=== PATIENT | female | born 1965 | race Caucasian/White ===

== ENCOUNTER 2021-06-06 11:46 | Inpatient (IN) ==
[2021-06-06] MEDS ORDERED: dexAMETHasone**PF** 10 MG/ML VIAL IV ONE (12:32)
[2021-06-06] MEDS ORDERED: SODIUM CHLORIDE 0.9% 1000ML 1,000 ML IV ONE (12:32)
[2021-06-06] MEDS ORDERED: MoRPHine SULFATE 4 MG/ML 1 ML CARP\\VIAL IV STA (12:32)
[2021-06-06] MEDS ORDERED: ACETAMINOPHEN 1,000 MG/100 ML VIAL IV STA (12:32)
[2021-06-06 13:04] LABS: Hematocrit (blood only) 35.8 % (37-47); Hemoglobin 12.7 g/dL (12.0-16.0); Mean Corpuscular Hemoglobin 31.9 pg (25-34); Mean Corpuscular Hgb Conc 35.5 g/dL (32-36); Mean Corpuscular Volume 89.9 fL (80-100); Mean Platelet Volume 10.1 fL (7.4-10.4); Platelet Count 145 K/uL (130-400); RDW Coefficient of Variation 14.2 % (11.5-14.5); Red Blood Count 3.98 M/uL (4.2-5.4); White Blood Count 0.43 K/uL (4.8-10.8)
--- NOTE | 2021-06-06 13:08 | Emergency Department Note ---
Impression & Plan Multifocal pneumonia, Leukopenia, Hypokalemia, Hypomagnesemia, Follicular lymphoma, Elevated troponin ED Provider Note NAME: MUSTAPHA BRUNSON AGE: 56 SEX: F ARRIVES VIA: Walk-In INFORMANT: Patient ED PROVIDER(S): Gildardo Carter MD CHIEF COMPLAINT: Left neck pain/shoulder pain, back pain, follicular lymphoma. PLAN: Disposition: Admit MEDICAL DECISION MAKING: The patient is a pleasant 56-year-old woman with a past medical history of follicular lymphoma who follows with [facility] oncology currently on rituximab, COPD with history of daily smoking, history of achalasia, status post laparoscopic Heller myotomy and/or fundoplication on 03/08 2021 which was performed for her dysphagia and regurgitation who presents to the emergency department accompanied by her daughter for worsening left neck, chest and shoulder pain that has been present for the past 2 months or more and is been worsening over the past week with development of mid back and lower back pain as well. She reports she has had ongoing chronic cough and congestion that is no worse or better. She denies any fevers. She has any vomiting or diarrhea. She denies any known COVID-19 exposures. On arrival the patient is uncomfortable but no acute distress, tachycardic in the 130s in the setting of her pain and use of her inhaler, but signs otherwise stable. O2 saturation is 95% on room air and greater. EKG demonstrates sinus tachycardia in the 130s with ST and T wave abnormalities without overt ST elevation. Chest x-ray with bibasilar opacities left greater than right suspicious for aspiration pneumonia. WBC 0.43K and so neutropenia is presumed. Hemoglobin and platelets within normal limits. Chemistry without metabolic acidosis. Potassium 3.2 and magnesium 1.4 with repletion provided. Total bilirubin 1.1 with direct bilirubin 0.4, nonspecific. LFTs are otherwise unremarkable. Initial troponin 0.05 and BNP 129, nonspecific. Lipase is not elevated. Procalcitonin was elevated at 12.2. COVID-19 RNA, ETHEL test was negative. CT of the head was negative for acute process. Sinus disease is appreciated. CT soft tissue neck negative for acute process. No enlarged lymph nodes seen. CTA of the chest negative for PE however multi focal airspace consolidation is suspicious for pneumonia. Mildly enlarged mediastinal lymph nodes are seen and may be reactive. CT of the abdomen pelvis demonstrates no additional acute findings otherwise. Patient was treated empirically with Zosyn and vancomycin. Patient and daughter agree with plan for admission for further management. Case was discussed with Rod Weiss, with Dr. Venegas Hayward Hospitalist who will evaluate the patient for admission. Triage Nursing notes reviewed and agree them. Prior medical records reviewed Vital Signs: reviewed and remarkable for tachycardia. Differential diagnosis: Cardiac ischemia, aortic dissection, pulmonary embolism, pneumothorax, pneumonia, pericarditis, myocarditis, esophageal rupture, GERD, cholecystitis, pancreatitis, musculoskeletal, as well as other pathologies. ER treatment provided: See below. Diagnostics interpreted by me: ECG: Sinus tachycardia, 133 bpm, no ectopy, ST and T wave abnormality, no overt ST elevation, QTC 580, QRS 84 Cardiac Monitoring: An order for continuous cardiac monitoring was placed and demonstrated sinus tachycardia, 133 bpm, no ectopy. Laboratory studies: See below Imaging studies: See below Consultation(s): Case was discussed with Rex Weiss ED[facility] who will evaluate the patient for admission. HPI: The patient is a pleasant 56-year-old woman with a past medical history of follicular lymphoma who follows with [facility] oncology currently on rituximab, COPD with history of daily smoking, history of achalasia, status post laparoscopic Heller myotomy and/or fundoplication on 03/08 2021 which was performed for her dysphagia and regurgitation who presents to the emergency department accompanied by her daughter for worsening left neck, chest and shoulder pain that has been present for the past 2 months or more and is been worsening over the past week with development of mid back and lower back pain as well. She reports she has had ongoing chronic cough and congestion that is no worse or better. She denies any fevers. She has any vomiting or diarrhea. She denies any known COVID-19 exposures. ROS: See above HPI for pertinent positives & negatives. A total of 10 systems reviewed and were otherwise negative. PAST MEDICAL HISTORY:See Below PAST SURGICAL HISTORY:See Below FAMILY HISTORY:See Below SOCIAL HISTORY:See Below HOME MEDICATIONS:See Below ALLERGIES:See Below VITALS:See Below PHYSICAL EXAMINATION: GENERAL: Awake, alert, uncomfortable-appearing, cachectic, in no distress HENT: Normocephalic, atraumatic. Oropharynx mucous membranes. EYES: Normal conjunctiva. Sclera non-icteric. NECK: Supple. No nuchal rigidity. FROM. No JVD. No bruits. RESPIRATORY: Scant intermittent wheeze otherwise clear to auscultation. CARDIAC: Tachycardic rate, normal rhythm. Extremities warm and well perfused. Pulses equal. ABDOMEN: Soft, non-distended. No tenderness to palpation. No rebound or guarding . No masses. RECTAL: Deferred. MUSCULOSKELETAL: Chest examination reveals no tenderness. The back is symmetrical on inspection without obvious abnormality. There is no CVA tenderness to palpation. No joint edema. LOWER EXTREMITIES: Calves are equal size bilaterally and non-tender. No edema. No discoloration. NEURO: Normal sensorium. No sensory or motor deficits noted. SKIN: No rash or jaundice noted. ED COURSE: Critical Care: I have personally spent greater than 35 minutes of critical care time in the direct management of this patient. This includes bedside care, interpretation of diagnostic studies, and testing, discussion with consultants, patient, and family members, and other required patient management activities. This 35 minutes is in excess of all separately billable procedures. 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 Beliefs That Will Affect Care: None Current Living Situation: Significant Other Feels Safe at Home: Yes Assistive Devices: Denture - Upper, Denture - Lower and Glasses Allergies Allergies Allergy/AdvReac Type Severity Reaction Status Date / Time No Known Allergies Allergy Verified 06/06/21 14:47 Home Meds Home Medications Medication Instructions Recorded Confirmed albuterol sulfate 90 mcg/actuation 2 puff INHALATION QID PRN 06/06/21 06/06/21 aerosol inhaler fluticasone propionate 50 2 spray INTRANASAL DAILY 06/06/21 06/06/21 mcg/actuation nasal spray,suspension gabapentin 100 mg capsule 100 mg PO DAILY 06/06/21 06/06/21 ibuprofen 800 mg tablet 800 mg PO TID PRN 06/06/21 06/06/21 mometasone-formoterol HFA 100 2 puff INHALATION BID 06/06/21 06/06/21 mcg-5 mcg/actuation aerosol inhaler (Dulera) pantoprazole 40 mg tablet,delayed 40 mg PO QDB 06/06/21 06/06/21 release Results & Data (ED) Vital Signs Vital Signs - 24 hr 06/06/21 11:56 06/06/21 12:10 06/06/21 12:30 Temperature 36.8 C Temperature Source Temporal Artery Scan Pulse Rate 95 H 128 H 128 H Pulse Rate [Apical] Pulse Rate from SpO2 Sensor 129 H 128 H Pulse Rhythm [Apical] Pulse Strength [Apical] Respiratory Rate 20 33 H 45 H Respiratory Effort / Characteristics Respiratory Depth Blood Pressure 112/65 Blood Pressure [Left Arm] Blood Pressure Mean 80 Blood Pressure Mean [Left Arm] Pulse Oximetry 100 99 97 Oxygen Delivery Method Room Air Sepsis Recent Fever Within 48 Hours No Sepsis New/Unexplained Change in Mental Status No Sepsis Action Taken by Nursing No Action Required 06/06/21 12:49 06/06/21 13:00 06/06/21 14:00 Temperature 36.4 C L Temperature Source Oral Pulse Rate 123 H 122 H Pulse Rate [Apical] 114 H Pulse Rate from SpO2 Sensor 122 H 121 H Pulse Rhythm [Apical] Regular Pulse Strength [Apical] Normal Respiratory Rate 40 H 30 H 18 Respiratory Effort / Characteristics Non-Labored Respiratory Depth Normal Blood Pressure 101/60 104/68 Blood Pressure [Left Arm] 105/55 L Blood Pressure Mean 73 80 Blood Pressure Mean [Left Arm] 71 Pulse Oximetry 91 98 90 Oxygen Delivery Method Room Air Sepsis Recent Fever Within 48 Hours Sepsis New/Unexplained Change in Mental Status Sepsis Action Taken by Nursing 06/06/21 15:00 06/06/21 15:30 Temperature Temperature Source Pulse Rate 107 H 113 H Pulse Rate [Apical] Pulse Rate from SpO2 Sensor 107 H 112 H Pulse Rhythm [Apical] Pulse Strength [Apical] Respiratory Rate 28 H 24 Respiratory Effort / Characteristics Respiratory Depth Blood Pressure 107/61 130/86 Blood Pressure [Left Arm] Blood Pressure Mean 76 100 Blood Pressure Mean [Left Arm] Pulse Oximetry 93 93 Oxygen Delivery Method Room Air Room Air Sepsis Recent Fever Within 48 Hours Sepsis New/Unexplained Change in Mental Status Sepsis Action Taken by Nursing Laboratory Data Attestation: I reviewed the patient's lab results. Result diagrams: 06/06/21 12:54 06/06/21 12:54 Lab Results 06/06/21 06/06/21 06/06/21 Range/Units 12:54 12:54 12:54 WBC 0.43 L* (4.8-10.8) K/uL RBC 3.98 L (4.2-5.4) M/uL Hgb 12.7 (12.0-16.0) g/dL Hct 35.8 L (37-47) % MCV 89.9 (80-100) fL MCH 31.9 (25-34) pg MCHC 35.5 (32-36) g/dL RDW Std Deviation 47.0 H (36.4-46.3) fL RDW Coeff of Dylan 14.2 (11.5-14.5) % Plt Count 145 (130-400) K/uL MPV 10.1 (7.4-10.4) fL Immature Gran % (Auto) Cancelled Neut % (Auto) Cancelled Lymph % (Auto) Cancelled Terrell % (Auto) Cancelled Eos % (Auto) Cancelled Baso % (Auto) Cancelled Neut # (Auto) Cancelled Lymph # (Auto) Cancelled Terrell # (Auto) Cancelled Eos # (Auto) Cancelled Baso # (Auto) Cancelled Immature Gran # (Auto) Cancelled Neutrophils % (Manual) Cancelled Band Neutrophils % Cancelled Lymphocytes % (Manual) Cancelled Prolymphocyte % Cancelled Reactive Lymphs % (Man) Cancelled Monocytes % (Manual) Cancelled Eosinophils % (Manual) Cancelled Basophils % (Manual) Cancelled Metamyelocytes % (Man) Cancelled Myelocytes % (Man) Cancelled Promyelocytes % (Man) Cancelled Blast Cells % (Manual) Cancelled Plasma Cell % (Manual) Cancelled Other Cells % Cancelled Nucleated RBC % Cancelled Neutrophils # (Manual) Cancelled Band Neutrophils # Cancelled Total Absolute Neuts Cancelled Lymphocytes # (Manual) Cancelled Prolymphocyte # Cancelled Reactive Lymphs # Cancelled Total Abs Lymphocytes Cancelled Monocytes # (Manual) Cancelled Eosinophils # (Manual) Cancelled Basophils # (Manual) Cancelled Metamyelocytes # (Man) Cancelled Myelocytes # (Manual) Cancelled Promyelocytes # (Man) Cancelled Blast Cells # (Man) Cancelled Plasma Cell # (Manual) Cancelled Other Cells # Cancelled Nucleated RBCs # (Man) Cancelled Hypersegmented Neuts Cancelled Hyposegmented Neuts Cancelled Hypogranular Neuts Cancelled Large Granular Lymphs Cancelled # Lrg Granular Lymphs Cancelled Hairy Cells Cancelled Smudge Cells Cancelled Toxic Granulation Cancelled Toxic Vacuolation Cancelled Dohle Bodies Cancelled Julio Rods Cancelled Hypogranular Platelets Cancelled Clumped Platelets Cancelled Giant Platelets Cancelled Platelet Satelliting Cancelled RBC Morphology Cancelled Polychromasia Cancelled Hypochromasia Cancelled Poikilocytosis Cancelled Basophilic Stippling Cancelled Anisocytosis Cancelled Microcytosis Cancelled Macrocytosis Cancelled Spherocytes Cancelled Pappenheimer Bodies Cancelled Sickle Cells Cancelled Target Cells Cancelled Tear Drop Cells Cancelled Ovalocytes Cancelled Stomatocytes Cancelled Lockett-[place] Bodies Cancelled Echinocytes Cancelled Acanthocytes (Spur) Cancelled Rouleaux Cancelled RBC Agglutinates Cancelled Schistocytes Cancelled RBC Morph Comment Cancelled Sezary Cell Cancelled Sodium 133 L (136-145) mmol/L Potassium 3.2 L (3.5-5.1) mmol/L Chloride 98 (98-107) mmol/L Carbon Dioxide 22 (21-32) mmol/L Anion Gap 13 H (3-11) BUN 19 (6-23) mg/dl Creatinine 1.04 (0.6-1.2) mg/dl Est Cr Clr Drug Dosing 49.1 ml/min Est GFR ( Amer) 70.5 ml/min Est GFR (Non-Af Amer) 60.9 ml/min BUN/Creatinine Ratio 18.3 (10-20) Glucose 105 H (70-99(Fasting)) mg/dl Lactate (0.4-2.0) mmol/L Calcium 8.8 (8.5-10.1) mg/dl Phosphorus 2.2 L (2.5-4.9) mg/dl Magnesium 1.4 L (1.7-2.4) mg/dl Total Bilirubin 1.1 H (0.2-1.0) mg/dl Direct Bilirubin 0.4 H (0-0.2) mg/dl AST 13 (13-39) U/L ALT 20 (7-52) U/L Alkaline Phosphatase 122 H (34-104) U/L Troponin I 0.05 H* (0-0.04) ng/ml B-Natriuretic Peptide (0-100) pg/ml Total Protein 6.6 (6.0-8.3) gm/dl Albumin 3.9 (3.4-5.0) gm/dl Globulin 2.7 (2.5-4.0) gm/dl Albumin/Globulin Ratio 1.4 (0.9-2) Lipase 5 L (11-82) U/L Procalcitonin 12.29 H (0-0.5) ng/ml SARS-CoV-2, RNA, NAAT (NEGATIVE) 06/06/21 06/06/21 06/06/21 Range/Units 13:08 13:10 17:14 WBC (4.8-10.8) K/uL RBC (4.2-5.4) M/uL Hgb (12.0-16.0) g/dL Hct (37-47) % MCV (80-100) fL MCH (25-34) pg MCHC (32-36) g/dL RDW Std Deviation (36.4-46.3) fL RDW Coeff of Dylan (11.5-14.5) % Plt Count (130-400) K/uL MPV (7.4-10.4) fL Immature Gran % (Auto) Neut % (Auto) Lymph % (Auto) Terrell % (Auto) Eos % (Auto) Baso % (Auto) Neut # (Auto) Lymph # (Auto) Terrell # (Auto) Eos # (Auto) Baso # (Auto) Immature Gran # (Auto) Neutrophils % (Manual) Band Neutrophils % Lymphocytes % (Manual) Prolymphocyte % Reactive Lymphs % (Man) Monocytes % (Manual) Eosinophils % (Manual) Basophils % (Manual) Metamyelocytes % (Man) Myelocytes % (Man) Promyelocytes % (Man) Blast Cells % (Manual) Plasma Cell % (Manual) Other Cells % Nucleated RBC % Neutrophils # (Manual) Band Neutrophils # Total Absolute Neuts Lymphocytes # (Manual) Prolymphocyte # Reactive Lymphs # Total Abs Lymphocytes Monocytes # (Manual) Eosinophils # (Manual) Basophils # (Manual) Metamyelocytes # (Man) Myelocytes # (Manual) Promyelocytes # (Man) Blast Cells # (Man) Plasma Cell # (Manual) Other Cells # Nucleated RBCs # (Man) Hypersegmented Neuts Hyposegmented Neuts Hypogranular Neuts Large Granular Lymphs # Lrg Granular Lymphs Hairy Cells Smudge Cells Toxic Granulation Toxic Vacuolation Dohle Bodies Julio Rods Hypogranular Platelets Clumped Platelets Giant Platelets Platelet Satelliting RBC Morphology Polychromasia Hypochromasia Poikilocytosis Basophilic Stippling Anisocytosis Microcytosis Macrocytosis Spherocytes Pappenheimer Bodies Sickle Cells Target Cells Tear Drop Cells Ovalocytes Stomatocytes Lockett-[place] Bodies Echinocytes Acanthocytes (Spur) Rouleaux RBC Agglutinates Schistocytes RBC Morph Comment Sezary Cell Sodium (136-145) mmol/L Potassium (3.5-5.1) mmol/L Chloride (98-107) mmol/L Carbon Dioxide (21-32) mmol/L Anion Gap (3-11) BUN (6-23) mg/dl Creatinine (0.6-1.2) mg/dl Est Cr Clr Drug Dosing ml/min Est GFR ( Amer) ml/min Est GFR (Non-Af Amer) ml/min BUN/Creatinine Ratio (10-20) Glucose (70-99(Fasting)) mg/dl Lactate 0.8 (0.4-2.0) mmol/L Calcium (8.5-10.1) mg/dl Phosphorus (2.5-4.9) mg/dl Magnesium (1.7-2.4) mg/dl Total Bilirubin (0.2-1.0) mg/dl Direct Bilirubin (0-0.2) mg/dl AST (13-39) U/L ALT (7-52) U/L Alkaline Phosphatase (34-104) U/L Troponin I (0-0.04) ng/ml B-Natriuretic Peptide 129 H (0-100) pg/ml Total Protein (6.0-8.3) gm/dl Albumin (3.4-5.0) gm/dl Globulin (2.5-4.0) gm/dl Albumin/Globulin Ratio (0.9-2) Lipase (11-82) U/L Procalcitonin (0-0.5) ng/ml SARS-CoV-2, RNA, NAAT NEGATIVE (NEGATIVE) Administered Medications Discontinued Medications Cefepime HCl (Cefepime 2,000 Mg/20 Ml Vial) Confirm Administered Dose 2,000 mg .ROUTE .STK-MED ONE Stop: 06/06/21 18:24 Last Admin: 06/06/21 18:26 Dose: Not Given Documented by: [id number] Dexamethasone Sodium Phosphate (DexamethasonePf 10 Mg/Ml Vial) 10 mg IV NOW ONE Stop: 06/06/21 12:33 Last Admin: 06/06/21 13:05 Dose: 10 mg Documented by: [id number] Sodium Chloride (Nss 1000ml) 1,000 mls @ 999 mls/hr IV .Q1H1M ONE Stop: 06/06/21 13:32 Last Infusion: 06/06/21 14:43 Dose: 0 mls/hr Documented by: [id number] Admin: 06/06/21 13:19 Dose: 999 mls/hr Documented by: [id number] Acetaminophen (Ofirmev) 1,000 mg in 100 mls @ 400 mls/hr IV NOW STA Stop: 06/06/21 12:46 Last Infusion: 06/06/21 13:41 Dose: 0 mls/hr Documented by: [id number] Admin: 06/06/21 13:08 Dose: 400 mls/hr Documented by: [id number] Piperacillin Sod/Tazobactam Sod (Zosyn) 4.5 gm in 120 mls @ 240 mls/hr IV NOW ONE Stop: 06/06/21 16:50 Last Infusion: 06/06/21 19:21 Dose: 0 mls/hr Documented by: [id number] Admin: 06/06/21 17:20 Dose: 240 mls/hr Documented by: [id number] Potassium Chloride (K Julio / Wtr) 10 meq in 100 mls @ 100 mls/hr IV Q1H LUDY; Protocol Stop: 06/06/21 18:29 Last Infusion: 06/06/21 19:25 Dose: 0 mls/hr Documented by: [id number] Admin: 06/06/21 18:24 Dose: 100 mls/hr Documented by: [id number] Infusion: 06/06/21 18:20 Dose: 100 mls/hr Documented by: [id number] Admin: 06/06/21 17:20 Dose: 100 mls/hr Documented by: [id number] Magnesium Sulfate/Dextrose (Magnesium Sulfate / D5w) 1 gm in 100 mls @ 100 mls/hr IV Q1H LUDY Stop: 06/06/21 18:24 Last Infusion: 06/06/21 19:26 Dose: 0 mls/hr Documented by: [id number] Admin: 06/06/21 18:26 Dose: 100 mls/hr Documented by: [id number] Infusion: 06/06/21 18:20 Dose: 100 mls/hr Documented by: [id number] Admin: 06/06/21 17:20 Dose: 100 mls/hr Documented by: [id number] Vancomycin HCl 1,250 mg/ (Sodium Chloride) 525 mls @ 200 mls/hr IV NOW ONE Stop: 06/06/21 19:21 Last Admin: 06/06/21 18:26 Dose: 200 mls/hr Documented by: [id number] Cefepime HCl 2,000 mg/ Syringe 20 mls @ 5 mls/min IV NOW STA; Protocol Stop: 06/06/21 17:54 Last Admin: 06/06/21 19:17 Dose: 5 mls/min Documented by: [id number] Ioversol (Optiray 320 125ml) 120 ml IV ONCE ONE Stop: 06/06/21 14:26 Last Admin: 06/06/21 14:25 Dose: 120 ml Documented by: [id number] Morphine Sulfate (Morphine Sulfate 4 Mg/Ml 1 Ml Carp\Vial) 4 mg IV NOW STA Stop: 06/06/21 12:33 Last Admin: 06/06/21 13:01 Dose: 4 mg Documented by: [id number] Potassium Phosphate (Potassium Phos 3 Mmol/1 Ml Infusion) 15 mmol IV NOW STA Stop: 06/06/21 18:35 Last Admin: 06/06/21 19:21 Dose: Not Given Documented by: [id number] Imaging Data Radiologist's Impression: Abdomen/Pelvis CT 06/06/21 12:30 CT ANGIOGRAM OF THE CHEST; CT SCAN OF THE ABDOMEN AND PELVIS WITH IV CONTRAST CLINICAL HISTORY: Lymphoma. Atypical chest pain. Back pain. Generalized abdominal pain. COMPARISON STUDY: Chest x-ray dated 06/06/2021. PET/CT dated 01/03/2021. TECHNIQUE: Following the IV administration of 120 of Optiray 320, CT angiogram of the chest is performed from the upper abdomen to the thoracic inlet utilizing the pulmonary embolus protocol. Images are reviewed in the axial, sagittal, coronal planes. 3-D MIPS images are created and assessed. Subsequently, CT scan of the abdomen and pelvis was performed from the lung bases to the proximal femora. Images are reviewed in the axial, sagittal, and coronal planes. IV contrast was administered without complication. A dose lowering technique was utilized adhering to the principles of ALARA. The examinations are degraded by streak artifact from the arms which could not be elevated above the chest or abdomen. CT DOSE: 1349.77 mGy.cm FINDINGS: CHEST: Thyroid: Imaged portions of the thyroid gland are normal in size and attenuation. Thoracic aorta: The thoracic aorta is normal in caliber and demonstrates standard 3-vessel arch anatomy. No dissection is seen. Pulmonary vasculature: The pulmonary trunk is normal in caliber. There are no filling defects identified in the main, lobar, or segmental pulmonary arteries to indicate pulmonary embolus. Heart: A right internal jugular central venous infusion port is in place. The heart is normal in size and without pericardial effusion. Lungs and pleural spaces: There is multifocal airspace consolidation seen throughout both lungs, most confluent at the left lung base and in the right middle lobe. No pleural effusion is identified. The trachea and central airways are clear. Mediastinum: There are numerous mildly enlarged mediastinal lymph nodes. A precarinal node on image #173 measures 10 mm short axis. A subcarinal node measures 1.2 cm in short axis. A prevascular node measures 1.0 cm in short axis. Kacie: Clear. Axillae: There is no axillary lymphadenopathy. Bony thorax: No lytic or blastic lesions are identified. ABDOMEN AND PELVIS: Liver: The contrast-enhanced liver is normal in size, contour, and attenuation. There is no intrahepatic or ductal dilatation. The hepatic veins and portal veins are patent. Gallbladder: Unremarkable. Spleen: Normal in size and attenuation, measuring 10.7 cm in length. Pancreas: Unremarkable. Adrenal glands: Unremarkable. Kidneys: The contrast enhanced kidneys are normal in size and without hydronephrosis. The kidneys enhance symmetrically. Abdominal vasculature: The abdominal aorta is normal in course and caliber noting mild atherosclerotic calcification. Bowel: Postoperative change is seen around the stomach. There is moderate colonic fecal retention. No bowel obstruction is seen. The appendix is not visualized. Peritoneum: There is no intraperitoneal free air or abdominal ascites. There is a fat-containing umbilical hernia. Lymphadenopathy: None. Pelvic viscera: The bladder is normal as visualized. The uterus is surgically ab sent. No adnexal lesion is seen. Skeletal structures: No lytic or blastic lesions are seen. IMPRESSION: 1. There is no evidence of pulmonary embolus in the main, lobar, or segmental pulmonary arteries. 2. Multifocal airspace consolidation is typical for pneumonia. Clinical correlat ion will be required and radiographic follow-up to resolution is recommended. 3. Mildly enlarged mediastinal lymph nodes are nonspecific and may be reactive. Attention at follow-up is recommended. 4. No acute infectious or inflammatory findings are identified in the abdomen or pelvis. 5. There is no lymphadenopathy seen in the abdomen or pelvis. 6. Additional findings as above. ACT 112: Negative or not required by law. Electronically signed by: Bin Alaniz M.D. 06/06/2021 2:38 PM Chest CTA 06/06/21 12:30 CT ANGIOGRAM OF THE CHEST; CT SCAN OF THE ABDOMEN AND PELVIS WITH IV CONTRAST CLINICAL HISTORY: Lymphoma. Atypical chest pain. Back pain. Generalized abdominal pain. COMPARISON STUDY: Chest x-ray dated 06/06/2021. PET/CT dated 01/03/2021. TECHNIQUE: Following the IV administration of 120 of Optiray 320, CT angiogram of the chest is performed from the upper abdomen to the thoracic inlet utilizing the pulmonary embolus protocol. Images are reviewed in the axial, sagittal, coronal planes. 3-D MIPS images are created and assessed. Subsequently, CT scan of the abdomen and pelvis was performed from the lung bases to the proximal fem ora. Images are reviewed in the axial, sagittal, and coronal planes. IV contrast was administered without complication. A dose lowering technique was utilized adhering to the principles of ALARA. The examinations are degraded by streak artifact from the arms which could not be elevated above the chest or abdomen. CT DOSE: 1349.77 mGy.cm FINDINGS: CHEST: Thyroid: Imaged portions of the thyroid gland are normal in size and attenuation. Thoracic aorta: The thoracic aorta is normal in caliber and demonstrates standard 3-vessel arch anatomy. No dissection is seen. Pulmonary vasculature: The pulmonary trunk is normal in caliber. There are no filling defects identified in the main, lobar, or segmental pulmonary arteries to indicate pulmonary embolus. Heart: A right internal jugular central venous infusion port is in place. The heart is normal in size and without pericardial effusion. Lungs and pleural spaces: There is multifocal airspace consolidation seen throughout both lungs, most confluent at the left lung base and in the right middle lobe. No pleural effusion is identified. The trachea and central airways are clear. Mediastinum: There are numerous mildly enlarged mediastinal lymph nodes. A precarinal node on image #173 measures 10 mm short axis. A subcarinal node measures 1.2 cm in short axis. A prevascular node measures 1.0 cm in short axis. Kacie: Clear. Axillae: There is no axillary lymphadenopathy. Bony thorax: No lytic or blastic lesions are identified. ABDOMEN AND PELVIS: Liver: The contrast-enhanced liver is normal in size, contour, and attenuation. There is no intrahepatic or ductal dilatation. The hepatic veins and portal veins are patent. Gallbladder: Unremarkable. Spleen: Normal in size and attenuation, measuring 10.7 cm in length. Pancreas: Unremarkable. Adrenal glands: Unremarkable. Kidneys: The contrast enhanced kidneys are normal in size and without hydronephrosis. The kidneys enhance symmetrically. Abdominal vasculature: The abdominal aorta is normal in course and caliber noting mild atherosclerotic calcification. Bowel: Postoperative change is seen around the stomach. There is moderate col onic fecal retention. No bowel obstruction is seen. The appendix is not visualized. Peritoneum: There is no intraperitoneal free air or abdominal ascites. There is a fat-containing umbilical hernia. Lymphadenopathy: None. Pelvic viscera: The bladder is normal as visualized. The uterus is surgically absent. No adnexal lesion is seen. Skeletal structures: No lytic or blastic lesions are seen. IMPRESSION: 1. There is no evidence of pulmonary embolus in the main, lobar, or segmental pulmonary arteries. 2. Multifocal airspace consolidation is typical for pneumonia. Clinical correlation will be required and radiographic follow-up to resolution is recommended. 3. Mildly enlarged mediastinal lymph nodes are nonspecific and may be reactive. Attention at follow-up is recommended. 4. No acute infectious or inflammatory findings are identified in the abdomen or pelvis. 5. There is no lymphadenopathy seen in the abdomen or pelvis. 6. Additional findings as above. ACT 112: Negative or not required by law. Electronically signed by: Bin Alaniz M.D. 06/06/2021 2:38 PM Chest X-Ray 06/06/21 12:30 XR chest 1V portable CLINICAL HISTORY: Atypical chest pain. COMPARISON STUDY: PET/CT January 03, 2021. FINDINGS: Right internal jugular [id number] is in place. No pneumothorax or pleural effusion is noted. Bibasilar opacities are noted, greater within the left lung. There is no evidence for pulmonary edema. Cardiac size is normal. Left upper quadrant surgical clips are incidentally noted. IMPRESSION: Bibasilar consolidation, greater within the left lung. The findings favor pneumonia or aspiration pneumonitis. Radiographic follow-up to ensure resolution is recommended. ACT 112: Negative or not required by law. Electronically signed by: Cl Espinal M.D. 06/06/2021 1:09 PM [address] Tissue Neck [address] 06/06/21 12:30 CT soft tissue neck w con CLINICAL HISTORY: L neck/shoulder/chest, back pain, h/o lymphoma Technique: Axial CT images of the soft tissues of the neck were obtained following intravenous administration of 100 cc of Omnipaque 300. Automated dose lowering techniques and/or adjustment according to patient size were utilized for this exam. Comparison: None available at the time of this dictation. Findings: There are no masses or inflammatory changes seen within the soft tissues of the neck. No enlarged lymph nodes are seen. The parotid glands, submandibular glands, and thyroid gland are unremarkable. The oropharynx, hypopharynx, larynx, and trachea are patent. Imaged portions of the brain parenchyma are unremarkable. Sinus disease is again seen in the maxillary and ethmoid air cells. Impression: No acute abnormalities and in particular no evidence of lymphadenopathy. ACT 112: Negative or not required by law. Electronically signed by: Yonis Newton M.D. 06/06/2021 2:[address] 06/06/21 13:15 CT head/brain wo con CLINICAL HISTORY: left neck pain, lymphoma Technique: Contiguous axial CT images of the head were acquired from the base of the skull to the vertex without intravenous contrast administration. Images were viewed in brain, subdural and bone windows. Automated dose lowering techniques and/or adjustment according to patient size were utilized for this exam. Comparison: None available at the time of this dictation. Findings: The ventricles, basal cisterns, and cerebral sulci are normal. There is no acute intracranial hemorrhage or evidence of acute territorial infarction. Neither mass effect, shift of the midline structures, nor abnormal extra-axial fluid collections are shown. Soft tissue thickening is seen in the ethmoid and right greater than left maxillary sinuses. The orbits appear normal. There are no acute fractures of the calvaria or scalp swelling. Impression: No acute intracranial hemorrhage, no evidence of acute territorial infarction or other acute intracranial disease process. Sinus disease is seen. ACT 112: Negative or not required by law. Electronically signed by: Yonis Newton M.D. 06/06/2021 2:26 PM Discharge Plan Visit Data Chief Complaint: Neck Injury/Pain Stated Complaint: NECK AND BACK PAIN, HEADACHE ED Provider: Gildardo Carter Discharge Problem: Multifocal pneumonia, Leukopenia, Hypokalemia, Hypomagnesemia, Follicular lymphoma, Elevated troponin Forms [facility] Prescriptions Prescriptions: No Action ibuprofen 800 mg tablet 800 mg PO TID PRN (Reason: Pain) RF: 0 pantoprazole 40 mg tablet,delayed release (DR/EC) 40 mg PO QDB RF: 0 gabapentin 100 mg capsule 100 mg PO DAILY RF: 0 albuterol sulfate 90 mcg/actuation HFA aerosol inhaler 2 puff INHALATION QID PRN (Reason: Shortness Of Breath) RF: 0 Dulera 100-5 mcg/actuation HFA aerosol inhaler 2 puff INHALATION BID RF: 0 fluticasone propionate 50 mcg/actuation spray,suspension 2 spray INTRANASAL DAILY RF: 0 Referrals Referrals: PCP,NO [Physician] - Discharge Problem: Leukopenia Qualifiers: Leukopenia type: unspecified Qualified Code(s): D72.819 - Decreased white blood cell count, unspecified Follicular lymphoma Qualifiers: Follicular lymphoma type: unspecified follicular type Lymphoma site: unspecified region Qualified Code(s): C82.90 - Follicular lymphoma, unspecified, unspecified site
--- NOTE | 2021-06-06 13:10 | XRay Report ---
XR chest 1V portable CLINICAL HISTORY: Atypical chest pain. COMPARISON STUDY: PET/CT January 03, 2021. FINDINGS: Right internal jugular [id number]-[id number] is in place. No pneumothorax or pleural effusion is no mark. Bibasilar opacities are noted, greater within the left lung. There is no evidence for pulmonary edema. Cardiac size is normal. Left upper quadrant surgical clips are incidentally noted. IMPRESSION: Bibasilar consolidation, greater within the left lung. The findings favor pneumonia or a spiration pneumonitis. Radiographic follow-up to ensure resolution is recommended. ACT 112: Negative or not required by law. Electronically signed by: Cl Espinal M.D. 06/06/2021 1:09 PM
[2021-06-06 13:40] LABS: Troponin I 0.05 ng/ml (0-0.04)
[2021-06-06 13:50] LABS: Albumin Globulin Ratio 1.4 (0.9-2); Albumin Level 3.9 gm/dl (3.4-5.0); BUN Creatinine Ratio 18.3 (10-20); Bilirubin Direct 0.4 mg/dl (0-0.2); Bilirubin,Total 1.1 mg/dl (0.2-1.0); Calcium 8.8 mg/dl (8.5-10.1); Creatinine Clr Calc Pharmacy 49.1 ml/min; Est GFR (African American) 70.5 ml/min; Est GFR (Non-African American) 60.9 ml/min; Globulin 2.7 gm/dl (2.5-4.0); Magnesium 1.4 mg/dl (1.7-2.4); Phosphorus 2.2 mg/dl (2.5-4.9); Potassium 3.2 mmol/L (3.5-5.1); Total Protein 6.6 gm/dl (6.0-8.3)
[2021-06-06] MEDS ORDERED: OPTIRAY 320 125ml IV ONE (14:25)
--- NOTE | 2021-06-06 14:27 | CT Scan Report ---
CT head/brain wo con CLINICAL HISTORY: left neck pain, lymphoma Technique: Contiguous axial CT images of the head were acquired from the base of the skull to the ariel julia without intravenous contrast administration. Images were viewed in brain, subdural and bone [facility] ws. Automated dose lowering techniques and/or adjustment according to patient size were utilized for this exam. Comparison: None available at the time of this dictation. Findings: The ventricles, basal cisterns, and cerebral sulci are normal. There is no acute intracranial hemorrh age or evidence of acute territorial infarction. Neither mass effect, shift of the midline structures , nor abnormal extra-axial fluid collections are shown. Soft tissue thickening is seen in the ethmoid and right greater than left maxillary sinuses. The orbi ts appear normal. There are no acute fractures of the calvaria or scalp swelling. Impression: No acute intracranial hemorrhage, no evidence of acute territorial infarction or other acute intracra nial disease process. Sinus disease is seen. ACT 112: Negative or not required by law. Electronically signed by: Yonis Newton M.D. 06/06/2021 2:26 PM
--- NOTE | 2021-06-06 14:35 | CT Scan Report ---
CT soft tissue neck w con CLINICAL HISTORY: L neck/shoulder/chest, back pain, h/o lymphoma Technique: Axial CT images of the soft tissues of the neck were obtained following intravenous admini stration of 100 cc of Omnipaque 300. Automated dose lowering techniques and/or adjustment according t o patient size were utilized for this exam. Comparison: None available at the time of this dictation. Findings: There are no masses or inflammatory changes seen within the soft tissues of the neck. No enlarged ly mph nodes are seen. The parotid glands, submandibular glands, and thyroid gland are unremarkable. T he oropharynx, hypopharynx, larynx, and trachea are patent. Imaged portions of the brain parenchyma are unremarkable. Sinus disease is again seen in the maxilla ry and ethmoid air cells. Impression: No acute abnormalities and in particular no evidence of lymphadenopathy. ACT 112: Negative or not required by law. Electronically signed by: Yonis Newton M.D. 06/06/2021 2:33 PM
--- NOTE | 2021-06-06 14:39 | CT Scan Report ---
CT ANGIOGRAM OF THE CHEST; CT SCAN OF THE ABDOMEN AND PELVIS WITH IV CONTRAST CLINICAL HISTORY: Lymphoma. Atypical chest pain. Back pain. Generalized abdominal pain. COMPARISON STUDY: Chest x-ray dated 06/06/2021. PET/CT dated 01/03/2021. TECHNIQUE: Following the IV administration of 120 of Optiray 320, CT angiogram of the chest is perfor med from the upper abdomen to the thoracic inlet utilizing the pulmonary embolus protocol. Images are reviewed in the axial, sagittal, coronal planes. 3-D MIPS images are created and assessed. Subsequen tly, CT scan of the abdomen and pelvis was performed from the lung bases to the proximal femora. Imag es are reviewed in the axial, sagittal, and coronal planes. IV contrast was administered without comp lication. A dose lowering technique was utilized adhering to the principles of ALARA. The examination s are degraded by streak artifact from the arms which could not be elevated above the chest or abdome n. CT DOSE: 1349.77 mGy.cm FINDINGS: CHEST: Thyroid: Imaged portions of the thyroid gland are normal in size and attenuation. Thoracic aorta: The thoracic aorta is normal in caliber and demonstrates standard 3-vessel arch anato my. No dissection is seen. Pulmonary vasculature: The pulmonary trunk is normal in caliber. There are no filling defects identif ied in the main, lobar, or segmental pulmonary arteries to indicate pulmonary embolus. Heart: A right internal jugular central venous infusion port is in place. The heart is normal in size and without pericardial effusion. Lungs and pleural spaces: There is multifocal airspace consolidation seen throughout both lungs, most confluent at the left lung base and in the right middle lobe. No pleural effusion is identified. The trachea and central airways are clear. Mediastinum: There are numerous mildly enlarged mediastinal lymph nodes. A precarinal node on image # 173 measures 10 mm short axis. A subcarinal node measures 1.2 cm in short axis. A prevascular node me asures 1.0 cm in short axis. Kacie: Clear. Axillae: There is no axillary lymphadenopathy. Bony thorax: No lytic or blastic lesions are identified. ABDOMEN AND PELVIS: Liver: The contrast-enhanced liver is normal in size, contour, and attenuation. There is no intrahepa tic or ductal dilatation. The hepatic veins and portal veins are patent. Gallbladder: Unremarkable. Spleen: Normal in size and attenuation, measuring 10.7 cm in length. Pancreas: Unremarkable. Adrenal glands: Unremarkable. Kidneys: The contrast enhanced kidneys are normal in size and without hydronephrosis. The kidneys enh ance symmetrically. Abdominal vasculature: The abdominal aorta is normal in course and caliber noting mild atheroscleroti c calcification. Bowel: Postoperative change is seen around the stomach. There is moderate colonic fecal retention. No bowel obstruction is seen. The appendix is not visualized. Peritoneum: There is no intraperitoneal free air or abdominal ascites. There is a fat-containing umbi lical hernia. Lymphadenopathy: None. Pelvic viscera: The bladder is normal as visualized. The uterus is surgically absent. No adnexal lesi on is seen. Skeletal structures: No lytic or blastic lesions are seen. IMPRESSION: 1. There is no evidence of pulmonary embolus in the main, lobar, or segmental pulmonary arteries. 2. Multifocal airspace consolidation is typical for pneumonia. Clinical correlation will be required and radiographic follow-up to resolution is recommended. 3. Mildly enlarged mediastinal lymph nodes are nonspecific and may be reactive. Attention at follow-u p is recommended. 4. No acute infectious or inflammatory findings are identified in the abdomen or pelvis. 5. There is no lymphadenopathy seen in the abdomen or pelvis. 6. Additional findings as above. ACT 112: Negative or not required by law. Electronically signed by: Bin Alaniz M.D. 06/06/2021 2:38 PM
--- NOTE | 2021-06-06 16:04 | Electrocardiogram Report ---
Test Reason : Blood Pressure : / mmHG Vent. Rate : 133 BPM Atrial Rate : 133 BPM P-R Int : 112 ms QRS Dur : 084 ms QT Int : 390 ms P-R-T Axes : 000 086 086 degrees QTc Int : 580 ms Sinus tachycardia Abnormal ECG When compared with ECG of 24-DEC-2019 12:50, Vent. rate has increased BY [address] now depressed in Lateral leads Nonspecific T wave abnormality now evident in Anterolateral leads Confirmed by Angel Arevalo ([id number]) on 06/06/2021 4:04:03 PM Referred By: REFERRED SELF Confirmed By:Supa Arevalo
[2021-06-06] MEDS ORDERED: PIPERACILLIN/TAZOBACTAM 4.5 GM/120 ML BAG IV ONE (16:21)
[2021-06-06] MEDS ORDERED: PIPERACILL/TAZOBAC CONSULT ACTIVE PRN (16:21)
[2021-06-06] MEDS ORDERED: VANCOMYCIN CONSULT ACTIVE PRN (16:44)
[2021-06-06] MEDS ORDERED: VANCOMYCIN HCL 1,250 MG in SODIUM CHLORIDE 0.9% 500 ML IV ONE (16:44)
[2021-06-06] MEDS: POTASSIUM CHLORIDE / WTR 10 MEQ/100 ML PLCT IV SCH ×2 (17:20→18:24)
[2021-06-06] MEDS: MAGNESIUM SULFATE / D5W 1 GM/100 ML BAG IV SCH ×2 (17:20→18:26)
[2021-06-06] MEDS ORDERED: CEFEPIME 2,000 MG in SYRINGE 0 ML IV STA (17:51)
[2021-06-06] MEDS ORDERED: CONSULT PHARMACY STA (17:51)
--- NOTE | 2021-06-06 18:12 | History & Physical Report ---
Date of Service June 06, 2021 Assessment & Plan (1) Multifocal pneumonia: Plan: COVID negative in ED, procalcitonin 12.29, leukopenic/neutropenic - Admit to PCU - Broad-spectrum antibiotic coverage with Cefepime/Vanco for now - cultures pending, consult ID - Continue nebs, maintenance inhaler - Incentive spirometry (2) Leukopenia: Plan: Spoke with pt's oncologist - unlikely related to rituximab, more likely related to infection - Daily labs - If not improving with appropriate antibiotic therapy, consider Neupogen per oncology - Neutropenic precautions (3) Left shoulder pain: Plan: Ongoing issue x 2 months - Check x-rays (4) Hypokalemia: (5) Hypomagnesemia: (6) Hypophosphatemia: (7) Chronic obstructive pulmonary disease: (8) Follicular lymphoma: Plan: In remission per last oncology note - on maintenance rituximab - Pt was scheduled for an outpatient PET scan on Sunday - may need to reschedule if still admitted Plan: Replete multiple electrolyte abnormalities and recheck in AM Pt seen and reviewed with collaborating physician, Dr. Venegas. Plan of care discussed and as outlined above. Code Status: Full code DVT Prophylaxis: Juan Jorgensen PA-C History of Present Illness Chief Complaint: weakness, generalized pain Primary Care Provider: Steve Quiñones PA-C This is a 56 y/o female with a PMH of stage IV low-grade follicular lymphoma (on maintenance rituximab), achalasia s/p Heller myotomy w/ Jaison fundoplication, and COPD who presented to the ED today with worsening shoulder pain that is now present diffusely as well as 3 days of chills, sweats, worsening productive cough and SOB. Pt completed 6 cycles of bendamustine and rituximab for the lymphoma on 07/08/20 and is now on maintenance rituximab with her last treatment on 05/19/21. She does still have a port in place. She reports left shoulder pain for at least the past two months that is aching and burning in character. The pain may radiate down her left side and to her back. She has been using ibuprofen 800 mg for this with minimal relief. She also notes ongoing sinus issues for which she has been on multiple courses of antibiotics over the past year. Over the past 2-3 days, she has developed shaking chills and soaking sweats. Unsure if she had a fever. She does have a chronic cough related to underlying COPD but this has been worsening and is productive of yellow sputum, no hemoptysis. She also notes increasing shortness of breath over the past two days. Typically, she uses her rescue albuterol inhaler once a day but used it at least four times yesterday with partial relief. Today she notes a DAMON. She is gagging but denies nausea or vomiting, rather relating this to ongoing PND. She has noted a "pinching" pain in her bilateral chest over the past few days, but only when she rolls on her side. It is relieved by lying flat. Allergies Allergy/AdvReac Type Severity Reaction Status Date / Time No Known Allergies Allergy Verified 06/06/21 14:47 Home Medications Medication Instructions Recorded Confirmed Type albuterol sulfate 90 mcg/actuation 2 puff INHALATION QID PRN 06/06/21 06/06/21 History aerosol inhaler fluticasone propionate 50 2 spray INTRANASAL DAILY 06/06/21 06/06/21 History mcg/actuation nasal spray,suspension gabapentin 100 mg capsule 100 mg PO DAILY 06/06/21 06/06/21 History ibuprofen 800 mg tablet 800 mg PO TID PRN 06/06/21 06/06/21 History mometasone-formoterol HFA 100 2 puff INHALATION BID 06/06/21 06/06/21 History mcg-5 mcg/actuation aerosol inhaler (Dulera) pantoprazole 40 mg tablet,delayed 40 mg PO QDB 06/06/21 06/06/21 History release Past Med/Surg History Medical History Achalasia Chronic obstructive pulmonary disease Follicular lymphoma Restless leg syndrome Surgical History H/O unilateral oophorectomy History of fundoplication Heller myotomy with Jaison fundoplication in 03/08/21 History of tonsillectomy History of tooth extraction Family History Other No significant family history Social History Smoking Status: Current every day smoker Tobacco Type: Cigarettes Cigarettes Per Day: 10; Second Hand Exposure: Yes; Hx Alcohol Use: No Hx Substance Use: No Preferred Language: Uzbek Communication Ability: Effective Workers' Compensation Magistrate Required: No Beliefs That Will Affect Care: None Current Living Situation: Significant Other How many Children do You have: 3 Other Information That Helps Us Care for You: No Feels Safe at Home: Yes Safety Concerns: Feels Safe At This Time Assistive Devices: None Review of Systems Review of Systems: All systems reviewed & are unremarkable except as noted in HPI & below Constitutional: + chills, + sweats, + body aches, + fatigue, + weakness and + anorexia Eyes: no diplopia Ear, Nose, Mouth, Throat: + post nasal drip and + sinus pain/pressure; no sore throat Respiratory: + cough and + dyspnea; no hemoptysis Cardiovascular: + chest pain; no palpitations, no lightheadedness, no syncope and no edema Gastrointestinal: no abdominal pain, no nausea, no vomiting, no diarrhea/loose stools and no blood in stools Genitourinary: no dysuria, no urinary frequency and no hematuria Musculoskeletal: + back pain, + joint pain, + muscle weakness and + body aches Integumentary: no rash and no yellowing of the skin Neurologic: + headache(s); no seizure-like activity and no syncope Physical Exam Constitutional: + thin and + frail appearing; no acute distress Eyes: + anicteric sclerae Neck: trachea midline Respiratory: no respiratory distress and no labored breathing Auscultation: + diminished lung sounds and + wheezes (occasional faint); no rales and no rhonchi Cardiovascular: Rate/Rhythm: regular rhythm and + tachycardic Heart Sounds: + gallop; no murmur and no cardiac rub Vessels: dorsalis pedis pulses present and radial pulses present Extremities: no calf tenderness and no pedal edema Gastrointestinal (Abdomen): Inspection/Auscultation: normal bowel sounds; abdomen not distended Percussion/Palpation: abdomen soft; abdomen nontender Musculoskeletal: Head/Neck/Chest: normocephalic, head atraumatic and neck supple Skin: no jaundice Neurologic: moves all extremities; no focal motor deficits Psychiatric: Orientation: oriented x 3 Affect: + anxious affect Results & Data Results & Data ([facility]) Vital Signs (Past 12 Hours) Vital Signs Temp Pulse Pulse Resp BP BP Pulse Ox 06/06/21 15:30 113 H 24 130/86 93 06/06/21 15:00 107 H 28 H 107/61 93 06/06/21 14:00 36.4 C L 114 H 18 105/55 L 90 06/06/21 13:00 122 H 30 H 104/68 98 06/06/21 12:49 123 H 40 H 101/60 91 06/06/21 12:30 128 H 45 H 97 06/06/21 12:10 128 H 33 H 99 06/06/21 11:56 36.8 C 95 H 20 112/65 100 Laboratory Results Laboratory Results - last 24 hr 06/06/21 06/06/21 06/06/21 12:54 12:54 12:54 WBC 0.43 L* RBC 3.98 L Hgb 12.7 Hct 35.8 L MCV 89.9 MCH 31.9 MCHC 35.5 RDW Std Deviation 47.0 H RDW Coeff of Dylan 14.2 Plt Count 145 MPV 10.1 Immature Gran % (Auto) Cancelled Neut % (Auto) Cancelled Lymph % (Auto) Cancelled [place] % (Auto) Cancelled Eos % (Auto) Cancelled Baso % (Auto) Cancelled Neut # (Auto) Cancelled Lymph # (Auto) Cancelled [place] # (Auto) Cancelled Eos # (Auto) Cancelled Baso # (Auto) Cancelled Immature Gran # (Auto) Cancelled Neutrophils % (Manual) Cancelled Band Neutrophils % Cancelled Lymphocytes % (Manual) Cancelled Prolymphocyte % Cancelled Reactive Lymphs % (Man) Cancelled Monocytes % (Manual) Cancelled Eosinophils % (Manual) Cancelled Basophils % (Manual) Cancelled Metamyelocytes % (Man) Cancelled Myelocytes % (Man) Cancelled Promyelocytes % (Man) Cancelled Blast Cells % (Manual) Cancelled Plasma Cell % (Manual) Cancelled Other Cells % Cancelled Nucleated RBC % Cancelled Neutrophils # (Manual) Cancelled Band Neutrophils # Cancelled Total Absolute Neuts Cancelled Lymphocytes # (Manual) Cancelled Prolymphocyte # Cancelled Reactive Lymphs # Cancelled Total Abs Lymphocytes Cancelled Monocytes # (Manual) Cancelled Eosinophils # (Manual) Cancelled Basophils # (Manual) Cancelled Metamyelocytes # (Man) Cancelled Myelocytes # (Manual) Cancelled Promyelocytes # (Man) Cancelled Blast Cells # (Man) Cancelled Plasma Cell # (Manual) Cancelled Other Cells # Cancelled Nucleated RBCs # (Man) Cancelled Hypersegmented Neuts Cancelled Hyposegmented Neuts Cancelled Hypogranular Neuts Cancelled Large Granular Lymphs Cancelled # Lrg Granular Lymphs Cancelled Hairy Cells Cancelled Smudge Cells Cancelled Toxic Granulation Cancelled Toxic Vacuolation Cancelled Dohle Bodies Cancelled Julio Rods Cancelled Hypogranular Platelets Cancelled Clumped Platelets Cancelled Giant Platelets Cancelled Platelet Satelliting Cancelled RBC Morphology Cancelled Polychromasia Cancelled Hypochromasia Cancelled Poikilocytosis Cancelled Basophilic Stippling Cancelled Anisocytosis Cancelled Microcytosis Cancelled Macrocytosis Cancelled Spherocytes Cancelled Pappenheimer Bodies Cancelled Sickle Cells Cancelled Target Cells Cancelled Tear Drop Cells Cancelled Ovalocytes Cancelled Stomatocytes Cancelled [place] Bodies Cancelled Echinocytes Cancelled Acanthocytes (Spur) Cancelled Rouleaux Cancelled RBC Agglutinates Cancelled Schistocytes Cancelled RBC Morph Comment Cancelled Sezary Cell Cancelled Sodium 133 L Potassium 3.2 L Chloride 98 Carbon Dioxide 22 Anion Gap 13 H BUN 19 Creatinine 1.04 Est Cr Clr Drug Dosing 49.1 Est GFR ( Amer) 70.5 Est GFR (Non-Af Amer) 60.9 BUN/Creatinine Ratio 18.3 Glucose 105 H Lactate Calcium 8.8 Phosphorus 2.2 L Magnesium 1.4 L Total Bilirubin 1.1 H Direct Bilirubin 0.4 H AST 13 ALT 20 Alkaline Phosphatase 122 H Troponin I 0.05 H* B-Natriuretic Peptide Total Protein 6.6 Albumin 3.9 Globulin 2.7 Albumin/Globulin Ratio 1.4 Lipase 5 L Procalcitonin 12.29 H SARS-CoV-2, RNA, NAAT 06/06/21 06/06/21 06/06/21 13:08 13:10 17:14 WBC RBC Hgb Hct MCV MCH MCHC RDW Std Deviation RDW Coeff of Dylan Plt Count MPV Immature Gran % (Auto) Neut % (Auto) Lymph % (Auto) [place] % (Auto) Eos % (Auto) Baso % (Auto) Neut # (Auto) Lymph # (Auto) [place] # (Auto) Eos # (Auto) Baso # (Auto) Immature Gran # (Auto) Neutrophils % (Manual) Band Neutrophils % Lymphocytes % (Manual) Prolymphocyte % Reactive Lymphs % (Man) Monocytes % (Manual) Eosinophils % (Manual) Basophils % (Manual) Metamyelocytes % (Man) Myelocytes % (Man) Promyelocytes % (Man) Blast Cells % (Manual) Plasma Cell % (Manual) Other Cells % Nucleated RBC % Neutrophils # (Manual) Band Neutrophils # Total Absolute Neuts Lymphocytes # (Manual) Prolymphocyte # Reactive Lymphs # Total Abs Lymphocytes Monocytes # (Manual) Eosinophils # (Manual) Basophils # (Manual) Metamyelocytes # (Man) Myelocytes # (Manual) Promyelocytes # (Man) Blast Cells # (Man) Plasma Cell # (Manual) Other Cells # Nucleated RBCs # (Man) Hypersegmented Neuts Hyposegmented Neuts Hypogranular Neuts Large Granular Lymphs # Lrg Granular Lymphs Hairy Cells Smudge Cells Toxic Granulation Toxic Vacuolation Dohle Bodies Julio Rods Hypogranular Platelets Clumped Platelets Giant Platelets Platelet Satelliting RBC Morphology Polychromasia Hypochromasia Poikilocytosis Basophilic Stippling Anisocytosis Microcytosis Macrocytosis Spherocytes Pappenheimer Bodies Sickle Cells Target Cells Tear Drop Cells Ovalocytes Stomatocytes [place] Bodies Echinocytes Acanthocytes (Spur) Rouleaux RBC Agglutinates Schistocytes RBC Morph Comment Sezary Cell Sodium Potassium Chloride Carbon Dioxide Anion Gap BUN Creatinine Est Cr Clr Drug Dosing Est GFR ( Amer) Est GFR (Non-Af Amer) BUN/Creatinine Ratio Glucose Lactate 0.8 Calcium Phosphorus Magnesium Total Bilirubin Direct Bilirubin AST ALT Alkaline Phosphatase Troponin I B-Natriuretic Peptide 129 H Total Protein Albumin Globulin Albumin/Globulin Ratio Lipase Procalcitonin SARS-CoV-2, RNA, NAAT NEGATIVE Diagnostic Findings CT Head 06/06/21 - Impression: No acute intracranial hemorrhage, no evidence of acute territorial infarction or other acute intracranial disease process. Sinus disease is seen. CT Soft Tissue Neck 06/06/21 - Impression: No acute abnormalities and in particular no evidence of lymphadenopathy. Chest X-ray 06/06/21 - IMPRESSION: Bibasilar consolidation, greater within the left lung. The findings favor pneumonia or aspiration pneumonitis. Radiographic follow-up to ensure resolution is recommended. CTA Chest/CT Abd/Pel 06/06/21 - IMPRESSION: 1. There is no evidence of pulmonary embolus in the main, lobar, or segmental pulmonary arteries. 2. Multifocal airspace consolidation is typical for pneumonia. Clinical correlation will be required and radiographic follow-up to resolution is recommended. 3. Mildly enlarged mediastinal lymph nodes are nonspecific and may be reactive. Attention at follow-up is recommended. 4. No acute infectious or inflammatory findings are identified in the abdomen or pelvis. 5. There is no lymphadenopathy seen in the abdomen or pelvis. 6. Additional findings as above. Medications Administered Potassium Chloride (K Julio / Wtr) 10 meq in 100 mls @ 100 mls/hr IV Q1H LUDY; Protocol Stop: 06/06/21 18:29 Last Admin: 06/06/21 17:20 Dose: 100 mls/hr Documented by: [id number] Magnesium Sulfate/Dextrose (Magnesium Sulfate / D5w) 1 gm in 100 mls @ 100 mls/hr IV Q1H LUDY Stop: 06/06/21 18:24 Last Admin: 06/06/21 17:20 Dose: 100 mls/hr Documented by: [id number] Discontinued Medications Dexamethasone Sodium Phosphate (DexamethasonePf 10 Mg/Ml Vial) 10 mg IV NOW ONE Stop: 06/06/21 12:33 Last Admin: 06/06/21 13:05 Dose: 10 mg Documented by: [id number] Sodium Chloride (Nss 1000ml) 1,000 mls @ 999 mls/hr IV .Q1H1M ONE Stop: 06/06/21 13:32 Last Infusion: 06/06/21 14:43 Dose: 0 mls/hr Documented by: [id number] Admin: 06/06/21 13:19 Dose: 999 mls/hr Documented by: [id number] Acetaminophen (Ofirmev) 1,000 mg in 100 mls @ 400 mls/hr IV NOW STA Stop: 06/06/21 12:46 Last Infusion: 06/06/21 13:41 Dose: 0 mls/hr Documented by: [id number] Admin: 06/06/21 13:08 Dose: 400 mls/hr Documented by: [id number] Piperacillin Sod/Tazobactam Sod (Zosyn) 4.5 gm in 120 mls @ 240 mls/hr IV NOW ONE Stop: 06/06/21 16:50 Last Admin: 06/06/21 17:20 Dose: 240 mls/hr Documented by: [id number] Ioversol (Optiray 320 125ml) 120 ml IV ONCE ONE Stop: 06/06/21 14:26 Last Admin: 06/06/21 14:25 Dose: 120 ml Documented by: [id number] Morphine Sulfate (Morphine Sulfate 4 Mg/Ml 1 Ml Carp\\Vial) 4 mg IV NOW STA Stop: 06/06/21 12:33 Last Admin: 06/06/21 13:01 Dose: 4 mg Documented by: [id number] Code Status & VTE Plan VTE Prophylaxis Plan VTE Prophylaxis will be ordered: Yes Supervising Physician Co-Signing Physician Notes 56 y/o female with a PMH of stage IV low-grade follicular lymphoma (on maintenance rituximab), achalasia s/p Heller myotomy w/ Jaison fundoplication, and COPD who presented to the ED 06/06 with worsening L shoulder pain [aching and burning character] and left hip pain since 3 days [employer]ARD WORK[employer]. She uses heat and ibuprofen with minimal relief. She also reports chills and sweats, trouble swallowing, worsening productive cough (yellow) and shortness of breath. Upon lab review see his WBC of 0.43K, elevated procalcitonin, absolute neutropenia, mild hyponatremia, low potassium and magnesium, mildly elevated troponin at 0.05. Imagings reviewed. CTAP/CTA chest positive for pneumonia associated with mildly enlarged mediastinal lymph nodes likely reactive. No other acute findings appreciated. Soft tissue neck and head CT with no acute findings. For neutropenia and pneumonia, continue with vancomycin and Zosyn. ID consult. Follow cultures. Monitor and replete electrolytes. X-ray left shoulder. Trend troponins. Speech consult for swallowing difficulty. Upon examination GENERAL: Alert and oriented x3. NAD, on RA. HEENT: No pallor, no icterus. Pupils equal, round and reactive to light. Oral mucosa moist. NECK: No JVD, no neck masses. Right chest port noted without signs and symptoms of infection. HEART: S1 and S2 heard. Regular rate and rhythm. No murmur, no gallop. RESPIRATORY SYSTEM: Normal AP diameter. No accessory muscle use. No wheezing, b/l bb crackles. ABDOMEN: Soft, bowel sounds present, nontender, no distention. CENTRAL NERVOUS SYSTEM: No facial droop. Speech is clear. Obeys simple commands. Moves extremities. EXTREMITIES: No edema, no erythema seen. Left shoulder and left hip not tender on examination. I have seen and examined the patient and have discussed the case with the provider above. I agree with the assessment and plan as stated.
[2021-06-06] MEDS ORDERED: CEFEPIME 2,000 MG/20 ML VIAL ONE (18:23)
[2021-06-06] MEDS ORDERED: MAGNESIUM SULFATE / D5W 1 GM/100 ML BAG IV ONE (18:34)
[2021-06-06] MEDS ORDERED: POTASSIUM PHOS 3 MMOL/1 ML INFUSION IV STA (18:34)
[2021-06-06] MEDS ORDERED: POTASSIUM PHOSPHATE 15 MMOL in SODIUM CHLORIDE 0.9% 250 ML IV ONE (18:45)
[2021-06-06] MEDS: ALBUT/IPRATROP 3MG/0.5MG NEB 3 ML VIAL NEB SCH (20:44)
--- NOTE | 2021-06-06 20:56 | Pharmacy Report ---
Pharmacy Abx Dose Short Note - Date of Service June 06, 2021 - Assessment & Plan Assessment 56 year old F receiving IV Vancomycin and Cefepime for treatment of multi-focal pneumonia Day # 1 of antimicrobial therapy. * Patient received Vancomycin 1250mg (~25mg/kg) IV x 1 as a loading dose in the ED * sCr = 1.04 mg/dL with estimated CrCl ~49 mL/min. Estimated pharmacokinetic parameters: * Ke ~0.045/hr, T1/2 ~15.4 hrs Plan Vancomycin * Vancomycin AUC is preferred method for dosing Vancomycin * According to [facility], Vancomycin regimen of 750mg IV q18 is predicted to achieve therapeutic AUC 400-600 with 9% risk for nephrotoxicity * Goal trough level for pneumonia : 15 to 20 mcg/mL * Trough level ordered for: 06/08/21 @ 0530 (early level not reflective of steady state) * MRSA nasal swab ordered to assist with potential de-escalation Pharmacy will continue to follow and will adjust dose/frequency as necessary. Thank you.
[2021-06-07] MEDS ORDERED: HEPARIN 100 UNIT/ML 5ML FLUSH FLUSH PRN (01:18)
[2021-06-07 03:29] LABS: Hemoglobin 10.6 g/dL (12.0-16.0); Mean Corpuscular Hemoglobin 31.9 pg (25-34); Mean Corpuscular Hgb Conc 35.3 g/dL (32-36); Mean Corpuscular Volume 90.4 fL (80-100); Mean Platelet Volume 10.3 fL (7.4-10.4); Platelet Count 111 K/uL (130-400); RDW Coefficient of Variation 14.3 % (11.5-14.5); RDW Standard Deviation 47.3 fL (36.4-46.3); Red Blood Count 3.32 M/uL (4.2-5.4); White Blood Count 0.76 K/uL (4.8-10.8)
[2021-06-07 03:51] LABS: Anion Gap 9 (3-11); BUN Creatinine Ratio 26.7 (10-20); Blood Urea Nitrogen 20 mg/dl (6-23); Calcium 8.2 mg/dl (8.5-10.1); Carbon Dioxide 20 mmol/L (21-32); Chloride 104 mmol/L (98-107); Creatinine Clr Calc Pharmacy 68.4 ml/min; Echinocytes 1+; Est GFR (African American) 104.7 ml/min; Est GFR (Non-African American) 90.4 ml/min; Giant Platelets 1+; Glucose 303 mg/dl (70-99(Fasting)); Magnesium 2.5 mg/dl (1.7-2.4); Phosphorus 3.5 mg/dl (2.5-4.9); Potassium 3.6 mmol/L (3.5-5.1); Sodium 133 mmol/L (136-145)
[2021-06-07 03:53] LABS: ALC (manual) 0.29 K/uL (1.2-3.4); ANC (manual) 0.14 K/uL (1.4-6.5); Basophils % (manual) 0.6 %; Lymphocytes # (manual) 0.29 K/uL (1.2-3.4); Lymphocytes % (manual) 37.7 %; Metamyelocytes # (manual) 0.03 K/uL (0-0); Metamyelocytes % (manual) 3.7 %; Monocytes % (manual) 39.5 %; Neutrophils # (manual) 0.14 K/uL (1.4-6.5); Neutrophils % (manual) 18.5 %
[2021-06-07 05:19] LABS: Troponin I < 0.03 ng/ml (0-0.04)
[2021-06-07] MEDS: ALBUT/IPRATROP 3MG/0.5MG NEB 3 ML VIAL NEB SCH ×3 (07:10→14:44)
--- NOTE | 2021-06-07 07:30 | XRay Report ---
XR shoulder LT min 2V routine CLINICAL HISTORY: left shoulder pain x 2 months, hx lymphoma COMPARISON: PET/CT January 03, 2021. FINDINGS: Left lower lung airspace opacities are better depicted on recent chest CT. A right interna l jugular [id number] is in place. Alignment of the left shoulder is anatomic. There is no acute fr acture. There are no suspicious osseous lesions. Mild osteoarthritis of the left acromioclavicular an d glenohumeral joints is noted. There may be slight elevation of the left humeral head. IMPRESSION: 1. No acute fracture or dislocation within the left shoulder. 2. Mild osteoarthritis of the left acromioclavicular and glenohumeral joints. ACT 112: Negative or not required by law. Electronically signed by: Cl Espinal M.D. 06/07/2021 7:29 AM
[2021-06-07] MEDS: FLUTICASONE/VILANTEROL 100/25MCG 14 PUFFS/INHALER INH SCH (07:57)
[2021-06-07] MEDS: PANTOprazole 40 MG TAB PO SCH (07:57)
[2021-06-07] MEDS: GABAPENTIN 100 MG CAP PO SCH (07:57)
[2021-06-07] MEDS ORDERED: CEFEPIME 2,000 MG in SYRINGE 0 ML IV SCH (08:00)
--- NOTE | 2021-06-07 11:13 | Hospitalist Progress Note ---
Date of Service June 07, 2021 Assessment & Plan (1) Sepsis: (2) Leukopenia: (3) Multifocal pneumonia: Plan: Patient meets criteria for sepsis on admission based on SIRS criteria [leukopenia, tachycardia, tachypnea] and multifocal pneumonia on x-ray COVID negative in ED, procalcitonin 12.29, leukopenic/neutropenic Appears patient has chronic sinusitis and has been having left ear problem for the past month with outpatient follow-up with ENT and all the doctors which reported perforated tympanic membrane per records. Sepsis due to multifocal pneumonia in an immunocompromised patient. Gram-negative pneumonia as possible. Continue broad-spectrum antibiotics Get sputum culture. Follow-up blood cultures Currently on room air. Continue supportive care with nebs and incentive spirometry Monitor blood counts Neutropenic precautions Patient's lab work from 05/19/2021 as well labs over the past year on [facility] had normal white count and patient has been on maintenance rituximab Leukopenia likely due to sepsis. Less likely due to rituximab We will monitor for now Admitting provider spoke with oncologist who recommend monitoring for now and other treatment as above. But may consider Neupogen if not improving with appropriate antibiotics (4) Left shoulder pain: Plan: Ongoing issue x 2 months X-ray did not show any acute fracture dislocation but showed mild osteoarthritis of left acromioclavicular and glenohumeral joints. Tylenol as needed. (5) Hypokalemia: (6) Hypomagnesemia: (7) Hypophosphatemia: Plan: Electrolytes repleted. Monitor (8) Chronic obstructive pulmonary disease: (9) Follicular lymphoma: Plan: In remission per last oncology note - on maintenance rituximab Pt was scheduled for an outpatient PET scan on Sunday - Will need to rescheduled Hb dropped from 12.7 to 10.6 today. Likely dilutional Will monitor SCD for DVT ppx today. If Hb is stable, start pharmacological agent Admission and Anticipated Discharge Date Admission Date: June 06, 2021 Subjective Patient seen and examined. Continues to report a productive cough associated with chest discomfort. Patient also reports chronic left ear discomfort, no pain or ear discharge. Denies nausea, vomiting, diarrhea, abdominal pain. Denies fevers, chills, Denies dysuria, frequency, urgency Physical Exam Constitutional: + ill appearing, + well hydrated and + thin; no acute distress Eyes: PERRL, conjunctivae normal, anicteric sclerae ENMT: external ear and nose normal, oropharynx normal Respiratory: normal respiratory effort; no respiratory distress Diminished breath sounds No crackles Cardiovascular: Rate/Rhythm: regular rate and regular rhythm S1 S2 Gastrointestinal (Abdomen): normal bowel sounds, soft, nontender, no hepatosplenomegaly Musculoskeletal: no cyanosis or clubbing, extremities motor strength 5/5 Neurologic: PERRL, EOMI, accommodation nl, no face palsy, no dysarthria Psychiatric: A+Ox3, euthymic affect Results & Data Results & Data ([facility]) Vital Signs (Past 12 Hours) Vital Signs Temp Pulse Pulse Resp BP Pulse Ox 06/07/21 10:20 77 16 97 06/07/21 08:12 36.4 C L 96 H 18 95/66 L 98 06/07/21 08:00 64 06/07/21 07:11 67 16 97 06/07/21 03:54 36.5 C 79 18 105/70 96 06/07/21 00:10 80 Laboratory Results Abnormal lab results 06/06/21 06/07/21 06/07/21 Range/Units 12:54 02:47 02:47 WBC 0.76 L* (4.8-10.8) K/uL RBC 3.32 L (4.2-5.4) M/uL Hgb 10.6 L (12.0-16.0) g/dL Hct 30.0 L (37-47) % RDW Std Deviation 47.3 H (36.4-46.3) fL Plt Count 111 L (130-400) K/uL Neutrophils # (Manual) 0.14 L (1.4-6.5) K/uL Total Absolute Neuts 0.14 L* (1.4-6.5) K/uL Lymphocytes # (Manual) 0.29 L (1.2-3.4) K/uL Total Abs Lymphocytes 0.29 L (1.2-3.4) K/uL Metamyelocytes # (Man) 0.03 H (0-0) K/uL Sodium 133 L (136-145) mmol/L Carbon Dioxide 20 L (21-32) mmol/L BUN/Creatinine Ratio 26.7 H (10-20) Glucose 303 H* (70-99(Fasting)) mg/dl POC Glucose (70-99) mg/dl Calcium 8.2 L (8.5-10.1) mg/dl Magnesium 2.5 H (1.7-2.4) mg/dl Procalcitonin 12.29 H (0-0.5) ng/ml 06/07/21 06/07/21 06/07/21 Range/Units 03:49 06:18 07:29 WBC (4.8-10.8) K/uL RBC (4.2-5.4) M/uL Hgb (12.0-16.0) g/dL Hct (37-47) % RDW Std Deviation (36.4-46.3) fL Plt Count (130-400) K/uL Neutrophils # (Manual) (1.4-6.5) K/uL Total Absolute Neuts (1.4-6.5) K/uL Lymphocytes # (Manual) (1.2-3.4) K/uL Total Abs Lymphocytes (1.2-3.4) K/uL Metamyelocytes # (Man) (0-0) K/uL Sodium (136-145) mmol/L Carbon Dioxide (21-32) mmol/L BUN/Creatinine Ratio (10-20) Glucose (70-99(Fasting)) mg/dl POC Glucose 290 H 209 H 159 H (70-99) mg/dl Calcium (8.5-10.1) mg/dl Magnesium (1.7-2.4) mg/dl Procalcitonin (0-0.5) ng/ml 06/07/21 Range/Units 11:29 WBC (4.8-10.8) K/uL RBC (4.2-5.4) M/uL Hgb (12.0-16.0) g/dL Hct (37-47) % RDW Std Deviation (36.4-46.3) fL Plt Count (130-400) K/uL Neutrophils # (Manual) (1.4-6.5) K/uL Total Absolute Neuts (1.4-6.5) K/uL Lymphocytes # (Manual) (1.2-3.4) K/uL Total Abs Lymphocytes (1.2-3.4) K/uL Metamyelocytes # (Man) (0-0) K/uL Sodium (136-145) mmol/L Carbon Dioxide (21-32) mmol/L BUN/Creatinine Ratio (10-20) Glucose (70-99(Fasting)) mg/dl POC Glucose 161 H (70-99) mg/dl Calcium (8.5-10.1) mg/dl Magnesium (1.7-2.4) mg/dl Procalcitonin (0-0.5) ng/ml (1) Leukopenia Leukopenia type: unspecified Qualified Code(s): D72.819 - Decreased white blood cell count, unspecified (2) Follicular lymphoma Follicular lymphoma type: unspecified follicular type Lymphoma site: unspecified region Qualified Code(s): C82.90 - Follicular lymphoma, unspecified, unspecified site
[2021-06-07] MEDS: VANCOMYCIN HCL 750 MG in SODIUM CHLORIDE 0.9% 250 ML IV SCH ×2 (11:14→21:06)
[2021-06-07] MEDS ORDERED: VANCOMYCIN HCL 750 MG in SODIUM CHLORIDE 0.9% 250 ML IV SCH (12:00)
[2021-06-07] MEDS ORDERED: VANCOMYCIN HCL 1,000 MG in SODIUM CHLORIDE 0.9% 250 ML IV SCH (12:00)
--- NOTE | 2021-06-07 12:17 | Electrocardiogram Report ---
Test Reason : Blood Pressure : / mmHG Vent. Rate : 065 BPM Atrial Rate : 065 BPM P-R Int : 142 ms QRS Dur : 094 ms QT Int : 388 ms P-R-T Axes : 078 084 073 degrees QTc Int : 403 ms Normal sinus rhythm Normal ECG When compared with ECG of 06-JUN-2021 12:06, Vent. rate has decreased BY [address] no longer depressed in Anterolateral leads T wave inversion no longer evident in Inferior leads Nonspecific T wave abnormality no longer evident in Lateral leads Confirmed by Angel Arevalo ([id number]) on 06/07/2021 12:16:54 PM Referred By: REFERRED SELF Confirmed By:Supa Arevalo
[2021-06-07] MEDS: CEFEPIME 2,000 MG in SYRINGE 0 ML IV SCH (15:46)
[2021-06-07] MEDS ORDERED: ALBUT/IPRATROP 3MG/0.5MG NEB 3 ML VIAL NEB PRN (17:50)
[2021-06-07] MEDS: ACETAMINOPHEN 325 MG TAB PO PRN (21:06)
[2021-06-08] MEDS: CEFEPIME 2,000 MG in SYRINGE 0 ML IV SCH ×3 (00:09→15:55)
[2021-06-08] MEDS ORDERED: VANCOMYCIN TROUGH ONE (05:30)
[2021-06-08 07:16] LABS: Hematocrit (blood only) 32.4 % (37-47); Hemoglobin 11.3 g/dL (12.0-16.0); Mean Corpuscular Hemoglobin 31.7 pg (25-34); Mean Corpuscular Hgb Conc 34.9 g/dL (32-36); Mean Platelet Volume 10.7 fL (7.4-10.4); Platelet Count 162 K/uL (130-400); RDW Coefficient of Variation 14.7 % (11.5-14.5); RDW Standard Deviation 49.6 fL (36.4-46.3); Red Blood Count 3.56 M/uL (4.2-5.4); White Blood Count 1.76 K/uL (4.8-10.8)
[2021-06-08 07:42] LABS: BUN Creatinine Ratio 32.9 (10-20); Calcium 8.7 mg/dl (8.5-10.1); Creatinine Clr Calc Pharmacy 70.2 ml/min; Est GFR (African American) 108.2 ml/min; Est GFR (Non-African American) 93.4 ml/min; Potassium 3.3 mmol/L (3.5-5.1)
[2021-06-08 07:52] LABS: Echinocytes 1+; Hypogranular Neutrophils 1+
[2021-06-08] MEDS: PANTOprazole 40 MG TAB PO SCH (07:54)
[2021-06-08] MEDS: GABAPENTIN 100 MG CAP PO SCH (07:54)
[2021-06-08] MEDS: FLUTICASONE/VILANTEROL 100/25MCG 14 PUFFS/INHALER INH SCH (07:55)
[2021-06-08 08:06] LABS: ALC (manual) 0.42 K/uL (1.2-3.4); ANC (manual) 0.52 K/uL (1.4-6.5); Eosinophils # (manual) 0.02 K/uL (0-0.5); Eosinophils % (manual) 0.9 %; Lymphocytes # (manual) 0.42 K/uL (1.2-3.4); Lymphocytes % (manual) 23.7 %; Monocytes % (manual) 45.6 %; Neutrophils # (manual) 0.52 K/uL (1.4-6.5); Neutrophils % (manual) 29.8 %
--- NOTE | 2021-06-08 09:05 | Pharmacy Report ---
Pharmacy Abx Dose Short Note - Date of Service June 08, 2021 - Assessment & Plan Assessment 56 year old F receiving empiric vancomycin + cefepime for treatment of multi- focal pneumonia * PMH significant for COPD and stage IV low-grade follicular lymphoma - patient has port in place, s/p treatment with bendamustine and rituximab now on rituximab maintenance therapy * negative MRSA swab, preliminary BC negative, sputum culture ordered but not yet obtained * Day # 3 of antimicrobial therapy Plan Vancomycin * Current regimen: 750 mg IV q12h * Random level drawn this am resulted at 10.5 mcg/mL * Increase dose to 1000 mg (19.8 mg/kg) IV q12h * New regimen predicted to achieve AUC24 within goal of 400-600 mg/L.hr * predicted AUC at steady state: 567 mg/L.hr * probability of AUC24 > 400: 96 % * predicted trough at steady state: 16.6 mg/L * Will repeat level in ~48 hours if patient remains on vancomycin Continues on cefepime 2000 mg IV q8h Pharmacy will continue to follow and will adjust dose/frequency as necessary. Thank you.
[2021-06-08 09:16] LABS: Estimated Average Glucose 120 mg/dl; Hemoglobin A1C 5.8 % (4.5-5.6)
[2021-06-08] MEDS ORDERED: POTASSIUM CHLORIDE CRTAB 20 MEQ TABCR PO ONE (09:43)
[2021-06-08] MEDS: VANCOMYCIN HCL 1,000 MG in SODIUM CHLORIDE 0.9% 250 ML IV SCH ×2 (10:38→22:19)
[2021-06-08] MEDS: ACETAMINOPHEN 325 MG TAB PO PRN ×2 (15:54→22:20)
--- NOTE | 2021-06-08 17:31 | Hospitalist Progress Note ---
Date of Service June 08, 2021 Assessment & Plan (1) Multifocal pneumonia: Plan: Multifocal pneumonia Neutropenia --CT Chest:There is no evidence of pulmonary embolus in the main, lobar, or segmental pulmonary arteries. Multifocal airspace consolidation is typical for pneumonia. Clinical correlation will be required and radiographic follow-up to resolution is recommended. Mildly enlarged mediastinal lymph nodes are nonspecific and may be reactive. Attention at follow-up is recommended. - COVID antigen screen negative Procalcitonin 12.29>>4.0 -MRSA screen: Negative -Blood, sputum cultures pending Continue vancomycin, cefepime none Appreciate ID input We will retest Covid PCR, RSV, influenza, urine Legionella antigen Plan to discontinue vancomycin tomorrow if cultures remain negative Continue nebs, maintenance inhaler Incentive spirometry (2) Leukopenia: Plan: Prior Hospitalist discussed with oncologist Dr. Madsen Unlikely related to rituximab Likely secondary to Infection Consider Neupogen per oncology if necessary Neutropenic precautions Monitor CBC (3) Left shoulder pain: Plan: Ongoing issue x 2 months - X ray:No acute fracture or dislocation within the left shoulder. Mild osteoarthritis of the left acromioclavicular and glenohumeral joints. (4) Hypokalemia: (5) Hypomagnesemia: (6) Hypophosphatemia: Plan: Replace electrolytes as needed (7) Chronic obstructive pulmonary disease: (8) Follicular lymphoma: Plan: In remission per last oncology note - on maintenance rituximab Needs follow-up with oncology upon discharge Plan: Code Status: Full code DVT Px: SCDs, Lovenox SQ Admission and Anticipated Discharge Date Admission Date: June 06, 2021 Subjective Patient is seen and examined at bedside States less cough today Also states having dyspnea on exertion Offers no other complaints Review of Systems Review of Systems: All systems reviewed & are unremarkable except as noted in Subjective Physical Exam Physical Exam: Physical Exam: Vitals signs as noted above General Appearance: Thin, frail, ill-appearing, no apparent distress Head: normocephalic, Atraumatic Eyes: normal inspection, EOMI Neck: supple, Trachea midline Respiratory/Chest: Decreased breath sounds, CTA, No accessory muscle use Cardiovascular: S1, S2, No murmur Abdomen/GI:Soft, Non tender, Bowel sounds present Extremities/Musculoskeletal:normal inspection, no edema Neurologic/Psych:AAOX3, grossly no focal neurological deficits Skin: normal color, warm Results & Data Results & Data ([facility]) Vital Signs (Past 12 Hours) Vital Signs Temp Pulse Resp BP Pulse Ox 06/08/21 16:45 36.7 C 75 16 116/76 95 06/08/21 11:23 36.4 C L 65 17 115/70 97 06/08/21 07:50 36.8 C 76 17 107/71 98 Laboratory Results Short CBC 06/08/21 Range/Units 06:44 WBC 1.76 L (4.8-10.8) K/uL Hgb 11.3 L (12.0-16.0) g/dL Hct 32.4 L (37-47) % Plt Count 162 (130-400) K/uL BMP 06/08/21 06:44 Sodium 140 Potassium 3.3 L Chloride 108 H Carbon Dioxide 24 BUN 24 H Creatinine 0.73 Glucose 116 H Calcium 8.7 (1) Leukopenia Leukopenia type: unspecified Qualified Code(s): D72.819 - Decreased white blood cell count, unspecified (2) Follicular lymphoma Follicular lymphoma type: unspecified follicular type Lymphoma site: unspecified region Qualified Code(s): C82.90 - Follicular lymphoma, unspecified, unspecified site
[2021-06-08 19:28] LABS: Influenza A virus by PCR Negative (Neg); Influenza B virus by PCR Negative (Neg); RSV by PCR Negative (Neg); SARS CoV2 RNA(COVID-19) InHosp NEGATIVE (Negative)
[2021-06-09] MEDS ORDERED: KETOROLAC TROMETHAMINE 15 MG/ML VIAL IV ONE (00:05)
[2021-06-09] MEDS ORDERED: KETOROLAC TROMETHAMINE 15 MG/ML VIAL ONE (02:46)
[2021-06-09] MEDS: CEFEPIME 2,000 MG in SYRINGE 0 ML IV SCH ×3 (04:06→16:10)
[2021-06-09 06:18] LABS: Hematocrit (blood only) 35.1 % (37-47); Mean Corpuscular Hgb Conc 34.2 g/dL (32-36); Mean Corpuscular Volume 90.7 fL (80-100); Platelet Count 149 K/uL (130-400); RDW Coefficient of Variation 14.8 % (11.5-14.5); RDW Standard Deviation 49.4 fL (36.4-46.3); Red Blood Count 3.87 M/uL (4.2-5.4); White Blood Count 2.54 K/uL (4.8-10.8)
[2021-06-09 06:44] LABS: Basophils # (auto) 0.01 K/uL (0-0.2); Basophils % (auto) 0.4 %; Eosinophils # (auto) 0.14 K/uL (0-0.5); Eosinophils % (auto) 5.5 %; Immature Granulocytes % (auto) 7.9 %; Lymphocytes # (auto) 0.73 K/uL (1.2-3.4); Lymphocytes % (auto) 28.7 %; Monocytes # (auto) 0.62 K/uL (0.11-0.59); Monocytes % (auto) 24.4 %; Neutrophils % (auto) 33.1 %; RBC Morphology Unremarkable
[2021-06-09 06:47] LABS: BUN Creatinine Ratio 30.5 (10-20); Calcium 8.3 mg/dl (8.5-10.1); Creatinine Clr Calc Pharmacy 85.7 ml/min; Est GFR (African American) 120.4 ml/min; Est GFR (Non-African American) 103.9 ml/min; Potassium 3.2 mmol/L (3.5-5.1)
[2021-06-09] MEDS: FLUTICASONE/VILANTEROL 100/25MCG 14 PUFFS/INHALER INH SCH (08:43)
[2021-06-09] MEDS: ENOXAPARIN INJ 40 MG/0.4 ML SYR SQ SCH (08:44)
[2021-06-09] MEDS: GABAPENTIN 100 MG CAP PO SCH (09:17)
[2021-06-09] MEDS: PANTOprazole 40 MG TAB PO SCH (09:17)
[2021-06-09 09:23] LABS: Neutrophils # (auto) 0.84 K/uL (1.4-6.5)
[2021-06-09] MEDS ORDERED: POTASSIUM CHLORIDE CRTAB 20 MEQ TABCR PO ONE (09:24)
[2021-06-09] MEDS ORDERED: BENZONATATE 100 MG CAPSULE PO PRN (11:41)
[2021-06-09] MEDS: ACETAMINOPHEN 325 MG TAB PO PRN ×2 (14:51→20:14)
--- NOTE | 2021-06-09 17:22 | Hospitalist Progress Note ---
Date of Service June 09, 2021 Assessment & Plan (1) Multifocal pneumonia: Plan: Multifocal pneumonia Neutropenia Possible Sepsis-POA Possible gram-negative pneumonia Immunocompromise state --CT Chest:There is no evidence of pulmonary embolus in the main, lobar, or segmental pulmonary arteries. Multifocal airspace consolidation is typical for pneumonia. Clinical correlation will be required and radiographic follow-up to resolution is recommended. Mildly enlarged mediastinal lymph nodes are nonspecific and may be reactive. Attention at follow-up is recommended. - COVID, RSV, Influenza screen negative Procalcitonin 12.29>>4.0 -MRSA screen: Negative Sputum culture moderate normal trent Blood cultures negative to date Continue vancomycin, cefepime >> Transition to cefepime Appreciate ID input urine Legionella antigen pending Continue nebs, maintenance inhaler Incentive spirometry Plan to continue IV cefepime for 7-day duration. (2) Leukopenia: Plan: Prior Hospitalist discussed with oncologist Dr. Madsen Unlikely related to rituximab Likely secondary to Infection Consider Neupogen per oncology if necessary Neutropenic precautions Monitor CBC (3) Left shoulder pain: Plan: Ongoing issue x 2 months - X ray:No acute fracture or dislocation within the left shoulder. Mild osteoa rthritis of the left acromioclavicular and glenohumeral joints. (4) Hypokalemia: (5) Hypomagnesemia: (6) Hypophosphatemia: Plan: Replace electrolytes as needed (7) Chronic obstructive pulmonary disease: (8) Follicular lymphoma: Plan: In remission per last oncology note - on maintenance rituximab Needs follow-up with oncology upon discharge Plan: Code Status: Full code DVT Px: SCDs, Lovenox SQ Admission and Anticipated Discharge Date Admission Date: June 06, 2021 Subjective Patient is seen and examined at bedside States feeling very tired and reports generalized weakness Also reports cough with intermittent expectoration Offers no other complaints Saturating well on room air Review of Systems Review of Systems: All systems reviewed & are unremarkable except as noted in Subjective Physical Exam Physical Exam: Physical Exam: Vitals signs as noted above General Appearance: Thin, frail, ill-appearing, no apparent distress Head: normocephalic, Atraumatic Eyes: normal inspection, EOMI Neck: supple, Trachea midline Respiratory/Chest: Decreased breath sounds, CTA, No accessory muscle use Cardiovascular: S1, S2, No murmur Abdomen/GI:Soft, Non tender, Bowel sounds present Extremities/Musculoskeletal:normal inspection, no edema Neurologic/Psych:AAOX3, grossly no focal neurological deficits Skin: normal color, warm Results & Data Results & Data ([facility]) Vital Signs (Past 12 Hours) Vital Signs Temp Pulse Resp BP Pulse Ox 06/09/21 15:41 36.7 C 98 H 20 124/78 96 06/09/21 11:45 37.2 C 89 18 100/66 95 06/09/21 08:21 37.1 C 87 18 114/77 96 Laboratory Results Short CBC 06/09/21 Range/Units 06:02 WBC 2.54 L (4.8-10.8) K/uL Hgb 12.0 (12.0-16.0) g/dL Hct 35.1 L (37-47) % Plt Count 149 (130-400) K/uL BMP 06/09/21 06:02 Sodium 141 Potassium 3.2 L Chloride 108 H Carbon Dioxide 25 BUN 18 Creatinine 0.59 L Glucose 94 Calcium 8.3 L (1) Leukopenia Leukopenia type: unspecified Qualified Code(s): D72.819 - Decreased white blood cell count, unspecified (2) Follicular lymphoma Follicular lymphoma type: unspecified follicular type Lymphoma site: unspecified region Qualified Code(s): C82.90 - Follicular lymphoma, unspecified, unspecified site
[2021-06-10] MEDS: CEFEPIME 2,000 MG in SYRINGE 0 ML IV SCH ×3 (00:18→16:34)
[2021-06-10] MEDS: ACETAMINOPHEN 325 MG TAB PO PRN ×4 (00:18→16:33)
[2021-06-10 06:26] LABS: Hematocrit (blood only) 34.2 % (37-47); Hemoglobin 11.9 g/dL (12.0-16.0); Mean Corpuscular Hemoglobin 31.7 pg (25-34); Mean Corpuscular Hgb Conc 34.8 g/dL (32-36); Mean Corpuscular Volume 91.2 fL (80-100); Mean Platelet Volume 10.1 fL (7.4-10.4); Platelet Count 168 K/uL (130-400); RDW Coefficient of Variation 14.8 % (11.5-14.5); RDW Standard Deviation 49.5 fL (36.4-46.3); Red Blood Count 3.75 M/uL (4.2-5.4); White Blood Count 3.49 K/uL (4.8-10.8)
[2021-06-10 06:45] LABS: Calcium 8.4 mg/dl (8.5-10.1); Creatinine Clr Calc Pharmacy 92.3 ml/min; Est GFR (African American) 122.5 ml/min; Est GFR (Non-African American) 105.7 ml/min; Magnesium 1.5 mg/dl (1.7-2.4); Potassium 3.4 mmol/L (3.5-5.1)
[2021-06-10 07:09] LABS: ALC (manual) 0.45 K/uL (1.2-3.4); Eosinophils # (manual) 0.31 K/uL (0-0.5); Hypogranular Neutrophils 2+; Lymphocytes # (manual) 0.45 K/uL (1.2-3.4); Metamyelocytes # (manual) 0.17 K/uL (0-0); Monocytes # (manual) 0.98 K/uL (0.11-0.59); Myelocytes # (manual) 0.17 K/uL (0-0)
[2021-06-10] MEDS: FLUTICASONE/VILANTEROL 100/25MCG 14 PUFFS/INHALER INH SCH (08:43)
[2021-06-10] MEDS: GABAPENTIN 100 MG CAP PO SCH (08:45)
[2021-06-10] MEDS: PANTOprazole 40 MG TAB PO SCH (08:46)
[2021-06-10] MEDS: ENOXAPARIN INJ 40 MG/0.4 ML SYR SQ SCH (08:46)
--- NOTE | 2021-06-10 16:48 | Hospitalist Progress Note ---
Date of Service June 10, 2021 Assessment & Plan (1) Multifocal pneumonia: Plan: Multifocal pneumonia Neutropenia Possible Sepsis-POA Possible gram-negative pneumonia Immunocompromise state --CT Chest:There is no evidence of pulmonary embolus in the main, lobar, or segmental pulmonary arteries. Multifocal airspace consolidation is typical for pneumonia. Clinical correlation will be required and radiographic follow-up to resolution is recommended. Mildly enlarged mediastinal lymph nodes are nonspecific and may be reactive. Attention at follow-up is recommended. - COVID, RSV, Influenza screen negative Procalcitonin 12.29>>4.0>0.78 -MRSA screen: Negative Sputum culture moderate normal trent Blood cultures negative to date Continue vancomycin, cefepime >> Transition to cefepime Appreciate ID input urine Legionella antigen negative Continue nebs, maintenance inhaler Incentive spirometry Plan to continue IV cefepime for 7-day duration as per ID Needs Rehab Placement (2) Leukopenia: Plan: Prior Hospitalist discussed with oncologist Dr. Madsen Unlikely related to rituximab Likely secondary to Infection Consider Neupogen per oncology if necessary Neutropenic precautions Monitor CBC Neutropenia improving (3) Left shoulder pain: Plan: Ongoing issue x 2 months - X ray:No acute fracture or dislocation within the left shoulder. Mild osteoarthritis of the left acromioclavicular and glenohumeral joints. (4) Hypokalemia: (5) Hypomagnesemia: (6) Hypophosphatemia: Plan: Replace electrolytes as needed (7) Chronic obstructive pulmonary disease: (8) Follicular lymphoma: Plan: In remission per last oncology note - on maintenance rituximab Needs follow-up with oncology upon discharge Plan: Code Status: Full code DVT Px: SCDs, Lovenox SQ Admission and Anticipated Discharge Date Admission Date: June 06, 2021 Subjective Patient is seen and examined at bedside States feeling better today Less cough, leg pain today No new complaints Updated patient's daughter over the phone Denies any chest pain, dyspnea, dizziness, nausea, abdominal pain Review of Systems Review of Systems: All systems reviewed & are unremarkable except as noted in Subjective Physical Exam Physical Exam: Physical Exam: Vitals signs as noted above General Appearance: Thin, frail, ill-appearing, no apparent distress Head: normocephalic, Atraumatic Eyes: normal inspection, EOMI Neck: supple, Trachea midline Respiratory/Chest: Decreased breath sounds, CTA, No accessory muscle use Cardiovascular: S1, S2, No murmur Abdomen/GI:Soft, Non tender, Bowel sounds present Extremities/Musculoskeletal:normal inspection, no edema Neurologic/Psych:AAOX3, grossly no focal neurological deficits Skin: normal color, warm Results & Data Results & Data ([facility]) Vital Signs (Past 12 Hours) Vital Signs Temp Pulse Pulse Resp BP Pulse Ox 06/10/21 12:14 36.9 C 88 16 133/85 95 06/10/21 08:11 36.9 C 69 16 124/61 95 06/10/21 08:09 75 Laboratory Results Short CBC 06/10/21 Range/Units 05:59 WBC 3.49 L (4.8-10.8) K/uL Hgb 11.9 L (12.0-16.0) g/dL Hct 34.2 L (37-47) % Plt Count 168 (130-400) K/uL BMP 06/10/21 05:59 Sodium 137 Potassium 3.4 L Chloride 103 Carbon Dioxide 26 BUN 14 Creatinine 0.56 L Glucose 99 Calcium 8.4 L (1) Leukopenia Leukopenia type: unspecified Qualified Code(s): D72.819 - Decreased white blood cell count, unspecified (2) Follicular lymphoma Follicular lymphoma type: unspecified follicular type Lymphoma site: unspecified region Qualified Code(s): C82.90 - Follicular lymphoma, unspecified, unspecified site
[2021-06-11] MEDS: ACETAMINOPHEN 325 MG TAB PO PRN ×2 (00:10→20:07)
[2021-06-11] MEDS: CEFEPIME 2,000 MG in SYRINGE 0 ML IV SCH ×3 (00:10→17:27)
[2021-06-11] MEDS ORDERED: PROMETHAZINE HCL 6.25 MG in SODIUM CHLORIDE 0.9% 50 ML IV PRN (02:56)
[2021-06-11] MEDS: traMADol HCL 50 MG TABLET PO PRN ×2 (03:55→11:03)
[2021-06-11 06:27] LABS: Hematocrit (blood only) 35.5 % (37-47); Hemoglobin 12.2 g/dL (12.0-16.0); Mean Corpuscular Hemoglobin 31.4 pg (25-34); Mean Corpuscular Hgb Conc 34.4 g/dL (32-36); Mean Corpuscular Volume 91.5 fL (80-100); Mean Platelet Volume 10.2 fL (7.4-10.4); Platelet Count 184 K/uL (130-400); RDW Coefficient of Variation 14.6 % (11.5-14.5); RDW Standard Deviation 49.2 fL (36.4-46.3); Red Blood Count 3.88 M/uL (4.2-5.4); White Blood Count 4.83 K/uL (4.8-10.8)
[2021-06-11 07:00] LABS: BUN Creatinine Ratio 25.5 (10-20); Calcium 8.4 mg/dl (8.5-10.1); Creatinine Clr Calc Pharmacy 100.7 ml/min; Est GFR (African American) 126.3 ml/min; Potassium 3.4 mmol/L (3.5-5.1)
[2021-06-11 07:12] LABS: ALC (manual) 0.42 K/uL (1.2-3.4); Basophils # (manual) 0.04 K/uL (0-0.2); Basophils % (manual) 0.9 %; Eosinophils # (manual) 0.42 K/uL (0-0.5); Eosinophils % (manual) 8.6 %; Lymphocytes # (manual) 0.42 K/uL (1.2-3.4); Lymphocytes % (manual) 8.6 %; Metamyelocytes # (manual) 0.21 K/uL (0-0); Metamyelocytes % (manual) 4.3 %; Monocytes # (manual) 0.79 K/uL (0.11-0.59); Monocytes % (manual) 16.4 %; Myelocytes # (manual) 0.25 K/uL (0-0); Myelocytes % (manual) 5.2 %
[2021-06-11] MEDS: PANTOprazole 40 MG TAB PO SCH (08:43)
[2021-06-11] MEDS: ENOXAPARIN INJ 40 MG/0.4 ML SYR SQ SCH (08:44)
[2021-06-11] MEDS: FLUTICASONE/VILANTEROL 100/25MCG 14 PUFFS/INHALER INH SCH (08:46)
[2021-06-11] MEDS: GABAPENTIN 100 MG CAP PO SCH (08:46)
[2021-06-11] MEDS: MAGNESIUM CHLORIDE 64MG DELAYED REL TAB PO SCH ×2 (11:01→20:09)
[2021-06-11] MEDS: POTASSIUM CHLORIDE CRTAB 20 MEQ TABCR PO SCH (11:01)
--- NOTE | 2021-06-11 16:20 | Hospitalist Progress Note ---
Date of Service June 11, 2021 Assessment & Plan (1) Multifocal pneumonia: Plan: Multifocal pneumonia Neutropenia Possible Sepsis-POA Possible gram-negative pneumonia Immunocompromise state --CT Chest:There is no evidence of pulmonary embolus in the main, lobar, or segmental pulmonary arteries. Multifocal airspace consolidation is typical for pneumonia. Clinical correlation will be required and radiographic follow-up to resolution is recommended. Mildly enlarged mediastinal lymph nodes are nonspecific and may be reactive. Attention at follow-up is recommended. - COVID, RSV, Influenza screen negative Procalcitonin 12.29>>4.0>0.78 -MRSA screen: Negative Sputum culture moderate normal trent Blood cultures negative to date Continue vancomycin, cefepime >> Transition to cefepime Appreciate ID input urine Legionella antigen negative Continue nebs, maintenance inhaler Incentive spirometry Plan to continue IV cefepime for 7-day duration as per ID PT/OT: refuses inpatient Rehab--Prefers outpatient PT Continue current management (2) Leukopenia: Plan: Prior Hospitalist discussed with oncologist Dr. Madsen Unlikely related to rituximab Likely secondary to Infection Consider Neupogen per oncology if necessary Neutropenic precautions Monitor CBC Neutropenia resolved (3) Left shoulder pain: Plan: Ongoing issue x 2 months - X ray:No acute fracture or dislocation within the left shoulder. Mild osteoarthritis of the left acromioclavicular and glenohumeral joints. (4) Hypokalemia: (5) Hypomagnesemia: (6) Hypophosphatemia: Plan: Replace electrolytes as needed (7) Chronic obstructive pulmonary disease: (8) Follicular lymphoma: Plan: In remission per last oncology note - on maintenance rituximab Needs follow-up with oncology upon discharge Plan: Code Status: Full code DVT Px: SCDs, Lovenox SQ Admission and Anticipated Discharge Date Admission Date: June 06, 2021 Subjective Patient is seen and examined at bedside Less cough, feels tired Denies any chest pain, dyspnea, dizziness, nausea, abdominal pain Refuses inpatient rehab Review of Systems Review of Systems: All systems reviewed & are unremarkable except as noted in Subjective Physical Exam Physical Exam: Physical Exam: Vitals signs as noted above General Appearance: Thin, frail, ill-appearing, no apparent distress Head: normocephalic, Atraumatic Eyes: normal inspection, EOMI Neck: supple, Trachea midline Respiratory/Chest: Decreased breath sounds, CTA, No accessory muscle use Cardiovascular: S1, S2, No murmur Abdomen/GI:Soft, Non tender, Bowel sounds present Extremities/Musculoskeletal:normal inspection, no edema Neurologic/Psych:AAOX3, grossly no focal neurological deficits Skin: normal color, warm Results & Data Results & Data ([facility]) Vital Signs (Past 12 Hours) Vital Signs Temp Pulse Pulse Resp BP Pulse Ox 06/11/21 15:01 82 06/11/21 11:48 36.5 C 75 18 114/82 97 06/11/21 11:29 68 06/11/21 07:54 36.8 C 83 18 100/68 94 Laboratory Results Short CBC 06/11/21 Range/Units 06:08 WBC 4.83 (4.8-10.8) K/uL Hgb 12.2 (12.0-16.0) g/dL Hct 35.5 L (37-47) % Plt Count 184 (130-400) K/uL BMP 06/11/21 06:08 Sodium 138 Potassium 3.4 L Chloride 103 Carbon Dioxide 28 BUN 13 Creatinine 0.51 L Glucose 94 Calcium 8.4 L (1) Leukopenia Leukopenia type: unspecified Qualified Code(s): D72.819 - Decreased white blood cell count, unspecified (2) Follicular lymphoma Follicular lymphoma type: unspecified follicular type Lymphoma site: unspecified region Qualified Code(s): C82.90 - Follicular lymphoma, unspecified, unspecified site
[2021-06-12] MEDS: CEFEPIME 2,000 MG in SYRINGE 0 ML IV SCH ×3 (00:57→16:28)
[2021-06-12] MEDS: ACETAMINOPHEN 325 MG TAB PO PRN ×2 (01:56→21:12)
[2021-06-12 06:11] LABS: BUN Creatinine Ratio 24.1 (10-20); Calcium 8.5 mg/dl (8.5-10.1); Creatinine Clr Calc Pharmacy 94.8 ml/min; Magnesium 1.8 mg/dl (1.7-2.4); Potassium 3.8 mmol/L (3.5-5.1)
[2021-06-12] MEDS: traMADol HCL 50 MG TABLET PO PRN ×2 (08:45→19:57)
[2021-06-12] MEDS: GABAPENTIN 100 MG CAP PO SCH (08:46)
[2021-06-12] MEDS: POTASSIUM CHLORIDE CRTAB 20 MEQ TABCR PO SCH (08:46)
[2021-06-12] MEDS: ENOXAPARIN INJ 40 MG/0.4 ML SYR SQ SCH (08:46)
[2021-06-12] MEDS: PANTOprazole 40 MG TAB PO SCH (08:46)
[2021-06-12] MEDS: MAGNESIUM CHLORIDE 64MG DELAYED REL TAB PO SCH ×2 (08:46→21:12)
[2021-06-12] MEDS: FLUTICASONE/VILANTEROL 100/25MCG 14 PUFFS/INHALER INH SCH (08:46)
--- NOTE | 2021-06-12 16:54 | Hospitalist Progress Note ---
Date of Service June 12, 2021 Assessment & Plan (1) Multifocal pneumonia: Plan: Multifocal pneumonia Neutropenia Possible Sepsis-POA Possible gram-negative pneumonia Immunocompromise state --CT Chest:There is no evidence of pulmonary embolus in the main, lobar, or segmental pulmonary arteries. Multifocal airspace consolidation is typical for pneumonia. Clinical correlation will be required and radiographic follow-up to resolution is recommended. Mildly enlarged mediastinal lymph nodes are nonspecific and may be reactive. Attention at follow-up is recommended. - COVID, RSV, Influenza screen negative Procalcitonin 12.29>>4.0>0.78 -MRSA screen: Negative Sputum culture moderate normal trent Blood cultures negative Continue vancomycin, cefepime >> Transition to cefepime Appreciate ID input urine Legionella antigen negative Continue nebs, maintenance inhaler Incentive spirometry Plan to continue IV cefepime for 7-day duration as per ID PT/OT: refuses inpatient Rehab--Prefers outpatient PT Likely plan to discharge in the next 24 to 48 hours if remains stable (2) Leukopenia: Plan: Prior Hospitalist discussed with oncologist Dr. Madsen Unlikely related to rituximab Likely secondary to Infection Consider Neupogen per oncology if necessary Neutropenic precautions Monitor CBC Neutropenia resolved (3) Left shoulder pain: Plan: Ongoing issue x 2 months - X ray:No acute fracture or dislocation within the left shoulder. Mild osteoarthritis of the left acromioclavicular and glenohumeral joints. (4) Hypokalemia: (5) Hypomagnesemia: (6) Hypophosphatemia: Plan: Replace electrolytes as needed (7) Chronic obstructive pulmonary disease: (8) Follicular lymphoma: Plan: In remission per last oncology note - on maintenance rituximab Needs follow-up with oncology upon discharge Plan: Code Status: Full code DVT Px: SCDs, Lovenox SQ Admission and Anticipated Discharge Date Admission Date: June 06, 2021 Subjective Patient is seen and examined at bedside States feeling better today States having minimal left shoulder pain Cough continues to improve No other complaints Denies any chest pain, dyspnea, dizziness, nausea, abdominal pain Review of Systems Review of Systems: All systems reviewed & are unremarkable except as noted in Subjective Physical Exam Physical Exam: Physical Exam: Vitals signs as noted above General Appearance: Thin, frail, ill-appearing, no apparent distress Head: normocephalic, Atraumatic Eyes: normal inspection, EOMI Neck: supple, Trachea midline Respiratory/Chest: Decreased breath sounds, CTA, No accessory muscle use Cardiovascular: S1, S2, No murmur Abdomen/GI:Soft, Non tender, Bowel sounds present Extremities/Musculoskeletal:normal inspection, no edema Neurologic/Psych:AAOX3, grossly no focal neurological deficits Skin: normal color, warm Results & Data Results & Data ([facility]) Vital Signs (Past 12 Hours) Vital Signs Temp Pulse Pulse Resp BP Pulse Ox 06/12/21 12:00 36.9 C 102 H 18 115/80 99 06/12/21 08:00 36.8 C 86 18 109/59 L 96 06/12/21 07:44 75 Laboratory Results BMP 06/12/21 05:29 Sodium 137 Potassium 3.8 Chloride 103 Carbon Dioxide 28 BUN 13 Creatinine 0.54 L Glucose 98 Calcium 8.5 (1) Leukopenia Leukopenia type: unspecified Qualified Code(s): D72.819 - Decreased white blood cell count, unspecified (2) Follicular lymphoma Follicular lymphoma type: unspecified follicular type Lymphoma site: unspecified region Qualified Code(s): C82.90 - Follicular lymphoma, unspecified, unspecified site
[2021-06-13] MEDS: CEFEPIME 2,000 MG in SYRINGE 0 ML IV SCH (00:25)
[2021-06-13] MEDS ORDERED: POLYETHYLENE (MIRALAX) 17 GM PACK PO PRN (07:15)
[2021-06-13 07:31] LABS: Hematocrit (blood only) 38.6 % (37-47); Mean Corpuscular Hgb Conc 33.7 g/dL (32-36); Mean Corpuscular Volume 91.9 fL (80-100); Mean Platelet Volume 10.4 fL (7.4-10.4); Platelet Count 236 K/uL (130-400); RDW Coefficient of Variation 14.5 % (11.5-14.5); RDW Standard Deviation 48.6 fL (36.4-46.3); White Blood Count 7.69 K/uL (4.8-10.8)
[2021-06-13 07:58] LABS: BUN Creatinine Ratio 23.1 (10-20); Calcium 8.6 mg/dl (8.5-10.1); Creatinine Clr Calc Pharmacy 96.5 ml/min; Est GFR (African American) 125.5 ml/min; Est GFR (Non-African American) 108.3 ml/min; Potassium 3.9 mmol/L (3.5-5.1)
[2021-06-13] MEDS: MAGNESIUM CHLORIDE 64MG DELAYED REL TAB PO SCH (08:35)
[2021-06-13] MEDS: FLUTICASONE/VILANTEROL 100/25MCG 14 PUFFS/INHALER INH SCH (08:36)
[2021-06-13] MEDS: PANTOprazole 40 MG TAB PO SCH (08:37)
[2021-06-13] MEDS: POTASSIUM CHLORIDE CRTAB 20 MEQ TABCR PO SCH (08:37)
[2021-06-13] MEDS: GABAPENTIN 100 MG CAP PO SCH (08:37)
[2021-06-13] MEDS: ENOXAPARIN INJ 40 MG/0.4 ML SYR SQ SCH (08:37)
--- NOTE | 2021-06-13 12:13 | Hospitalist Progress Note ---
Date of Service June 13, 2021 Assessment & Plan (1) Multifocal pneumonia: Plan: Multifocal pneumonia Neutropenia Possible Sepsis-POA Possible gram-negative pneumonia Immunocompromise state --CT Chest:There is no evidence of pulmonary embolus in the main, lobar, or segmental pulmonary arteries. Multifocal airspace consolidation is typical for pneumonia. Clinical correlation will be required and radiographic follow-up to resolution is recommended. Mildly enlarged mediastinal lymph nodes are nonspecific and may be reactive. Attention at follow-up is recommended. - COVID, RSV, Influenza screen negative Procalcitonin 12.29>>4.0>0.78 -MRSA screen: Negative Sputum culture moderate normal trent Blood cultures negative Continue vancomycin, cefepime >> Completed 7 day course of cefepime as per ID Appreciate ID input urine Legionella antigen negative Continue nebs, maintenance inhaler Incentive spirometry PT/OT: refuses inpatient Rehab--Prefers outpatient PT Plan to discharge home today (2) Leukopenia: Plan: Prior Hospitalist discussed with oncologist Dr. Madsen Unlikely related to rituximab Likely secondary to Infection Consider Neupogen per oncology if necessary Neutropenic precautions Monitor CBC Neutropenia resolved (3) Left shoulder pain: Plan: Ongoing issue x 2 months - X ray:No acute fracture or dislocation within the left shoulder. Mild osteoarthritis of the left acromioclavicular and glenohumeral joints. (4) Hypokalemia: (5) Hypomagnesemia: (6) Hypophosphatemia: Plan: Replace electrolytes as needed (7) Chronic obstructive pulmonary disease: (8) Follicular lymphoma: Plan: In remission per last oncology note - on maintenance rituximab Needs follow-up with oncology upon discharge Plan: Code Status: Full code DVT Px: SCDs, Lovenox SQ Admission and Anticipated Discharge Date Admission Date: June 06, 2021 Subjective Patient is seen and examined at bedside No new complaints Eager to get discharged Continues to refuse Rehab placement Denies any chest pain, dyspnea, dizziness, nausea, abdominal pain Review of Systems Review of Systems: All systems reviewed & are unremarkable except as noted in Subjective Physical Exam Physical Exam: Physical Exam: Vitals signs as noted above General Appearance: Thin, frail, ill-appearing, no apparent distress Head: normocephalic, Atraumatic Eyes: normal inspection, EOMI Neck: supple, Trachea midline Respiratory/Chest: Decreased breath sounds, CTA, No accessory muscle use Cardiovascular: S1, S2, No murmur Abdomen/GI:Soft, Non tender, Bowel sounds present Extremities/Musculoskeletal:normal inspection, no edema Neurologic/Psych:AAOX3, grossly no focal neurological deficits Skin: normal color, warm Results & Data Results & Data ([facility]) Vital Signs (Past 12 Hours) Vital Signs Temp Pulse Pulse Resp BP BP Pulse Ox 06/13/21 10:48 36.7 C 85 19 98/65 L 97 06/13/21 10:01 71 06/13/21 07:04 36.9 C 85 19 109/74 93 06/13/21 03:02 36.6 C 77 18 102/67 94 06/13/21 00:26 68 Laboratory Results Short CBC 06/13/21 Range/Units 07:11 WBC 7.69 (4.8-10.8) K/uL Hgb 13.0 (12.0-16.0) g/dL Hct 38.6 (37-47) % Plt Count 236 (130-400) K/uL BMP 06/13/21 07:11 Sodium 135 L Potassium 3.9 Chloride 102 Carbon Dioxide 27 BUN 12 Creatinine 0.52 L Glucose 95 Calcium 8.6 (1) Leukopenia Leukopenia type: unspecified Qualified Code(s): D72.819 - Decreased white blood cell count, unspecified (2) Follicular lymphoma Follicular lymphoma type: unspecified follicular type Lymphoma site: unspecified region Qualified Code(s): C82.90 - Follicular lymphoma, unspecified, unspecified site
--- NOTE | 2021-06-13 12:19 | Discharge Summary ---
Date of Service June 13, 2021 Admission HPI Per Admitting Provider This is a 56 y/o female with a PMH of stage IV low-grade follicular lymphoma (on maintenance rituximab), achalasia s/p Heller myotomy w/ Jaison fundoplication, and COPD who presented to the ED today with worsening shoulder pain that is now present diffusely as well as 3 days of chills, sweats, worsening productive cough and SOB. Pt completed 6 cycles of bendamustine and rituximab for the lymphoma on 07/08/20 and is now on maintenance rituximab with her last treatment on 05/19/21. She does still have a port in place. She reports left shoulder pain for at least the past two months that is aching and burning in character. The pain may radiate down her left side and to her back. She has been using ibuprofen 800 mg for this with minimal relief. She also notes ongoing sinus issues for which she has been on multiple courses of antibiotics over the past year. Over the past 2-3 days, she has developed shaking chills and soaking sweats. Unsure if she had a fever. She does have a chronic cough related to underlying COPD but this has been worsening and is productive of yellow sputum, no hemoptysis. She also notes increasing shortness of breath over the past two days. Typically, she uses her rescue albuterol inhaler once a day but used it at least four times yesterday with partial relief. Today she notes a DAMON. She is gagging but denies nausea or vomiting, rather relating this to ongoing PND. She has noted a "pinching" pain in her bilateral chest over the past few days, but only when she rolls on her side. It is relieved by lying flat. Admission Exam Per Admitting Provider Physical Exam Constitutional: + thin and + frail appearing; no acute d istress Eyes: + anicteric sclerae Neck: trachea midline Respiratory: no respiratory distress and no labored breathing Auscultation: + diminished lung sounds and + wheezes (occasional faint); no rales and no rhonchi Cardiovascular: Rate/Rhythm: regular rhythm and + tachycardic Heart Sounds: + gallop; no murmur and no cardiac rub Vessels: dorsalis pedis pulses present and radial pulses present Extremities: no calf tenderness and no pedal edema Gastrointestinal (Abdomen): Inspection/Auscultation: normal bowel sounds; abdomen not distended Percussion/Palpation: abdomen soft; abdomen nontender Musculoskeletal: Head/Neck/Chest: normocephalic, head atraumatic and neck supple Skin: no jaundice Neurologic: moves all extremities; no focal motor deficits Psychiatric: Orientation: oriented x 3 Affect: + anxious affect Principal Diagnosis Multifocal pneumonia Neutropenia Electrolyte imbalance Discharge Data Allergies Allergy/AdvReac Type Severity Reaction Status Date / Time No Known Allergies Allergy Verified 06/06/21 14:47 Consultations 06/06/21 16:25 ED Decision to Admit Stat 06/06/21 20:24 Consult Infectious Diseases Routine Ordered Studies 06/06/21 12:30 CT abd pelvis IV con only Stat CT angio chest PE protocol Stat CT soft tissue neck w con Stat 06/06/21 13:15 CT head/brain wo con Stat Hospital Course (1) Multifocal pneumonia: Multifocal pneumonia Neutropenia Possible Sepsis-POA Possible gram-negative pneumonia Immunocompromise state --CT Chest:There is no evidence of pulmonary embolus in the main, lobar, or segmental pulmonary arteries. Multifocal airspace consolidation is typical for pneumonia. Clinical correlation will be required and radiographic follow-up to resolution is recommended. Mildly enlarged mediastinal lymph nodes are nonspecific and may be reactive. Attention at follow-up is recommended. - COVID, RSV, Influenza screen negative Procalcitonin 12.29>>4.0>0.78 -MRSA screen: Negative Sputum culture moderate normal trent Blood cultures negative Continue vancomycin, cefepime >> Completed 7 day course of cefepime as per ID Appreciate ID input urine Legionella antigen negative Continue nebs, maintenance inhaler Incentive spirometry PT/OT: refuses inpatient Rehab--Prefers outpatient PT Plan to discharge home today (2) Leukopenia: Prior Hospitalist discussed with oncologist Dr. Madsen Unlikely related to rituximab Likely secondary to Infection Consider Neupogen per oncology if necessary Neutropenic precautions Monitor CBC Neutropenia resolved (3) Left shoulder pain: Ongoing issue x 2 months - X ray:No acute fracture or dislocation within the left shoulder. Mild osteoarthritis of the left acromioclavicular and glenohumeral joints. (4) Hypokalemia: (5) Hypomagnesemia: (6) Hypophosphatemia: Replace electrolytes as needed (7) Chronic obstructive pulmonary disease: (8) Follicular lymphoma: In remission per last oncology note - on maintenance rituximab Needs follow-up with oncology upon discharge Code Status: Full code DVT Px: SCDs, Lovenox SQ Total Time Total Time Spent Total Time Spent (In Minutes): 45 minutes Discharge Plan Discharge Items Patient Disposition: Home - Home Health Services Reason For Visit: MULTI-FOCAL PNEUMONIA, LEUKOPENIA Discharge Diagnosis: Multifocal pneumonia Neutropenia Electrolyte imbalance Activity: Per Instructions section Exercise/Sports: Gradually increase as tolerated Non-emergency contact: Primary Care Provider and Oncologist Call non-emergency contact if: you have any medication questions, your symptoms worsen, your pain is concerning for you and you have a fever Follow-up/Referrals: Steve Quiñones PA-C [Primary Care Provider] - Diet: Regular Diet Texture: Easy to Chew Addtl Attending Provider Instructions: Follow-up with your primary care physician Steve Quiñones PA-C in 1 week as advised Follow-up with your oncologist in 2-4 weeks as advised Seek immediate medical attention if your symptoms reoccur or worsen Please take all medications as instructed on discharge list below. Please call if you have any questions or problems. You can reach a [facility] hospitalist on duty at [facility] 24 hours a day by calling [phone] Pending Studies at Discharge: No Stand-Alone Forms: My [facility] [employer] [place] [employer] [place], Smoking Cessation Medications and DC Order Prescriptions: New Mag 64 64 mg Tablet,Delayed Release (Dr/Ec) 64 mg PO BID Qty: 14 RF: 0 Continued ibuprofen 800 mg tablet 800 mg PO TID PRN (Reason: Pain) RF: 0 pantoprazole 40 mg tablet,delayed release (DR/EC) 40 mg PO QDB RF: 0 gabapentin 100 mg capsule 100 mg PO DAILY RF: 0 albuterol sulfate 90 mcg/actuation HFA aerosol inhaler 2 puff INHALATION QID PRN (Reason: Shortness Of Breath) RF: 0 Dulera 100-5 mcg/actuation HFA aerosol inhaler 2 puff INHALATION BID RF: 0 fluticasone propionate 50 mcg/actuation spray,suspension 2 spray INTRANASAL DAILY RF: 0 Discharge Orders: Discharge Order (Routine); Ordered 06/13/21 Ordered By: Kirby Case Admission Data Admit Date/Time: 06/06/21 17:42 Attending Provider: Vangala,Kirby K. Admit Provider: Levon Venegas Primary Care Provider: Steve Quiñones Other Providers: Levon Venegas ; True James ; Rosina Diamond ; Saran Rosa I. ; Ross Taylor II ; Shaunna Weir ; Lenny Aguilar ; Braden Mcgee
== END 2021-06-13 13:40 | disposition home health service (06) | DRG 871 ==
LOC: ED 11:46 → SUATTDRO 17:42 → EDINP 17:42 → 2S 20:25

== ENCOUNTER 2021-07-29 11:41 | Inpatient (IN) ==
[2021-07-29] MEDS ORDERED: SODIUM CHLORIDE 0.9% 1000ML 1,000 ML IV SCH (13:15)
--- NOTE | 2021-07-29 13:16 | Emergency Department Note ---
History of Present Illness General Chief complaint: Shortness of Breath/Dyspnea Stated complaint: SOB, NO APPETITE, ALL OVER PAIN Time Seen by Provider: 07/29/21 12:38 History of Present Illness Maximum Pain Intensity: 7 This is a 56-year-old female with a history of COPD currently still smoking, follicular lymphoma receives chemotherapy monthly, recently admitted 2 months ago for pneumonia who presents to the emergency department for multiple symptoms including sore throat, diarrhea, increasing cough and sputum production, shortness of breath at rest and with exertion, and right-sided chest pain, especially with deep inspiration and with coughing. She has a hard time laying flat because she feels too short of breath. She endorses chills and sweats, but no fever. She has been eating and drinking "a little bit" over the past few days. Also endorses bilateral ear pain and feels like her sinuses are "messed up". She is unvaccinated against COVID-19. Has not had COVID-19. She has never had a DVT or PE. Home Medications Medication Instructions Recorded Confirmed Type albuterol sulfate 90 mcg/actuation 2 puff INHALATION QID PRN 06/06/21 07/29/21 History aerosol inhaler pantoprazole 40 mg tablet,delayed 40 mg PO HS 06/06/21 07/29/21 History release Allergies Allergy/AdvReac Type Severity Reaction Status Date / Time No Known Allergies Allergy Verified 07/29/21 14:11 Past Med/Surg History Medical History Achalasia Chronic obstructive pulmonary disease Follicular lymphoma Restless leg syndrome Surgical History H/O unilateral oophorectomy History of fundoplication Heller myotomy with Jaison fundoplication in 03/08/21 History of tonsillectomy History of tooth extraction Family History (Updated 07/29/21 @ 20:05 by Nicolasa Green PA-C) Mother Hypertension Father Cancer Other Coronary heart disease Social History Smoking Status: Current some day smoker Tobacco Type: Cigarettes Cigarettes Per Day: 10; Second Hand Exposure: Yes; Do You Dip or Chew Tobacco: No; Tobacco Cessation Education Requested by Patient: No Hx Alcohol Use: No Hx Substance Use: No Preferred Language: Polish Communication Ability: Effective Hotel Or Motel Manager Required: No Beliefs That Will Affect Care: None Current Living Situation: Family and Significant Other How many Children do You have: 3 Other Information That Helps Us Care for You: No Feels Safe at Home: Yes Safety Concerns: Feels Safe At This Time Assistive Devices: None Review of Systems A total of 10 systems reviewed and were otherwise negative Physical Exam Vital Signs Vital Signs - 24 hr 07/29/21 11:44 07/29/21 12:05 07/29/21 13:32 Temperature 98.1 F Temperature Source Temporal Artery Scan Pulse Rate 117 H Pulse Rate [Apical] 107 H 118 H Pulse Rhythm Respiratory Rate 18 20 20 Respiratory Effort / Characteristics Labored Blood Pressure 101/69 Blood Pressure [Right Arm] 88/54 L 111/72 Blood Pressure Mean 79 Blood Pressure Mean [Right Arm] 65 85 Blood Pressure Position [Right Arm] Pulse Oximetry 92 94 93 Oxygen Delivery Method Room Air Room Air Room Air Sepsis Recent Fever Within 48 Hours No Sepsis New/Unexplained Change in Mental Status No Sepsis Action Taken by Nursing No Action Required 07/29/21 13:33 07/29/21 14:07 07/29/21 14:14 Temperature Temperature Source Pulse Rate 117 H Pulse Rate [Apical] 104 H 120 H Pulse Rhythm Regular Respiratory Rate 20 22 20 Respiratory Effort / Characteristics Labored Blood Pressure Blood Pressure [Right Arm] 117/72 Blood Pressure Mean Blood Pressure Mean [Right Arm] 87 Blood Pressure Position [Right Arm] Lying Pulse Oximetry 95 93 93 Oxygen Delivery Method Room Air Room Air Room Air Sepsis Recent Fever Within 48 Hours Sepsis New/Unexplained Change in Mental Status Sepsis Action Taken by Nursing CONSTITUTIONAL: Frail-appearing, in mild distress secondary to right-sided chest pain HEAD: Normocephalic, atraumatic. EYES: conjunctivae normal, extraocular muscles intact. ENMT: External ears normal. TMs normal bilaterally. Nose with normal external appearance, no sinus tenderness in the frontal or maxillary regions. Oral mucous membranes are dry. Oropharyngeal erythema noted. Uvula is midline. No peritonsillar abscess. NECK: Full active range of motion. NECK: Full range of motion. Trachea midline. RESPIRATORY: Tachypnea with short inspiration secondary to right-sided chest pain. Oxygen saturation 94% on room air. Lungs largely clear although decreased air movement is noted. CARDIOVASCULAR: Tachycardic rate and regular rhythm. No murmurs, rubs, or ga llops. CHEST: Nontender, no crepitus. No rashes. Port in the right upper portion of chest with no surrounding erythema, nontender. ABDOMEN: Normal bowel sounds. Generalized abdominal tenderness is noted with no focal tenderness. No CVA tenderness bilaterally. MUSCULOSKELETAL: Moves all extremities at all joints without pain or difficulty. No cyanosis or edema. SKIN: [place], warm, dry. No diaphoresis or rashes. NEUROLOGIC: Alert and oriented x 3. No acute motor or sensory deficits. Cranial nerves grossly intact. PSYCHIATRIC: Appropriate. Normal affect. Course Administered Medications Acetaminophen (Acetaminophen 325 Mg Tab) 650 mg PO Q4H PRN PRN Reason: Pain or Fever Stop: 08/28/21 18:05 Last Admin: 07/29/21 18:46 Dose: 650 mg Documented by: [id number] Albuterol (Albut/Ipratrop 3mg/0.5mg Neb 3 Ml Vial) 3 ml NEB QIDR LUDY; Protocol Stop: 08/28/21 18:59 Last Admin: 07/29/21 20:12 Dose: 3 ml Documented by: [id number] Enoxaparin Sodium (Enoxaparin Inj 30 Mg/0.3 Ml Syr) 30 mg SQ [facility] Stop: 08/28/21 18:59 Last Admin: 07/29/21 19:43 Dose: 30 mg Documented by: [id number] Potassium Chloride/Sodium Chloride (Normal Saline W/20 Meq Kcl) 20 meq in 1,000 mls @ 100 mls/hr IV .Q10H [facility]; Protocol Stop: 07/30/21 14:29 Last Admin: 07/29/21 19:44 Dose: 100 mls/hr Documented by: [id number] Pantoprazole Sodium (Pantoprazole 40 Mg Tab) 40 mg PO HS LUDY Stop: 08/28/21 20:59 Last Admin: 07/29/21 19:45 Dose: 40 mg Documented by: [id number] Discontinued Medications Fentanyl Citrate (Fentanyl Citrate 100 Mcg/2 Ml Vial) 50 mcg IV NOW STA Stop: 07/29/21 14:40 Last Admin: 07/29/21 15:17 Dose: 50 mcg Documented by: [id number] Sodium Chloride (Nss 1000ml) 1,000 mls @ 500 mls/hr IV .Q2H [facility] Stop: 07/29/21 15:14 Last Infusion: 07/29/21 15:19 Dose: 0 mls/hr Documented by: [id number] Admin: 07/29/21 13:31 Dose: 500 mls/hr Documented by: [id number] Potassium Chloride (K Julio / Wtr) 10 meq in 100 mls @ 100 mls/hr IV Q1H [facility]UD[facility] Stop: 07/29/21 16:44 Last Infusion: 07/29/21 17:58 Dose: 0 mls/hr Documented by: [id number] Admin: 07/29/21 16:47 Dose: 100 mls/hr Documented by: [id number] Infusion: 07/29/21 16:47 Dose: 0 mls/hr Documented by: [id number] Admin: 07/29/21 15:18 Dose: 100 mls/hr Documented by: [id number] Magnesium Sulfate/Dextrose (Magnesium Sulfate / D5w) 1 gm in 100 mls @ 50 mls/hr IV Q2H [facility]UD[facility] Stop: 07/29/21 18:44 Last Infusion: 07/29/21 17:57 Dose: 0 mls/hr Documented by: [id number] Admin: 07/29/21 16:47 Dose: 100 mls/hr Documented by: [id number] Infusion: 07/29/21 16:47 Dose: 0 mls/hr Documented by: [id number] Admin: 07/29/21 15:18 Dose: 50 mls/hr Documented by: [id number] Cefepime HCl (Maxipime) 20 mls @ 5 mls/min IV ONE ONE Stop: 07/29/21 15:03 Last Admin: 07/29/21 15:18 Dose: 5 mls/min Documented by: [id number] Vancomycin HCl 1,000 mg/ (Sodium Chloride) 270 mls @ 200 mls/hr IV NOW STA Stop: 07/29/21 20:27 Last Infusion: 07/29/21 21:27 Dose: 0 mls/hr Documented by: [id number] Admin: 07/29/21 19:38 Dose: 200 mls/hr Documented by: [id number] Ioversol (Optiray 320 125ml) 120 ml IV ONCE ONE Stop: 07/29/21 19:33 Last Admin: 07/29/21 19:33 Dose: 120 ml Documented by: [id number] Potassium Chloride (Potassium Chloride 20 Meq/15 Ml Udc) 20 meq PO NOW STA Stop: 07/29/21 16:17 Last Admin: 07/29/21 16:47 Dose: 20 meq Documented by: [id number] Medical Decision Making Differential Diagnosis Reactive airway disease, pneumonia, pneumothorax, COPD, CHF, infections, cardiac ischemia, pulmonary embolism, musculoskeletal, gastrointestinal, as well as other pathologies. Laboratory Data Result diagrams: 07/29/21 13:12 07/29/21 13:12 Lab Results 07/29/21 07/29/21 07/29/21 Range/Units 13:00 13:00 13:12 WBC (4.8-10.8) K/uL RBC (4.2-5.4) M/uL Hgb (12.0-16.0) g/dL Hct (37-47) % MCV (80-100) fL MCH (25-34) pg MCHC (32-36) g/dL RDW Std Deviation (36.4-46.3) fL RDW Coeff of Dylan (11.5-14.5) % Plt Count (130-400) K/uL MPV (7.4-10.4) fL Neutrophils % (Manual) % Lymphocytes % (Manual) % Monocytes % (Manual) % Eosinophils % (Manual) % Myelocytes % (Man) % Neutrophils # (Manual) (1.4-6.5) K/uL Total Absolute Neuts (1.4-6.5) K/uL Lymphocytes # (Manual) (1.2-3.4) K/uL Total Abs Lymphocytes (1.2-3.4) K/uL Monocytes # (Manual) (0.11-0.59) K/uL Eosinophils # (Manual) (0-0.5) K/uL Myelocytes # (Manual) (0-0) K/uL Echinocytes D-Dimer 1320 H* (0-500) ug/L FEU Sodium 135 L (136-145) mmol/L Potassium 2.8 L (3.5-5.1) mmol/L Chloride 97 L (98-107) mmol/L Carbon Dioxide 23 (21-32) mmol/L Anion Gap 15 H (3-11) BUN 21 (6-23) mg/dl Creatinine 1.01 (0.6-1.2) mg/dl Est Cr Clr Drug Dosing 50.8 ml/min Est GFR ( Amer) 73.1 ml/min Est GFR (Non-Af Amer) 63.1 ml/min BUN/Creatinine Ratio 20.8 H (10-20) Glucose 97 (70-99(Fasting)) mg/dl Lactate (0.4-2.0) mmol/L Calcium 9.1 (8.5-10.1) mg/dl Magnesium 1.5 L (1.7-2.4) mg/dl Total Bilirubin 1.1 H (0.2-1.0) mg/dl AST 12 L (13-39) U/L ALT 13 (7-52) U/L Alkaline Phosphatase 165 H (34-104) U/L Troponin I < 0.03 (0-0.04) ng/ml Total Protein 6.8 (6.0-8.3) gm/dl Albumin 3.9 (3.4-5.0) gm/dl Globulin 2.9 (2.5-4.0) gm/dl Albumin/Globulin Ratio 1.3 (0.9-2) Procalcitonin 4.67 H (0-0.5) ng/ml Urine Color Urine Appearance (Clear) Urine pH (4.5-7.5) Ur Specific [place] (1.000-1.030) Urine Protein (Negative) Urine Glucose (UA) (Negative) Urine Ketones (Negative) Urine Blood (Negative) Urine Nitrite (Negative) Urine Bilirubin (Negative) Urine Urobilinogen (Negative) Ur Leukocyte Esterase (Negative) Urine WBC (Auto) (0-5) /hpf Urine RBC (Auto) (0-4) /hpf U Hyaline Cast (Auto) (0-5) /lpf U Epithel Cells (Auto) (0-5) /lpf Urine Bacteria (Auto) (Negative) Ur Renal Epithelial Cell Granular Casts (0) /lpf Urine Yeast Influ A Molecular Assay (Negative) Influ B Molecular Assay (Negative) SARS-CoV-2, RNA, NAAT (NEGATIVE) 07/29/21 07/29/21 07/29/21 Range/Units 13:12 13:12 13:32 WBC 0.88 L* (4.8-10.8) K/uL RBC 3.96 L (4.2-5.4) M/uL Hgb 12.4 (12.0-16.0) g/dL Hct 34.8 L (37-47) % MCV 87.9 (80-100) fL MCH 31.3 (25-34) pg MCHC 35.6 (32-36) g/dL RDW Std Deviation 43.5 (36.4-46.3) fL RDW Coeff of Dylan 13.5 (11.5-14.5) % Plt Count 211 (130-400) K/uL MPV 10.5 H (7.4-10.4) fL Neutrophils % (Manual) 10.5 % Lymphocytes % (Manual) 45.0 % Monocytes % (Manual) 27.5 % Eosinophils % (Manual) 11.8 % Myelocytes % (Man) 5.2 % Neutrophils # (Manual) 0.09 L (1.4-6.5) K/uL Total Absolute Neuts 0.09 L* (1.4-6.5) K/uL Lymphocytes # (Manual) 0.40 L (1.2-3.4) K/uL Total Abs Lymphocytes 0.40 L (1.2-3.4) K/uL Monocytes # (Manual) 0.24 (0.11-0.59) K/uL Eosinophils # (Manual) 0.10 (0-0.5) K/uL Myelocytes # (Manual) 0.05 H (0-0) K/uL Echinocytes 2+ D-Dimer (0-500) ug/L FEU Sodium (136-145) mmol/L Potassium (3.5-5.1) mmol/L Chloride (98-107) mmol/L Carbon Dioxide (21-32) mmol/L Anion Gap (3-11) BUN (6-23) mg/dl Creatinine (0.6-1.2) mg/dl Est Cr Clr Drug Dosing ml/min Est GFR ( Amer) ml/min Est GFR (Non-Af Amer) ml/min BUN/Creatinine Ratio (10-20) Glucose (70-99(Fasting)) mg/dl Lactate 1.9 (0.4-2.0) mmol/L Calcium (8.5-10.1) mg/dl Magnesium (1.7-2.4) mg/dl Total Bilirubin (0.2-1.0) mg/dl AST (13-39) U/L ALT (7-52) U/L Alkaline Phosphatase (34-104) U/L Troponin I (0-0.04) ng/ml Total Protein (6.0-8.3) gm/dl Albumin (3.4-5.0) gm/dl Globulin (2.5-4.0) gm/dl Albumin/Globulin Ratio (0.9-2) Procalcitonin (0-0.5) ng/ml Urine Color Urine Appearance (Clear) Urine pH (4.5-7.5) Ur Specific [place] (1.000-1.030) Urine Protein (Negative) Urine Glucose (UA) (Negative) Urine Ketones (Negative) Urine Blood (Negative) Urine Nitrite (Negative) Urine Bilirubin (Negative) Urine Urobilinogen (Negative) Ur Leukocyte Esterase (Negative) Urine WBC (Auto) (0-5) /hpf Urine RBC (Auto) (0-4) /hpf U Hyaline Cast (Auto) (0-5) /lpf U Epithel Cells (Auto) (0-5) /lpf Urine Bacteria (Auto) (Negative) Ur Renal Epithelial Cell Granular Casts (0) /lpf Urine Yeast Influ A Molecular Assay (Negative) Influ B Molecular Assay (Negative) SARS-CoV-2, RNA, NAAT NEGATIVE (NEGATIVE) 07/29/21 07/29/21 Range/Units 13:32 13:57 WBC (4.8-10.8) K/uL RBC (4.2-5.4) M/uL Hgb (12.0-16.0) g/dL Hct (37-47) % MCV (80-100) fL MCH (25-34) pg MCHC (32-36) g/dL RDW Std Deviation (36.4-46.3) fL RDW Coeff of Dylan (11.5-14.5) % Plt Count (130-400) K/uL MPV (7.4-10.4) fL Neutrophils % (Manual) % Lymphocytes % (Manual) % Monocytes % (Manual) % Eosinophils % (Manual) % Myelocytes % (Man) % Neutrophils # (Manual) (1.4-6.5) K/uL Total Absolute Neuts (1.4-6.5) K/uL Lymphocytes # (Manual) (1.2-3.4) K/uL Total Abs Lymphocytes (1.2-3.4) K/uL Monocytes # (Manual) (0.11-0.59) K/uL Eosinophils # (Manual) (0-0.5) K/uL Myelocytes # (Manual) (0-0) K/uL Echinocytes D-Dimer (0-500) ug/L FEU Sodium (136-145) mmol/L Potassium (3.5-5.1) mmol/L Chloride (98-107) mmol/L Carbon Dioxide (21-32) mmol/L Anion Gap (3-11) BUN (6-23) mg/dl Creatinine (0.6-1.2) mg/dl Est Cr Clr Drug Dosing ml/min Est GFR ( Amer) ml/min Est GFR (Non-Af Amer) ml/min BUN/Creatinine Ratio (10-20) Glucose (70-99(Fasting)) mg/dl Lactate (0.4-2.0) mmol/L Calcium (8.5-10.1) mg/dl Magnesium (1.7-2.4) mg/dl Total Bilirubin (0.2-1.0) mg/dl AST (13-39) U/L ALT (7-52) U/L Alkaline Phosphatase (34-104) U/L Troponin I (0-0.04) ng/ml Total Protein (6.0-8.3) gm/dl Albumin (3.4-5.0) gm/dl Globulin (2.5-4.0) gm/dl Albumin/Globulin Ratio (0.9-2) Procalcitonin (0-0.5) ng/ml Urine Color Dark Yellow Urine Appearance Cloudy A (Clear) Urine pH 5.5 (4.5-7.5) Ur Specific [place] 1.017 (1.000-1.030) Urine Protein 2+ H (Negative) Urine Glucose (UA) Negative (Negative) Urine Ketones Negative (Negative) Urine Blood Trace H (Negative) Urine Nitrite Negative (Negative) Urine Bilirubin Negative (Negative) Urine Urobilinogen Negative (Negative) Ur Leukocyte Esterase Negative (Negative) Urine WBC (Auto) 10-30 H (0-5) /hpf Urine RBC (Auto) 0-4 (0-4) /hpf U Hyaline Cast (Auto) 1-5 (0-5) /lpf U Epithel Cells (Auto) >30 H (0-5) /lpf Urine Bacteria (Auto) Negative (Negative) Ur Renal Epithelial Cell Not Reportable Granular Casts 1-5 H (0) /lpf Urine Yeast Not Reportable Influ A Molecular Assay Negative (Negative) Influ B Molecular Assay Negative (Negative) SARS-CoV-2, RNA, NAAT (NEGATIVE) Imaging Data Radiologist's Impression: Chest X-Ray 07/29/21 13:02 XR chest 1V portable HISTORY: 56 years-old Female Right sided chest pain, cough, productive acute right-sided chest pain with cough COMPARISON: PET CT 07/25/2021, chest radiograph 06/06/2021 TECHNIQUE: Portable AP view of the chest FINDINGS: The cardiac silhouette is normal in size. Right IJ port catheter appears stable. Progressively worsened bilateral mixed interstitial and alveolar opacities with a right perihilar and bibasilar predominant distribution. No pneumothorax or overt pulmonary edema. No large pleural effusion. Surgical clips project over the abdominal left upper quadrant. The bones appear grossly intact. IMPRESSION: Progressively worsened right perihilar and bibasilar predominant patchy airspace opacities are suggestive of multifocal pneumonia. Follow-up imaging to document resolution recommended. ACT 112: Negative or not required by law. The above report was generated using voice recognition software. It may contain grammatical, syntax or spelling errors. Electronically signed by: Dhiraj Lou M.D. 07/29/2021 2:03 PM ECG Data Attestation: I personally reviewed and interpreted this ECG as follows: (Sinus tachycardia with a rate of 109. AK interval short at 88. QTc prolonged at 659. No acute ST elevations. Compared to prior ECG from 06/07/2021, rate is increased, AK interval is shorter, and QTc is prolonged.) MDM Narrative This is a 56-year-old female with a complex medical history who presents to the emergency department with multiple complaints, especially shortness of breath at rest and with exertion, increase in cough, and right-sided chest pain. On initial exam she is tachycardic, oxygen saturation 94% on room air, mildly hypotensive, in mild distress secondary to right-sided chest pain. Given her history, sepsis work-up was initiated. IV fluids were initiated. Chest x-ray is positive for multifocal pneumonia which appears to have progressed from prior admission from 2 months ago. She is found to be neutropenic with a absolute neutrophil count of 0.09. White blood cell count 0.88. Her EKG demonstrates interval abnormalities as described above likely secondary to hypokalemia at 2.8. Magnesium also low at 1.5. Magnesium and potassium repleted. She did not require oxygen therapy, remained at 93 to 94% on room air. Case was discussed with ED clinical pharmacist and ED attending Dr. Tilley, cefepime was administered. Patient required fentanyl for chest wall discomfort. Certainly considered PE given her history and presentation however this is less likely in context of initial evaluation and findings which is likely the source of her symptoms and vitals. I discussed this with admitting hospitalist JOSE. This can be closely monitored as patient will be admitted and if she is not improving should be considered as an additional etiology. Patient will be admitted for ongoing management. Impression & Plan Multifocal pneumonia, Hypokalemia, Hypomagnesemia, Neutropenia, Tachycardia Admit for IV antibiotics, electrolyte stabilization, and close monitoring Discharge Plan Visit Data Chief Complaint: Shortness of Breath/Dyspnea Stated Complaint: SOB, NO APPETITE, ALL OVER PAIN ED Midlevel Provider: Hany Garay Discharge Problem: Multifocal pneumonia, Hypokalemia, Hypomagnesemia, Neutropenia, Tachycardia Patient Disposition: Admitted As Inpatient Condition: Fair Discharge Instructions Interventions: ED Discharge Assessment Last Done: 07/29/21 16:59
[2021-07-29 13:47] LABS: Hematocrit (blood only) 34.8 % (37-47); Hemoglobin 12.4 g/dL (12.0-16.0); Mean Corpuscular Hemoglobin 31.3 pg (25-34); Mean Corpuscular Hgb Conc 35.6 g/dL (32-36); Mean Corpuscular Volume 87.9 fL (80-100); Mean Platelet Volume 10.5 fL (7.4-10.4); Platelet Count 211 K/uL (130-400); RDW Coefficient of Variation 13.5 % (11.5-14.5); RDW Standard Deviation 43.5 fL (36.4-46.3); Red Blood Count 3.96 M/uL (4.2-5.4); White Blood Count 0.88 K/uL (4.8-10.8)
[2021-07-29 13:56] LABS: Troponin I < 0.03 ng/ml (0-0.04)
[2021-07-29 13:58] LABS: Echinocytes 2+
--- NOTE | 2021-07-29 14:04 | XRay Report ---
XR chest 1V portable HISTORY: 56 years-old Female Right sided chest pain, cough, productive acute right-sided chest pain with cough COMPARISON: PET CT 07/25/2021, chest radiograph 06/06/2021 TECHNIQUE: Portable AP view of the chest FINDINGS: The cardiac silhouette is normal in size. Right IJ port catheter appears stable. Progressively worsen ed bilateral mixed interstitial and alveolar opacities with a right perihilar and bibasilar predomina nt distribution. No pneumothorax or overt pulmonary edema. No large pleural effusion. Surgical clips project over the abdominal left upper quadrant. The bones appear grossly intact. IMPRESSION: Progressively worsened right perihilar and bibasilar predominant patchy airspace opacitie s are suggestive of multifocal pneumonia. Follow-up imaging to document resolution recommended. ACT 112: Negative or not required by law. The above report was generated using voice recognition software. It may contain grammatical, syntax o r spelling errors. Electronically signed by: Dhiraj Lou M.D. 07/29/2021 2:03 PM
[2021-07-29 14:05] LABS: Influenza A virus by PCR Negative (Negative); Influenza B virus by PCR Negative (Negative)
[2021-07-29 14:08] LABS: ANC (manual) 0.09 K/uL (1.4-6.5); Eosinophils % (manual) 11.8 %; Monocytes # (manual) 0.24 K/uL (0.11-0.59); Monocytes % (manual) 27.5 %; Myelocytes # (manual) 0.05 K/uL (0-0); Myelocytes % (manual) 5.2 %; Neutrophils # (manual) 0.09 K/uL (1.4-6.5); Neutrophils % (manual) 10.5 %
[2021-07-29 14:22] LABS: Alanine Aminotransferase 13 U/L (7-52); Albumin Globulin Ratio 1.3 (0.9-2); Albumin Level 3.9 gm/dl (3.4-5.0); Alkaline Phosphatase 165 U/L (34-104); Anion Gap 15 (3-11); Aspartate Aminotransferase 12 U/L (13-39); BUN Creatinine Ratio 20.8 (10-20); Bilirubin,Total 1.1 mg/dl (0.2-1.0); Blood Urea Nitrogen 21 mg/dl (6-23); Calcium 9.1 mg/dl (8.5-10.1); Carbon Dioxide 23 mmol/L (21-32); Chloride 97 mmol/L (98-107); Creatinine Clr Calc Pharmacy 50.8 ml/min; Est GFR (African American) 73.1 ml/min; Est GFR (Non-African American) 63.1 ml/min; Globulin 2.9 gm/dl (2.5-4.0); Glucose 97 mg/dl (70-99(Fasting)); Magnesium 1.5 mg/dl (1.7-2.4); Potassium 2.8 mmol/L (3.5-5.1); Sodium 135 mmol/L (136-145); Total Protein 6.8 gm/dl (6.0-8.3)
[2021-07-29] MEDS ORDERED: fentaNYL citrate 100 MCG/2 ML VIAL IV STA (14:39)
[2021-07-29 14:50] LABS: Appearance Urine Cloudy (Clear); Bacteria Urine Automated Negative (Negative); Bilirubin Urine Negative (Negative); Blood Urine Trace (Negative); Color Urine Dark Yellow; Epithelial Cell Urine Auto >30 /lpf (0-5); Glucose Urine UA Negative (Negative); Ketones Urine Negative (Negative); Leukocyte Esterase Urine Negative (Negative); Nitrite Urine Negative (Negative); Protein Urine 2+ (Negative); Specific Gravity Urine 1.017 (1.000-1.030); Urobilinogen Urine Negative (Negative); pH Urine 5.5 (4.5-7.5)
[2021-07-29] MEDS ORDERED: CEFEPIME 20 ML IV ONE (15:00)
[2021-07-29] MEDS: POTASSIUM CHLORIDE / WTR 10 MEQ/100 ML PLCT IV SCH ×2 (15:18→16:47)
[2021-07-29] MEDS: MAGNESIUM SULFATE / D5W 1 GM/100 ML BAG IV SCH ×2 (15:18→16:47)
[2021-07-29 15:40] LABS: RBC Urine Automated 0-4 /hpf (0-4)
--- NOTE | 2021-07-29 16:11 | History & Physical Report ---
Date of Service July 29, 2021 Assessment & Plan (1) Multifocal pneumonia: Plan: Patient is 56-year-old female with PMH follicular lymphoma (on maintenance rituximab), achalasia s/p Heller myotomy w/ Jaison fundoplication, and COPD presented to ER with complaint of increased cough. History of hospitalization 06/06/2021-06/13/2021 for multifocal pneumonia treated with cefepime. Yesterday onset increased cough and sputum production. In ER patient afebrile, P: 117, R: 18, BP 101/69, 92% on room air. WBC: 0.8 (was 5.4 on 07/14/2021), ANC: 84, lactate: 1.9, procalcitonin: 4.6. Negative COVID-19 PCR, negative influenza PCR, negative RSV PCR. CXR: Progressively worsened right perihilar and bibasilar patchy airspace opacities suggestive of multifocal pneumonia In ER given cefepime, 2 g magnesium sulfate, 2K riders, 1 L NSS Blood cultures pending Obtain sputum culture Elevated D-Dimer, Obtain CTA chest to rule out PE Cefepime, vancomycin Supplemental oxygen as needed Incentive spirometry CBC, BMP in a.m. If no improvement may need to consider ID consult, pulmonology consult Sinus Tachycardia Likely secondary to underlying infection, dehydration IVF D-dimer elevated, CTA chest pending to rule out PE (2) Hypomagnesemia: Plan: Magnesium: 1.5 In ER was given magnesium sulfate total 2 g BMP and mag labs in a.m. (3) Hypokalemia: Plan: K: 2.8 In ER given 2K riders Replace potassium and monitor BMP (4) Leukopenia: (5) Follicular lymphoma: Plan: Neutropenia Follows with Dr. Madsen. On maintenance rituximab. Last received 07/14/2021 WBC: 0.8 (was 5.4 on 07/14/2021). May be secondary to underlying infection versus recent chemo Neutropenic precautions On cefepime as above If no improvement consider oncology consult (6) QT prolongation: Plan: Prolonged QTc EKG in a.m. DVT Prophylaxis Lovenox SQ Full Code as per discussion with pt, however reports would not want prolonged intubation if poor prognosis Follows with Steve Quiñones PA-C at [place] for routine care Pt was seen and care coordinated with Dr Padron. See addendum History of Present Illness Chief Complaint: Cough, SOB Primary Care Provider: Steve Quiñones PA-C Patient is 56-year-old female with PMH follicular lymphoma (on maintenance rituximab), achalasia s/p Heller myotomy w/ Jaison fundoplication, and COPD presented to ER with complaint of increased cough. History of hospitalization 06/06/2021-06/13/2021 for multifocal pneumonia. During that admission she was initially treated with cefepime and vancomycin. Had negative MRSA swab, negative influenza, negative COVID-19 NAAT test, and Negative Legionella. ID was consulted and recommended cefepime x7 days which she completed. Patient states was discharged home and overall feeling better. She reports that she has had continued cough that is productive. Outpatient records reviewed, outpatient chest x-ray on 07/14/2021 with no acute pulmonary abnormality or consolidations. Reports yesterday started with increased cough and increased sputum production. She reports coughing so much that her right ribs are hurting. Denies chest pain without cough. She also reports she has been feeling more short of breath. Reports has been having sweats, denies known fever. Denies N/V/D/C, DAMON, dizziness, syncope, vision changes, neck pain, CP, orthopnea, palpitations, hematemesis, sore throat, choking, otalgia, rhinorrhea, abdominal pain, paresthesias, extremity weakness, extremity edema, rashes, urinary symptoms. In ER patient afebrile, P: 117, R: 18, BP 101/69, 92% on room air. WBC: 0.8 (was 5.4 on 07/14/2021), ANC: 84, lactate: 1.9, procalcitonin: 4.6. Negative COVID-19 PCR, negative influenza PCR, negative RSV PCR. CXR: Progressively worsened right perihilar and bibasilar patchy airspace opacities suggestive of multifocal pneumonia In ER given cefepime, 2 g magnesium sulfate, 2K riders, 1 L NSS Allergies Allergy/AdvReac Type Severity Reaction Status Date / Time No Known Allergies Allergy Verified 07/29/21 14:11 Home Medications Medication Instructions Recorded Confirmed Type albuterol sulfate 90 mcg/actuation 2 puff INHALATION QID PRN 06/06/21 07/29/21 History aerosol inhaler pantoprazole 40 mg tablet,delayed 40 mg PO HS 06/06/21 07/29/21 History release Past Med/Surg History Medical History Achalasia Chronic obstructive pulmonary disease Follicular lymphoma Restless leg syndrome Surgical History H/O unilateral oophorectomy History of fundoplication Heller myotomy with Jaison fundoplication in 03/08/21 History of tonsillectomy History of tooth extraction Family History (Updated 07/29/21 @ 20:05 by Nicolasa Green PA-C) Mother Hypertension Father Cancer Other Coronary heart disease Social History Smoking Status: Current some day smoker Tobacco Type: Cigarettes Cigarettes Per Day: 10; Second Hand Exposure: Yes; Do You Dip or Chew Tobacco: No; Tobacco Cessation Education Requested by Patient: No Hx Alcohol Use: No Hx Substance Use: No Preferred Language: Irish Communication Ability: Effective Real Estate Manager Required: No Beliefs That Will Affect Care: None Current Living Situation: Family and Significant Other How many Children do You have: 3 Other Information That Helps Us Care for You: No Feels Safe at Home: Yes Safety Concerns: Feels Safe At This Time Assistive Devices: None Review of Systems Review of Systems: All systems reviewed & are unremarkable except as noted in HPI & below Physical Exam Physical Exam: General: no acute distress, however tearful, thin, frail, chronic ill appearing Head: normocephalic, atraumatic Eyes: PERRL, EOM's intact, conjunctiva non-injected, anicteric ENT: normal inspection external ears, nose, mucous membranes dry Neck: supple, trachea midline Lungs: no respiratory distress, sat 94% on RA, +diminished breath sounds throughout CV: tachycardia, rate 120, no murmur, no pretibial edema Abd: normal BS, soft, non-tender Ext: no cyanosis, no erythema, no calf tenderness Neuro: A&O x 3, no focal deficits noted, anxious affect Skin: warm, dry Results & Data Results & Data ([place]) Vital Signs (Past 12 Hours) Vital Signs Temp Pulse Pulse Resp BP BP Pulse Ox 07/29/21 14:14 120 H 20 117/72 93 07/29/21 14:07 104 H 22 93 07/29/21 13:33 117 H 20 95 07/29/21 13:32 118 H 20 111/72 93 07/29/21 12:05 107 H 20 88/54 L 94 07/29/21 11:44 36.7 C 117 H 18 101/69 92 Laboratory Results Short CBC 07/29/21 Range/Units 13:12 WBC 0.88 L* (4.8-10.8) K/uL Hgb 12.4 (12.0-16.0) g/dL Hct 34.8 L (37-47) % Plt Count 211 (130-400) K/uL BMP 07/29/21 13:12 Sodium 135 L Potassium 2.8 L Chloride 97 L Carbon Dioxide 23 BUN 21 Creatinine 1.01 Glucose 97 Calcium 9.1 Cardiac Enzymes 07/29/21 Range/Units 13:12 Troponin I < 0.03 (0-0.04) ng/ml Liver Function 07/29/21 Range/Units 13:12 Total Bilirubin 1.1 H (0.2-1.0) mg/dl AST 12 L (13-39) U/L ALT 13 (7-52) U/L Alkaline Phosphatase 165 H (34-104) U/L Albumin 3.9 (3.4-5.0) gm/dl Urine 07/29/21 Range/Units 13:57 Urine Color Dark Yellow Urine Appearance Cloudy A (Clear) Urine pH 5.5 (4.5-7.5) Ur Specific [place] 1.017 (1.000-1.030) Urine Protein 2+ H (Negative) Urine Glucose (UA) Negative (Negative) Diagnostic Findings Chest X-Ray 07/29/21 13:02 XR chest 1V portable HISTORY: 56 years-old Female Right sided chest pain, cough, productive acute right-sided chest pain with cough COMPARISON: PET CT 07/25/2021, chest radiograph 06/06/2021 TECHNIQUE: Portable AP view of the chest FINDINGS: The cardiac silhouette is normal in size. Right IJ port catheter appears stable. Progressively worsened bilateral mixed interstitial and alveolar opacities with a right perihilar and bibasilar predominant distribution. No pneumothorax or overt pulmonary edema. No large pleural effusion. Surgical clips project over the abdominal left upper quadrant. The bones appear grossly intact. IMPRESSION: Progressively worsened right perihilar and bibasilar predominant patchy airspace opacities are suggestive of multifocal pneumonia. Follow-up imaging to document resolution recommended. ACT 112: Negative or not required by law. The above report was generated using voice recognition software. It may contain grammatical, syntax or spelling errors. Electronically signed by: Dhiraj Lou M.D. 07/29/2021 2:03 PM Code Status & VTE Plan VTE Prophylaxis Plan VTE Prophylaxis will be ordered: Yes Supervising Physician Co-Signing Physician Notes This is an attending cosign note for full report and documentation please see the above dictation by the PEDRO. Agree with assessment and plan. The following is a synopsis. Patient with a history of follicular lymphoma presenting with shortness of breath and worsening weakness associate with cough as well. Patient receiving chemotherapy this past month in June. Patient noted to have neutropenia as well as bilateral multifocal pneumonia. Patient initiated on cefepime. To note patient was recently admitted for pneumonia as well. Patient upset that she has pneumonia again. Otherwise noted to be borderline hypoxic as well. Head atraumatic chest diminished bilateral scattered rhonchi noted. Symmetrical. Abdomen soft nontender. We will add vancomycin. Follow- up cultures. Obtain urine streptococcal antigen recent urine Legionella negative. D-dimer elevated will need to perform CT pulmonary embolism as well. Hydration. (1) Leukopenia Leukopenia type: unspecified Qualified Code(s): D72.819 - Decreased white blood cell count, unspecified (2) Follicular lymphoma Follicular lymphoma type: unspecified follicular type Lymphoma site: unspecified region Qualified Code(s): C82.90 - Follicular lymphoma, unspecified, unspecified site
[2021-07-29] MEDS ORDERED: POTASSIUM CHLORIDE 20 MEQ/15 ML UDC PO STA (16:16)
[2021-07-29 16:48] LABS: D Dimer 1320 ug/L FEU (0-500)
--- NOTE | 2021-07-29 17:07 | Emergency Department Note ---
ED Visit Note I have personally evaluated this patient examined her and reviewed the pertinent labs and data. I have discussed the case with Hany, the physician child nutrition assistant and agree with the plan. Please refer to the PA note This patient comes in after having a cough and shortness of breath and weakness. She was admitted for pneumonia recently she is being treated for lymphoma she tells me last time she had chemo was in June. She is complaining of hip pain on my exam although says that is more chronic. She does have a port that is been accessed in the right chest. Her lungs have some crackles in the bases. We did give her IV cefepime broad-spectrum antibiotic coverage it does look like she has a worsening of pneumonia and she is also neutropenic. She was also found to have a low potassium and magnesium which were repleted IV as well. She has been cultured she will need to be admitted for further treatment and evaluation and we have consulted the admitting team to do so. .
[2021-07-29 17:41] LABS: Influenza A virus by PCR Negative (Neg); Influenza B virus by PCR Negative (Neg); RSV by PCR Negative (Neg); SARS CoV2 RNA(COVID-19) InHosp NEGATIVE (Negative)
[2021-07-29] MEDS ORDERED: POLYETHYLENE (MIRALAX) 17 GM PACK PO PRN (18:06)
[2021-07-29] MEDS ORDERED: VANCOMYCIN CONSULT ACTIVE PRN (18:39)
[2021-07-29] MEDS: ACETAMINOPHEN 325 MG TAB PO PRN (18:46)
[2021-07-29] MEDS ORDERED: VANCOMYCIN HCL 1,000 MG in SODIUM CHLORIDE 0.9% 250 ML IV STA (19:07)
--- NOTE | 2021-07-29 19:17 | Pharmacy Report ---
Pharmacy Vanc AUC Short Note - Date of Service July 29, 2021 - Assessment & Plan Assessment * 56 year old F receiving cefepime and vancomycin for treatment of HAP. Severe immunocompromize / neutropenia noted * Pertinent microbiologic data includes: negative MRSA Nasal Swab * Per Nicolasa - continue both cefepime and vancomycin for now Vancomycin * AUC/TONY is the preferred PK/PD target for vancomycin * AUC guided dosing is effective and associated with decreased risk of nephrotoxicity compared to traditional trough targets Plan * Vancomycin 1000 mg IV x1 * Follow-up tomorrow Pharmacy will continue to follow and will adjust dose/frequency as necessary. Thank you.
[2021-07-29] MEDS ORDERED: OPTIRAY 320 125ml IV ONE (19:32)
[2021-07-29] MEDS: ENOXAPARIN INJ 30 MG/0.3 ML SYR SQ SCH (19:43)
[2021-07-29] MEDS: NSS + 20MEQ KCL 20 MEQ/1,000 ML BAG IV SCH (19:44)
[2021-07-29] MEDS: PANTOprazole 40 MG TAB PO SCH (19:45)
[2021-07-29] MEDS: ALBUT/IPRATROP 3MG/0.5MG NEB 3 ML VIAL NEB SCH (20:12)
--- NOTE | 2021-07-29 21:02 | CT Scan Report ---
CT ANGIOGRAM OF THE CHEST CLINICAL HISTORY: Atypical chest pain. Dyspnea. COMPARISON STUDY: Chest CT dated 06/06/2021. Chest x-ray dated 07/29/2021. TECHNIQUE: Following the IV administration of 120 cc of Optiray 320, CT angiogram of the chest was pe rformed from the upper abdomen to the thoracic inlet utilizing the pulmonary embolus protocol. Images are reviewed in the axial, sagittal, and coronal planes. 3-D MIPS images are created and assessed. I V contrast was administered without complication. A dose lowering technique was utilized adhering to the principles of ALARA. The examination is significantly degraded by motion artifact, as well as by streak artifact from the arms which could not be elevated above the chest. CT DOSE: 416.27 mGycm FINDINGS: Thyroid: Imaged portions of the thyroid gland are normal in size and attenuation. Thoracic aorta: The thoracic aorta is normal in caliber and demonstrates standard 3-vessel arch anato my. No dissection is seen. Pulmonary vasculature: The pulmonary trunk is normal in caliber. There are no filling defects identif ied in main, lobar, or proximal segmental pulmonary branches to suggest pulmonary embolus. Evaluation of the distal segmental and subsegmental branches is significantly degraded by motion artifact. Heart: A right internal jugular central venous infusion port is in place. The heart is normal in size and without pericardial effusion. Lungs and pleural spaces: Evaluation of the lung parenchyma is degraded by motion artifact. The trach ea and central airways are clear. There is multifocal airspace consolidation seen throughout both steve gs, most confluent at the lung bases. No pleural effusion is identified. Mediastinum: Numerous mildly enlarged mediastinal lymph nodes measure up to 12 mm in short axis. Kacie: Clear. Axillae: There is no axillary lymphadenopathy. Upper abdomen: Postoperative change is seen in the left upper quadrant. Partially visualized upper ab dominal viscera is otherwise grossly unremarkable. Skeletal structures: No lytic or blastic bony lesions are seen. IMPRESSION: 1. Streak and motion compromised examination. 2. There is no evidence of central pulmonary embolus in the main, lobar, or proximal segmental pulmon regina arteries. Evaluation of the segmental and subsegmental branches is compromised by motion artifact . 3. Multifocal airspace consolidation is typical for pneumonia. Clinical correlation will be required and radiographic follow-up to resolution is recommended. 4. Mildly enlarged mediastinal lymph nodes are nonspecific and likely reactive. 5. Additional findings as above. ACT 112: Negative or not required by law. Electronically signed by: Bin Alaniz M.D. 07/29/2021 9:00 PM
--- NOTE | 2021-07-29 22:39 | Electrocardiogram Report ---
Test Reason : Blood Pressure : / mmHG Vent. Rate : 109 BPM Atrial Rate : 109 BPM P-R Int : 136 ms QRS Dur : 084 ms QT Int : 368 ms P-R-T Axes : 000 095 093 degrees QTc Int : 496 ms Sinus tachycardia Rightward axis Prolonged QT Nonspecific T wave abnormality Abnormal ECG When compared with ECG of 07-JUN-2021 04:34, Vent. rate has increased BY 44 BPM Non-specific change in ST segment in Lateral leads QT has lengthened Confirmed by Teddy Llamas ([id number]) on 07/29/2021 10:38:56 PM Referred By: REFERRED SELF Confirmed By:Teddy Llamas
[2021-07-30] MEDS ORDERED: CEFEPIME 2,000 MG in SYRINGE 0 ML IV SCH (04:00)
[2021-07-30] MEDS: NSS + 20MEQ KCL 20 MEQ/1,000 ML BAG IV SCH (04:28)
[2021-07-30] MEDS: ACETAMINOPHEN 325 MG TAB PO PRN ×3 (06:50→18:45)
[2021-07-30] MEDS: ALBUT/IPRATROP 3MG/0.5MG NEB 3 ML VIAL NEB SCH ×4 (07:22→19:04)
[2021-07-30 07:52] LABS: Hematocrit (blood only) 28.8 % (37-47); Hemoglobin 10.3 g/dL (12.0-16.0); Mean Corpuscular Hemoglobin 30.7 pg (25-34); Mean Corpuscular Hgb Conc 35.8 g/dL (32-36); Mean Platelet Volume 10.2 fL (7.4-10.4); Platelet Count 148 K/uL (130-400); RDW Coefficient of Variation 13.6 % (11.5-14.5); RDW Standard Deviation 43.4 fL (36.4-46.3); Red Blood Count 3.35 M/uL (4.2-5.4)
[2021-07-30 08:28] LABS: Calcium 8.1 mg/dl (8.5-10.1); Creatinine Clr Calc Pharmacy 73.7 ml/min; Est GFR (African American) 113.8 ml/min; Est GFR (Non-African American) 98.2 ml/min; Magnesium 1.8 mg/dl (1.7-2.4); Potassium 3.2 mmol/L (3.5-5.1)
[2021-07-30 09:07] LABS: Echinocytes 1+
[2021-07-30 09:09] LABS: ALC (manual) 0.61 K/uL (1.2-3.4); ANC (manual) 0.24 K/uL (1.4-6.5); Basophils # (manual) 0.02 K/uL (0-0.2); Basophils % (manual) 0.9 %; Eosinophils # (manual) 0.07 K/uL (0-0.5); Eosinophils % (manual) 4.3 %; Lymphocytes # (manual) 0.61 K/uL (1.2-3.4); Lymphocytes % (manual) 35.7 %; Monocytes # (manual) 0.77 K/uL (0.11-0.59); Monocytes % (manual) 45.2 %; Neutrophils # (manual) 0.24 K/uL (1.4-6.5); Neutrophils % (manual) 13.9 %
[2021-07-30] MEDS ORDERED: POTASSIUM CHLORIDE CRTAB 20 MEQ TABCR PO ONE (10:54)
[2021-07-30] MEDS: CEFEPIME 2,000 MG in SYRINGE 0 ML IV SCH ×2 (11:18→18:05)
[2021-07-30] MEDS ORDERED: VANCOMYCIN HCL 750 MG in SODIUM CHLORIDE 0.9% 250 ML IV SCH (12:00)
--- NOTE | 2021-07-30 12:33 | Electrocardiogram Report ---
Test Reason : Blood Pressure : / mmHG Vent. Rate : 104 BPM Atrial Rate : 104 BPM P-R Int : 130 ms QRS Dur : 090 ms QT Int : 334 ms P-R-T Axes : 079 089 048 degrees QTc Int : 439 ms Sinus tachycardia Nonspecific T wave abnormality Abnormal ECG When compared with ECG of 29-JUL-2021 12:03, Nonspecific T wave abnormality now evident in Inferior leads Nonspecific T wave abnormality no longer evident in Lateral leads QT has shortened Confirmed by Angel Arevalo ([id number]) on 07/30/2021 12:33:29 PM Referred By: REFERRED SELF Confirmed By:Supa Arevalo
--- NOTE | 2021-07-30 18:06 | Hospitalist Progress Note ---
Date of Service July 30, 2021 Assessment & Plan (1) Multifocal pneumonia: (2) Hypomagnesemia: (3) Hypokalemia: (4) Leukopenia: (5) Follicular lymphoma: (6) QT prolongation: Plan: 56 year old female with follicular lymphoma on maintenance rituxan q2 months, achalasia s/p Heller myotomy with Jaison fundoplication, recent pneumonia with neutropenia presented to the ED with increased cough. She was recently hospitalized 06/06-06/13 for multifocal pneumonia with neutropenia and treated with 7 days of iv cefepime per ID recommendation Multifocal pneumonia with neutropenia- Neutropenia likely from infection, unlikely from rituxan- neutropenia already improving. CT chest with multifocal PNA, no PE. Procalcitonin 4.67. flu and covid negative. legionella urinary antigen negative. Follow up on sputum clx, Blood clx NTD. Continue Cefepime D1/7. Vanc discontinued as negative MRSA nare and negative blood clx. continue nebs and expectorant Hypomagnesemia- resolved with repletion Hypokalemia- repleted, recheck in am follicular lymphoma- on rituxan [id number]. Due in August QT prolongation- resolved in EKG this morning Sinus tachycardia- from above. monitor. No PE in CTA chest Dispo- Not medically stable, pending improvement. On iv antibiotics DVT ppx- sc lovenox Admission and Anticipated Discharge Date Admission Date: July 29, 2021 Subjective She feels slightly better. States she is coughing and it hurts her chest. She wants to know why her white count keeps falling low and why she gets pneumonia again and again. She wants to know if anything can be done to keep her white count up so she can avoid getting infections. States her last dose of rituxan was last month and is due next month only. Physical Exam Physical Exam: General: Sitting comfortably in bed, not in distress, on room air HEENT: EOMI, JOSE G, MMM Chest: Port +, Fair breath sounds bilaterally; coughing with productive sputum CVS: Regular rate and rhythm, normal heart sounds, no murmur Abdomen: Soft, non tender, not distended, normal bowel sounds Neuro: Awake, alert, oriented, conversing well, non focal Extremities: No cyanosis, clubbing or edema Results & Data Results & Data ([facility]) Vital Signs (Past 12 Hours) Vital Signs Temp Pulse Pulse Resp BP Pulse Ox 07/30/21 15:43 36.7 C 116 H 18 127/78 92 07/30/21 14:54 121 H 07/30/21 11:44 36.8 C 92 H 20 104/71 92 07/30/21 10:56 104 H 16 93 07/30/21 08:00 107 H 07/30/21 07:47 36.6 C 99 H 18 106/71 95 07/30/21 07:23 110 H 18 94 Laboratory Results Short CBC 07/30/21 Range/Units 07:36 WBC 1.70 L (4.8-10.8) K/uL Hgb 10.3 L (12.0-16.0) g/dL Hct 28.8 L (37-47) % Plt Count 148 (130-400) K/uL BMP 07/30/21 07:36 Sodium 135 L Potassium 3.2 L Chloride 106 Carbon Dioxide 20 L BUN 14 Creatinine 0.70 D Glucose 116 H Calcium 8.1 L Medications Administered Current Inpatient Medications Acetaminophen (Acetaminophen 325 Mg Tab) 650 mg PO Q4H PRN PRN Reason: Pain or Fever Stop: 08/28/21 18:05 Last Admin: 07/30/21 14:32 Dose: 650 mg Documented by: Albuterol (Albut/Ipratrop 3mg/0.5mg Neb 3 Ml Vial) 3 ml NEB QIDR LUDY; Protocol Stop: 08/28/21 18:59 Last Admin: 07/30/21 15:41 Dose: 3 ml Documented by: Enoxaparin Sodium (Enoxaparin Inj 30 Mg/0.3 Ml Syr) 30 mg SQ HS LUDY Stop: 08/28/21 18:59 Last Admin: 07/29/21 19:43 Dose: 30 mg Documented by: Heparin Sodium (Porcine) (Heparin 100 Unit/Ml 5ml Flush) 5 ml FLUSH PRN PRN PRN Reason: Flush Stop: 08/29/21 01:15 Cefepime HCl 2,000 mg/ Syringe 20 mls @ 5 mls/min IV Q8H LUDY; Protocol Stop: 08/05/21 09:59 Last Admin: 07/30/21 11:18 Dose: 5 mls/min Documented by: Pantoprazole Sodium (Pantoprazole 40 Mg Tab) 40 mg PO HS LUDY Stop: 08/28/21 20:59 Last Admin: 07/29/21 19:45 Dose: 40 mg Documented by: Polyethylene Glycol (Polyethylene (Miralax) 17 Gm Pack) 17 gm PO DAILY PRN PRN Reason: Constipation Stop: 08/28/21 18:05 (1) Leukopenia Leukopenia type: unspecified Qualified Code(s): D72.819 - Decreased white blood cell count, unspecified (2) Follicular lymphoma Follicular lymphoma type: unspecified follicular type Lymphoma site: unspecified region Qualified Code(s): C82.90 - Follicular lymphoma, u nspecified, unspecified site
[2021-07-30] MEDS: ENOXAPARIN INJ 30 MG/0.3 ML SYR SQ SCH (20:07)
[2021-07-30] MEDS: PANTOprazole 40 MG TAB PO SCH (20:08)
[2021-07-30] MEDS: guaiFENesin/DEXTROM SYRUP 200MG/20MG 10ML UDC PO SCH (20:08)
[2021-07-31] MEDS: CEFEPIME 2,000 MG in SYRINGE 0 ML IV SCH ×3 (00:58→17:08)
[2021-07-31] MEDS: ACETAMINOPHEN 325 MG TAB PO PRN ×3 (01:00→14:49)
[2021-07-31] MEDS: ALBUT/IPRATROP 3MG/0.5MG NEB 3 ML VIAL NEB SCH ×4 (07:25→19:00)
[2021-07-31 07:30] LABS: Hematocrit (blood only) 29.4 % (37-47); Hemoglobin 10.3 g/dL (12.0-16.0); Mean Corpuscular Volume 88.6 fL (80-100); Mean Platelet Volume 10.5 fL (7.4-10.4); Platelet Count 166 K/uL (130-400); RDW Coefficient of Variation 14.2 % (11.5-14.5); RDW Standard Deviation 46.2 fL (36.4-46.3); Red Blood Count 3.32 M/uL (4.2-5.4); White Blood Count 3.91 K/uL (4.8-10.8)
[2021-07-31 08:03] LABS: BUN Creatinine Ratio 17.1 (10-20); Calcium 8.3 mg/dl (8.5-10.1); Creatinine Clr Calc Pharmacy 73.2 ml/min; Est GFR (African American) 113.8 ml/min; Est GFR (Non-African American) 98.2 ml/min; Magnesium 1.5 mg/dl (1.7-2.4); Phosphorus 2.9 mg/dl (2.5-4.9); Potassium 3.2 mmol/L (3.5-5.1)
[2021-07-31] MEDS ORDERED: POTASSIUM CHLORIDE CRTAB 20 MEQ TABCR PO ONE (08:10)
[2021-07-31 08:13] LABS: ALC (manual) 0.41 K/uL (1.2-3.4); ANC (manual) 1.58 K/uL (1.4-6.5); Basophils # (manual) 0.04 K/uL (0-0.2); Basophils % (manual) 0.9 %; Dohle Bodies 2+; Echinocytes 1+; Eosinophils # (manual) 0.45 K/uL (0-0.5); Eosinophils % (manual) 11.4 %; Giant Platelets 1+; Lymphocytes # (manual) 0.41 K/uL (1.2-3.4); Lymphocytes % (manual) 10.5 %; Metamyelocytes # (manual) 0.04 K/uL (0-0); Metamyelocytes % (manual) 0.9 %; Monocytes # (manual) 1.34 K/uL (0.11-0.59); Monocytes % (manual) 34.2 %; Myelocytes # (manual) 0.07 K/uL (0-0); Myelocytes % (manual) 1.8 %; Neutrophils # (manual) 1.58 K/uL (1.4-6.5); Neutrophils % (manual) 40.3 %; Toxic Granulation 1+
[2021-07-31 08:16] LABS: Dohle Bodies 2+; Toxic Vacuolation 1+
[2021-07-31] MEDS: DICLOFENAC SOD 1% GEL 100 GM TUBE EXT SCH ×4 (08:45→20:30)
[2021-07-31] MEDS: MAGNESIUM OXIDE 400 MG TAB PO SCH (08:46)
[2021-07-31] MEDS: guaiFENesin/DEXTROM SYRUP 200MG/20MG 10ML UDC PO SCH ×4 (08:46→20:31)
[2021-07-31] MEDS: HEPARIN 100 UNIT/ML 5ML FLUSH FLUSH PRN (15:35)
--- NOTE | 2021-07-31 16:20 | Hospitalist Progress Note ---
Date of Service July 31, 2021 Assessment & Plan (1) Multifocal pneumonia: (2) Hypomagnesemia: (3) Hypokalemia: (4) Leukopenia: (5) Follicular lymphoma: Plan: 56 year old female with follicular lymphoma on maintenance rituxan q2 months, achalasia s/p Heller myotomy with Jaison fundoplication, recent pneumonia with neutropenia presented to the ED with increased cough. She was recently hospitalized 06/06-06/13 for multifocal pneumonia with neutropenia and treated wi th 7 days of iv cefepime per ID recommendation Multifocal pneumonia with neutropenia- Neutropenia likely from infection, unlikely from rituxan- neutropenia already improving. CT chest with multifocal PNA, no PE. Procalcitonin 4.67. flu and covid negative. legionella urinary antigen negative. Follow up on sputum clx, Blood clx NTD. Continue Cefepime D2/7. continue nebs and expectorant Hypomagnesemia- repleted, recheck in am Hypokalemia- repleted, recheck in am follicular lymphoma- on rituxan [id number]. Due in August Sinus tachycardia- from above. monitor. No PE in CTA chest Dispo- Not medically stable, pending improvement. On iv antibiotics DVT ppx- sc lovenox Admission and Anticipated Discharge Date Admission Date: July 29, 2021 Subjective Feels about the same as yesterday. pain due to coughing. no fever. no respiratory distress. Physical Exam Physical Exam: General: Sitting comfortably in bed, not in distress, on room air HEENT: EOMI, JOSE G, MMM Chest: Port +, Fair breath sounds bilaterally; coughing with productive sputum CVS: Regular rate and rhythm, normal heart sounds, no murmur Abdomen: Soft, non tender, not distended, normal bowel sounds Neuro: Awake, alert, oriented, conversing well, non focal Extremities: No cyanosis, clubbing or edema Results & Data Results & Data ([facility]) Vital Signs (Past 12 Hours) Vital Signs Temp Pulse Pulse Resp BP Pulse Ox 07/31/21 15:57 115 H 07/31/21 15:46 36.9 C 112 H 20 122/79 95 07/31/21 15:41 114 H 20 96 07/31/21 11:40 108 H 18 95 07/31/21 11:31 36.4 C L 104 H 20 125/84 95 07/31/21 07:56 36.5 C 111 H 20 124/80 95 07/31/21 07:50 96 H 07/31/21 07:25 109 H 18 94 (1) Leukopenia Leukopenia type: unspecified Qualified Code(s): D72.819 - Decreased white blood cell count, unspecified (2) Follicular lymphoma Follicular lymphoma type: unspecified follicular type Lymphoma site: unspecified region Qualified Code(s): C82.90 - Follicular lymphoma, unspecified, unspecified site
[2021-07-31] MEDS: MoRPHine SULFATE 2 MG/ML CARP IV PRN (17:08)
[2021-07-31] MEDS: ENOXAPARIN INJ 30 MG/0.3 ML SYR SQ SCH (20:31)
[2021-07-31] MEDS: PANTOprazole 40 MG TAB PO SCH (20:32)
[2021-08-01] MEDS: CEFEPIME 2,000 MG in SYRINGE 0 ML IV SCH ×3 (01:01→17:46)
[2021-08-01 06:21] LABS: Hematocrit (blood only) 28.5 % (37-47); Hemoglobin 9.9 g/dL (12.0-16.0); Mean Corpuscular Hemoglobin 30.7 pg (25-34); Mean Corpuscular Hgb Conc 34.7 g/dL (32-36); Mean Corpuscular Volume 88.5 fL (80-100); Mean Platelet Volume 10.4 fL (7.4-10.4); Platelet Count 160 K/uL (130-400); RDW Coefficient of Variation 14.4 % (11.5-14.5); RDW Standard Deviation 47.2 fL (36.4-46.3); Red Blood Count 3.22 M/uL (4.2-5.4); White Blood Count 6.09 K/uL (4.8-10.8)
[2021-08-01 06:38] LABS: BUN Creatinine Ratio 17.9 (10-20); Creatinine Clr Calc Pharmacy 92.6 ml/min; Est GFR (African American) 122.5 ml/min; Est GFR (Non-African American) 105.7 ml/min; Potassium 3.1 mmol/L (3.5-5.1)
[2021-08-01] MEDS: ALBUT/IPRATROP 3MG/0.5MG NEB 3 ML VIAL NEB SCH ×4 (07:04→19:04)
[2021-08-01 07:19] LABS: ALC (manual) 0.43 K/uL (1.2-3.4); ANC (manual) 3.69 K/uL (1.4-6.5); Eosinophils # (manual) 0.16 K/uL (0-0.5); Eosinophils % (manual) 2.6 %; Lymphocytes # (manual) 0.43 K/uL (1.2-3.4); Metamyelocytes # (manual) 0.37 K/uL (0-0); Metamyelocytes % (manual) 6.1 %; Monocytes # (manual) 1.12 K/uL (0.11-0.59); Monocytes % (manual) 18.4 %; Myelocytes # (manual) 0.32 K/uL (0-0); Myelocytes % (manual) 5.3 %; Neutrophils # (manual) 3.69 K/uL (1.4-6.5); Neutrophils % (manual) 60.6 %
[2021-08-01] MEDS: DICLOFENAC SOD 1% GEL 100 GM TUBE EXT SCH ×5 (08:20→20:33)
[2021-08-01] MEDS: guaiFENesin/DEXTROM SYRUP 200MG/20MG 10ML UDC PO SCH ×4 (08:20→20:32)
[2021-08-01] MEDS: POTASSIUM CHLORIDE CRTAB 20 MEQ TABCR PO SCH ×2 (08:21→20:32)
[2021-08-01] MEDS: MAGNESIUM OXIDE 400 MG TAB PO SCH (08:21)
[2021-08-01] MEDS: ACETAMINOPHEN 325 MG TAB PO PRN ×2 (08:27→15:59)
--- NOTE | 2021-08-01 08:51 | Electrocardiogram Report ---
Test Reason : Blood Pressure : / mmHG Vent. Rate : 106 BPM Atrial Rate : 106 BPM P-R Int : 132 ms QRS Dur : 088 ms QT Int : 334 ms P-R-T Axes : 079 088 045 degrees QTc Int : 443 ms Sinus tachycardia with Premature atrial complexes Nonspecific T wave abnormality Abnormal ECG When compared with ECG of 30-JUL-2021 05:23, (unconfirmed) Premature atrial complexes are now Present Confirmed by Angel Arevalo ([id number]) on 08/01/2021 8:50:55 AM Referred By: REFERRED SELF Confirmed By:Supa Arevalo
--- NOTE | 2021-08-01 08:52 | Electrocardiogram Report ---
Test Reason : Blood Pressure : / mmHG Vent. Rate : 107 BPM Atrial Rate : 107 BPM P-R Int : 130 ms QRS Dur : 088 ms QT Int : 324 ms P-R-T Axes : 078 086 044 degrees QTc Int : 432 ms Sinus tachycardia Nonspecific T wave abnormality Abnormal ECG When compared with ECG of 29-JUL-2021 12:03, Nonspecific T wave abnormality, worse in Anterior leads Nonspecific T wave abnormality no longer evident in Lateral leads QT has shortened Confirmed by Angel Arevalo ([id number]) on 08/01/2021 8:51:37 AM Referred By: REFERRED SELF Confirmed By:Supa Arevalo
--- NOTE | 2021-08-01 08:52 | Electrocardiogram Report ---
Test Reason : Blood Pressure : / mmHG Vent. Rate : 105 BPM Atrial Rate : 105 BPM P-R Int : 128 ms QRS Dur : 092 ms QT Int : 336 ms P-R-T Axes : 081 089 060 degrees QTc Int : 444 ms Sinus tachycardia Nonspecific T wave abnormality Abnormal ECG When compared with ECG of 30-JUL-2021 05:08, (unconfirmed) No significant change was found Confirmed by Angel Arevalo ([id number]) on 08/01/2021 8:51:43 AM Referred By: REFERRED SELF Confirmed By:Supa Arevalo
--- NOTE | 2021-08-01 15:26 | Hospitalist Progress Note ---
Date of Service August 01, 2021 Assessment & Plan (1) Multifocal pneumonia: (2) Hypomagnesemia: (3) Hypokalemia: (4) Leukopenia: (5) Follicular lymphoma: Plan: 56 year old female with follicular lymphoma on maintenance rituxan q2 months, achalasia s/p Heller myotomy with Jaison fundoplication, recent pneumonia with neutropenia presented to the ED with increased cough. She was recently hospitalized 06/06-06/13 for multifocal pneumonia with neutropenia and treated wi th 7 days of iv cefepime per ID recommendation Multifocal pneumonia with neutropenia- Neutropenia likely from infection, unlikely from rituxan- neutropenia and leukopenia resolved. CT chest with mult ifocal PNA, no PE. Procalcitonin 4.67. flu and covid negative. legionella urinary antigen negative. Sputum clx showing strep pneumoniae, pending sensitivity, Blood clx NTD, urine clx negative. Continue Cefepime D3/7. continue nebs and expectorant Hypokalemia- repleted, recheck in am follicular lymphoma- on rituxan [id number]. Due in August Sinus tachycardia- from above. monitor. No PE in CTA chest Dispo- Not medically stable, pending improvement. On iv antibiotics pending final sputum clx results DVT ppx- sc lovenox Admission and Anticipated Discharge Date Admission Date: July 29, 2021 Subjective No new issues. Still has cough, pain and shortness of breath but better. No fever. Physical Exam Physical Exam: General: Sitting comfortably in bed, not in distress, on room air HEENT: EOMI, JOSE G, MMM Chest: Port +, Fair breath sounds bilaterally; coughing with productive sputum CVS: Regular rate and rhythm, normal heart sounds, no murmur Abdomen: Soft, non tender, not distended, normal bowel sounds Neuro: Awake, alert, oriented, conversing well, non focal Extremities: No cyanosis, clubbing or edema Results & Data Results & Data ([facility]) Vital Signs (Past 12 Hours) Vital Signs Temp Pulse Pulse Resp BP Pulse Ox 08/01/21 15:02 91 H 16 93 08/01/21 11:04 103 H 16 94 08/01/21 10:58 36.7 C 101 H 19 117/76 92 08/01/21 07:22 36.7 C 108 H 17 121/78 95 08/01/21 07:20 102 H 08/01/21 07:04 104 H 16 95 08/01/21 04:02 37.1 C 125 H 20 155/91 H 91 (1) Leukopenia Leukopenia type: unspecified Qualified Code(s): D72.819 - Decreased white blood cell count, unspecified (2) Follicular lymphoma Follicular lymphoma type: unspecified follicular type Lymphoma site: unspecified region Qualified Code(s): C82.90 - Follicular lymphoma, unspecified, unspecified site
[2021-08-01] MEDS: PANTOprazole 40 MG TAB PO SCH (20:31)
[2021-08-01] MEDS: ENOXAPARIN INJ 30 MG/0.3 ML SYR SQ SCH (20:33)
[2021-08-01] MEDS: MoRPHine SULFATE 2 MG/ML CARP IV PRN (23:04)
[2021-08-02] MEDS: CEFEPIME 2,000 MG in SYRINGE 0 ML IV SCH ×3 (00:59→18:40)
[2021-08-02 06:13] LABS: Hemoglobin 10.5 g/dL (12.0-16.0); Mean Corpuscular Hemoglobin 30.1 pg (25-34); Mean Corpuscular Hgb Conc 33.9 g/dL (32-36); Mean Corpuscular Volume 88.8 fL (80-100); Mean Platelet Volume 10.7 fL (7.4-10.4); Platelet Count 184 K/uL (130-400); RDW Coefficient of Variation 14.5 % (11.5-14.5); RDW Standard Deviation 47.2 fL (36.4-46.3); Red Blood Count 3.49 M/uL (4.2-5.4); White Blood Count 9.95 K/uL (4.8-10.8)
[2021-08-02 06:35] LABS: BUN Creatinine Ratio 15.8 (10-20); Calcium 8.4 mg/dl (8.5-10.1); Est GFR (African American) 121.8 ml/min; Est GFR (Non-African American) 105.1 ml/min; Potassium 3.6 mmol/L (3.5-5.1)
[2021-08-02 07:03] LABS: ALC (manual) 0.52 K/uL (1.2-3.4); ANC (manual) 7.26 K/uL (1.4-6.5); Basophils # (manual) 0.09 K/uL (0-0.2); Basophils % (manual) 0.9 %; Dohle Bodies 2+; Eosinophils # (manual) 0.35 K/uL (0-0.5); Eosinophils % (manual) 3.5 %; Lymphocytes # (manual) 0.52 K/uL (1.2-3.4); Lymphocytes % (manual) 5.2 %; Metamyelocytes # (manual) 0.61 K/uL (0-0); Metamyelocytes % (manual) 6.1 %; Monocytes # (manual) 1.03 K/uL (0.11-0.59); Monocytes % (manual) 10.4 %; Myelocytes # (manual) 0.09 K/uL (0-0); Myelocytes % (manual) 0.9 %; Neutrophils # (manual) 7.26 K/uL (1.4-6.5)
[2021-08-02] MEDS: ALBUT/IPRATROP 3MG/0.5MG NEB 3 ML VIAL NEB SCH ×4 (07:04→19:08)
[2021-08-02] MEDS: MoRPHine SULFATE 2 MG/ML CARP IV PRN ×2 (08:10→16:32)
[2021-08-02] MEDS ORDERED: CHLORASEPTIC 1.4% SOLN 180 ML BTL MT PRN (08:11)
[2021-08-02] MEDS: guaiFENesin/DEXTROM SYRUP 200MG/20MG 10ML UDC PO SCH ×4 (10:04→21:38)
[2021-08-02] MEDS: MAGNESIUM OXIDE 400 MG TAB PO SCH (10:04)
[2021-08-02] MEDS: DICLOFENAC SOD 1% GEL 100 GM TUBE EXT SCH ×4 (10:04→21:37)
--- NOTE | 2021-08-02 12:14 | Hospitalist Progress Note ---
Date of Service August 02, 2021 Assessment & Plan (1) Multifocal pneumonia: (2) Hypomagnesemia: (3) Hypokalemia: (4) Leukopenia: (5) Follicular lymphoma: Plan: 56 year old female with follicular lymphoma on maintenance rituxan q2 months, achalasia s/p Heller myotomy with Jaison fundoplication, recent pneumonia with neutropenia presented to the ED with increased cough. She was recently hospitalized 06/06-06/13 for multifocal pneumonia with neutropenia and treated wi th 7 days of iv cefepime per ID recommendation Multifocal pneumonia with neutropenia- Neutropenia likely from infection, unlikely from rituxan- neutropenia and leukopenia resolved. CT chest with mult ifocal PNA, no PE. Procalcitonin 4.67. flu and covid negative. legionella urinary antigen negative. Sputum clx showing strep pneumoniae pansensitive, Blood clx NTD, urine clx negative. Continue Cefepime D4/7. continue nebs and expectorant. analgesics, heat pad prn. Hypokalemia- resolved with repletion follicular lymphoma- on rituxan [id number]. Due in August Sinus tachycardia- from above. monitor. No PE in CTA chest Dispo- Pending symptomatic improvement, on iv antibiotics for pneumonia DVT ppx- sc lovenox Admission and Anticipated Discharge Date Admission Date: July 29, 2021 Subjective No new issues. Continues with cough and pain, feels somewhat better. Appetite okay. Has sore throat from constant coughing and spitting. Physical Exam Physical Exam: General: Sitting comfortably in bed, not in acute distress, on room air HEENT: EOMI, JOSE G, MMM Chest: Port +, Fair breath sounds bilaterally with some basilar rales; coughing with productive sputum CVS: Regular rate and rhythm, normal heart sounds, no murmur Abdomen: Soft, non tender, not distended, normal bowel sounds Neuro: Awake, alert, oriented, conversing well, non focal Extremities: No cyanosis, clubbing or edema Results & Data Results & Data ([facility]) Vital Signs (Past 12 Hours) Vital Signs Temp Pulse Pulse Pulse Resp BP Pulse Ox 08/02/21 12:07 36.8 C 117 H 18 125/76 96 08/02/21 11:02 122 H 24 93 08/02/21 08:00 36.8 C 108 H 18 129/64 95 08/02/21 07:32 110 H 08/02/21 07:05 117 H 20 93 08/02/21 03:50 37.3 C 119 H 17 120/77 93 Laboratory Results Short CBC 08/02/21 Range/Units 05:31 WBC 9.95 (4.8-10.8) K/uL Hgb 10.5 L (12.0-16.0) g/dL Hct 31.0 L (37-47) % Plt Count 184 (130-400) K/uL BMP 08/02/21 05:31 Sodium 137 Potassium 3.6 Chloride 104 Carbon Dioxide 22 BUN 9 Creatinine 0.57 L Glucose 103 H Calcium 8.4 L Medications Administered Current Inpatient Medications Acetaminophen (Acetaminophen 325 Mg Tab) 650 mg PO Q4H PRN PRN Reason: Pain or Fever Stop: 08/28/21 18:05 Last Admin: 08/01/21 15:59 Dose: 650 mg Documented by: Albuterol (Albut/Ipratrop 3mg/0.5mg Neb 3 Ml Vial) 3 ml NEB QIDR [facility]; Protocol Stop: 08/28/21 18:59 Last Admin: 08/02/21 11:02 Dose: 3 ml Documented by: Diclofenac Sodium (Diclofenac Sod 1% Gel 100 Gm Tube) 4 gm EXT QID [facility] Stop: 08/30/21 08:59 Last Admin: 08/02/21 10:04 Dose: 4 gm Documented by: Enoxaparin Sodium (Enoxaparin Inj 30 Mg/0.3 Ml Syr) 30 mg SQ HS LUDY Stop: 08/28/21 18:59 Last Admin: 08/01/21 20:33 Dose: 30 mg Documented by: Guaifenesin/Dextromethorphan (Guaifenesin/Dextrom Syrup 200mg/20mg 10ml Udc) 10 ml PO QID LUDY Stop: 08/29/21 20:59 Last Admin: 08/02/21 10:04 Dose: 10 ml Documented by: Heparin Sodium (Porcine) (Heparin 100 Unit/Ml 5ml Flush) 5 ml FLUSH PRN PRN PRN Reason: Flush Stop: 08/29/21 01:15 Last Admin: 07/31/21 15:35 Dose: 5 ml Documented by: Cefepime HCl 2,000 mg/ Syringe 20 mls @ 5 mls/min IV Q8H LUDY; Protocol Stop: 08/05/21 09:59 Last Admin: 08/02/21 11:16 Dose: 5 mls/min Documented by: Magnesium Oxide (Magnesium Oxide 400 Mg Tab) 400 mg PO DAILY LUDY Stop: 08/30/21 08:59 Last Admin: 08/02/21 10:04 Dose: 400 mg Documented by: Morphine Sulfate (Morphine Sulfate 2 Mg/Ml Carp) 2 mg IV Q4 PRN PRN Reason: Pain Stop: 08/14/21 16:50 Last Admin: 08/02/21 08:10 Dose: 2 mg Documented by: Pantoprazole Sodium (Pantoprazole 40 Mg Tab) 40 mg PO HS LUDY Stop: 08/28/21 20:59 Last Admin: 08/01/21 20:31 Dose: 40 mg Documented by: Phenol (Chloraseptic 1.4% Soln 180 Ml Btl) 1 sprays MT Q2H PRN PRN Reason: sore throat Stop: 09/01/21 08:10 Last Admin: 08/02/21 09:27 Dose: 1 sprays Documented by: Polyethylene Glycol (Polyethylene (Miralax) 17 Gm Pack) 17 gm PO DAILY PRN PRN Reason: Constipation Stop: 08/28/21 18:05 (1) Leukopenia Leukopenia type: unspecified Qualified Code(s): D72.819 - Decreased white blood cell count, unspecified (2) Follicular lymphoma Follicular lymphoma type: unspecified follicular type Lymphoma site: unspecified region Qualified Code(s): C82.90 - Follicular lymphoma, unspecified, unspecified site
[2021-08-02] MEDS: ENOXAPARIN INJ 30 MG/0.3 ML SYR SQ SCH (21:37)
[2021-08-02] MEDS: PANTOprazole 40 MG TAB PO SCH (21:37)
[2021-08-03] MEDS: CEFEPIME 2,000 MG in SYRINGE 0 ML IV SCH ×2 (01:31→10:01)
[2021-08-03] MEDS: HEPARIN 100 UNIT/ML 5ML FLUSH FLUSH PRN (01:32)
[2021-08-03] MEDS: MoRPHine SULFATE 2 MG/ML CARP IV PRN (01:47)
[2021-08-03 06:02] LABS: Hematocrit (blood only) 28.4 % (37-47); Hemoglobin 9.8 g/dL (12.0-16.0); Mean Corpuscular Hemoglobin 30.9 pg (25-34); Mean Corpuscular Hgb Conc 34.5 g/dL (32-36); Mean Corpuscular Volume 89.6 fL (80-100); Mean Platelet Volume 10.4 fL (7.4-10.4); Platelet Count 158 K/uL (130-400); RDW Coefficient of Variation 14.3 % (11.5-14.5); RDW Standard Deviation 47.6 fL (36.4-46.3); Red Blood Count 3.17 M/uL (4.2-5.4); White Blood Count 9.15 K/uL (4.8-10.8)
[2021-08-03 06:25] LABS: BUN Creatinine Ratio 16.4 (10-20); Calcium 8.2 mg/dl (8.5-10.1); Creatinine Clr Calc Pharmacy 92.3 ml/min; Est GFR (African American) 123.2 ml/min; Est GFR (Non-African American) 106.3 ml/min; Potassium 3.3 mmol/L (3.5-5.1)
[2021-08-03 06:46] LABS: ALC (manual) 0.82 K/uL (1.2-3.4); ANC (manual) 6.93 K/uL (1.4-6.5); Eosinophils # (manual) 0.25 K/uL (0-0.5); Eosinophils % (manual) 2.7 %; Lymphocytes # (manual) 0.82 K/uL (1.2-3.4); Metamyelocytes # (manual) 0.33 K/uL (0-0); Metamyelocytes % (manual) 3.6 %; Monocytes # (manual) 0.74 K/uL (0.11-0.59); Monocytes % (manual) 8.1 %; Myelocytes # (manual) 0.08 K/uL (0-0); Myelocytes % (manual) 0.9 %; Neutrophils # (manual) 6.93 K/uL (1.4-6.5); Neutrophils % (manual) 75.7 %
[2021-08-03] MEDS: ALBUT/IPRATROP 3MG/0.5MG NEB 3 ML VIAL NEB SCH ×3 (07:02→15:01)
[2021-08-03 07:54] LABS: Dohle Bodies 1+; Toxic Granulation 1+; Toxic Vacuolation Occasional
[2021-08-03] MEDS ORDERED: POTASSIUM CHLORIDE CRTAB 20 MEQ TABCR PO STA (08:30)
[2021-08-03] MEDS: guaiFENesin/DEXTROM SYRUP 200MG/20MG 10ML UDC PO SCH ×2 (10:00→12:43)
[2021-08-03] MEDS: DICLOFENAC SOD 1% GEL 100 GM TUBE EXT SCH ×2 (10:02→12:43)
[2021-08-03] MEDS: ACETAMINOPHEN 325 MG TAB PO PRN (12:42)
--- NOTE | 2021-08-03 14:25 | Hospitalist Progress Note ---
Date of Service August 03, 2021 Assessment & Plan (1) Multifocal pneumonia: (2) Hypomagnesemia: (3) Hypokalemia: (4) Leukopenia: (5) Follicular lymphoma: Plan: 56 year old female with follicular lymphoma on maintenance rituxan q2 months, achalasia s/p Heller myotomy with Jaison fundoplication, recent pneumonia with neutropenia presented to the ED with increased cough. She was recently hospitalized 06/06-06/13 for multifocal pneumonia with neutropenia and treated wi th 7 days of iv cefepime per ID recommendation Multifocal pneumonia with neutropenia- Neutropenia likely from infection, unlikely from rituxan- neutropenia and leukopenia resolved. CT chest with mult ifocal PNA, no PE. Procalcitonin 4.67. flu and covid negative. legionella urinary antigen negative. Sputum clx showing strep pneumoniae pansensitive, Blood clx NTD, urine clx negative. Currently on Cefepime D4/7, will transition to PO abx. continue nebs and expectorant. analgesics, heat pad prn. Hypokalemia- resolved with repletion follicular lymphoma- on rituxan [id number]. Due in August Sinus tachycardia- from above. monitor. No PE in CTA chest Dispo- Pending symptomatic improvement, on iv antibiotics for pneumonia DVT ppx- sc lovenox Admission and Anticipated Discharge Date Admission Date: July 29, 2021 Subjective Pt was seen and examined for follow up Lying in bed with no acute distress She said that she is feeling better Denies any chest pain, palpitation, dizziness and SOB Review of Systems Review of Systems: All systems reviewed & are unremarkable except as noted in Subjective Physical Exam Physical Exam: General: Sitting comfortably in bed, not in acute distress, on room air HEENT: EOMI, JOSE G, MMM Chest: Port +, Fair breath sounds bilaterally with some basilar rales; coughing with productive sputum CVS: Regular rate and rhythm, normal heart sounds, no murmur Abdomen: Soft, non tender, not distended, normal bowel sounds Neuro: Awake, alert, oriented, conversing well, non focal Extremities: No cyanosis, clubbing or edema Results & Data Results & Data ([facility]) Vital Signs (Past 12 Hours) Vital Signs Temp Pulse Pulse Resp BP BP Pulse Ox 08/03/21 11:25 36.8 C 107 H 18 115/81 100 08/03/21 11:03 106 H 22 95 08/03/21 08:00 84 08/03/21 07:06 36.7 C 92 H 18 110/77 96 08/03/21 07:05 92 H 18 96 08/03/21 02:37 104/67 (1) Leukopenia Leukopenia type: unspecified Qualified Code(s): D72.819 - Decreased white blood cell count, unspecified (2) Follicular lymphoma Follicular lymphoma type: unspecified follicular type Lymphoma site: unspecified region Qualified Code(s): C82.90 - Follicular lymphoma, unspecified, unspecified site
[2021-08-03] MEDS ORDERED: cefTRIAXone SODIUM 2,000 MG in DEXTROSE 5% 50 ML IV SCH (18:00)
[2021-08-03] MEDS ORDERED: CEFDINIR 300 MG CAP PO SCH (21:00)
--- NOTE | 2021-08-11 00:18 | Discharge Summary ---
Date of Service August 03, 2021 Admission HPI Per Admitting Provider Patient is 56-year-old female with PMH follicular lymphoma (on maintenance rituximab), achalasia s/p Heller myotomy w/ Jaison fundoplication, and COPD presented to ER with complaint of increased cough. History of hospitalization 06/06/2021-06/13/2021 for multifocal pneumonia. During that admission she was initially treated with cefepime and vancomycin. Had negative MRSA swab, negative influenza, negative COVID-19 NAAT test, and Negative Legionella. ID was consulted and recommended cefepime x7 days which she completed. Patient states was discharged home and overall feeling better. She reports that she has had continued cough that is productive. Outpatient records reviewed, outpatient chest x-ray on 07/14/2021 with no acute pulmonary abnormality or consolidations. Reports yesterday started with increased cough and increased sputum production. She reports coughing so much that her right ribs are hurting. Denies chest pain without cough. She also reports she has been feeling more short of breath. Reports has been having sweats, denies known fever. Denies N/V/D/C, DAMON, dizziness, syncope, vision changes, neck pain, CP, orthopnea, palpitations, hematemesis, sore throat, choking, otalgia, rhinorrhea, abdominal pain, paresthesias, extremity weakness, extremity edema, rashes, urinary symptoms. In ER patient afebrile, P: 117, R: 18, BP 101/69, 92% on room air. WBC: 0.8 (was 5.4 on 07/14/2021), ANC: 84, lactate: 1.9, procalcitonin: 4.6. Negative COVID-19 PCR, negative influenza PCR, negative RSV PCR. CXR: Progressively worsened right perihilar and bibasilar patchy airspace opacities suggestive of multifocal pneumonia In ER given cefepime, 2 g magnesium sulfate, 2K riders, 1 L NSS Admission Exam Per Admitting Provider General: no acute distress, however tearful, thin, frail, chronic ill appearing Head: normocephalic, atraumatic Eyes: PERRL, EOM's intact, conjunctiva non-injected, anicteric ENT: normal inspection external ears, nose, mucous membranes dry Neck: supple, trachea midline Lungs: no respiratory distress, sat 94% on RA, +diminished breath sounds throughout CV: tachycardia, rate 120, no murmur, no pretibial edema Abd: normal BS, soft, non-tender Ext: no cyanosis, no erythema, no calf tenderness Neuro: A&O x 3, no focal deficits noted, anxious affect Skin: warm, dry Principal Diagnosis (1) Multifocal pneumonia: (2) Hypomagnesemia: (3) Hypokalemia: (4) Leukopenia: (5) Follicular lymphoma: Discharge Exam General: Sitting comfortably in bed, not in acute distress, on room air HEENT: EOMI, JOSE G, MMM Chest: Port +, Fair breath sounds bilaterally with some basilar rales; coughing with productive sputum CVS: Regular rate and rhythm, normal heart sounds, no murmur Abdomen: Soft, non tender, not distended, normal bowel sounds Neuro: Awake, alert, oriented, conversing well, non focal Extremities: No cyanosis, clubbing or edema Discharge Data Allergies Allergy/AdvReac Type Severity Reaction Status Date / Time No Known Allergies Allergy Verified 07/29/21 14:11 Consultations 07/29/21 15:02 ED Decision to Admit Stat Ordered Studies 07/29/21 17:09 CT angio chest PE protocol Stat CT ANGIOGRAM OF THE CHEST CLINICAL HISTORY: Atypical chest pain. Dyspnea. COMPARISON STUDY: Chest CT dated 06/06/2021. Chest x-ray dated 07/29/2021. TECHNIQUE: Following the IV administration of 120 cc of Optiray 320, CT angiogram of the chest was performed from the upper abdomen to the thoracic inlet utilizing the pulmonary embolus protocol. Images are reviewed in the axial, sagittal, and coronal planes. 3-D MIPS images are created and assessed. IV contrast was administered without complication. A dose lowering technique was utilized adhering to the principles of ALARA. The examination is significantly degraded by motion artifact, as well as by streak artifact from the arms which could not be elevated above the chest. CT DOSE: 416.27 mGycm FINDINGS: Thyroid: Imaged portions of the thyroid gland are normal in size and attenuation. Thoracic aorta: The thoracic aorta is normal in caliber and demonstrates standard 3-vessel arch anatomy. No dissection is seen. Pulmonary vasculature: The pulmonary trunk is normal in caliber. There are no filling defects identified in main, lobar, or proximal segmental pulmonary branches to suggest pulmonary embolus. Evaluation of the distal segmental and subsegmental branches is significantly degraded by motion artifact. Heart: A right internal jugular central venous infusion port is in place. The heart is normal in size and without pericardial effusion. Lungs and pleural spaces: Evaluation of the lung parenchyma is degraded by motion artifact. The trachea and central airways are clear. There is multifocal airspace consolidation seen throughout both lungs, most confluent at the lung bases. No pleural effusion is identified. Mediastinum: Numerous mildly enlarged mediastinal lymph nodes measure up to 12 mm in short axis. Kacie: Clear. Axillae: There is no axillary lymphadenopathy. Upper abdomen: Postoperative change is seen in the left upper quadrant. Partially visualized upper abdominal viscera is otherwise grossly unremarkable. Skeletal structures: No lytic or blastic bony lesions are seen. IMPRESSION: 1. Streak and motion compromised examination. 2. There is no evidence of central pulmonary embolus in the main, lobar, or proximal segmental pulmonary arteries. Evaluation of the segmental and subsegmental branches is compromised by motion artifact. 3. Multifocal airspace consolidation is typical for pneumonia. Clinical correlation will be required and radiographic follow-up to resolution is recommended. 4. Mildly enlarged mediastinal lymph nodes are nonspecific and likely reactive. 5. Additional findings as above. ACT 112: Negative or not required by law. Electronically signed by: Bin Alaniz M.D. 07/29/2021 9:00 PM Dictated:07/29/212054 Transcribed: 07/29/212054 XR chest 1V portable HISTORY: 56 years-old Female Right sided chest pain, cough, productive acute right-sided chest pain with cough COMPARISON: PET CT 07/25/2021, chest radiograph 06/06/2021 TECHNIQUE: Portable AP view of the chest FINDINGS: The cardiac silhouette is normal in size. Right IJ port catheter appears stable. Progressively worsened bilateral mixed interstitial and alveolar opacities with a right perihilar and bibasilar predominant distribution. No pneumothorax or overt pulmonary edema. No large pleural effusion. Surgical clips project over the abdominal left upper quadrant. The bones appear grossly intact. IMPRESSION: Progressively worsened right perihilar and bibasilar predominant patchy airspace opacities are suggestive of multifocal pneumonia. Follow-up imaging to document resolution recommended. ACT 112: Negative or not required by law. The above report was generated using voice recognition software. It may contain grammatical, syntax or spelling errors. Electronically signed by: Dhiraj Lou M.D. 07/29/2021 2:03 PM Dictated:07/29/21 1401 Transcribed: 07/29/21 1401 Hospital Course (1) Multifocal pneumonia: (2) Hypomagnesemia: (3) Hypokalemia: (4) Leukopenia: (5) Follicular lymphoma: 56 year old female with follicular lymphoma on maintenance rituxan q2 months, achalasia s/p Heller myotomy with Jaison fundoplication, recent pneumonia with neutropenia presented to the ED with increased cough. She was recently hospitalized 06/06-06/13 for multifocal pneumonia with neutropenia and treated with 7 days of iv cefepime per ID recommendation Multifocal pneumonia with neutropenia- Neutropenia likely from infection, unlikely from rituxan- neutropenia and leukopenia resolved. CT chest with multifocal PNA, no PE. Procalcitonin 4.67. flu and covid negative. legionella urinary antigen negative. Sputum clx showing strep pneumoniae pansensitive, Blood clx NTD, urine clx negative. Currently on Cefepime D4/7, will transition to PO abx. continue nebs and expectorant. analgesics, heat pad prn. Hypokalemia- resolved with repletion follicular lymphoma- on rituxan [id number]. Due in August Sinus tachycardia- from above. monitor. No PE in CTA chest Dispo- Pending symptomatic improvement, on iv antibiotics for pneumonia DVT ppx- sc lovenox Total Time Total Time Spent Total Time Spent (In Minutes): 35 minutes Discharge Plan Discharge Items Patient Disposition: Home - Self-Care Reason For Visit: PNEUMONIA Discharge Diagnosis: (1) Multifocal pneumonia: (2) Hypomagnesemia: (3) Hypokalemia: (4) Leukopenia: (5) Follicular lymphoma: Condition on Discharge: Fair Activity: Resume your previous activity Non-emergency contact: Primary Care Provider Call non-emergency contact if: you have any medication questions and your temperature is above 101 Follow-up/Referrals: Steve Quiñones PA-C [Primary Care Provider] - 08/10/21 9:15 am Diet: Regular Diet Texture: Dental soft (bite-sized) Addtl Attending Provider Instructions: Follow up with your primary care provider Dr. Quiñones within 1 week ( Please call to schedule for the appointment) Complete the course of the antibiotic Seek medical attention if your symptoms worsening Check BMP in 1 week to monitor your electrolytes Please increase potassium supplement in your diet You will need a repeat Chest Xray in 4 to 6 weeks for follow up Fall precaution Pending Studies at Discharge: No Stand-Alone Forms: [facility], Smoking Cessation Medications and DC Order Prescriptions: New potassium chloride 10 mEq capsule, extended release 10 meq PO DAILY Qty: 30 RF: 0 Continued pantoprazole 40 mg tablet,delayed release (DR/EC) 40 mg PO HS RF: 0 albuterol sulfate 90 mcg/actuation HFA aerosol inhaler 2 puff INHALATION QID PRN (Reason: Shortness Of Breath) RF: 0 Discharge Orders: Discharge Order (Routine); Ordered 08/03/21 Ordered By: Yadira Lyn Admission Data Admit Date/Time: 07/29/21 15:21 Attending Provider: Yadira Lyn Admit Provider: Rigo Padron Primary Care Provider: Steve Quiñones Other Providers: Rigo Padron ; Connor Balderas Other Interventions: Discharge Summary Assessment (RN) Last Done: 08/03/21 15:09
== END 2021-08-03 16:52 | disposition home or self-care (01) | DRG 194 ==
LOC: ED 11:41 → SUATTDRO 15:21 → 2S 15:21
DX: D72.819 Decreased white blood cell count, unspecified; C82.90 Follicular lymphoma, unspecified, unspecified site; D70.9 Neutropenia, unspecified; J15.4 Pneumonia due to other streptococci; J44.9 Chronic obstructive pulmonary disease, unspecified; E87.6 Hypokalemia; Z79.51 Long term (current) use of inhaled steroids; Z79.899 Other long term (current) drug therapy; E83.42 Hypomagnesemia

== ENCOUNTER 2021-09-09 12:14 | Inpatient (IN) ==
--- NOTE | 2021-09-09 13:03 | XRay Report ---
XR chest 1V portable CLINICAL HISTORY: Dyspnea COMPARISON STUDY: Chest radiograph and chest CT July 29, 2021. PET/CT July 25, 2021. FINDINGS: Right internal jugular [id number] is in place. There are left upper quadrant surgical cl ips. Cardiac size is normal. Mediastinal contours are normal. No pneumothorax or pleural effusion is identified. Multifocal lower lobe predominant consolidation is again noted. Right perihilar focus has diminished. Airspace opacities are relatively similar to prior exam. IMPRESSION: Persistent lower lung predominant multifocal consolidation. This favors pneumonia. Pooja nued radiographic follow-up to ensure resolution is recommended. ACT 112: Negative or not required by law. Electronically signed by: Cl Espinal M.D. 09/09/2021 1:02 PM
[2021-09-09 13:12] LABS: Hemoglobin 9.4 g/dL (12.0-16.0); Mean Corpuscular Hemoglobin 29.7 pg (25-34); Mean Corpuscular Hgb Conc 32.4 g/dL (32-36); Mean Corpuscular Volume 91.5 fL (80-100); Mean Platelet Volume 9.8 fL (7.4-10.4); Platelet Count 467 K/uL (130-400); RDW Standard Deviation 54.1 fL (36.4-46.3); Red Blood Count 3.17 M/uL (4.2-5.4); White Blood Count 24.17 K/uL (4.8-10.8)
[2021-09-09] MEDS ORDERED: MoRPHine SULFATE 4 MG/ML 1 ML CARP\\VIAL IV STA (13:13)
[2021-09-09 13:39] LABS: INR 1.2 (0.9-1.1); Prothrombin Time 12.5 Seconds (9.0-12.0)
[2021-09-09 13:40] LABS: Albumin Globulin Ratio 1.2 (0.9-2); Albumin Level 3.5 gm/dl (3.4-5.0); Basophils # (auto) 0.02 K/uL (0-0.2); Basophils % (auto) 0.1 %; Bilirubin,Total 0.3 mg/dl (0.2-1.0); Calcium 8.6 mg/dl (8.5-10.1); Creatinine Clr Calc Pharmacy 64.5 ml/min; Eosinophils # (auto) 0.37 K/uL (0-0.5); Eosinophils % (auto) 1.5 %; Est GFR (African American) 121.8 ml/min; Est GFR (Non-African American) 105.1 ml/min; Globulin 2.9 gm/dl (2.5-4.0); Immature Granulocytes # (auto) 0.16 K/uL (0.00-0.02); Immature Granulocytes % (auto) 0.7 %; Lymphocytes # (auto) 0.91 K/uL (1.2-3.4); Lymphocytes % (auto) 3.8 %; Monocytes # (auto) 1.01 K/uL (0.11-0.59); Monocytes % (auto) 4.2 %; Neutrophils % (auto) 89.7 %; Potassium 3.8 mmol/L (3.5-5.1); Total Protein 6.4 gm/dl (6.0-8.3)
[2021-09-09] MEDS ORDERED: SODIUM CHLORIDE 0.9% 1000ML 2,000 ML IV ONE (13:45)
[2021-09-09] MEDS ORDERED: CEFEPIME 2,000 MG/20 ML VIAL IV STA (13:45)
[2021-09-09 13:46] LABS: D Dimer 1220 ug/L FEU (0-500); Partial Thromboplastin Time 54.7 Seconds (21.0-31.0)
--- NOTE | 2021-09-09 13:54 | Electrocardiogram Report ---
Test Reason : Blood Pressure : / mmHG Vent. Rate : 128 BPM Atrial Rate : 128 BPM P-R Int : 124 ms QRS Dur : 074 ms QT Int : 302 ms P-R-T Axes : 085 088 064 degrees QTc Int : 440 ms Poor data quality, interpretation may be adversely affected Sinus tachycardia Nonspecific ST and T wave abnormality Abnormal ECG When compared with ECG of 30-JUL-2021 06:32, No significant change was found Confirmed by Anibal Yuan ([id number]) on 09/09/2021 1:54:38 PM Referred By: Confirmed By:Anibal Yuan
--- NOTE | 2021-09-09 13:56 | Emergency Department Note ---
History of Present Illness General Chief complaint: Respiratory Problems Stated complaint: SINUS INF/SOB - REFERRED BY DR Brennan Seen by Provider: 09/09/21 12:33 History of Present Illness Maximum Pain Intensity: 5 56-year-old female presents to the ED with a chief complaint of shortness of breath and hypoxia. The patient was seen by Dr. Andino for sinus infection today. While at the office she had pulse ox of 85%. She was sent here for her symptoms. The patient reports that she was in the hospital about a month ago. She was admitted for pneumonia. The patient states that recently there has been increasingly hard to breathe and she has had a productive cough for yellow sputum. She states that she stopped smoking about 2 or 3 weeks ago. She does get chemotherapy monthly for lymphoma. Patient has some generalized weakness and overall does not feel well. Home Medications Medication Instructions Recorded Confirmed Type albuterol sulfate 90 mcg/actuation 2 puff INHALATION QID PRN 06/06/21 09/09/21 History aerosol inhaler pantoprazole 40 mg tablet,delayed 40 mg PO HS 06/06/21 09/09/21 History release potassium chloride 10 mEq 10 meq PO DAILY #30 cap 08/03/21 09/09/21 Rx capsule,extended release magnesium oxide 400 mg (241.3 mg 400 mg PO DAILY 09/09/21 09/09/21 History magnesium) tablet mometasone-formoterol HFA 100 1 puff INHALATION DAILY 09/09/21 09/09/21 History mcg-5 mcg/actuation aerosol inhaler (Dulera) Allergies Allergy/AdvReac Type Severity Reaction Status Date / Time No Known Allergies Allergy Verified 07/29/21 14:11 Past Med/Surg History Medical History Achalasia Chronic obstructive pulmonary disease Follicular lymphoma Hypokalemia Hypomagnesemia Leukopenia Multifocal pneumonia Restless leg syndrome Surgical History H/O unilateral oophorectomy History of fundoplication Heller myotomy with Jaison fundoplication in 03/08/21 History of tonsillectomy History of tooth extraction Family History Mother Hypertension Father Cancer Other Coronary heart disease Social History Smoking Status: Current every day smoker Tobacco Type: Cigarettes Cigarettes Per Day: 10; Second Hand Exposure: Yes; Hx Alcohol Use: No Hx Substance Use: No Preferred Language: [place] Communication Ability: Effective 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 Beliefs That Will Affect Care: None marital status: Current Living Situation: Family and Significant Other How many Children do You have: 3 Feels Safe at Home: Yes Assistive Devices: None Review of Systems A total of 10 systems reviewed and were otherwise negative Physical Exam Vital Signs Vital Signs - 24 hr 09/09/21 12:19 09/09/21 12:48 09/09/21 13:00 Temperature 37.3 C Temperature Source Temporal Artery Scan Pulse Rate 130 H 125 H Respiratory Rate 20 26 H Blood Pressure 106/70 114/75 Blood Pressure Mean 82 88 Pulse Oximetry 94 94 94 Oxygen Delivery Method Room Air Room Air Sepsis Recent Fever Within 48 Hours No Sepsis New/Unexplained Change in Mental Status No Sepsis Action Taken by Nursing No Action Required 09/09/21 13:01 Temperature Temperature Source Pulse Rate Respiratory Rate Blood Pressure Blood Pressure Mean Pulse Oximetry 94 Oxygen Delivery Method Room Air Sepsis Recent Fever Within 48 Hours Sepsis New/Unexplained Change in Mental Status Sepsis Action Taken by Nursing CONSTITUTIONAL/VITAL SIGNS: Reviewed / noted above. GENERAL: Mildly ill in appearance. Chronically ill and cachectic in appearance. INTEGUMENTARY: Warm, dry, and [place]. HEAD: Normocephalic. EYES: without scleral icterus or trauma. ENT/OROPHARYNX: clear and moist. LYMPHADENOPATHY/NECK: Is supple without lymphadenopathy or meningismus. RESPIRATORY: Diminished auscultation bilaterally. No increased work of breathing. CARDIOVASCULAR: Tachycardic rate and regular rhythm. GI/ABDOMEN: Soft and nontender. No organomegaly or pulsatile mass. EXTREMITIES: Warm and well perfused. BACK: No CVA tenderness. NEUROLOGICAL: Intact without focal deficits. PSYCHIATRIC: normal affect. MUSCULOSKELETAL: Normally developed with good muscle tone. TRIAGE NURSING DOCUMENTATION REVIEWED. Course Administered Medications Discontinued Medications Morphine Sulfate (Morphine Sulfate 4 Mg/Ml 1 Ml Carp\Vial) 4 mg IV NOW STA Stop: 09/09/21 13:14 Last Admin: 09/09/21 13:19 Dose: 4 mg Documented by: [id number] Medical Decision Making Differential Diagnosis Differential includes viral illness, influenza, streptococcal pharyngitis, meningitis, pneumonia, sinusitis, UTI, pyelonephritis, otitis media. Medical Records Attestation: I reviewed the patient's medical records. Home Medications Current Medication List: was personally reviewed by me Laboratory Data Attestation: I reviewed the patient's lab results. Result diagrams: 09/09/21 12:57 09/09/21 12:57 Lab Results 09/09/21 09/09/21 09/09/21 Range/Units 12:57 12:57 12:57 WBC 24.17 H (4.8-10.8) K/uL RBC 3.17 L (4.2-5.4) M/uL Hgb 9.4 L (12.0-16.0) g/dL Hct 29.0 L (37-47) % MCV 91.5 (80-100) fL MCH 29.7 (25-34) pg MCHC 32.4 (32-36) g/dL RDW Std Deviation 54.1 H (36.4-46.3) fL RDW Coeff of Dylan 16.0 H (11.5-14.5) % Plt Count 467 H (130-400) K/uL MPV 9.8 (7.4-10.4) fL Immature Gran % (Auto) 0.7 % Neut % (Auto) 89.7 % Lymph % (Auto) 3.8 % Hardy % (Auto) 4.2 % Eos % (Auto) 1.5 % Baso % (Auto) 0.1 % Neut # (Auto) 21.70 H (1.4-6.5) K/uL Lymph # (Auto) 0.91 L (1.2-3.4) K/uL Hardy # (Auto) 1.01 H (0.11-0.59) K/uL Eos # (Auto) 0.37 (0-0.5) K/uL Baso # (Auto) 0.02 (0-0.2) K/uL Immature Gran # (Auto) 0.16 H (0.00-0.02) K/uL PT 12.5 H (9.0-12.0) Seconds INR 1.2 H (0.9-1.1) APTT 54.7 H* (21.0-31.0) Seconds PTT Ratio 2.0 D-Dimer 1220 H* (0-500) ug/L FEU Sodium (136-145) mmol/L Potassium (3.5-5.1) mmol/L Chloride (98-107) mmol/L Carbon Dioxide (21-32) mmol/L Anion Gap (3-11) BUN (6-23) mg/dl Creatinine (0.6-1.2) mg/dl Est Cr Clr Drug Dosing ml/min Est GFR ( Amer) ml/min Est GFR (Non-Af Amer) ml/min BUN/Creatinine Ratio (10-20) Glucose (70-99(Fasting)) mg/dl Calcium (8.5-10.1) mg/dl Total Bilirubin (0.2-1.0) mg/dl AST (13-39) U/L ALT (7-52) U/L Alkaline Phosphatase (34-104) U/L Troponin I High Sens 10.8 (0-14) pg/ml Total Protein (6.0-8.3) gm/dl Albumin (3.4-5.0) gm/dl Globulin (2.5-4.0) gm/dl Albumin/Globulin Ratio (0.9-2) SARS-CoV-2, RNA, NAAT (NEGATIVE) 09/09/21 09/09/21 Range/Units 12:57 12:57 WBC (4.8-10.8) K/uL RBC (4.2-5.4) M/uL Hgb (12.0-16.0) g/dL Hct (37-47) % MCV (80-100) fL MCH (25-34) pg MCHC (32-36) g/dL RDW Std Deviation (36.4-46.3) fL RDW Coeff of Dylan (11.5-14.5) % Plt Count (130-400) K/uL MPV (7.4-10.4) fL Immature Gran % (Auto) % Neut % (Auto) % Lymph % (Auto) % Hardy % (Auto) % Eos % (Auto) % Baso % (Auto) % Neut # (Auto) (1.4-6.5) K/uL Lymph # (Auto) (1.2-3.4) K/uL Hardy # (Auto) (0.11-0.59) K/uL Eos # (Auto) (0-0.5) K/uL Baso # (Auto) (0-0.2) K/uL Immature Gran # (Auto) (0.00-0.02) K/uL PT (9.0-12.0) Seconds INR (0.9-1.1) APTT (21.0-31.0) Seconds PTT Ratio D-Dimer (0-500) ug/L FEU Sodium 135 L (136-145) mmol/L Potassium 3.8 (3.5-5.1) mmol/L Chloride 98 (98-107) mmol/L Carbon Dioxide 26 (21-32) mmol/L Anion Gap 11 (3-11) BUN 8 (6-23) mg/dl Creatinine 0.57 L (0.6-1.2) mg/dl Est Cr Clr Drug Dosing 64.5 ml/min Est GFR ( Amer) 121.8 ml/min Est GFR (Non-Af Amer) 105.1 ml/min BUN/Creatinine Ratio 14.0 (10-20) Glucose 109 H (70-99(Fasting)) mg/dl Calcium 8.6 (8.5-10.1) mg/dl Total Bilirubin 0.3 (0.2-1.0) mg/dl AST 24 (13-39) U/L ALT 25 (7-52) U/L Alkaline Phosphatase 157 H (34-104) U/L Troponin I High Sens (0-14) pg/ml Total Protein 6.4 (6.0-8.3) gm/dl Albumin 3.5 (3.4-5.0) gm/dl Globulin 2.9 (2.5-4.0) gm/dl Albumin/Globulin Ratio 1.2 (0.9-2) SARS-CoV-2, RNA, NAAT NEGATIVE (NEGATIVE) Imaging Data Radiologist's Impression: Chest X-Ray 09/09/21 12:33 XR chest 1V portable CLINICAL HISTORY: Dyspnea COMPARISON STUDY: Chest radiograph and chest CT July 29, 2021. PET/CT July 25, 2021. FINDINGS: Right internal jugular Wfesle-h-Mony is in place. There are left upper quadrant surgical clips. Cardiac size is normal. Mediastinal contours are nor mal. No pneumothorax or pleural effusion is identified. Multifocal lower lobe predominant consolidation is again noted. Right perihilar focus has diminished. Airspace opacities are relatively similar to prior exam. IMPRESSION: Persistent lower lung predominant multifocal consolidation. This favors pneumonia. Continued radiographic follow-up to ensure resolution is recommended. ACT 112: Negative or not required by law. Electronically signed by: Cl Espinal M.D. 09/09/2021 1:02 PM ECG Data Attestation: I personally reviewed and interpreted this ECG as follows: Additional Comments: Twelve-lead EKG: Per my interpretation shows a sinus tach at a rate of 120. No ST elevation. No PVCs. Normal QTC. MDM Narrative 56-year-old female presents with complaint of some breathing difficulty, productive cough for yellow sputum and hypoxia at ENTs office today with saturations of 85%. Her vital signs here revealed saturations of 94% on room air. She is tachycardic with a heart rate in the 1 20-1 30 range. Respiratory rate is tachypneic with respiratory rate around 26. The patient's chest x-ray is suggestive of multifocal pneumonia. Twelve-lead EKG shows a sinus tach at a rate of 128. Hemoglobin is 9. 4. White blood cell count was 24,000. The patient does get chemotherapy on a monthly basis. The patient will be seen by the hospitalist for further inpatient valuation care. She was started on IV cefepime and IV vancomycin. She was given some IV fluids 2 L. She was also given some IV morphine for chronic back discomfort. Impression & Plan Multifocal pneumonia Discharge Plan Visit Data Chief Complaint: Respiratory Problems Stated Complaint: SINUS INF/SOB - REFERRED BY DR ED Provider: Wyatt Carmichael Discharge Problem: Multifocal pneumonia Patient Disposition: Being Evaluated by Hospitalist Forms Stand Alone Forms: My [facility] Prescriptions Prescriptions: No Action potassium chloride 10 mEq capsule, extended release 10 meq PO DAILY Qty: 30 RF: 0 pantoprazole 40 mg tablet,delayed release (DR/EC) 40 mg PO HS RF: 0 albuterol sulfate 90 mcg/actuation HFA aerosol inhaler 2 puff INHALATION QID PRN (Reason: Shortness Of Breath) RF: 0 magnesium oxide 400 mg (241.3 mg magnesium) tablet 400 mg PO DAILY RF: 0 Dulera 100-5 mcg/actuation HFA aerosol inhaler 1 puff INHALATION DAILY RF: 0 Referrals Referrals: Steve Quiñones PA-C [Primary Care Provider] -
[2021-09-09] MEDS ORDERED: VANCOMYCIN CONSULT ACTIVE PRN (14:18)
[2021-09-09] MEDS ORDERED: VANCOMYCIN HCL 1,000 MG in SODIUM CHLORIDE 0.9% 500 ML IV ONE (14:18)
[2021-09-09] MEDS ORDERED: PIPERACILLIN/TAZOBACTAM 4.5 GM/120 ML BAG IV STA (14:25)
[2021-09-09] MEDS ORDERED: OPTIRAY 320 125ml IV ONE (14:26)
--- NOTE | 2021-09-09 14:27 | History & Physical Report ---
Date of Service September 09, 2021 Assessment & Plan (1) Sepsis: (2) Multifocal pneumonia: (3) Chronic obstructive pulmonary disease: (4) Follicular lymphoma: Plan: Follicular lymphoma, grade 1-2, stage IV with high LDH and beta-2 microglobulin originally diagnosed December 25, 2019, achalasia, s/p laparoscopic Heller myotomy with Jaison fundoplication on 03/08/2021 due to dysphagia and regurgitation. Multiple recent hospitalizations: 06/06/21-06/13/21 for multifocal pneumonia treated with cefepime and vancomycin--> cefepime x 7 days per ID 07/29/21-08/03/21 for multifocal pneumonia treated ith cefepime IV x 4 days and transitioned to PO cefdinir to complete 7days Outpatient follow up: 08/15/21 Heme/onc visit for IVIG, immunotherapy and was prescribed Levaquin 50 mg x 7 days, scheduled to receive this monthly 07/14/21 - Most recent Rituximab treatment, previously has completed 6 cycles of Bendamustine and rituximab. Was scheduled for next chemo session on 09/08/21 however did not make it to that appointment due to worsening shortness of breath, now admitted. - Admit to tele - Continue of IV Zosyn and vancomycin, cover atypicals with azithromycin -Pulmonology consulted for possible bronchoscopy/[place]? -Sputum culture ordered, sterile cup placed at bedside -WBC 24.17 with neutrophils of 21.7, follow blood cultures -D-dimer elevated at 1220 -Check procal and lactate -CT of the chest is negative for acute PE but does show bilateral ground glass opacities which appear to be consistent compared to last chest x-ray, possibly a little bit worse -COVID, RSV, and influenza are negative on admission and from previous admission she has never been positive for COVID in 2021 -Tobacco cessation was encouraged, she has not smoked in several days, if feeling well, 5 cigarettes daily. Denies need for nicotine patch -Alk phos elevated, 157, possible reactive -Continue supportive care with nebulizers, Mucinex, supplemental O2, incentive spirometry and flutter -Consult palliative care to initiate goals of care discussion, patient and her sister at bedside are agreeable, previous goals of care discussion has never been held. (5) Achalasia: Plan: -Hx of such, noted - Was following up with ENT earlier today however was sent to the hospital due to tachypnea - consider referral back once acute issues resolved - Speech therapy consulted for issues with swallowing - Diet allowed with easy to chew foods, endentulous, dentures cause the patient to gag so she does not use them FEN: Mediport access R chest wall Regular diet, minced and moist DVT ppx: - teds, scds, Lovenox subcu CODE: Full code Dispo: From home, likely to remain in the hospital x 1-2 days History of Present Illness Primary Care Provider: Steve Quiñones PA-C This is a 56-year-old female with PMHx of follicular lymphoma, grade 1-2, stage IV with high LDH and beta-2 microglobulin originally diagnosed December 25, 2019, achalasia, s/p laparoscopic Heller myotomy with Jaison fundoplication on 03/08/2021 due to dysphagia and regurgitation. She has underwent 6 cycles of Bendamustine and rituximab. She recently started IVIG cycle 1 on 08/15/2021. She was seen by hematology oncology prior to this and per outpatient [facility] notes she had a cough at that time redeveloping after the complete course of antibiotics from her 07/29-08/03 hospital admission here at [facility] for multifocal pneumonia, hypokalemia and hypomagnesemia. She was scheduled to return to the clinic on 09/08 however the patient did not show up due to worsening shortness of breath. She reports copious amounts of dark yellow expectorated sputum which has gotten worse in the past 2-3 days. She feels cold, with chills, but denies fever. Shortness of breath has brought her to the ER today with her sister present at bedside. Pt reports losing weight since being diagnosed and currently weighs 80 lbs. She cannot tolerate much food and was in to see Dr. Matute ([facility]) earlier today. There at the routine office visit she became acutely tachypneic and was recorded that her sats were 85% on RA therefore was sent to the ER. Since being in the ER her sats have maintained 93-94%. Her CXR is showing pneumonia with bilateral ground glass opacities, and CTA of the chest confirms this. No acute PE noted on CTA chest. When discussing goals of care, the patient would like to be a full code "just once", and if she is to be maintained on a ventilator, she wants this for 3-4 weeks, but after that timeframe does not want to continue ventilator support. Discussion regarding palliative consultation was held, and she is agreeable to seeing their team. Pt wants to pursue acute treatment for pneumonia at this time however, with antibiotics, breathing treatments, etc. Social Hx: currently smokes 5 cigarettes daily, not able to do so in the past 3 days due to worsening SOB. Denies alcohol use. Allergies Allergy/AdvReac Type Severity Reaction Status Date / Time No Known Allergies Allergy Verified 07/29/21 14:11 Home Medications Medication Instructions Recorded Confirmed Type albuterol sulfate 90 mcg/actuation 2 puff INHALATION QID PRN 06/06/21 09/09/21 History aerosol inhaler pantoprazole 40 mg tablet,delayed 40 mg PO HS 06/06/21 09/09/21 History release potassium chloride 10 mEq 10 meq PO DAILY #30 cap 08/03/21 09/09/21 Rx capsule,extended release magnesium oxide 400 mg (241.3 mg 400 mg PO DAILY 09/09/21 09/09/21 History magnesium) tablet mometasone-formoterol HFA 100 1 puff INHALATION DAILY 09/09/21 09/09/21 History mcg-5 mcg/actuation aerosol inhaler (Dulera) Past Med/Surg History Medical History (Updated 09/09/21 @ 14:27 by Coral Mcdermott PA-C) Achalasia Chronic obstructive pulmonary disease Follicular lymphoma Hypokalemia Hypomagnesemia Leukopenia Multifocal pneumonia Restless leg syndrome Surgical History H/O unilateral oophorectomy History of fundoplication Heller myotomy with Jaison fundoplication in 03/08/21 History of tonsillectomy History of tooth extraction Family History Mother Hypertension Father Cancer Other Coronary heart disease Social History Smoking Status: Current every day smoker Tobacco Type: Cigarettes Cigarettes Per Day: 10; Second Hand Exposure: Yes; Hx Alcohol Use: No Hx Substance Use: No Preferred Language: Tamazight Communication Ability: Effective [place] Skin Diver Required: No Beliefs That Will Affect Care: None marital status: Current Living Situation: Family and Significant Other How many Children do You have: 3 Feels Safe at Home: Yes Assistive Devices: None Review of Systems Review of Systems: Constitutional: No fever, + sweats or chills Eyes: No diplopia, no worsening or blurred vision ENT: normal hearing, + trouble swallowing, +dry mouth Respiratory: As per HPI, + cough,+ thick yellow sputum, +dyspnea with minimal ADLs and on exertion Cardiovascular: No chest pain, tightness or palpitations Abdomen: No pain, nausea, vomiting, diarrhea or constipation Musculoskeletal: No joint pain, calf pain, swelling Neurologic: No weakness, numbness/tingling, or balance problems Psychiatric: No anxiety or depression Skin: No rash or itch Physical Exam Physical Exam: General: awake, alert, mild distress, + severely malnourished with BMI of 12.1 Head: Normocephalic, atraumatic ENT: PERRL, EOMI, no pharyngeal exudate, no oral candidiasis or mucositis, mucous membranes are slightly dry Chest: Diminished breath sounds but present, tachypneic at times, on room air with sats in mid 90s, no wheeze, rales or rhonchi Cardiac: Mediport access in right chest wall, Regular rate and rhythm, no murmur, no JVD, normal peripheral pulses, good capillary refill Abdominal: NABS x 4 quadrants, soft, nondistended, nontender to palpation, no rebound or guarding Extremities: Normal inspection, no peripheral edema or erythema, calfs nontender to palpation Psych: Anxious, tearful mood and affect Neuro: AAO x 3, strength intact bilaterally and rated 5/5, no motor deficits, speech is clear, no peripheral sensory deficits Results & Data Results & Data ([facility]) Vital Signs (Past 12 Hours) Vital Signs Temp Pulse Resp BP Pulse Ox 09/09/21 13:01 94 09/09/21 13:00 125 H 26 H 114/75 94 09/09/21 12:48 94 09/09/21 12:19 37.3 C 130 H 20 106/70 94 Laboratory Results 09/09/21 14:10 Aerobic Blood Culture - Pending Blood Anaerobic Blood Culture - Pending 09/09/21 14:04 Aerobic Blood Culture - Pending Blood Anaerobic Blood Culture - Pending 09/09/21 09/09/21 09/09/21 14:04 12:57 12:57 WBC RBC Hgb Hct MCV MCH MCHC RDW Std Deviation RDW Coeff of Dylan Plt Count MPV Immature Gran % (Auto) Neut % (Auto) Lymph % (Auto) [place] % (Auto) Eos % (Auto) Baso % (Auto) Neut # (Auto) Lymph # (Auto) [place] # (Auto) Eos # (Auto) Baso # (Auto) Immature Gran # (Auto) PT INR APTT PTT Ratio D-Dimer Sodium 135 L Potassium 3.8 Chloride 98 Carbon Dioxide 26 Anion Gap 11 BUN 8 Creatinine 0.57 L Est Cr Clr Drug Dosing 64.5 Est GFR ( Amer) 121.8 Est GFR (Non-Af Amer) 105.1 BUN/Creatinine Ratio 14.0 Glucose 109 H Lactate 1.4 Calcium 8.6 Total Bilirubin 0.3 AST 24 ALT 25 Alkaline Phosphatase 157 H Troponin I High Sens Total Protein 6.4 Albumin 3.5 Globulin 2.9 Albumin/Globulin Ratio 1.2 SARS-CoV-2, RNA, NAAT NEGATIVE 09/09/21 09/09/21 09/09/21 12:57 12:57 12:57 WBC 24.17 H RBC 3.17 L Hgb 9.4 L Hct 29.0 L MCV 91.5 MCH 29.7 MCHC 32.4 RDW Std Deviation 54.1 H RDW Coeff of Dylan 16.0 H Plt Count 467 H MPV 9.8 Immature Gran % (Auto) 0.7 Neut % (Auto) 89.7 Lymph % (Auto) 3.8 [place] % (Auto) 4.2 Eos % (Auto) 1.5 Baso % (Auto) 0.1 Neut # (Auto) 21.70 H Lymph # (Auto) 0.91 L [place] # (Auto) 1.01 H Eos # (Auto) 0.37 Baso # (Auto) 0.02 Immature Gran # (Auto) 0.16 H PT 12.5 H INR 1.2 H APTT 54.7 H* PTT Ratio 2.0 D-Dimer 1220 H* Sodium Potassium Chloride Carbon Dioxide Anion Gap BUN Creatinine Est Cr Clr Drug Dosing Est GFR ( Amer) Est GFR (Non-Af Amer) BUN/Creatinine Ratio Glucose Lactate Calcium Total Bilirubin AST ALT Alkaline Phosphatase Troponin I High Sens 10.8 Total Protein Albumin Globulin Albumin/Globulin Ratio SARS-CoV-2, RNA, NAAT Diagnostic Findings Chest X-Ray 09/09/21 12:33 XR chest 1V portable CLINICAL HISTORY: Dyspnea COMPARISON STUDY: Chest radiograph and chest CT July 29, 2021. PET/CT July 25, 2021. FINDINGS: Right internal jugular [id number] is in place. There are left upper quadrant surgical clips. Cardiac size is normal. Mediastinal contours are normal. No pneumothorax or pleural effusion is identified. Multifocal lower lobe predominant consolidation is again noted. Right perihilar focus has diminished. Airspace opacities are relatively similar to prior exam. IMPRESSION: Persistent lower lung predominant multifocal consolidation. This favors pneumonia. Continued radiographic follow-up to ensure resolution is recommended. ACT 112: Negative or not required by law. Electronically signed by: Cl Espinal M.D. 09/09/2021 1:02 PM Chest CTA 09/09/21 13:48 CT angio chest PE protocol CLINICAL HISTORY: sob . Difficulty breathing COMPARISON STUDY: 07/29/2021 and portable chest from 09/09/2021 CT DOSE: 260.16 mGycm TECHNIQUE: CT Angio of the chest was performed.followed by image post processing with coronal, and sagittal MIP reformats. Contrast Volume: Optiray 320, 120 ml FINDINGS: Vasculature: There is homogeneous perfusion of the pulmonary vasculature bilaterally. No intraluminal filling defects or evidence for pulmonary embolus is seen. Airway: The airway is clear. No endobronchial lesion is identified. Lungs: Compared to the previous examination, significant residual patchy groundglass opacities are again seen throughout both lungs. The large areas of consolidation have partially cleared. However, significant disease remains present. Findings are again most characteristic of a viral type pneumonitis and probable previous Covid pneumonia. No new confluent alveolar opacities nor bronchograms are seen. There is mild centrilobular emphysematous changes of the upper lobes bilaterally. Pleura: There is no evidence for pleural effusion. There is no evidence for pneumothorax. Mediastinum: There is no evidence for pathologic adenopathy. The heart size is within normal limits. The thoracic aorta is within normal limits. There is no evidence for pericardial effusion. Osseous structures: There is no acute osseous pathology. Impression: 1. No CTA evidence for pulmonary embolus. 2. Compared to the previous examination, significant residual patchy groundglass opacities are again seen throughout both lungs. The findings are characteristic of significant residual viral type pneumonitis, most likely previous Covid pneumonia. 3. No new confluent alveolar opacities or air bronchograms. ACT 112: Negative or not required by law. Electronically signed by: Shaq Berman M.D. 09/09/2021 2:46 PM ECG Additional Comments: Vent. Rate : 128 BPM Atrial Rate : 128 BPM P-R Int : 124 ms QRS Dur : 074 ms QT Int : 302 ms P-R-T Axes : 085 088 064 degrees QTc Int : 440 ms Poor data quality, interpretation may be adversely affected Sinus tachycardia Nonspecific ST and T wave abnormality Abnormal ECG When compared with ECG of 30-JUL-2021 06:32, No significant change was found Code Status & VTE Plan Code Status Full code- discussed with the patient at bedside Supervising Physician Co-Signing Physician Notes Pt is a 56 y/o F with Follicular lymphoma (on maintenance Rituximab and recent IVIG treatment), Achalasia s/p Heller myotomy with fundoplication, COPD (chronic smoker), hypogammaglobinemia, recent admission for multifocal pneumonia (with sputum Cx + for streptococcus pneumonia-lee sensitive) admitted for worsening and recurrent pneumonia with hypoxia. PE: Mild respiratory distress, Mildly cachectic HEENT: normal oropharynx, no thrush Lungs: good air entry b/l with slightly decreased air movement in the lower lobes, no wheezing or crackles Cardiac: normal s1/s2, no murmur Abd: Soft, ND, NT MSK: no edema Psych: AAOx3, normal affect A/P: Sepsis 2/2 Pneumonia: -pt was hypoxic in the outpt setting but improved in the hospital -She is tachypnic and tachycardic -will start her on Vanc, zosyn and azithro -Pulm Consult for recurrent pneumonia to see whether she would benefit from Bronchoscopy bartolo in the setting of chemotherapy and IVIG tx -Will send Sputum Cx and BCx -D-dimer elevated but CTA chest showed no sign of PE ---- no Legs edema on exam -admit to PCU tele Hx of Achalasia s/p Heller myotomy and fundoplication: -pt complained of coughing with eating -will get speech/swallow consult - might need outpt GI and EGD Follicular lymphoma on maintenance Rituximab: -recently completed IVIG -follows up with [facility] oncology team -pt is okay with palliative care consult Agree with A/P by Coral Mcdermott PA-C (1) Follicular lymphoma Follicular lymphoma type: unspecified follicular type Lymphoma site: unspecified region Qualified Code(s): C82.90 - Follicular lymphoma, unspecified, unspecified site
--- NOTE | 2021-09-09 14:47 | CT Scan Report ---
CT angio chest PE protocol CLINICAL HISTORY: sob . Difficulty breathing COMPARISON STUDY: 07/29/2021 and portable chest from 09/09/2021 CT DOSE: 260.16 mGycm TECHNIQUE: CT Angio of the chest was performed.followed by image post processing with coronal, and s agittal MIP reformats. Contrast Volume: Optiray 320, 120 ml FINDINGS: Vasculature: There is homogeneous perfusion of the pulmonary vasculature bilaterally. No intraluminal filling defects or evidence for pulmonary embolus is seen. Airway: The airway is clear. No endobronchial lesion is identified. Lungs: Compared to the previous examination, significant residual patchy groundglass opacities are ag ain seen throughout both lungs. The large areas of consolidation have partially cleared. However, sig nificant disease remains present. Findings are again most characteristic of a viral type pneumonitis and probable previous Covid pneumonia. No new confluent alveolar opacities nor bronchograms are seen. There is mild centrilobular emphysemat ous changes of the upper lobes bilaterally. Pleura: There is no evidence for pleural effusion. There is no evidence for pneumothorax. Mediastinum: There is no evidence for pathologic adenopathy. The heart size is within normal limits. The thoracic aorta is within normal limits. There is no evidence for pericardial effusion. Osseous structures: There is no acute osseous pathology. Impression: 1. No CTA evidence for pulmonary embolus. 2. Compared to the previous examination, significant residual patchy groundglass opacities are again seen throughout both lungs. The findings are characteristic of significant residual viral type pneumo nitis, most likely previous Covid pneumonia. 3. No new confluent alveolar opacities or air bronchograms. ACT 112: Negative or not required by law. Electronically signed by: Shaq Berman M.D. 09/09/2021 2:46 PM
[2021-09-09] MEDS ORDERED: PIPERACILLIN/TAZOBACTAM 3.375 GM in DEXTROSE 5% 100 ML IV SCH (15:00)
[2021-09-09] MEDS ORDERED: PIPERACILL/TAZOBAC CONSULT ACTIVE PRN (15:00)
[2021-09-09] MEDS ORDERED: AZITHROMYCIN 500 MG in DEXTROSE 5% 250 ML IV STA (15:00)
[2021-09-09] MEDS ORDERED: SODIUM CHLORIDE 0.9% 1000ML 1,000 ML IV SCH (16:32)
[2021-09-09] MEDS ORDERED: ONDANSETRON INJ 2 MG/ML 2 ML VIAL IV PRN (16:32)
[2021-09-09] MEDS ORDERED: ALBUTEROL HFA 8 GM INHALER INH PRN (16:32)
[2021-09-09] MEDS ORDERED: MoRPHine SULFATE 4 MG/ML 1 ML CARP\\VIAL IV PRN (16:32)
[2021-09-09] MEDS ORDERED: ACETAMINOPHEN 325 MG TAB PO PRN (16:32)
[2021-09-09] MEDS ORDERED: MoRPHine SULFATE 2 MG/ML CARP IV PRN (16:32)
[2021-09-09] MEDS: ALBUT/IPRATROP 3MG/0.5MG NEB 3 ML VIAL NEB SCH ×3 (17:46→22:07)
[2021-09-09] MEDS ORDERED: SODIUM CHLORIDE 0.9% 1000ML 1,000 ML IV ONE (19:49)
[2021-09-09] MEDS: guaiFENesin 600 MG TABCR PO SCH (20:05)
[2021-09-09] MEDS: PANTOprazole 40 MG TAB PO SCH (20:05)
--- NOTE | 2021-09-09 20:19 | Pharmacy Report ---
Pharmacy Vanc AUC Short Note - Date of Service September 09, 2021 - Assessment & Plan Assessment 56 year old F receiving IV Vancomycin, Zosyn, and Azithromycin for treatment of sepsis secondary to multifocal pneumonia. Day # 1 of antimicrobial therapy. * Renal function appears at baseline. sCr = 0.57 mg/dL, estimated CrCl ~64 mL/min * Patient received Vancomycin 1000mg (~28mg/kg) IV x 1 as a loading dose in the ED Plan Vancomycin * AUC/TONY is the preferred PK/PD target for vancomycin * AUC guided dosing is effective and associated with decreased risk of nephrotoxicity compared to traditional trough targets * According to [employer], Vancomycin 750mg (~20mg/kg) IV q12 is predicted to achieve target AUC/TONY of 400-600 mg/L.hr and may be associated with a 12 % risk of nephrotoxicity * Ordered MRSA nasal swab to assist with potential de-escalation * Trough level ordered for: 09/11/21 @ 0730 (prior to 3rd dose and therefore not reflective of steady state, but want to assess dosing regimen earlier due to very low body weight and high maintenance dose) Pharmacy will continue to follow and will adjust dose/frequency as necessary. Thank you.
[2021-09-09] MEDS: PIPERACILLIN/TAZOBACTAM 3.375 GM in DEXTROSE 5% 100 ML IV SCH (21:48)
[2021-09-09 23:48] LABS: Base Excess ABG -2.9 mEq/L (-9-1.8); HCO3 ABG 21 mmol/L (19-24); Oxygen Saturation ABG 96.2 % (90-95); PCO2 ABG 33 mmHg (35-46); PO2 ABG 80 mmHg (80-95); pH ABG 7.42 (7.35-7.45)
[2021-09-09 23:55] LABS: Allen Test Pos (Pos)
[2021-09-10 00:28] LABS: Influenza A virus by PCR Negative (Neg); Influenza B virus by PCR Negative (Neg); RSV by PCR Negative (Neg); SARS CoV2 RNA(COVID-19) InHosp NEGATIVE (Negative)
--- NOTE | 2021-09-10 00:49 | XRay Report ---
SINGLE VIEW CHEST CLINICAL HISTORY: Dyspnea. FINDINGS: An AP, portable, upright chest radiograph is compared to chest x-ray and chest CT dated 08/13. A right internal jugular central venous infusion port is unchanged in position. The cardiomed iastinal silhouette is unremarkable. Multifocal patchy airspace consolidation is again seen throughou t the mid to lower lungs. This has progressed as compared to yesterday. Trace pleural effusions are n oted. No pneumothorax is seen. The skeletal structures are osteopenic. The bony thorax is grossly int act. Surgical clips are noted in the upper abdomen. IMPRESSION: 1. Multifocal patchy airspace consolidation is again seen in the mid to lower lungs. This has signifi cantly progressed as compared to yesterday and is typical for pneumonia/aspiration pneumonitis. Clini erik correlation be required and radiographic follow-up to resolution is recommended. 2. Trace pleural effusions. ACT 112: Negative or not required by law. Electronically signed by: Bin Alaniz M.D. 09/10/2021 12:48 AM
[2021-09-10] MEDS: SODIUM CHLORIDE 0.9% 1000ML 1,000 ML IV SCH ×2 (01:19→08:47)
[2021-09-10] MEDS: ALBUT/IPRATROP 3MG/0.5MG NEB 3 ML VIAL NEB SCH ×6 (02:35→22:03)
[2021-09-10] MEDS ORDERED: HEPARIN 100 UNIT/ML 5ML FLUSH FLUSH PRN (02:51)
[2021-09-10] MEDS: SODIUM CHLORIDE 0.9% 500 ML IV SCH ×2 (03:35→04:18)
[2021-09-10] MEDS: PIPERACILLIN/TAZOBACTAM 3.375 GM in DEXTROSE 5% 100 ML IV SCH ×3 (04:48→23:07)
[2021-09-10] MEDS: VANCOMYCIN HCL 750 MG in SODIUM CHLORIDE 0.9% 250 ML IV SCH ×2 (07:57→21:38)
[2021-09-10 08:42] LABS: Basophils # (auto) 0.03 K/uL (0-0.2); Basophils % (auto) 0.1 %; Eosinophils # (auto) 0.27 K/uL (0-0.5); Eosinophils % (auto) 1.2 %; Hematocrit (blood only) 28.3 % (37-47); Hemoglobin 8.9 g/dL (12.0-16.0); Immature Granulocytes # (auto) 0.21 K/uL (0.00-0.02); Lymphocytes # (auto) 1.04 K/uL (1.2-3.4); Lymphocytes % (auto) 4.7 %; Mean Corpuscular Hemoglobin 29.2 pg (25-34); Mean Corpuscular Hgb Conc 31.4 g/dL (32-36); Mean Corpuscular Volume 92.8 fL (80-100); Mean Platelet Volume 9.9 fL (7.4-10.4); Monocytes # (auto) 1.23 K/uL (0.11-0.59); Monocytes % (auto) 5.6 %; Neutrophils # (auto) 19.23 K/uL (1.4-6.5); Neutrophils % (auto) 87.4 %; Platelet Count 345 K/uL (130-400); RDW Coefficient of Variation 16.3 % (11.5-14.5); RDW Standard Deviation 55.8 fL (36.4-46.3); Red Blood Count 3.05 M/uL (4.2-5.4); White Blood Count 22.01 K/uL (4.8-10.8)
[2021-09-10] MEDS: guaiFENesin 600 MG TABCR PO SCH ×2 (08:46→20:04)
[2021-09-10] MEDS: ENOXAPARIN INJ 30 MG/0.3 ML SYR SQ SCH (08:46)
[2021-09-10] MEDS: POTASSIUM CHLORIDE 10 MEQ TABCR PO SCH (08:46)
--- NOTE | 2021-09-10 08:54 | Pulmonary Consultation ---
Date of Consultation September 10, 2021 Assessment & Plan (1) Multifocal pneumonia: (2) Bronchiectasis: (3) Hypoxemia: (4) Chronic obstructive pulmonary disease: Impression: 56-year-old female with follicular lymphoma on chemotherapy now with multifocal airspace opacity leukocytosis concerning for fever. She completed a course for pneumococcal multifocal pneumonia last month. Recommendations: 1. Multifocal pneumonia: Await sputum cultures. Day #2 Zosyn, azithromycin, and vancomycin. Agree with antibiotics for now. Okay to change azithromycin to oral. Recheck procalcitonin. Follow white blood cell count. Check sputum for AFB (nontuberculous mycobacteria, no indication for respiratory isolation). Check urinary Legionella antigen 2. Bronchiectasis: We will recheck quantitative immunoglobulins including IgG subclasses. Continue pulmonary toilet including flutter valve, hypertonic saline, and Mucinex. 3. Hypoxemic respiratory failure: Secondary to #1. Continue supplemental oxygen titrated to keep saturations at or above 90%. 4. COPD: No PFTs available to review. Mild emphysema identified on CT scan. Patient's not bronchospastic and would not recommend steroids at this point time. Discontinue her ICS given recurrent infections. Will place on long- acting anticholinergic and long-acting beta agonist. Smoking cessation recommended. 5. No indication for bronchoscopy currently as the patient is producing copious amounts of sputum for microbiologic analysis. 6. Agree with plans for discussion of goals of therapy. Thanks for the opportunity participating in the care of this patient. Feel free to contact us with questions. History of Present Illness Attending Physician: Connor Balderas MD History of Present Illness Asked by hospitalist to evaluate this patient with multifocal infiltrates and pneumonia in the setting of lymphoma on Rituxan therapy. History is obtained from reviewed electronic medical record as well as interview the patient. Patient is a 56-year-old female with a history of follicular lymphoma on maintenance rituximab therapy. She was admitted last month with a sputum culture that was positive for Streptococcus pneumoniae a pansensitive and completed 7 days of cefepime. She was discharged to the outpatient setting for follow-up. She is continued to receive her Rituxan infusions. She is also recently been placed on IVIG. Patient was seen back in the emergency room with productive cough. She never had hemoptysis. She states that her neck felt warm but she never reported subjective fevers. She has been losing weight. She was hypoxemic and tachypneic and outpatient office visit was sent to the emergency room. CT angiogram was performed which revealed multifocal airspace opacities with bronchiectasis. No PE was identified. The patient was initiated on broad- spectrum antibiotics in the form of Zosyn, azithromycin, and vancomycin and admitted to the hospitalist service. She was placed on supplemental oxygen. This morning the patient states that she feels slightly better after initiation of the antibiotics. She does not feel subjectively febrile but has had low-gr bartolo fevers recorded by nursing. She continues to cough up copious amounts of white-yellow phlegm. She denies any chest pain palpitations or significant lower extremity edema. Unfortunately the patient continues her tobacco habit. She smokes around 5 to 6 cigarettes a day but states that she has not been able to smoke due to shortness of breath over the last several days. Allergies Allergy/AdvReac Type Severity Reaction Status Date / Time No Known Allergies Allergy Verified 07/29/21 14:11 Home Medications Medication Instructions Recorded Confirmed Type albuterol sulfate 90 mcg/actuation 2 puff INHALATION QID PRN 06/06/21 09/09/21 History aerosol inhaler pantoprazole 40 mg tablet,delayed 40 mg PO HS 06/06/21 09/09/21 History release potassium chloride 10 mEq 10 meq PO DAILY #30 cap 08/03/21 09/09/21 Rx capsule,extended release magnesium oxide 400 mg (241.3 mg 400 mg PO DAILY 09/09/21 09/09/21 History magnesium) tablet mometasone-formoterol HFA 100 1 puff INHALATION DAILY 09/09/21 09/09/21 History mcg-5 mcg/actuation aerosol inhaler (Dulera) Patient History Medical History (Updated 09/10/21 @ 08:51 by Troy Cabral MD) Achalasia Chronic obstructive pulmonary disease Follicular lymphoma Hypokalemia Hypomagnesemia Leukopenia Multifocal pneumonia Restless leg syndrome Surgical History H/O unilateral oophorectomy History of fundoplication Heller myotomy with Jaison fundoplication in 03/08/21 History of tonsillectomy History of tooth extraction Family History Mother Hypertension Father Cancer Other Coronary heart disease Social History Smoking Status: Former smoker Tobacco Type: Cigarettes Cigarettes Per Day: 10; Second Hand Exposure: No; Do You Dip or Chew Tobacco: No; Tobacco Cessation Education Requested by Patient: No Hx Alcohol Use: No Hx Substance Use: No Preferred Language: Thai Communication Ability: Effective Harmonic Analyst Required: No Beliefs That Will Affect Care: None marital status: Current Living Situation: Significant Other How many Children do You have: 3 Other Information That Helps Us Care for You: No Feels Safe at Home: Yes Safety Concerns: Feels Safe At This Time Assistive Devices: None Review of Systems Review of Systems: Per H&P. No additions or deletions Physical Exam Constitutional: WD/WN, vitals as above Neck: trachea midline, no thyromegaly Respiratory: normal respiratory effort; no respiratory distress, no labored breathing and not tachypneic Auscultation: + rhonchi Cardiovascular: RRR, no murmur, no edema Gastrointestinal (Abdomen): normal bowel sounds, soft, nontender, no hepatosplenomegaly Musculoskeletal: Extremities: extremities normal to inspection Skin: no rashes, warm and dry Neurologic: Nonfocal exam Lymphatic: no cervical lymphadenopathy Results & Data Results & Data ([facility]) Vital Signs (Past 12 Hours) Vital Signs Temp Pulse Pulse Resp BP Pulse Ox 09/10/21 07:53 36.8 C 105 H 19 89/46 L 93 09/10/21 07:03 69 22 96 09/10/21 05:00 86 92/56 L 09/10/21 04:13 36.7 C 90 16 91/58 L 99 09/10/21 02:36 89 20 99 09/10/21 00:50 95 H 88/51 L 99 09/09/21 22:40 30 H 90/52 L 97 09/09/21 22:30 37.8 C H 114 H 30 H 90/52 L 94 09/09/21 22:18 113 H 09/09/21 22:07 111 H 20 95 Critical Care Results & Data Vital Signs (Past 12 Hours) Vital Signs Temp Pulse Pulse Resp BP Pulse Ox 09/10/21 07:53 36.8 C 105 H 19 89/46 L 93 09/10/21 07:03 69 22 96 09/10/21 05:00 86 92/56 L 09/10/21 04:13 36.7 C 90 16 91/58 L 99 09/10/21 02:36 89 20 99 09/10/21 00:50 95 H 88/51 L 99 09/09/21 22:40 30 H 90/52 L 97 09/09/21 22:30 37.8 C H 114 H 30 H 90/52 L 94 09/09/21 22:18 113 H 09/09/21 22:07 111 H 20 95 Lab & Micro Results (Past 24 Hours) RBC 3.05 M/uL (4.2-5.4) L 09/10/21 WBC 22.01 K/uL (4.8-10.8) H 09/10/21 Hgb 8.9 g/dL (12.0-16.0) L 09/10/21 Hct 28.3 % (37-47) L 09/10/21 MCV 92.8 fL (80-100) 09/10/21 MCH 29.2 pg (25-34) 09/10/21 MCHC 31.4 g/dL (32-36) L 09/10/21 RDW Standard Deviation 55.8 fL (36.4-46.3) H 09/10/21 RDW Coefficient of Variation 16.3 % (11.5-14.5) H 09/10/21 Plt Count 345 K/uL (130-400) 09/10/21 MPV 9.9 fL (7.4-10.4) 09/10/21 Neutrophils (%) (Auto) 87.4 % 09/10/21 Lymphocytes (%) (Auto) 4.7 % 09/10/21 Monocytes # (Auto) 1.23 K/uL (0.11-0.59) H 09/10/21 Eosinophils # (Auto) 0.27 K/uL (0-0.5) 09/10/21 Immature Granulocyte % (Auto) 1.0 % 09/10/21 Neutrophils # (Auto) 19.23 K/uL (1.4-6.5) H 09/10/21 Lymphocytes # (Auto) 1.04 K/uL (1.2-3.4) L 09/10/21 Monocytes # (Auto) 1.23 K/uL (0.11-0.59) H 09/10/21 Eosinophils # (Auto) 0.27 K/uL (0-0.5) 09/10/21 Basophils # (Auto) 0.03 K/uL (0-0.2) 09/10/21 Immature Granulocyte # (Auto) 0.21 K/uL (0.00-0.02) H 09/10/21 Na 135 mmol/L (136-145) L 09/09/21 K 3.8 mmol/L (3.5-5.1) 09/09/21 Cl 98 mmol/L (98-107) 09/09/21 CO2 26 mmol/L (21-32) 09/09/21 Anion Gap 11 (3-11) 09/09/21 BUN 8 mg/dl (6-23) 09/09/21 Creatinine 0.57 mg/dl (0.6-1.2) L 09/09/21 Estimated GFR ( Amer) 121.8 ml/min 09/09/21 Estimated GFR (Non-Af Amer) 105.1 ml/min 09/09/21 BUN/Creatinine Ratio 14.0 (10-20) 09/09/21 Glu 109 mg/dl (70-99(Fasting)) H 09/09/21 Ca 8.6 mg/dl (8.5-10.1) 09/09/21 Phosphorus Level Pending 09/10/21 Total Bilirubin 0.3 mg/dl (0.2-1.0) 09/09/21 Direct Bilirubin Pending 09/10/21 AST 24 U/L (13-39) 09/09/21 ALT 25 U/L (7-52) 09/09/21 Alkaline Phosphatase 157 U/L (34-104) H 09/09/21 TP 6.4 gm/dl (6.0-8.3) 09/09/21 Albumin 3.5 gm/dl (3.4-5.0) 09/09/21 Globulin 2.9 gm/dl (2.5-4.0) 09/09/21 Albumin/Globulin Ratio 1.2 (0.9-2) 09/09/21 Mg Pending 09/10/21 07:44 09/10/21 Calcium Level 8.6 mg/dl (8.5-10.1) 09/09/21 12:57 09/09/21 Prothromb Time International Ratio 1.2 (0.9-1.1) H 09/09/21 12:57 09/09/21 Blood Gas Barometric Pressure 736.1 mm/Hg 09/09/21 23:35 09/09/21 Arterial Blood pH 7.42 (7.35-7.45) 09/09/21 23:35 09/09/21 Arterial Blood Partial Pressure CO2 33 mmHg (35-46) L 09/09/21 23:35 09/09/21 Arterial Blood Partial Pressure O2 80 mmHg (80-95) 09/09/21 23:35 09/09/21 Arterial Blood HCO3 21 mmol/L (19-24) 09/09/21 23:35 09/09/21 Arterial Blood Base Excess -2.9 mEq/L (-9-1.8) 09/09/21 23:35 09/09/21 Arterial Blood Oxygen Saturation 96.2 % (90-95) H 09/09/21 23:35 09/09/21 Blood Gas Oxygen Given 6L 09/09/21 23:35 09/09/21 Tony Test Pos (Pos) 09/09/21 23:35 09/09/21 Blood Gas Barometric Pressure 736.1 mm/Hg 09/09/21 23:35 09/09/21 Microbiology 09/09/21 19:49 Gram Stain - Final Sputum, Expectorated Diagnostic Findings (Past 24 Hours) Chest X-Ray 09/09/21 12:33 XR chest 1V portable CLINICAL HISTORY: Dyspnea COMPARISON STUDY: Chest radiograph and chest CT July 29, 2021. PET/CT July 25, 2021. FINDINGS: Right internal jugular [id number] is in place. There are left upper quadrant surgical clips. Cardiac size is normal. Mediastinal contours are normal. No pneumothorax or pleural effusion is identified. Multifocal lower lobe predominant consolidation is again noted. Right perihilar focus has diminished. Airspace opacities are relatively similar to prior exam. IMPRESSION: Persistent lower lung predominant multifocal consolidation. This favors pneumonia. Continued radiographic follow-up to ensure resolution is recommended. ACT 112: Negative or not required by law. Electronically signed by: Cl Espinal M.D. 09/09/2021 1:02 PM Chest CTA 09/09/21 13:48 CT angio chest PE protocol CLINICAL HISTORY: sob . Difficulty breathing COMPARISON STUDY: 07/29/2021 and portable chest from 09/09/2021 CT DOSE: 260.16 mGycm TECHNIQUE: CT Angio of the chest was performed.followed by image post processing with coronal, and sagittal MIP reformats. Contrast Volume: Optiray 320, 120 ml FINDINGS: Vasculature: There is homogeneous perfusion of the pulmonary vasculature bilaterally. No intraluminal filling defects or evidence for pulmonary embolus is seen. Airway: The airway is clear. No endobronchial lesion is identified. Lungs: Compared to the previous examination, significant residual patchy groundglass opacities are again seen throughout both lungs. The large areas of consolidation have partially cleared. However, significant disease remains present. Findings are again most characteristic of a viral type pneumonitis and probable previous Covid pneumonia. No new confluent alveolar opacities nor bronchograms are seen. There is mild centrilobular emphysematous changes of the upper lobes bilaterally. Pleura: There is no evidence for pleural effusion. There is no evidence for pneumothorax. Mediastinum: There is no evidence for pathologic adenopathy. The heart size is within normal limits. The thoracic aorta is within normal limits. There is no evidence for pericardial effusion. Osseous structures: There is no acute osseous pathology. Impression: 1. No CTA evidence for pulmonary embolus. 2. Compared to the previous examination, significant residual patchy groundglass opacities are again seen throughout both lungs. The findings are characteristic of significant residual viral type pneumonitis, most likely previous Covid pneumonia. 3. No new confluent alveolar opacities or air bronchograms. ACT 112: Negative or not required by law. Electronically signed by: Shaq Berman M.D. 09/09/2021 2:46 PM Chest X-Ray 09/09/21 22:46 SINGLE VIEW CHEST CLINICAL HISTORY: Dyspnea. FINDINGS: An AP, portable, upright chest radiograph is compared to chest x-ray and chest CT dated 09/09/2021. A right internal jugular central venous infusion port is unchanged in position. The cardiomediastinal silhouette is unremarkable. Multifocal patchy airspace consolidation is again seen throughout the mid to lower lungs. This has progressed as compared to yesterday. Trace pleural effusions are noted. No pneumothorax is seen. The skeletal structures are osteopenic. The bony thorax is grossly intact. Surgical clips are noted in the upper abdomen. IMPRESSION: 1. Multifocal patchy airspace consolidation is again seen in the mid to lower lungs. This has significantly progressed as compared to yesterday and is typical for pneumonia/aspiration pneumonitis. Clinical correlation be required and radiographic follow-up to resolution is recommended. 2. Trace pleural effusions. ACT 112: Negative or not required by law. Electronically signed by: Bin Alaniz M.D. 09/10/2021 12:48 AM I & O Totals 24 Hours 09/09/21 09/10/21 09/11/21 06:59 06:59 06:59 Intake Total 6028.75 / 6028.75 933.333 / 933.333 Output Total 2550 / 2550 Balance 3478.75 / 3478.75 933.333 / 933.333 Cumulative 09/09/21 12:14 thru 09/10/21 08:47 Intake Total 6962.083 Output Total 2550 Balance 4412.083 RT Ventilator Mngmt (Last Documented) Ventilator Ordered Settings Respiratory Rate 19 09/10/21 07:53 Fraction of Inspired Oxygen 21 09/09/21 19:15 Ventilator - PT Measurements Respiratory Rate 19 PG Care Time/CCT Total # of Minutes Spent Total Time Spent with Patient: Total time spent is greater than 50% in coordination of care (as documented) at patient's floor/unit and/or counseling patient: Coding Level of Care Code 87799 Inpt Consult Level 4 Diagnoses Multifocal pneumonia J18.9 Bronchiectasis J47.9 Hypoxemia R09.02 Chronic obstructive pulmonary disease J44.9
[2021-09-10] MEDS ORDERED: AZITHROMYCIN 250 MG in DEXTROSE 5% 250 ML IV SCH (09:00)
[2021-09-10] MEDS ORDERED: FLUTICASONE/VILANTEROL 100/25MCG 14 PUFFS/INHALER INH SCH (09:00)
[2021-09-10] MEDS ORDERED: MAGNESIUM OXIDE 400 MG TAB PO SCH (09:00)
[2021-09-10 09:08] LABS: Albumin Globulin Ratio 1.3 (0.9-2); Albumin Level 2.9 gm/dl (3.4-5.0); BUN Creatinine Ratio 7.9 (10-20); Bilirubin Direct 0.1 mg/dl (0-0.2); Bilirubin,Total 0.4 mg/dl (0.2-1.0); Est GFR (African American) 117.9 ml/min; Est GFR (Non-African American) 101.7 ml/min; Globulin 2.2 gm/dl (2.5-4.0); Magnesium 1.5 mg/dl (1.7-2.4); Phosphorus 3.4 mg/dl (2.5-4.9); Potassium 3.3 mmol/L (3.5-5.1); Total Protein 5.1 gm/dl (6.0-8.3)
[2021-09-10] MEDS: UMECLIDINIUM/VILANTEROL 62.5/25MCG 7 PUFFS/INHALER INH SCH (10:02)
[2021-09-10 10:09] LABS: Immunoglobulin A < 10.0 mg/dl (70-400); Immunoglobulin G < 200.0 mg/dl (635-1741); Immunoglobulin M < 20.0 mg/dl (45-281)
[2021-09-10] MEDS ORDERED: POTASSIUM CHLORIDE CRTAB 20 MEQ TABCR PO STA (14:27)
[2021-09-10] MEDS ORDERED: POTASSIUM PHOS 3 MMOL/1 ML INFUSION IV STA (14:28)
--- NOTE | 2021-09-10 14:28 | Hospitalist Progress Note ---
Date of Service September 10, 2021 Assessment & Plan (1) Sepsis: (2) Multifocal pneumonia: (3) Chronic obstructive pulmonary disease: (4) Follicular lymphoma: (5) Achalasia: Plan: -Hx of such, noted - Was following up with ENT earlier today however was sent to the hospital due to tachypnea - consider referral back once acute issues resolved - Speech therapy consulted for issues with swallowing - Diet allowed with easy to chew foods, endentulous, dentures cause the patient to gag so she does not use them FEN: Mediport access R chest wall Regular diet, minced and moist DVT ppx: - teds, scds, Lovenox subcu CODE: Full code Dispo: From home, likely to remain in the hospital x 1-2 days Plan: Pt is a 56 y/o F with Follicular lymphoma (on maintenance Rituximab and recent IVIG treatment), Achalasia s/p Heller myotomy with fundoplication 03/08/21, COPD (chronic smoker), hypogammaglobinemia, recent admission for multifocal pneumonia (with sputum Cx + for streptococcus pneumonia-lee sensitive) admitted for worsening and recurrent pneumonia with hypoxia. Multiple recent hospitalizations: 06/06/21-06/13/21 for multifocal pneumonia treated with cefepime and vancomycin--> cefepime x 7 days per ID 07/29/21-08/03/21 for multifocal pneumonia treated ith cefepime IV x 4 days and transitioned to PO cefdinir to complete 7days Outpatient follow up: 08/15/21 Heme/onc visit for IVIG, immunotherapy and was prescribed Levaquin 500 mg x 7 days, scheduled to receive this monthly 07/14/21 - Most recent Rituximab treatment, previously has completed 6 cycles of Bendamustine and rituximab. Was scheduled for next chemo session on 09/08/21 however did not make it to that appointment due to worsening shortness of breath, now admitted. Sepsis due to multifocal PNA with bronchiectasis and acute hypoxic respiratory failure - CT A/P reviewed and detailed below. Covid/flu negative, Leucocytosis upto 24, slightly improved today - Seen by pulm and recommendations noted- no need for bronchoscopy, additional work up ordered including immunoglobulins and AFB, inhalers changed - Continue empiric ABx for now pending sputum clx results; Biofire pending to r/o viral pneumonia given CT appearance - continue mucinex, IS/flutter valve, aerosols, hypertonic saline - continue supplemental oxygen, wean down as tolerated. now down to 4 L - Palliative eval pending CT chest 09/09: 1. No CTA evidence for pulmonary embolus. 2. Compared to the previous examination, significant residual patchy groundglass opacities are again seen throughout both lungs. The findings are characteristic of significant residual viral type pneumonitis, most likely previous Covid pneumonia. 3. No new confluent alveolar opacities or air bronchograms. Hypokalemia- repleted, recheck in am Hypophosphatemia- repleted, recheck in am Hypomagnesemia- repleted, recheck in am Tobacco abuse- cessation recommended, declines nicotine patch COPD- not in exacerbation, no need for steroids. ICS discontinued given recurrent infection. Started on LABA/LAMA. Follicular lymphoma- gets OP treatment Underweight- BMI 12.1. Will consult dietitian. Add dietary supplements. DVT prophylaxis- sc lovenox Dispo- Pending clx results and improvement in hypoxic respiratory failure Admission and Anticipated Discharge Date Admission Date: September 09, 2021 Subjective She remembers me from prior admission. States she is bringing phlegm without issues. Her chest does not hurt as much this time. No fever, chills, nausea, vomiting. Says she needs to get discharged latest by Sunday as she has plans with her boyfriend and can not miss that. Physical Exam Physical Exam: General: Frail, Lying comfortably in bed, not in distress, on NC HEENT: EOMI, JOSE G, MMM Chest: Right sided port. Fair breath sounds bilaterally, no wheezes or crackles CVS: Regular rate and rhythm, normal heart sounds, no murmur Abdomen: Soft, non tender, not distended, normal bowel sounds Neuro: Awake, alert, oriented, conversing well, non focal Extremities: No cyanosis, clubbing or edema Results & Data Results & Data ([facility]) Vital Signs (Past 12 Hours) Vital Signs Temp Pulse Pulse Resp BP Pulse Ox 09/10/21 12:05 36.3 C L 09/10/21 11:22 87 20 99 09/10/21 11:18 36.4 C L 90 18 88/57 L 99 09/10/21 09:09 92 H 09/10/21 08:00 98 09/10/21 07:53 36.8 C 105 H 19 89/46 L 93 09/10/21 07:03 69 22 96 09/10/21 05:00 86 92/56 L 09/10/21 04:13 36.7 C 90 16 91/58 L 99 09/10/21 02:36 89 20 99 (1) Follicular lymphoma Follicular lymphoma type: unspecified follicular type Lymphoma site: unspecified region Qualified Code(s): C82.90 - Follicular lymphoma, unspecified, unspecified site
[2021-09-10] MEDS ORDERED: POTASSIUM PHOSPHATE 30 MMOL in DEXTROSE 5% 500 ML IV ONE (15:00)
[2021-09-10] MEDS ORDERED: SODIUM CHLORIDE 0.9% 1000ML 1,000 ML IV SCH (15:00)
[2021-09-10] MEDS: SODIUM CHLOR 7% 4 ML NEB NEB SCH (19:30)
[2021-09-10] MEDS: MAGNESIUM OXIDE 400 MG TAB PO SCH (20:04)
[2021-09-10] MEDS: PANTOprazole 40 MG TAB PO SCH (20:04)
[2021-09-11] MEDS: ALBUT/IPRATROP 3MG/0.5MG NEB 3 ML VIAL NEB SCH ×6 (02:23→22:22)
[2021-09-11] MEDS: PIPERACILLIN/TAZOBACTAM 3.375 GM in DEXTROSE 5% 100 ML IV SCH (03:47)
[2021-09-11 05:28] LABS: Adenovirus PCR Not Detected (NotDetected); Bordetella parapertussis PCR Not Detected (NotDetected); Bordetella pertussis PCR Not Detected (NotDetected); Chlamydia pneumoniae PCR Not Detected (NotDetected); Coronavirus 229E PCR Not Detected (NotDetected); Coronavirus CoV-2 (COVID19)PCR Not Detected (NotDetected); Coronavirus HKU1 PCR Not Detected (NotDetected); Coronavirus NL63 PCR Not Detected (NotDetected); Coronavirus OC43PCR Not Detected (NotDetected); Human Metapneumovirus PCR Not Detected (NotDetected); Influenza A PCR Not Detected (NotDetected); Influenza B PCR Not Detected (NotDetected); Mycoplasma pneumoniae PCR Not Detected (NotDetected); Parainfluenza Virus 1 PCR Not Detected (NotDetected); Parainfluenza Virus 2 PCR Not Detected (NotDetected); Parainfluenza Virus 3 PCR Not Detected (NotDetected); Parainfluenza Virus 4 PCR Not Detected (NotDetected); Respiratory Syncytial VirusPCR Not Detected (NotDetected)
[2021-09-11 05:45] LABS: Rhinovirus/Enterovirus PCR DETECTED (NotDetected)
[2021-09-11] MEDS: SODIUM CHLOR 7% 4 ML NEB NEB SCH ×2 (07:13→19:07)
[2021-09-11] MEDS ORDERED: VANCOMYCIN TROUGH ONE (07:30)
[2021-09-11 07:50] LABS: Basophils # (auto) 0.03 K/uL (0-0.2); Basophils % (auto) 0.3 %; Eosinophils # (auto) 0.43 K/uL (0-0.5); Hematocrit (blood only) 26.4 % (37-47); Hemoglobin 8.6 g/dL (12.0-16.0); Immature Granulocytes # (auto) 0.13 K/uL (0.00-0.02); Immature Granulocytes % (auto) 1.2 %; Lymphocytes # (auto) 0.66 K/uL (1.2-3.4); Lymphocytes % (auto) 6.2 %; Mean Corpuscular Hemoglobin 29.4 pg (25-34); Mean Corpuscular Hgb Conc 32.6 g/dL (32-36); Mean Corpuscular Volume 90.1 fL (80-100); Mean Platelet Volume 9.9 fL (7.4-10.4); Monocytes # (auto) 0.76 K/uL (0.11-0.59); Monocytes % (auto) 7.1 %; Neutrophils # (auto) 8.68 K/uL (1.4-6.5); Neutrophils % (auto) 81.2 %; Platelet Count 304 K/uL (130-400); RDW Coefficient of Variation 16.1 % (11.5-14.5); RDW Standard Deviation 53.7 fL (36.4-46.3); Red Blood Count 2.93 M/uL (4.2-5.4); White Blood Count 10.69 K/uL (4.8-10.8)
[2021-09-11] MEDS: POTASSIUM CHLORIDE 10 MEQ TABCR PO SCH (07:59)
[2021-09-11] MEDS: guaiFENesin 600 MG TABCR PO SCH ×2 (08:00→20:27)
[2021-09-11] MEDS: MAGNESIUM OXIDE 400 MG TAB PO SCH ×2 (08:00→20:27)
[2021-09-11] MEDS: UMECLIDINIUM/VILANTEROL 62.5/25MCG 7 PUFFS/INHALER INH SCH (08:00)
[2021-09-11] MEDS: ENOXAPARIN INJ 30 MG/0.3 ML SYR SQ SCH (08:00)
[2021-09-11 08:04] LABS: BUN Creatinine Ratio 6.9 (10-20); Calcium 8.3 mg/dl (8.5-10.1); Est GFR (African American) 121.1 ml/min; Est GFR (Non-African American) 104.5 ml/min; Magnesium 1.6 mg/dl (1.7-2.4); Phosphorus 4.1 mg/dl (2.5-4.9); Potassium 3.4 mmol/L (3.5-5.1)
[2021-09-11] MEDS ORDERED: AZITHROMYCIN 250 MG TAB PO SCH (09:00)
--- NOTE | 2021-09-11 09:06 | Pulmonology Progress Note ---
Date of Service September 11, 2021 Assessment & Plan (1) Multifocal pneumonia: (2) Bronchiectasis: (3) Hypoxemia: (4) Chronic obstructive pulmonary disease: Plan: Impression: 56-year-old female with follicular lymphoma on chemotherapy now with multifocal airspace opacity leukocytosis concerning for fever. She completed a course for pneumococcal multifocal pneumonia last month. 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 CT scan does confirm bronchiectasis. Recommendations: 1. Multifocal pneumonia: Await sputum cultures. Day #3 Zosyn, azithromycin, and vancomycin. Procalcitonin decreasing and white blood cell count better with fever curve better. With cultures being negative to date, and clinical improvement, can de-escalate antibiotics to oral Augmentin for 7 days. Discontinue azithromycin and vancomycin. Supportive care indicated for enterovirus/rhinovirus identified on [employer] PCR. We will follow-up with AFB cultures as the patient's at risk for nontuberculous mycobacterial infection. If this were identified, would recommend reevaluation with infectious disease. 2. Bronchiectasis: IgA and IgM undetectable with IgG and IgG subclasses pending. She received IVIG in the outpatient setting. Continue pulmonary toilet including flutter valve, hypertonic saline, and Mucinex. Recommend outp atient immunology consultation given her undetectable IgA IgM and follow-up with her other quantitative immunoglobulins. 3. Hypoxemic respiratory failure: Secondary to #1. Continue supplemental oxy gen titrated to keep saturations at or above 90%. Appears markedly improved with the patient's oxygen saturations currently 100% on 1 L nasal cannula. Recommend assessment to see whether or not she needs supplemental oxygen moving forward 4. COPD: No PFTs available to review. Mild emphysema identified on CT scan. Patient's not bronchospastic and would not recommend steroids at this point birdie e. Continue long-acting anticholinergic and long-acting beta agonist. Smoking cessation recommended. 5. No indication for bronchoscopy currently as the patient is producing copious amounts of sputum for microbiologic analysis. 6. Agree with plans for discussion of goals of therapy. Patient inquires about going home. From a pulmonary perspective, she can be placed on antibiotics and assess for oxygen and if stable be dismissed with outpatient follow-up with hematology oncology and potentially immunology. Admission and Anticipated Discharge Date Admission Date: September 09, 2021 Subjective Patient seen and examined. EMR reviewed. The patient states that she is feeling much better. Her oxygen saturations are better and she can likely be weaned off supplemental oxygen. She continues to cough and expectorate phlegm. She is not had any hemoptysis. Her fevers have resolved. She is eating well. She is asking about potentially going home. Review of Systems Review of Systems: All systems reviewed & are unremarkable except as noted in Subjective Physical Exam Constitutional: WD/WN, vitals as above Neck: trachea midline, no thyromegaly Respiratory: normal respiratory effort; no respiratory distress, no labored breathing and not tachypneic Auscultation: + rhonchi Cardiovascular: RRR, no murmur, no edema Gastrointestinal (Abdomen): normal bowel sounds, soft, nontender, no hepatosplenomegaly Musculoskeletal: Extremities: extremities normal to inspection Skin: no rashes, warm and dry Lymphatic: no cervical lymphadenopathy Results & Data Results & Data ([facility]) Vital Signs (Past 12 Hours) Vital Signs Temp Pulse Pulse Resp BP Pulse Ox 09/11/21 08:00 97 09/11/21 07:59 36.5 C 110 H 18 93/62 L 95 09/11/21 07:28 89 09/11/21 07:15 91 H 20 94 09/11/21 03:00 36.6 C 92 H 20 91/60 L 99 09/11/21 02:23 89 18 99 09/11/21 00:48 108 H 09/10/21 23:00 36.7 C 100 H 16 90/60 L 99 09/10/21 22:03 96 H 18 95 Laboratory Results 09/11/21 07:17 09/11/21 07:17 Microbiology 09/09/21 14:10 Blood Aerobic Blood Culture - Preliminary No growth in Aerobic bottle after 24 hours. 09/09/21 14:10 Blood Anaerobic Blood Culture - Preliminary No growth in Anaerobic bottle after 24 hours. 09/09/21 14:04 Blood Aerobic Blood Culture - Preliminary No growth in Aerobic bottle after 24 hours. 09/09/21 14:04 Blood Anaerobic Blood Culture - Preliminary No growth in Anaerobic bottle after 24 hours. 09/09/21 19:49 Sputum, Expectorated Gram Stain - Final 09/09/21 19:49 Sputum, Expectorated Sputum Culture - Preliminary Light normal trent present, final report to follow. Immunoglobulins: IgA and IgM undetectable. IgG and IgG subclasses pending Procalcitonin 0.52 on presentation down to 0.39 Bio fire positive for rhinovirus PCR Diagnostic Findings No new imaging PG Care Time/CCT Total # of Minutes Spent Total Time Spent with Patient: Total time spent is greater than 50% in coordination of care (as documented) at patient's floor/unit and/or counseling patient: Coding Level of Care Code 05362 Subseq Hosp Care Lvl 2 Diagnoses Multifocal pneumonia J18.9 Bronchiectasis J47.9 Hypoxemia R09.02 Chronic obstructive pulmonary disease J44.9
[2021-09-11] MEDS ORDERED: POTASSIUM CHLORIDE CRTAB 20 MEQ TABCR PO STA (10:55)
--- NOTE | 2021-09-11 11:00 | Hospitalist Progress Note ---
Date of Service September 11, 2021 Assessment & Plan (1) Sepsis: (2) Multifocal pneumonia: (3) Chronic obstructive pulmonary disease: (4) Follicular lymphoma: (5) Achalasia: Plan: Pt is a 56 y/o F with Follicular lymphoma (on maintenance Rituximab and recent IVIG treatment), Achalasia s/p Heller myotomy with fundoplication 03/08/21, COPD (chronic smoker), hypogammaglobinemia, recent admission for multifocal pneumonia (with sputum Cx + for streptococcus pneumonia-lee sensitive) admitted for worsening and recurrent pneumonia with hypoxia. Multiple recent hospitalizations: 06/06/21-06/13/21 for multifocal pneumonia treated with cefepime and vancomycin--> cefepime x 7 days per ID 07/29/21-08/03/21 for multifocal pneumonia treated ith cefepime IV x 4 days and transitioned to PO cefdinir to complete 7days Outpatient follow up: 08/15/21 Heme/onc visit for IVIG, immunotherapy and was prescribed Levaquin 500 mg x 7 days, scheduled to receive this monthly 07/14/21 - Most recent Rituximab treatment, previously has completed 6 cycles of Bendamustine and rituximab. Was scheduled for next chemo session on 09/08/21 however did not make it to that appointment due to worsening shortness of breath, now admitted. Sepsis due to multifocal PNA with bronchiectasis and acute hypoxic respiratory failure Enteroviral/rhino virus infection - CT A/P reviewed and detailed below. Covid/flu negative, respiratory biofire positive for Entero/rhino virus. Blood clx NTD, sputum clx NTD. Leucocytosis resolved with antibiotics. - Seen by pulm and recommendations noted- no need for bronchoscopy, additional work up ordered including immunoglobulins and AFB, inhalers changed - ABx changed today by pulm- IV zosyn changed to po augmentin, Vanc/zithromax discontinued. - continue mucinex, IS/flutter valve, aerosols, hypertonic saline - continue supplemental oxygen, wean down as tolerated. - Palliative eval pending CT chest 09/09: 1. No CTA evidence for pulmonary embolus. 2. Compared to the previous examination, significant residual patchy groundglass opacities are again seen throughout both lungs. The findings are characteristic of significant residual viral type pneumonitis, most likely previous Covid pneumonia. 3. No new confluent alveolar opacities or air bronchograms. Hypokalemia- repleted, recheck in am Hypomagnesemia- repleted, recheck in am Tobacco abuse- cessation recommended, declines nicotine patch COPD- not in exacerbation, no need for steroids. ICS discontinued given recurrent infection. Started on LABA/LAMA. Immunodeficiency- IgA and IgM undetectable. IgG and IgG subclasses pending. Receives IVIG in OP setting. Recommend OP immunology evaluation. Follicular lymphoma- receives OP treatment. Underweight- BMI 12.1. Will consult dietitian. She declined dietary supplements. DVT prophylaxis- sc lovenox Dispo- Pending final clx results and improvement in hypoxic respiratory failure Admission and Anticipated Discharge Date Admission Date: September 09, 2021 Subjective No new issues. She is feeling better. Still expectorating but less. No fever. She is hoping to get discharged in a day or two as she does not want to miss the vacation plan with her boyfriend. Physical Exam Physical Exam: General: Frail, Lying comfortably in bed, not in distress, on NC HEENT: EOMI, JOSE G, MMM Chest: Right sided port. Fair breath sounds bilaterally, no wheezes or crackles CVS: Regular rate and rhythm, normal heart sounds, no murmur Abdomen: Soft, non tender, not distended, normal bowel sounds Neuro: Awake, alert, oriented, conversing well, non focal Extremities: No cyanosis, clubbing or edema Results & Data Results & Data ([facility]) Vital Signs (Past 12 Hours) Vital Signs Temp Pulse Pulse Resp BP Pulse Ox 09/11/21 08:00 97 09/11/21 07:59 36.5 C 110 H 18 93/62 L 95 09/11/21 07:28 89 09/11/21 07:15 91 H 20 94 09/11/21 03:00 36.6 C 92 H 20 91/60 L 99 09/11/21 02:23 89 18 99 09/11/21 00:48 108 H 09/10/21 23:00 36.7 C 100 H 16 90/60 L 99 Laboratory Results Short CBC 09/11/21 Range/Units 07:17 WBC 10.69 D (4.8-10.8) K/uL Hgb 8.6 L (12.0-16.0) g/dL Hct 26.4 L (37-47) % Plt Count 304 (130-400) K/uL BMP 09/11/21 07:17 Sodium 141 Potassium 3.4 L Chloride 108 H Carbon Dioxide 25 BUN 4 L Creatinine 0.58 L Glucose 99 Calcium 8.3 L Medications Administered Current Inpatient Medications Acetaminophen (Acetaminophen 325 Mg Tab) 650 mg PO Q4H PRN PRN Reason: Moderate Pain Stop: 10/09/21 16:31 Albuterol (Albuterol Hfa 8 Gm Inhaler) 2 puffs INH QID PRN PRN Reason: Shortness Of Breath Stop: 10/09/21 16:31 Albuterol (Albut/Ipratrop 3mg/0.5mg Neb 3 Ml Vial) 3 ml NEB Q4R [facility]; Protocol Stop: 10/09/21 16:31 Last Admin: 09/11/21 07:13 Dose: 3 ml Documented by: Amoxicillin/Clavulanate Potassium (Amoxicillin/Clavulanate 875 Mg Tab) 1 tab PO BIDM [facility] Stop: 09/18/21 16:59 Enoxaparin Sodium (Enoxaparin Inj 30 Mg/0.3 Ml Syr) 30 mg SQ QAM [facility] Stop: 10/10/21 08:59 Last Admin: 09/11/21 08:00 Dose: 30 mg Documented by: Guaifenesin (Guaifenesin 600 Mg Tabcr) 1,200 mg PO Q12 [facility] Stop: 10/09/21 20:59 Last Admin: 09/11/21 08:00 Dose: 1,200 mg Documented by: Heparin Sodium (Porcine) (Heparin 100 Unit/Ml 5ml Flush) 5 ml FLUSH PRN PRN PRN Reason: Flush Stop: 10/10/21 02:50 Magnesium Oxide (Magnesium Oxide 400 Mg Tab) 400 mg PO BID [facility] Stop: 10/10/21 20:59 Last Admin: 09/11/21 08:00 Dose: 400 mg Documented by: Morphine Sulfate (Morphine Sulfate 2 Mg/Ml Carp) 2 mg IV Q2H PRN PRN Reason: Pain Stop: 09/23/21 16:31 Last Admin: 09/10/21 22:20 Dose: 2 mg Documented by: Morphine Sulfate (Morphine Sulfate 4 Mg/Ml 1 Ml Carp\Vial) 4 mg IV Q2H PRN PRN Reason: Pain Stop: 09/23/21 16:31 Ondansetron HCl (Ondansetron Inj 2 Mg/Ml 2 Ml Vial) 4 mg IV Q4H PRN PRN Reason: Nausea And Vomiting Stop: 10/09/21 16:31 Last Admin: 09/09/21 20:11 Dose: 4 mg Documented by: Pantoprazole Sodium (Pantoprazole 40 Mg Tab) 40 mg PO HS LUDY Stop: 10/09/21 20:59 Last Admin: 09/10/21 20:04 Dose: 40 mg Documented by: Potassium Chloride (Potassium Chloride 10 Meq Tabcr) 10 meq PO DAILY LUDY Stop: 10/10/21 08:59 Last Admin: 09/11/21 07:59 Dose: 10 meq Documented by: Sodium Chloride (Sodium Chlor 7% 4 Ml Neb) 4 ml NEB BIDR LUDY Stop: 10/10/21 18:59 Last Admin: 09/11/21 07:13 Dose: 4 ml Documented by: Umeclidinium/Vilanterol (Umeclidinium/Vilanterol 62.5/25mcg 7 Puffs/Inhaler) 1 puffs INH DAILY LUDY Stop: 10/10/21 08:59 Last Admin: 09/11/21 08:00 Dose: 1 puffs Documented by: (1) Follicular lymphoma Follicular lymphoma type: unspecified follicular type Lymphoma site: unspecified region Qualified Code(s): C82.90 - Follicular lymphoma, unspecified, unspecified site
[2021-09-11] MEDS: AMOXICILLIN/CLAVULANATE 875 MG TAB PO SCH (17:37)
[2021-09-11] MEDS: PANTOprazole 40 MG TAB PO SCH (20:28)
[2021-09-12] MEDS: ALBUT/IPRATROP 3MG/0.5MG NEB 3 ML VIAL NEB SCH ×3 (02:46→11:41)
[2021-09-12] MEDS: SODIUM CHLOR 7% 4 ML NEB NEB SCH (07:30)
[2021-09-12 07:48] LABS: Hematocrit (blood only) 28.5 % (37-47); Hemoglobin 9.2 g/dL (12.0-16.0); Mean Corpuscular Hemoglobin 29.2 pg (25-34); Mean Corpuscular Hgb Conc 32.3 g/dL (32-36); Mean Corpuscular Volume 90.5 fL (80-100); Mean Platelet Volume 9.6 fL (7.4-10.4); Platelet Count 333 K/uL (130-400); RDW Coefficient of Variation 16.2 % (11.5-14.5); Red Blood Count 3.15 M/uL (4.2-5.4); White Blood Count 9.51 K/uL (4.8-10.8)
[2021-09-12 08:15] LABS: BUN Creatinine Ratio 7.8 (10-20); Calcium 8.7 mg/dl (8.5-10.1); Creatinine Clr Calc Pharmacy 71.7 ml/min; Est GFR (African American) 126.3 ml/min; Magnesium 1.6 mg/dl (1.7-2.4)
[2021-09-12 08:16] LABS: ALC (manual) 0.83 K/uL (1.2-3.4); ANC (manual) 7.94 K/uL (1.4-6.5); Basophils # (manual) 0.09 K/uL (0-0.2); Basophils % (manual) 0.9 %; Eosinophils # (manual) 0.25 K/uL (0-0.5); Eosinophils % (manual) 2.6 %; Lymphocytes # (manual) 0.83 K/uL (1.2-3.4); Lymphocytes % (manual) 8.7 %; Monocytes # (manual) 0.41 K/uL (0.11-0.59); Monocytes % (manual) 4.3 %; Neutrophils # (manual) 7.94 K/uL (1.4-6.5); Neutrophils % (manual) 83.5 %
[2021-09-12] MEDS: AMOXICILLIN/CLAVULANATE 875 MG TAB PO SCH (08:48)
[2021-09-12] MEDS: ENOXAPARIN INJ 30 MG/0.3 ML SYR SQ SCH (08:48)
[2021-09-12] MEDS: guaiFENesin 600 MG TABCR PO SCH (08:48)
[2021-09-12] MEDS: MAGNESIUM OXIDE 400 MG TAB PO SCH (08:49)
[2021-09-12] MEDS: UMECLIDINIUM/VILANTEROL 62.5/25MCG 7 PUFFS/INHALER INH SCH (08:49)
[2021-09-12] MEDS: POTASSIUM CHLORIDE 10 MEQ TABCR PO SCH (08:49)
--- NOTE | 2021-09-12 12:33 | Discharge Summary ---
Date of Service September 12, 2021 Admission HPI Per Admitting Provider This is a 56-year-old female with PMHx of follicular lymphoma, grade 1-2, stage IV with high LDH and beta-2 microglobulin originally diagnosed December 25, 2019, achalasia, s/p laparoscopic Heller myotomy with Jaison fundoplication on 03/08/2021 due to dysphagia and regurgitation. She has underwent 6 cycles of Bendamustine and rituximab. She recently started IVIG cycle 1 on 08/15/2021. She was seen by hematology oncology prior to this and per outpatient [facility] notes she had a cough at that time redeveloping after the complete course of antibiotics from her 07/29-08/03 hospital admission here at [facility] for multifocal pneumonia, hypokalemia and hypomagnesemia. She was scheduled to return to the clinic on 09/08 however the patient did not show up due to worsening shortness of breath. She reports copious amounts of dark yellow expectorated sputum which has gotten worse in the past 2-3 days. She feels cold, with chills, but denies fever. Shortness of breath has brought her to the ER today with her sister present at bedside. Pt reports losing weight since being diagnosed and currently weighs 80 lbs. She cannot tolerate much food and was in to see Dr. Matute ([facility]) earlier today. There at the routine office visit she became acutely tachypneic and was recorded that her sats were 85% on RA therefore was sent to the ER. Since being in the ER her sats have maintained 93-94%. Her CXR is showing pneumonia with bilateral ground glass opacities, and CTA of the chest confirms this. No acute PE noted on CTA chest. When discussing goals of care, the patient would like to be a full code "just once", and if she is to be maintained on a ventilator, she wants this for 3-4 weeks, but after that timeframe does not want to continue ventilator support. Discussion regarding palliative consultation was held, and she is agreeable to seeing their team. Pt wants to pursue acute treatment for pneumonia at this time however, with antibiotics, breathing treatments, etc. Social Hx: currently smokes 5 cigarettes daily, not able to do so in the past 3 days due to worsening SOB. Denies alcohol use. Admission Exam Per Admitting Provider General: awake, alert, mild distress, + severely malnourished with BMI of 12.1 Head: Normocephalic, atraumatic ENT: PERRL, EOMI, no pharyngeal exudate, no oral candidiasis or mucositis, mucous membranes are slightly dry Chest: Diminished breath sounds but present, tachypneic at times, on room air with sats in mid 90s, no wheeze, rales or rhonchi Cardiac: Mediport access in right chest wall, Regular rate and rhythm, no murmur, no JVD, normal peripheral pulses, good capillary refill Abdominal: NABS x 4 quadrants, soft, nondistended, nontender to palpation, no rebound or guarding Extremities: Normal inspection, no peripheral edema or erythema, calfs nontender to palpation Psych: Anxious, tearful mood and affect Neuro: AAO x 3, strength intact bilaterally and rated 5/5, no motor deficits, speech is clear, no peripheral sensory deficits Principal Diagnosis Sepsis due to multifocal pneumonia, enterovirus/rhinovirus infection Discharge Exam General: Frail, Lying comfortably in bed, not in distress, on room air HEENT: EOMI, JOSE G, MMM Chest: Right sided port. Fair breath sounds bilaterally, no wheezes or crackles CVS: Regular rate and rhythm, normal heart sounds, no murmur Abdomen: Soft, non tender, not distended, normal bowel sounds Neuro: Awake, alert, oriented, conversing well, non focal Extremities: No cyanosis, clubbing or edema Discharge Data Allergies Allergy/AdvReac Type Severity Reaction Status Date / Time No Known Allergies Allergy Verified 07/29/21 14:11 Consultations 09/09/21 14:22 ED Decision to Admit Stat 09/09/21 15:00 Consult Palliative Care Routine Consult Pulmonology Routine Ordered Studies 09/09/21 13:48 CT angio chest PE protocol Stat Hospital Course (1) Sepsis: (2) Multifocal pneumonia: (3) Chronic obstructive pulmonary disease: (4) Follicular lymphoma: (5) Achalasia: Pt is a 56 y/o F with Follicular lymphoma (on maintenance Rituximab and recent IVIG treatment), Achalasia s/p Heller myotomy with fundoplication 03/08/21, COPD (chronic smoker), hypogammaglobinemia, recent admission for multifocal pneumonia (with sputum Cx + for streptococcus pneumonia-lee sensitive) admitted for worsening and recurrent pneumonia with hypoxia. Multiple recent hospitalizations: 06/06/21-06/13/21 for multifocal pneumonia treated with cefepime and vancomycin--> cefepime x 7 days per ID 07/29/21-08/03/21 for multifocal pneumonia treated ith cefepime IV x 4 days and transitioned to PO cefdinir to complete 7days Outpatient follow up: 08/15/21 Heme/onc visit for IVIG, immunotherapy and was prescribed Levaquin 500 mg x 7 days, scheduled to receive this monthly 07/14/21 - Most recent Rituximab treatment, previously has completed 6 cycles of Bendamustine and rituximab. Was scheduled for next chemo session on 09/08/21 however did not make it to that appointment due to worsening shortness of breath, now admitted. Sepsis due to multifocal PNA with bronchiectasis and acute hypoxic respiratory failure Enteroviral/rhino virus infection - CT A/P reviewed and detailed below. Covid/flu negative, respiratory biofire positive for Entero/rhino virus. Blood clx NTD, sputum clx NTD. Leucocytosis resolved with antibiotics. - Seen by pulm and recommendations noted- no need for bronchoscopy, additional work up ordered including immunoglobulins and AFB, inhalers changed - s/p zosyn->being discharged on Augmentin to complete 7 day course - continue mucinex, IS/flutter valve, inhalers - Hypoxia resolved. She passed 2 step oxygen evaluation. No oxygen required for discharge. Respiratory status significantly improved and she feels comfortable for discharge home. Denies any needs. - Palliative has not seen her yet but she did not want to wait for it. CT chest 09/09: 1. No CTA evidence for pulmonary embolus. 2. Compared to the previous examination, significant residual patchy groundglass opacities are again seen throughout both lungs. The findings are characteristic of significant residual viral type pneumonitis, most likely previous Covid pneumonia. 3. No new confluent alveolar opacities or air bronchograms. Hypokalemia- resolved with repletion Hypomagnesemia- on po supplementation Tobacco abuse- cessation recommended, declines nicotine patch COPD- not in exacerbation, no need for steroids. ICS discontinued given recurrent infection. Started on LABA/LAMA Anoro-ellipta and being discharged on same Immunodeficiency- IgA and IgM undetectable. IgG and IgG subclasses pending. Receives IVIG in OP setting. Recommend OP immunology evaluation- PCP can refer her. Follicular lymphoma- receives OP treatment. F/u with hemonc as planned. Underweight/severe protein calorie malnutrition- BMI 12.1. Recommended liberal diet and dietary supplements but she declined nutritional supplements here. She was seen by [employer] [facility]I[facility] and dietitian here. Achalasia cardia s/p laparoscopic Heller myotomy with Jaison fundoplication on 03/08/2021 due to dysphagia and regurgitation. - Was following up with [facility] however was sent to the hospital due to tachypnea - recommend referral back to ENT and possibly to GI too - Seen by [employer]IATE and Dietitian. - Diet allowed with easy to chew foods, edentulous, dentures cause the patient to gag so she does not use them Total Time Total Time Spent Total Time Spent (In Minutes): 40 Discharge Plan Discharge Items Patient Disposition: Home - Self-Care Reason For Visit: SEPSIS, MULTIFOCAL PNEUMONIA Discharge Diagnosis: Sepsis due to multifocal pneumonia, Enterovirus/rhinovirus infection Activity: Resume your previous activity Non-emergency contact: Primary Care Provider Call non-emergency contact if: you have any medication questions, your symptoms worsen and you have a fever Follow-up/Referrals: Steve Quiñones PA-C [Primary Care Provider] - 09/19/21 10:30 am Diet: Regular Addtl Attending Provider Instructions: Continue augmentin for 5 more days Stop dulera and start on anoro ellipta- the new inhaler. PLEASE STOP SMOKING Recommend repeat imaging in 6-8 weeks to ensure resolution of pneumonia Follow up with family doctor, cancer doctor and immunology- ask your family doctor for referral If fever or worsening shortness of breath, please come to the emergency Pending Studies at Discharge: Yes (IgG levels, Legionella antigen) Stand-Alone Forms: [facility], Smoking Cessation Medications and DC Order Prescriptions: New Anoro Ellipta 62.5-25 mcg/actuation Blister With Device 1 puff inhalation DAILY Qty: 1 RF: 2 guaifenesin [Mucinex] 600 mg Tablet Extended Release 12hr 1,200 mg PO Q12 Qty: 30 RF: 0 amoxicillin-pot clavulanate 875-125 mg tablet 1 tab PO BID Qty: 10 RF: 0 Continued potassium chloride 10 mEq capsule, extended release 10 meq PO DAILY Qty: 30 RF: 0 pantoprazole 40 mg tablet,delayed release (DR/EC) 40 mg PO HS RF: 0 albuterol sulfate 90 mcg/actuation HFA aerosol inhaler 2 puff INHALATION QID PRN (Reason: Shortness Of Breath) RF: 0 magnesium oxide 400 mg (241.3 mg magnesium) tablet 400 mg PO DAILY RF: 0 Discontinued Dulera 100-5 mcg/actuation HFA aerosol inhaler 1 puff INHALATION DAILY RF: 0 Discharge Orders: Discharge Order (Routine); Ordered 09/12/21 Ordered By: Connor Balderas Admission Data Admit Date/Time: 09/09/21 15:40 Attending Provider: Connor Balderas Admit Provider: Garret Sadners Primary Care Provider: Steve Quiñones Other Providers: Garret Sanders ; Kitty Toney ; Troy Cabral Other Interventions: Discharge Summary Assessment (RN) Last Done: 09/12/21 12:14
[2021-09-14 17:32] LABS: Immunoglobulin G4 3.7 mg/dL (4.0-86.0)
== END 2021-09-12 13:10 | disposition home or self-care (01) | DRG 871 ==
LOC: ED 12:14 → SUATTDRO 15:40 → 2S 15:40

== ENCOUNTER 2022-02-08 10:16 | Inpatient (IN) ==
[2022-02-08] MEDS ORDERED: MoRPHine SULFATE 4 MG/ML 1 ML CARP\\VIAL IV STA (11:04)
[2022-02-08] MEDS ORDERED: SODIUM CHLORIDE 0.9% 1000ML 1,000 ML IV SCH (11:04)
--- NOTE | 2022-02-08 11:46 | Emergency Department Note ---
Impression & Plan Bilateral pneumonia, Lower back pain ED Provider Note CHIEF COMPLAINT: Multiple complaints HISTORY OF PRESENT ILLNESS: Fatuma Trinh is a 57 year old female with history of follicular lymphoma s/p chemotherapy, leukopenia, multifocal pneumonia, COPD, among others listed below who presents to the Emergency Department with daughter for evaluation of multiple complaints. Most significantly, the patient states that she has been having pain to her left lower back radiating into her left buttocks and entire left leg which has been worsening over the past 3 days. She also notes associated numbness/tingling and states that she has been having difficulty walking secondary to her discomfort. Currently, she rates her discomfort as an 8/10 which worsens with movements. She has taken Tylenol w ithout improvement of her symptoms. The patient states that she feels weak but no specific weakness to her extremities. No saddle paresthesias or loss of continence of her bowels or bladder. The patient also states that she has been having intermittent left sided chest pains for the past few days with associated productive cough and shortness of breath. She states that it feels like she is not getting enough air. She also notes perceived fevers/chills, sore throat with dry mouth and nausea. No specific abdominal pain, vomiting or diarrhea. No urinary symptoms. Per daughter, the patient has been admitted to the hospital several times in the past few months due to pneumonia. REVIEW OF SYSTEMS: 10 systems were reviewed and were negative unless otherwise stated in HPI as above PHYSICAL EXAM: VITALS: Vitals are noted on the nurse's note and reviewed by myself. Tachycardic, additional vital signs stable. General: Resting in bed, appears tired and uncomfortable HEENT: Normocephalic, PERRL, EOMI, mucous membranes dry, oropharynx clear without erythema or edema Neck: Supple, no lymphadenopathy, non-tender Resp: Moderate inspiratory effort on room air, lung sounds clear bilaterally w ithout wheezing, rales or rhonchi CV: Port in place right upper chest wall, tachycardic rate, regular rhythm, peripheral pulses palpated Back: Tender to palpation over the midline lumbar spine and left paraspinal musculature into the left buttocks. No obvious step-offs or deformities Abd: Soft, non-distended, non-tender to palpation MSK: Mild tenderness to palpation over the entire LLE. Continues with strength 5/5 throughout all extremities with sensation intact throughout Neuro: Awake, alert and oriented x 3, interacting and answering questions appropriately Differential diagnosis includes musculoskeletal, disc herniation, fracture, metastatic disease, cord compression, discitis, sciatica, cauda equina, infection, aortic disease, renal colic, gastrointestinal, cardiac ischemia, aortic dissection, pulmonary embolism, pneumothorax, pneumonia, as well as other pathologies. EMERGENCY DEPARTMENT COURSE: Physical exam and history were performed. Nursing triage notes, EMR, and medication list were personally reviewed. Patient is a 57 year old female with history of follicular lymphoma s/p chemotherapy, leukopenia, multifocal pneumonia, COPD, among others listed below who presents to the Emergency Department with daughter for evaluation of multiple complaints, most notably lower left back pain radiating down the left lower extremity as well as intermittent chest pain with productive cough and shortness of breath over the past several days. Additional history as described above. See physical exam as noted above. EKG was obtained and reviewed by myself. This did show sinus tachycardia at 105 bpm. No concern for ectopy or acute ischemic change. When compared to study from 09/09/2021, no significant change was identified. The patient was offered medication. IV access was established and she was given morphine 4 mg. She was also given NSS 1 L. Labs were obtained, reviewed by myself as below. Of note, leukocytosis with a WBC of 16.15 and neutropenic shift of 12.69. Mild anemia with hemoglobin 11.9. Electrolytes WNL. Renal indices stable. LFTs WNL. High-sensitivity troponin I not elevated at 5.7. The patient was tested for COVID19, influenza a/B and RSV, all of which were negative. Urinalysis was obtained and not indicative of infection. CAT scan of the lumbar spine was obtained, reviewed by radiologist and myself as below. Findings did show degenerative changes without evidence of acute bony injury. Chest x-ray was also obtained and showed bilateral lower lung predominant airspace opacities, concerning for bilateral pneumonia. Upon reevaluation, the patient was doing well and stated that she had improvement of her back pain after given the pain medication as noted above. Her back pain symptoms are consistent with likely sciatica/degenerative changes. I did also discuss with him about the findings of the bilateral pneumonia and feel that she would benefit from continued monitoring in the hospital for IV antibiotics. The patient and her daughter at bedside did agree with this. She was started on cefepime and doxycycline. I did call and [facility] She agreed to evaluate the patient with Dr. Pitmtan for ongoing management. Please see their dictation for additional plan and disposition thereafter. The patient and her daughter verbalized her understanding and agreement with the treatment plan as above. The chart was completed utilizing [employer] Speech Voice Recognition Software. Grammatical errors, random word insertions, pronoun errors, and incomplete sentences are an occasional consequence of this system due to software limitations, ambient noise, and hardware issues. Any formal questions or concerns about the content, text, or information contained within the body of this dictation should be directly addressed to the provider for clarification. Past Med/Surg History Medical History Achalasia Chronic obstructive pulmonary disease Follicular lymphoma Hypokalemia Hypomagnesemia Leukopenia Multifocal pneumonia Restless leg syndrome Surgical History H/O unilateral oophorectomy History of fundoplication Heller myotomy with Jaison fundoplication in 03/08/21 History of tonsillectomy History of tooth extraction Family History Mother Hypertension Father Cancer Other Coronary heart disease Social History Smoking Status: Current every day smoker Tobacco Type: Cigarettes Cigarettes Per Day: 10; Second Hand Exposure: No; Hx Alcohol Use: No Hx Substance Use: No Preferred Language: Colombian Communication Ability: Effective 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 Beliefs That Will Affect Care: None marital status: Current Living Situation: Significant Other How many Children do You have: 3 Feels Safe at Home: Yes Assistive Devices: None Allergies Allergies Allergy/AdvReac Type Severity Reaction Status Date / Time No Known Allergies Allergy Verified 07/29/21 14:11 Home Meds Home Medications Medication Instructions Recorded Confirmed albuterol sulfate 90 mcg/actuation 2 puff inhalation QID PRN 06/06/21 02/08/22 aerosol inhaler Shortness Of Breath pantoprazole 40 mg tablet,delayed 40 mg PO HS 06/06/21 02/08/22 release Previous Rx's Medication Instructions Recorded potassium chloride 10 mEq 10 meq PO DAILY #30 caps 08/03/21 capsule,extended release Results & Data (ED) Vital Signs Vital Signs - 24 hr 02/08/22 10:33 02/08/22 11:25 02/08/22 11:30 Temperature 36.7 C Temperature Source Temporal Artery Scan Pulse Rate 119 H 102 H 102 H Pulse Rate from SpO2 Sensor 101 H 102 H Respiratory Rate 20 23 26 H Respiratory Effort / Characteristics Non-Labored Spontaneous Respiratory Depth Normal Respiratory Pattern Regular Blood Pressure 100/64 Blood Pressure Mean 76 Pulse Oximetry 94 97 97 Oxygen Delivery Method Room Air Sepsis Recent Fever Within 48 Hours No Sepsis New/Unexplained Change in Mental Status No Sepsis Action Taken by Nursing No Action Required 02/08/22 12:00 02/08/22 12:36 02/08/22 12:36 Temperature Temperature Source Pulse Rate 98 H 103 H Pulse Rate from SpO2 Sensor 99 H Respiratory Rate 28 H 28 H Respiratory Effort / Characteristics Respiratory Depth Respiratory Pattern Blood Pressure 107/72 Blood Pressure Mean 83 Pulse Oximetry 94 Oxygen Delivery Method Sepsis Recent Fever Within 48 Hours Sepsis New/Unexplained Change in Mental Status Sepsis Action Taken by Nursing 02/08/22 13:00 02/08/22 13:00 02/08/22 13:30 Temperature Temperature Source Pulse Rate 101 H Pulse Rate from SpO2 Sensor 102 H Respiratory Rate 23 Respiratory Effort / Characteristics Respiratory Depth Respiratory Pattern Blood Pressure 102/58 L 105/64 Blood Pressure Mean 72 77 Pulse Oximetry 94 Oxygen Delivery Method Sepsis Recent Fever Within 48 Hours Sepsis New/Unexplained Change in Mental Status Sepsis Action Taken by Nursing 02/08/22 13:30 02/08/22 14:00 02/08/22 14:00 Temperature Temperature Source Pulse Rate 103 H 98 H Pulse Rate from SpO2 Sensor 102 H 99 H Respiratory Rate 28 H 25 H Respiratory Effort / Characteristics Respiratory Depth Respiratory Pattern Blood Pressure 101/66 Blood Pressure Mean 77 Pulse Oximetry 93 95 Oxygen Delivery Method Sepsis Recent Fever Within 48 Hours Sepsis New/Unexplained Change in Mental Status Sepsis Action Taken by Nursing 02/08/22 14:30 02/08/22 14:30 02/08/22 14:40 Temperature Temperature Source Pulse Rate 106 H 99 H Pulse Rate from SpO2 Sensor 107 H 98 H Respiratory Rate 28 H 35 H Respiratory Effort / Characteristics Respiratory Depth Respiratory Pattern Blood Pressure 117/70 Blood Pressure Mean 85 Pulse Oximetry 95 95 Oxygen Delivery Method Sepsis Recent Fever Within 48 Hours Sepsis New/Unexplained Change in Mental Status Sepsis Action Taken by Nursing 02/08/22 14:50 02/08/22 15:00 02/08/22 15:00 Temperature Temperature Source Pulse Rate 103 H 103 H Pulse Rate from SpO2 Sensor 104 H 103 H Respiratory Rate 31 H 25 H Respiratory Effort / Characteristics Respiratory Depth Respiratory Pattern Blood Pressure 99/67 L Blood Pressure Mean 77 Pulse Oximetry 96 95 Oxygen Delivery Method Sepsis Recent Fever Within 48 Hours Sepsis New/Unexplained Change in Mental Status Sepsis Action Taken by Nursing 02/08/22 15:10 02/08/22 15:20 02/08/22 15:30 Temperature Temperature Source Pulse Rate 102 H 104 H Pulse Rate from SpO2 Sensor 102 H 104 H Respiratory Rate 19 40 H Respiratory Effort / Characteristics Respiratory Depth Respiratory Pattern Blood Pressure 100/65 Blood Pressure Mean 76 Pulse Oximetry 96 93 Oxygen Delivery Method Sepsis Recent Fever Within 48 Hours Sepsis New/Unexplained Change in Mental Status Sepsis Action Taken by Nursing 02/08/22 15:30 02/08/22 15:40 Temperature Temperature Source Pulse Rate 107 H 110 H Pulse Rate from SpO2 Sensor 106 H 110 H Respiratory Rate 38 H 38 H Respiratory Effort / Characteristics Respiratory Depth Respiratory Pattern Blood Pressure Blood Pressure Mean Pulse Oximetry 93 94 Oxygen Delivery Method Sepsis Recent Fever Within 48 Hours Sepsis New/Unexplained Change in Mental Status Sepsis Action Taken by Nursing Laboratory Data Result diagrams: 02/08/22 11:40 02/08/22 11:40 Lab Results 02/08/22 02/08/22 02/08/22 Range/Units 11:40 11:40 11:40 WBC 16.15 H (4.8-10.8) K/ul RBC 3.94 (3.93-5.22) M/uL Hgb 11.9 L (12.0-16.0) g/dl Hct 34.4 (34.1-44.9) % MCV 87.3 (80.0-100.0) fL MCH 30.2 (25.0-34.0) pg MCHC 34.6 (32.0-36.0) g/dL RDW Std Deviation 43.2 (36.4-46.3) fL RDW Coeff of Dylan 13.5 (11.5-14.5) % Plt Count 443 H (130-400) K/uL MPV 9.6 (9.4-12.3) fL Immature Gran % (Auto) 6.5 % Neut % (Auto) 78.6 % Lymph % (Auto) 6.6 % Hartley % (Auto) 6.8 % Eos % (Auto) 1.1 % Baso % (Auto) 0.4 % Neut # (Auto) 12.69 H (1.4-6.5) K/uL Lymph # (Auto) 1.07 L (1.2-3.4) K/uL Hartley # (Auto) 1.10 H (0.24-0.82) K/uL Eos # (Auto) 0.17 (0-0.50) K/uL Baso # (Auto) 0.07 (0-0.2) K/uL Immature Gran # (Auto) 1.05 H (0.00-0.02) K/uL PT 11.9 (9.0-12.0) Seconds INR 1.1 (0.9-1.1) APTT 36.2 H (21.0-31.0) Seconds PTT Ratio 1.3 D-Dimer 450 (0-500) ug/L FEU Sodium 139 (136-145) mmol/L Potassium 3.7 (3.5-5.1) mmol/L Chloride 101 (98-107) mmol/L Carbon Dioxide 25 (21-32) mmol/L Anion Gap 13 H (3-11) BUN 7 (6-23) mg/dl Creatinine 0.62 (0.6-1.2) mg/dl Est Cr Clr Drug Dosing Not Reportable Est GFR ( Amer) 117.7 ml/min Est GFR (Non-Af Amer) 101.5 ml/min BUN/Creatinine Ratio 11.3 (10-20) Glucose 94 (70-99(Fasting)) mg/dl Calcium 9.5 (8.5-10.1) mg/dl Total Bilirubin 0.4 (0.2-1.0) mg/dl AST 14 (13-39) U/L ALT 11 (7-52) U/L Alkaline Phosphatase 113 H (34-104) U/L Troponin I High Sens 5.7 (0-14) pg/ml Total Protein 7.6 (6.0-8.3) gm/dl Albumin 3.8 (3.4-5.0) gm/dl Globulin 3.8 (2.5-4.0) gm/dl Albumin/Globulin Ratio 1.0 (0.9-2) Urine Color Urine Appearance (Clear) Urine pH (4.5-7.5) Ur Specific [place] (1.000-1.030) Urine Protein (Negative) Urine Glucose (UA) (Negative) Urine Ketones (Negative) Urine Blood (Negative) Urine Nitrite (Negative) Urine Bilirubin (Negative) Urine Urobilinogen (Negative) Ur Leukocyte Esterase (Negative) SARS-CoV-2 (PCR) (Negative) Influenza Type A (PCR) (Neg) Influenza Type B (PCR) (Neg) RSV (RT-PCR) (Neg) 02/08/22 02/08/22 Range/Units 14:33 14:41 WBC (4.8-10.8) K/ul RBC (3.93-5.22) M/uL Hgb (12.0-16.0) g/dl Hct (34.1-44.9) % MCV (80.0-100.0) fL MCH (25.0-34.0) pg MCHC (32.0-36.0) g/dL RDW Std Deviation (36.4-46.3) fL RDW Coeff of Dylan (11.5-14.5) % Plt Count (130-400) K/uL MPV (9.4-12.3) fL Immature Gran % (Auto) % Neut % (Auto) % Lymph % (Auto) % Hartley % (Auto) % Eos % (Auto) % Baso % (Auto) % Neut # (Auto) (1.4-6.5) K/uL Lymph # (Auto) (1.2-3.4) K/uL Hartley # (Auto) (0.24-0.82) K/uL Eos # (Auto) (0-0.50) K/uL Baso # (Auto) (0-0.2) K/uL Immature Gran # (Auto) (0.00-0.02) K/uL PT (9.0-12.0) Seconds INR (0.9-1.1) APTT (21.0-31.0) Seconds PTT Ratio D-Dimer (0-500) ug/L FEU Sodium (136-145) mmol/L Potassium (3.5-5.1) mmol/L Chloride (98-107) mmol/L Carbon Dioxide (21-32) mmol/L Anion Gap (3-11) BUN (6-23) mg/dl Creatinine (0.6-1.2) mg/dl Est Cr Clr Drug Dosing Est GFR ( Amer) ml/min Est GFR (Non-Af Amer) ml/min BUN/Creatinine Ratio (10-20) Glucose (70-99(Fasting)) mg/dl Calcium (8.5-10.1) mg/dl Total Bilirubin (0.2-1.0) mg/dl AST (13-39) U/L ALT (7-52) U/L Alkaline Phosphatase (34-104) U/L Troponin I High Sens (0-14) pg/ml Total Protein (6.0-8.3) gm/dl Albumin (3.4-5.0) gm/dl Globulin (2.5-4.0) gm/dl Albumin/Globulin Ratio (0.9-2) Urine Color Yellow Urine Appearance Clear (Clear) Urine pH 6.5 (4.5-7.5) Ur Specific [place] 1.009 (1.000-1.030) Urine Protein Negative (Negative) Urine Glucose (UA) Negative (Negative) Urine Ketones Negative (Negative) Urine Blood Negative (Negative) Urine Nitrite Negative (Negative) Urine Bilirubin Negative (Negative) Urine Urobilinogen Negative (Negative) Ur Leukocyte Esterase Negative (Negative) SARS-CoV-2 (PCR) NEGATIVE (Negative) Influenza Type A (PCR) Negative (Neg) Influenza Type B (PCR) Negative (Neg) RSV (RT-PCR) Negative (Neg) Administered Medications Discontinued Medications Sodium Chloride (Nss 1000ml) 1,000 mls @ 999 mls/hr IV .Q1H1M LUDY Stop: 02/08/22 12:04 Last Infusion: 02/08/22 13:35 Dose: 0 mls/hr Documented By: Admin: 02/08/22 11:53 Dose: 999 mls/hr Documented By: EPI Cefepime HCl (Maxipime) 2,000 mg in 20 mls @ 5 mls/min IV NOW STA; Protocol Stop: 02/08/22 13:51 Last Admin: 02/08/22 13:56 Dose: 5 mls/min Documented By: EPI Doxycycline Hyclate 100 mg/ (Dextrose) 110 mls @ 50 mls/hr IV NOW STA Stop: 02/08/22 15:59 Last Admin: 02/08/22 14:24 Dose: 50 mls/hr Documented By: EPI Morphine Sulfate (Morphine Sulfate 4 Mg/Ml 1 Ml Carp\Vial) 4 mg IV NOW STA Stop: 02/08/22 11:05 Last Admin: 02/08/22 11:52 Dose: 4 mg Documented By: EPI Imaging Data Radiologist's Impression: Chest X-Ray 02/08/22 11:01 XR chest 1V portable CLINICAL HISTORY: sob, cough TECHNIQUE: Single frontal radiograph of the chest was obtained. Comparison: Comparison is made to chest radiograph 09/09/2021 FINDINGS: A port catheter is seen. The cardiomediastinal silhouette is normal. Bilateral lower lung predominant airspace opacities are seen. No evidence of pleural effusion or pneumothorax. IMPRESSION: Bilateral lower lung predominant airspace opacities which may represent ate lectasis, pneumonia, and/or aspiration. ACT 112: Negative or not required by law. Electronically signed by: Yonis Newton M.D. 02/08/2022 11:[address] 02/08/22 11:01 CT lumbar spine wo con CLINICAL HISTORY: lower left back pain radiating into LLE TECHNIQUE: Multidetector row helical CT of the lumbar spine was performed without administration of intravenous contrast. Coronal and sagittal reformations were obtained. Automated dose lowering techniques and/or adjustment according to patient size were utilized for this exam. CT DOSE: 227.30 mGy.cm Comparison: None available at the time of this dictation. FINDINGS: For counting purposes, the last complete intervertebral disc space is considered L5-S1. No acute fractures are identified. Degenerative changes are noted in the visualized spine. Vertebral body alignment is within normal limits. Surgical clips are noted in the left abdomen. Atherosclerotic calcifications are seen. IMPRESSION: Degenerative changes without evidence of acute bony injury. ACT 112: Negative or not required by law. Electronically signed by: Yonis Newton M.D. 02/08/2022 12:29 PM Discharge Plan Visit Data Chief Complaint: Back Injury/Pain Stated Complaint: SEVERE LOWER BACK PAIN, CAN'T WALK ED Provider: Ronald Godoy ED Midlevel Provider: Teresa Quintero Discharge Problem: Bilateral pneumonia, Lower back pain Patient Disposition: Admitted As Inpatient Forms Stand Alone Forms: My [facility] Prescriptions Prescriptions: No Action potassium chloride 10 mEq capsule, extended release 10 meq PO DAILY Qty: 30 0RF pantoprazole 40 mg tablet,delayed release (DR/EC) 40 mg PO HS albuterol sulfate 90 mcg/actuation HFA aerosol inhaler 2 puff INHALATION QID PRN (Reason: Shortness Of Breath) Referrals Referrals: Steve Quiñones PA-C [Primary Care Provider] -
--- NOTE | 2022-02-08 11:53 | XRay Report ---
XR chest 1V portable CLINICAL HISTORY: sob, cough TECHNIQUE: Single frontal radiograph of the chest was obtained. Comparison: Comparison is made to chest radiograph 09/09/2021 FINDINGS: A port catheter is seen. The cardiomediastinal silhouette is normal. Bilateral lower lung predominant airspace opacities are seen. No evidence of pleural effusion or pneumothorax. IMPRESSION: Bilateral lower lung predominant airspace opacities which may represent atelectasis, pneumonia, and/o r aspiration. ACT 112: Negative or not required by law. Electronically signed by: Yonis Newton M.D. 02/08/2022 11:50 AM
[2022-02-08 11:56] LABS: Hematocrit (blood only) 34.4 % (34.1-44.9); Hemoglobin 11.9 g/dl (12.0-16.0); Mean Corpuscular Hemoglobin 30.2 pg (25.0-34.0); Mean Corpuscular Hgb Conc 34.6 g/dL (32.0-36.0); Mean Corpuscular Volume 87.3 fL (80.0-100.0); Mean Platelet Volume 9.6 fL (9.4-12.3); Platelet Count 443 K/uL (130-400); RDW Coefficient of Variation 13.5 % (11.5-14.5); RDW Standard Deviation 43.2 fL (36.4-46.3); Red Blood Count 3.94 M/uL (3.93-5.22); White Blood Count 16.15 K/ul (4.8-10.8)
[2022-02-08 12:07] LABS: D Dimer 450 ug/L FEU (0-500); INR 1.1 (0.9-1.1); Partial Thromboplastin Ratio 1.3; Partial Thromboplastin Time 36.2 Seconds (21.0-31.0); Prothrombin Time 11.9 Seconds (9.0-12.0)
[2022-02-08 12:23] LABS: Alanine Aminotransferase 11 U/L (7-52); Albumin Level 3.8 gm/dl (3.4-5.0); Alkaline Phosphatase 113 U/L (34-104); Anion Gap 13 (3-11); Aspartate Aminotransferase 14 U/L (13-39); BUN Creatinine Ratio 11.3 (10-20); Bilirubin,Total 0.4 mg/dl (0.2-1.0); Blood Urea Nitrogen 7 mg/dl (6-23); Calcium 9.5 mg/dl (8.5-10.1); Carbon Dioxide 25 mmol/L (21-32); Chloride 101 mmol/L (98-107); Est GFR (African American) 117.7 ml/min; Est GFR (Non-African American) 101.5 ml/min; Globulin 3.8 gm/dl (2.5-4.0); Glucose 94 mg/dl (70-99(Fasting)); Potassium 3.7 mmol/L (3.5-5.1); Sodium 139 mmol/L (136-145); Total Protein 7.6 gm/dl (6.0-8.3); Troponin I High Sensitivity 5.7 pg/ml (0-14)
--- NOTE | 2022-02-08 12:31 | CT Scan Report ---
CT lumbar spine wo con CLINICAL HISTORY: lower left back pain radiating into LLE TECHNIQUE: Multidetector row helical CT of the lumbar spine was performed without administration of i ntravenous contrast. Coronal and sagittal reformations were obtained. Automated dose lowering techniq ues and/or adjustment according to patient size were utilized for this exam. CT DOSE: 227.30 mGy.cm Comparison: None available at the time of this dictation. FINDINGS: For counting purposes, the last complete intervertebral disc space is considered L5-S1. No acute fractures are identified. Degenerative changes are noted in the visualized spine. Vertebral body alignment is within normal limits. Surgical clips are noted in the left abdomen. Atherosclerotic calcifications are seen. IMPRESSION: Degenerative changes without evidence of acute bony injury. ACT 112: Negative or not required by law. Electronically signed by: Yonis Newton M.D. 02/08/2022 12:29 PM
[2022-02-08 12:43] LABS: Basophils # (auto) 0.07 K/uL (0-0.2); Basophils % (auto) 0.4 %; Eosinophils # (auto) 0.17 K/uL (0-0.50); Eosinophils % (auto) 1.1 %; Immature Granulocytes # (auto) 1.05 K/uL (0.00-0.02); Immature Granulocytes % (auto) 6.5 %; Lymphocytes # (auto) 1.07 K/uL (1.2-3.4); Lymphocytes % (auto) 6.6 %; Monocytes % (auto) 6.8 %; Neutrophils # (auto) 12.69 K/uL (1.4-6.5); Neutrophils % (auto) 78.6 %
[2022-02-08] MEDS ORDERED: CEFEPIME 2,000 MG/20 ML VIAL IV STA (13:48)
[2022-02-08] MEDS ORDERED: DOXYCYCLINE HYCLATE 100 MG in DEXTROSE 5% 100 ML IV STA (13:48)
--- NOTE | 2022-02-08 14:31 | History & Physical Report ---
Date of Service February 08, 2022 Assessment & Plan (1) Sepsis: (2) Pneumonia: (3) Chronic obstructive pulmonary disease: (4) Tobacco abuse: (5) Follicular lymphoma: Plan This is a 56-year-old female with PMH follicular lymphoma s/p chemo and currently receiving IVIG, achalasia s/p Heller myotomy w/ Jaison fundoplication, COPD, tobacco abuse, hx of multifocal pna and bronchiectasis presented to ER with multiple complaints. She complains of productive purulent cough for the pa st 3 days. In ED patient met sepsis criteria secondary to leukocytosis and tachycardia. Source: Likely pneumonia She did receive broad-spectrum IV antibiotics with cefepime and doxycycline. She was also started on IV fluid. Multiple recent hospitalizations: 06/06/21-06/13/21 for multifocal pneumonia treated with cefepime and vancomycin--> cefepime x 7 days per ID 07/29/21-08/03/21 for multifocal pneumonia treated ith cefepime IV x 4 days and transitioned to PO cefdinir to complete 7days 09/09/21-09/12/21 sepsis, multifocal PNA, tx with IV zosyn, + AFB sputum culture for MAC, did not follow up, did complete augmentin, + entero/rhinovirus Sepsis Pneumonia hx of + sputum culture for MAC - untreated COPD admit to PCU no acute exac of COPD continue IV antibiotics with Cefepime and oral doxycycline currently on room air, not requiring oxygen will obtain biofire for resp viral illness Obtain CT chest pulmonary toilet with flutter valve, incentive spirometry, tessalon perles repeat sputum culture and AFB culture, also obtain stool culture due to reports of loose stool/diarrhea obtain procalcitonin, urine legionella consult infectious disease due to previous + MAC on acid fast sputum culture that was not followed up on as OP/treated Tobacco abuse nicotine patch encourage cessation Hx of Follicular lymphoma follows [facility] receiving IVIG treatment montly last chemo was ~ 1 year ago Achalasia cardia s/p laparoscopic Heller myotomy with Jaison fundoplication on 03/08/2021 due to dysphagia and regurgitation. follows specialist in [place] Diet allowed with easy to chew foods DVT ppx: SQ Lovenox 30mg daily Dispo: PCU FULL CODE PCP: Steve Quiñones PA-C Pt was seen and examined in collaboration with Dr. Pittman, please see addendum History of Present Illness Chief Complaint: Low back pain x 3 days; SOB x few days. Primary Care Provider: Steve Quiñones PA-C This is a 56-year-old female with PMH follicular lymphoma s/p chemo and currently receiving IVIG, achalasia s/p Heller myotomy w/ Jaison fundoplication, COPD, tobacco abuse, hx of multifocal pna and bronchiectasis presented to ER wi th multiple complaints. She complains of productive purulent cough for the past 3 days. She states its dark yellow. She denies having a chronic cough. Positive sick contact with her son who also has a, "cold." She does list increased shortness of breath over the past 3 days. Overall decreased appetite and ill feeling. She complains of sweats denies any documented fever or chills. She further complains of left-sided stabbing chest pain when she coughs. Pain is not worse with inhalation or exertion. She denies any presyncope, lightheadedness, hemoptysis, shortness breath at rest, nausea, vomiting, abdominal pain, dysuria, increased urgency or frequency with urination, melena or hematochezia. She does complain of left-sided lower back pain with radiation down her left leg. She denies any bowel or bladder incontinence or saddle anesthesia. Pt last hospitalized in September of 2021 with multifocal PNA. At that time was seen by Pulm. Her sputum culture was + for mycobacterium. She was also positive for rhino/enterovirus. She was to f/u with ID or pum as outpatient but patient states she never received the message. In ED patient met sepsis criteria secondary to leukocytosis and tachycardia. Source: Likely pneumonia She did receive broad-spectrum IV antibiotics with cefepime and doxycycline. She was also started on IV fluid. Allergies Allergy/AdvReac Type Severity Reaction Status Date / Time No Known Allergies Allergy Verified 07/29/21 14:11 Home Medications Medication Instructions Recorded Confirmed Type albuterol sulfate 90 mcg/actuation 2 puff inhalation QID PRN 06/06/21 02/08/22 History aerosol inhaler Shortness Of Breath pantoprazole 40 mg tablet,delayed 40 mg PO HS 06/06/21 02/08/22 History release potassium chloride 10 mEq 10 meq PO DAILY #30 caps 08/03/21 02/08/22 Rx capsule,extended release Past Med/Surg History Medical History Achalasia Chronic obstructive pulmonary disease Follicular lymphoma Hypokalemia Hypomagnesemia Leukopenia Multifocal pneumonia Restless leg syndrome Surgical History H/O unilateral oophorectomy History of fundoplication Heller myotomy with Jaison fundoplication in 03/08/21 History of tonsillectomy History of tooth extraction Family History Mother Hypertension Father Cancer Other Coronary heart disease Social History Smoking Status: Current every day smoker Tobacco Type: Cigarettes Cigarettes Per Day: 10; Second Hand Exposure: No; Hx Alcohol Use: No Hx Substance Use: No Preferred Language: Micronesian Communication Ability: Effective News Camera Operator Required: No Beliefs That Will Affect Care: None marital status: Current Living Situation: Significant Other How many Children do You have: 3 Feels Safe at Home: Yes Assistive Devices: None Review of Systems Review of Systems: All systems reviewed & are unremarkable except as noted in HPI & below Physical Exam Constitutional: + ill appearing (chronically) and + thin; not in distress Eyes: PERRL, conjunctivae normal, anicteric sclerae ENMT: external ear and nose normal, oropharynx normal Neck: normal visual inspection (supple) Respiratory: + cough (prductive); no respiratory distress (+ rhonchi) and no audible wheezes Cardiovascular: Rate/Rhythm: + tachycardic Chest (Breasts): Chest: normal inspection of chest Gastrointestinal (Abdomen): normal bowel sounds, soft, nontender, no hepatosplenomegaly Musculoskeletal: no cyanosis or clubbing, extremities motor strength 5/5 Skin: no rashes, warm and dry Neurologic: PERRL, EOMI, accommodation nl, no face palsy, no dysarthria Psychiatric: A+Ox3, euthymic affect Genitourinary: no CVA tenderness Lymphatic: no lymphedema Results & Data Results & Data ([facility]) Vital Signs (Past 12 Hours) Vital Signs Temp Pulse Resp BP Pulse Ox O2 Del Method 02/08/22 13:00 101 H 23 94 02/08/22 13:00 102/58 L 02/08/22 12:36 107/72 02/08/22 12:36 103 H 28 H 02/08/22 12:00 98 H 28 H 94 02/08/22 11:30 102 H 26 H 97 02/08/22 11:25 102 H 23 97 02/08/22 10:33 36.7 C 119 H 20 100/64 94 Room Air Diagnostic Findings Chest X-Ray 02/08/22 11:01 XR chest 1V portable CLINICAL HISTORY: sob, cough TECHNIQUE: Single frontal radiograph of the chest was obtained. Comparison: Comparison is made to chest radiograph 09/09/2021 FINDINGS: A port catheter is seen. The cardiomediastinal silhouette is normal. Bilateral lower lung predominant airspace opacities are seen. No evidence of pleural effusion or pneumothorax. IMPRESSION: Bilateral lower lung predominant airspace opacities which may represent atelectasis, pneumonia, and/or aspiration. ACT 112: Negative or not required by law. Electronically signed by: Yonis Newton M.D. 02/08/2022 11:[address] 02/08/22 11:01 CT lumbar spine wo con CLINICAL HISTORY: lower left back pain radiating into LLE TECHNIQUE: Multidetector row helical CT of the lumbar spine was performed without administration of intravenous contrast. Coronal and sagittal reformations were obtained. Automated dose lowering techniques and/or adjustment according to patient size were utilized for this exam. CT DOSE: 227.30 mGy.cm Comparison: None available at the time of this dictation. FINDINGS: For counting purposes, the last complete intervertebral disc space is considered L5-S1. No acute fractures are identified. Degenerative changes are noted in the visualized spine. Vertebral body alignment is within normal limits. Surgical clips are noted in the left abdomen. Atherosclerotic calcifications are seen. IMPRESSION: Degenerative changes without evidence of acute bony injury. ACT 112: Negative or not required by law. Electronically signed by: Yonis Newton M.D. 02/08/2022 12:29 PM Medications Administered Medication List Doxycycline Hyclate 100 mg/ (Dextrose) 110 mls @ 50 mls/hr IV NOW STA Stop: 02/08/22 15:59 Last Admin: 02/08/22 14:24 Dose: 50 mls/hr Documented By: EPI Discontinued Medications Sodium Chloride (Nss 1000ml) 1,000 mls @ 999 mls/hr IV .Q1H1M LUDY Stop: 02/08/22 12:04 Last Infusion: 02/08/22 13:35 Dose: 0 mls/hr Documented By: Admin: 02/08/22 11:53 Dose: 999 mls/hr Documented By: EPI Cefepime HCl (Maxipime) 2,000 mg in 20 mls @ 5 mls/min IV NOW STA; Protocol Stop: 02/08/22 13:51 Last Admin: 02/08/22 13:56 Dose: 5 mls/min Documented By: EPI Morphine Sulfate (Morphine Sulfate 4 Mg/Ml 1 Ml Carp\\Vial) 4 mg IV NOW STA Stop: 02/08/22 11:05 Last Admin: 02/08/22 11:52 Dose: 4 mg Documented By: EPI ECG Rate (beats per minute): 105 Rhythm: sinus tachycardia COVID-19 Results Results COVID-19 Adm Lab Results: 2 RBC 3.94 M/uL (3.93-5.22) 02/08/22 WBC 16.15 K/ul (4.8-10.8) H 02/08/22 Hgb 11.9 g/dl (12.0-16.0) L 02/08/22 Hct 34.4 % (34.1-44.9) 02/08/22 Plt Count 443 K/uL (130-400) H 02/08/22 Neutrophils (%) (Auto) 78.6 % 02/08/22 Lymphocytes (%) (Auto) 6.6 % 02/08/22 Monocytes # (Auto) 1.10 K/uL (0.24-0.82) H 02/08/22 Eosinophils # (Auto) 0.17 K/uL (0-0.50) 02/08/22 Immature Granulocyte % (Auto) 6.5 % 02/08/22 Neutrophils # (Auto) 12.69 K/uL (1.4-6.5) H 02/08/22 Lymphocytes # (Auto) 1.07 K/uL (1.2-3.4) L 02/08/22 Monocytes # (Auto) 1.10 K/uL (0.24-0.82) H 02/08/22 Eosinophils # (Auto) 0.17 K/uL (0-0.50) 02/08/22 Basophils # (Auto) 0.07 K/uL (0-0.2) 02/08/22 Immature Granulocyte # (Auto) 1.05 K/uL (0.00-0.02) H 02/08 Na 139 mmol/L (136-145) 02/08/22 K 3.7 mmol/L (3.5-5.1) 02/08/22 Cl 101 mmol/L (98-107) 02/08/22 CO2 25 mmol/L (21-32) 02/08/22 Anion Gap 13 (3-11) H 02/08/22 BUN 7 mg/dl (6-23) 02/08/22 Creatinine 0.62 mg/dl (0.6-1.2) 02/08/22 BUN/Creatinine Ratio 11.3 (10-20) 02/08/22 Glucose Level 94 mg/dl (70-99(Fasting)) 02/08/22 Ca 9.5 mg/dl (8.5-10.1) 02/08/22 Total Bilirubin 0.4 mg/dl (0.2-1.0) 02/08/22 AST/SGOT 14 U/L (13-39) 02/08/22 ALT/SGPT 11 U/L (7-52) 02/08/22 Alkaline Phosphatase 113 U/L (34-104) H 02/08/22 Total Protein 7.6 gm/dl (6.0-8.3) 02/08/22 Albumin 3.8 gm/dl (3.4-5.0) 02/08/22 Globulin 3.8 gm/dl (2.5-4.0) 02/08/22 Albumin/Globulin Ratio 1.0 (0.9-2) 02/08/22 Procalcitonin Pending 02/08/22 D-Dimer 450 ug/L FEU (0-500) 02/08/22 PTT 36.2 Seconds (21.0-31.0) H 02/08/22 INR 1.1 (0.9-1.1) 02/08/22 Adenovirus (PCR) Pending 02/08/22 B. parapertussis DNA (PCR) Pending 02/08/22 B. pertussis DNA (PCR) Pending 02/08/22 C. pneumoniae DNA (PCR) Pending 02/08/22 Coronavirus Type OC43 (PCR) Pending 02/08/22 Coronavirus Type HKU1 (PCR) Pending 02/08/22 Coronavirus Type 229E (PCR) Pending 02/08/22 COVID-19 PCR NEGATIVE (Negative) 02/08/22 Coronavirus Type NL63 (PCR) Pending 02/08/22 Human Metapneumovirus (PCR) Pending 02/08/22 Influenza Virus Type A (PCR) Negative (Neg) 02/08/22 Influenza Virus Type B (PCR) Negative (Neg) 02/08/22 M. pneumoniae (PCR) Pending 02/08/22 Parainfluenza Type 1 (PCR) Pending 02/08/22 Parainfluenza Type 2 (PCR) Pending 02/08/22 Parainfluenza Type 3 (PCR) Pending 02/08/22 Parainfluenza Type 4 (PCR) Pending 02/08/22 RSV (PCR) Pending 02/08/22 Enterovirus/Rhinovirus (PCR) Pending 02/08/22 Micro Respiratory Specimen 02/08/22 Chest X-Ray 02/08/22 Code Status & VTE Plan Code Status FULL CODE VTE Prophylaxis Plan VTE Prophylaxis will be ordered: Yes Supervising Physician Co-Signing Physician Notes Pt seen and examined by me, care coordinated w/ Pawan Islas PA-C, pls refer to her note above for further detail. Patient with history of follicular lymphoma, and multiple admissions for pneumonia, presents with worsening cough with sputum production, shortness of breath. She is currently sitting up in bed, alert oriented answering questions appropriately, breathing on room air, and saturating 94%. Patient's daughter at the bedside. Patient recently admitted in August/September, sputum culture positive for Mycobacterium avium complex. Patient not aware of culture results. Started on IV antibiotics in the ED. We will continue antibiotics, will obtain sputum culture in addition to blood cultures. Will discuss further with ID. Will obtain chest CT, depending on results/clinical progression we may also further discuss with pulmonary medicine. MD Zain (1) Follicular lymphoma Follicular lymphoma type: unspecified follicular type Lymphoma site: unspecified region Qualified Code(s): C82.90 - Follicular lymphoma, unspecified, unspecified site
[2022-02-08 15:30] LABS: Influenza A virus by PCR Negative (Neg); Influenza B virus by PCR Negative (Neg); RSV by PCR Negative (Neg); SARS CoV2 RNA(COVID-19) InHosp NEGATIVE (Negative)
[2022-02-08 16:01] LABS: Appearance Urine Clear (Clear); Bilirubin Urine Negative (Negative); Blood Urine Negative (Negative); Color Urine Yellow; Glucose Urine UA Negative (Negative); Ketones Urine Negative (Negative); Leukocyte Esterase Urine Negative (Negative); Nitrite Urine Negative (Negative); Protein Urine Negative (Negative); Specific Gravity Urine 1.009 (1.000-1.030); Urobilinogen Urine Negative (Negative); pH Urine 6.5 (4.5-7.5)
[2022-02-08 17:16] LABS: Adenovirus PCR Not Detected (NotDetected); Bordetella parapertussis PCR Not Detected (NotDetected); Bordetella pertussis PCR Not Detected (NotDetected); Chlamydia pneumoniae PCR Not Detected (NotDetected); Coronavirus 229E PCR Not Detected (NotDetected); Coronavirus CoV-2 (COVID19)PCR Not Detected (NotDetected); Coronavirus HKU1 PCR Not Detected (NotDetected); Coronavirus NL63 PCR Not Detected (NotDetected); Coronavirus OC43PCR Not Detected (NotDetected); Human Metapneumovirus PCR Not Detected (NotDetected); Influenza A PCR Not Detected (NotDetected); Influenza B PCR Not Detected (NotDetected); Mycoplasma pneumoniae PCR Not Detected (NotDetected); Parainfluenza Virus 1 PCR Not Detected (NotDetected); Parainfluenza Virus 2 PCR Not Detected (NotDetected); Parainfluenza Virus 3 PCR Not Detected (NotDetected); Parainfluenza Virus 4 PCR Not Detected (NotDetected); Respiratory Syncytial VirusPCR Not Detected (NotDetected); Rhinovirus/Enterovirus PCR Not Detected (NotDetected)
[2022-02-08] MEDS ORDERED: MAGNESIUM HYDROXIDE SUSP 30 ML UDC PO PRN (17:47)
[2022-02-08] MEDS ORDERED: ALUMINUM/MAGNESIUM SUSP 30 ML UDC PO PRN (17:47)
[2022-02-08] MEDS ORDERED: LEVALBUTEROL HCL 0.63 MG/3 ML NEB NEB PRN (17:47)
[2022-02-08] MEDS ORDERED: POLYETHYLENE (MIRALAX) 17 GM PACK PO PRN (17:47)
[2022-02-08] MEDS ORDERED: ONDANSETRON INJ 2 MG/ML 2 ML VIAL IV PRN (17:47)
[2022-02-08] MEDS: BENZONATATE 100 MG CAPSULE PO SCH (20:57)
[2022-02-08] MEDS: NICOTINE 14 MG/24 HR PATCH TD SCH (20:57)
[2022-02-08] MEDS: PANTOprazole 40 MG TAB PO SCH (20:58)
[2022-02-08] MEDS: DOXYCYCLINE HYCLATE 100 MG CAP PO SCH (20:58)
[2022-02-08] MEDS: SACCHAROMYCES BOULARDII 250 MG CAP PO SCH (20:58)
[2022-02-08] MEDS: ENOXAPARIN INJ 30 MG/0.3 ML SYR SQ SCH (20:58)
[2022-02-08] MEDS: CEFEPIME 2,000 MG in SYRINGE 0 ML IV SCH (22:26)
[2022-02-09] MEDS: CEFEPIME 2,000 MG in SYRINGE 0 ML IV SCH (05:25)
--- NOTE | 2022-02-09 06:01 | Electrocardiogram Report ---
Test Reason : Blood Pressure : / mmHG Vent. Rate : 105 BPM Atrial Rate : 105 BPM P-R Int : 126 ms QRS Dur : 084 ms QT Int : 332 ms P-R-T Axes : 086 088 056 degrees QTc Int : 438 ms Poor data quality, interpretation may be adversely affected Sinus tachycardia Otherwise normal ECG When compared with ECG of 09-SEP-2021 12:48, No significant change was found Confirmed by Teddy Llamas ([id number]) on 02/09/2022 6:01:23 AM Referred By: REFERRED SELF Confirmed By:Teddy Llamas
[2022-02-09 08:06] LABS: Basophils # (auto) 0.08 K/uL (0-0.2); Basophils % (auto) 0.8 %; Eosinophils # (auto) 0.35 K/uL (0-0.50); Eosinophils % (auto) 3.4 %; Hematocrit (blood only) 35.9 % (34.1-44.9); Hemoglobin 11.9 g/dl (12.0-16.0); Immature Granulocytes # (auto) 0.29 K/uL (0.00-0.02); Immature Granulocytes % (auto) 2.8 %; Lymphocytes # (auto) 0.77 K/uL (1.2-3.4); Lymphocytes % (auto) 7.5 %; Mean Corpuscular Hemoglobin 29.8 pg (25.0-34.0); Mean Corpuscular Hgb Conc 33.1 g/dL (32.0-36.0); Mean Corpuscular Volume 89.8 fL (80.0-100.0); Mean Platelet Volume 9.5 fL (9.4-12.3); Monocytes # (auto) 0.79 K/uL (0.24-0.82); Monocytes % (auto) 7.7 %; Neutrophils # (auto) 8.01 K/uL (1.4-6.5); Neutrophils % (auto) 77.8 %; Platelet Count 449 K/uL (130-400); RDW Coefficient of Variation 13.7 % (11.5-14.5); RDW Standard Deviation 45.1 fL (36.4-46.3); White Blood Count 10.29 K/ul (4.8-10.8)
[2022-02-09] MEDS: DOXYCYCLINE HYCLATE 100 MG CAP PO SCH (08:15)
[2022-02-09] MEDS: POTASSIUM CHLORIDE 10 MEQ TABCR PO SCH (08:15)
[2022-02-09] MEDS: SACCHAROMYCES BOULARDII 250 MG CAP PO SCH (08:15)
[2022-02-09] MEDS: BENZONATATE 100 MG CAPSULE PO SCH ×3 (08:15→20:56)
[2022-02-09] MEDS: NICOTINE 14 MG/24 HR PATCH TD SCH (08:30)
[2022-02-09 08:31] LABS: Albumin Level 3.8 gm/dl (3.4-5.0); BUN Creatinine Ratio 9.9 (10-20); Bilirubin,Total 0.4 mg/dl (0.2-1.0); Calcium 9.4 mg/dl (8.5-10.1); Creatinine Clr Calc Pharmacy 71.2 ml/min; Est GFR (African American) 111.1 ml/min; Est GFR (Non-African American) 95.9 ml/min; Globulin 3.7 gm/dl (2.5-4.0); Magnesium 1.8 mg/dl (1.7-2.4); Potassium 3.7 mmol/L (3.5-5.1); Total Protein 7.5 gm/dl (6.0-8.3)
--- NOTE | 2022-02-09 08:58 | Pulmonary Consultation ---
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 Her immune deficiency is related to chemo therapy for follicular lymphoma. The patient had sputum cultures during last admission a month ago showing nontuberculous mycobacterial infection but never followed up with ID and has not had any treatment. She presents with an exacerbation. Her CT scan actually looks better compared to her prior CT scan from 5 months ago. Recommendation: 1. Nontuberculous mycobacterial infection: ID consultation has been requested. Agree with plans. The patient was advised that typically these infections require antibiotics for 12 to 18 months. Regimen typically includes rifampin, azithromycin or clarithromycin, and isoniazid. Patient will require long-term laboratory follow-up including color vision screening and LFT assessments so close follow-up with ID is required. Typically these antimicrobial regimens or not initiated in the inpatient setting but will defer to ID. Follow-up CT scan in 6 to 12 months and follow-up sputum cultures in 12 months to assess for clearance is recommended. Case management will need to assist in helping the patient get follow-up as she states she has transportation issues and she has demonstrated an inability to perform appropriate follow-up. 2. Bronchiectasis: Secondary to immunoglobulin deficiency. Continue replacement under the direction of her medical oncologist. Continue pulmonary clearance techniques with Mucinex, and flutter valve. Hold on hypertonic saline for now. I doubt a secondary infection but will await sputum cultures. Can discontinue doxycycline and cefepime and de-escalate down to augmentin for now but will await ID input. 3. Smoking cessation recommended to the patient. Outpatient PFTs may be appropriate Her issues are largely able to be dealt with in an outpatient setting if the patient will follow up. History of Present Illness Attending Physician: Preet Turk MD History of Present Illness Asked by hospitalist service to assist in evaluation management of this patient with history of follicular lymphoma undergoing chemotherapy, bronchiectasis, immunoglobulin deficiency, and history of nontuberculous mycobacterial infection of the lung. History is obtained from review electronic medical record as well as discussion with patient. This 57-year-old female who I had met back in August. At that point time she was admitted with bronchiectasis which was thought to be secondary to her immune deficiency related to her chemotherapy for follicular lymphoma. Sputum cultures at that point time grew Mycobacterium avium complex. I discussed the results with her medical oncologist and he was supposed to establish care with infectious disease and arrange for outpatient therapy. Apparently this was never accomplished as the patient states she got busy and had multiple life issues that intervened with her ability to be compliant with therapy. She presented to the emergency room yesterday with complaints of increasing purulent cough and shortness of breath as well as feeling ill. She was tachycardic in the emergency room and received cefepime and doxycycline as well as IV fluids. This morning the patient continues to cough. She has not had any hemoptysis. Allergies Allergy/AdvReac Type Severity Reaction Status Date / Time No Known Allergies Allergy Verified 07/29/21 14:11 Home Medications Medication Instructions Recorded Confirmed Type albuterol sulfate 90 mcg/actuation 2 puff inhalation QID PRN 06/06/21 02/08/22 History aerosol inhaler Shortness Of Breath pantoprazole 40 mg tablet,delayed 40 mg PO HS 06/06/21 02/08/22 History release potassium chloride 10 mEq 10 meq PO DAILY #30 caps 08/03/21 02/08/22 Rx capsule,extended release Patient History Medical History Achalasia Chronic obstructive pulmonary disease Follicular lymphoma Hypokalemia Hypomagnesemia Leukopenia Multifocal pneumonia Restless leg syndrome Surgical History H/O unilateral oophorectomy History of fundoplication Heller myotomy with Jaison fundoplication in 03/08/21 History of tonsillectomy History of tooth extraction Family History Mother Hypertension Father Cancer Other Coronary heart disease Social History Smoking Status: Current every day smoker Tobacco Type: Cigarettes Cigarettes Per Day: 5-6; Second Hand Exposure: No; Do You Dip or Chew Tobacco: No; Tobacco Cessation Education Requested by Patient: No Hx Alcohol Use: No Hx Substance Use: No Preferred Language: Singaporean Communication Ability: Effective Bottle Washer Required: No Beliefs That Will Affect Care: None marital status: Current Living Situation: Family How many Children do You have: 3 Other Information That Helps Us Care for You: No Feels Safe at Home: Yes Safety Concerns: Feels Safe At This Time Assistive Devices: Denture - Upper, Denture - Lower and Glasses Review of Systems Review of Systems: Please refer to admission H&P. No additions or deletions Results & Data Results & Data ([facility]) Vital Signs (Past 12 Hours) Vital Signs Temp Pulse Pulse Resp BP Pulse Ox O2 Del Method 02/09/22 08:20 36.4 C L 84 18 101/69 96 Room Air 02/09/22 03:57 36.6 C 82 22 98/64 L 94 Room Air 02/08/22 23:00 91 H 02/08/22 22:59 37.1 C 93 H 20 93/66 L 92 Room Air PG Care Time/CCT Total # of Minutes Spent Total Time Spent with Patient: Total time spent is greater than 50% in coordination of care (as documented) at patient's floor/unit and/or counseling patient: Coding Level of Care Code 04376 Inpt Consult Level 4 Diagnoses Mycobacterium avium-intracellulare infection A31.0 Bronchiectasis J47.9
--- NOTE | 2022-02-09 09:48 | CT Scan Report ---
CT chest diagnostic wo con CT DOSE: 203.99 mGy.cm HISTORY: cough, b/l pna TECHNIQUE: Multiaxial CT images of the chest were performed without contrast. A dose lowering techni que was utilized adhering to the principles of ALARA. COMPARISON: Chest CTA 09/09/2021. FINDINGS: Mild biapical pleural-parenchymal scarlike densities again noted. There is diffuse bronchia l wall thickening with multiple partially opacified bronchi within the mid to lower lung zones. There are patchy consolidative and groundglass airspace opacities with tree-in-bud nodular opacities seen throughout the mid to lower lung zones. Findings likely represent a pneumonia/infectious bronchioliti s. This could be due to chronic aspiration. Overall, this is slightly improved compared the prior exa mination. Limited views of the upper abdomen demonstrate a stable 3 mm hypodense lesion within the ri ght hepatic dome and a normal spleen. There are postoperative changes at the stomach which are partia lly visualized. Trace left pleural effusion. No pericardial effusion. A right jugular Port-A-Cath ter minates at the SVC. The heart is normal in size. Normal esophagus. There is normal caliber thoracic a stephy. Prominent mediastinal lymph nodes remain stable. IMPRESSION: Redemonstration of the patchy consolidative and groundglass airspace opacities with tree-in-bud nodul ar opacities seen throughout the bilateral mid to lower lung zones. There is also diffuse bronchial w all thickening and multiple partially opacified bronchi at these locations. Findings likely represent a pneumonia/infectious bronchiolitis and could be due to chronic aspiration. Overall, this is slight ly improved compared to the prior examination. ACT 112: Negative or not required by law. Electronically signed by: Cheko Pierre M.D. 02/09/2022 9:47 AM
[2022-02-09] MEDS: SODIUM CHLOR 7% 4 ML NEB NEB SCH ×2 (11:22→21:10)
[2022-02-09] MEDS: ACETAMINOPHEN 325 MG TAB PO PRN (12:52)
--- NOTE | 2022-02-09 14:41 | Hospitalist Progress Note ---
Date of Service February 09, 2022 Assessment & Plan (1) Sepsis: (2) Pneumonia: (3) Chronic obstructive pulmonary disease: (4) Tobacco abuse: (5) Follicular lymphoma: Plan This is a 56-year-old female with PMH follicular lymphoma s/p chemo and currently receiving IVIG, achalasia s/p Heller myotomy w/ Jaison fundoplication, COPD, tobacco abuse, hx of multifocal pna and bronchiectasis presented to ER with multiple complaints. She complains of productive purulent cough for the pa st 3 days. In ED patient met sepsis criteria secondary to leukocytosis and tachycardia. Source: Likely pneumonia She did receive broad-spectrum IV antibiotics with cefepime and doxycycline. She was also started on IV fluid. 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 receiving IVIG treatment [place] last chemo was ~ 1 year ago Achalasia cardia s/p laparoscopic Heller myotomy with Jaison fundoplication on 03/08/2021 due to dysphagia and regurgitation. follows specialist in [place] Speech therapist consulted-recommend minced and moist diet DVT ppx: SQ Lovenox 30mg daily Dispo: PCU FULL CODE PCP: Steve Quiñones PA-C plan of care discussed with patient and daughter over the phone in detail and at length all questions answered She is understanding, agreeable, comfortable with the plan of care Admission and Anticipated Discharge Date Admission Date: February 08, 2022 Subjective Follow-up for pneumonia, recurrent, bronchiectasis, etc. Seen resting in bed, sitting up, not in distress, comfortable States she feels okay overall Slightly improved compared to yesterday Still coughing frequently with yellow phlegm No chest pain, palpitation, dizziness, fevers or chills Noabdominal pain, nausea vomiting, urinary symptoms, etc. Review of Systems Review of Systems: all noted and negative except for above Physical Exam Physical Exam: General- oriented x 3, not in distress, speaks in sentences with no effort or accessory muscle use Eyes- anicteric Neck- no JVD Lungs-mild intermittent crackles bilaterally, no wheezing Heart- normal rate, regular rhythm; no murmurs Abdomen- normal bowel sounds, nondistended, soft, nontender Extremities- no pretibial edema, no calf tenderness Neuro- alert, oriented x 3; no gross focal neurologic deficits Skin- warm & dry Results & Data Results & Data ([facility]) Vital Signs (Past 12 Hours) Vital Signs Temp Pulse Pulse Resp BP Pulse Ox O2 Del Method 02/09/22 10:00 85 02/09/22 10:00 Room Air 02/09/22 11:34 37.3 C 101 H 20 123/70 97 Room Air 02/09/22 11:24 107 H 18 98 Room Air 02/09/22 08:20 36.4 C L 84 18 101/69 96 Room Air 02/09/22 03:57 36.6 C 82 22 98/64 L 94 Room Air FiO2 02/09/22 10:00 02/09/22 10:00 02/09/22 11:34 02/09/22 11:24 21 02/09/22 08:20 02/09/22 03:57 all noted and reviewed including below (1) Follicular lymphoma Follicular lymphoma type: unspecified follicular type Lymphoma site: unspecified region Qualified Code(s): C82.90 - Follicular lymphoma, unspecified, unspecified site
[2022-02-09] MEDS: AMOXICILLIN/CLAVULANATE 875 MG TAB PO SCH (16:55)
[2022-02-09] MEDS: ENOXAPARIN INJ 30 MG/0.3 ML SYR SQ SCH (20:56)
[2022-02-09] MEDS: PANTOprazole 40 MG TAB PO SCH (20:56)
[2022-02-09 21:08] LABS: Adenovirus F 40/41 PCR Not Detected (NotDetected); Astrovirus PCR Not Detected (NotDetected); Campylobacter PCR Not Detected (NotDetected); Cryptosporidium PCR Not Detected (NotDetected); Cyclospora cayetanensis PCR Not Detected (NotDetected); Entamoeba histolytica PCR Not Detected (NotDetected); Enteroaggregative E.coli(EAEC) Not Detected (NotDetected); Enterotoxigenic E.coli (ETEC) Not Detected (NotDetected); Giardia lamblia PCR Not Detected (NotDetected); Norovirus GI/GII PCR Not Detected (NotDetected); Plesiomonas shigelloides PCR Not Detected (NotDetected); Rotavirus A PCR Not Detected (NotDetected); Salmonella PCR Not Detected (NotDetected); Sapovirus PCR Not Detected (NotDetected); Shiga-like Toxin E.coli (STEC) Not Detected (NotDetected); Shigella/Enteroinvasive E.coli Not Detected (NotDetected); Vibrio cholerae PCR Not Detected (NotDetected); Vibrio species PCR Not Detected (NotDetected); Yersinia enterocolitica PCR Not Detected (NotDetected)
[2022-02-09 21:52] LABS: Cdiff Antigen Positive; Cdiff Toxin A+B Negative Cdiff Toxin (Negative); Enteropathogenic E.coli (EPEC) DETECTED (NotDetected)
[2022-02-10] MEDS: SODIUM CHLOR 7% 4 ML NEB NEB SCH ×2 (07:00→19:22)
--- NOTE | 2022-02-10 08:16 | Pulmonology Progress Note ---
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 Her immune deficiency is related to chemother apy for follicular lymphoma. The patient had sputum cultures during last admission in August showing nontuberculous mycobacterial infection but never followed up with ID and has not had any treatment. She presents with an exacerbation. Her CT scan actually looks better compared to her prior CT scan from 5 months ago. Recommendation: 1. Nontuberculous mycobacterial infection: ID consultation has been requested and is pending. Agree with plans. The patient was advised that typically these infections require antibiotics for 12 to 18 months. Regimen typically includes rifampin, azithromycin or clarithromycin, and isoniazid. Patient will require long-term laboratory follow-up including color vision screening and LFT assessments so close follow-up with ID is required. Typically these an timicrobial regimens are not initiated in the inpatient setting but will defer to ID. Follow-up CT scan in 6 to 12 months and follow-up sputum cultures in 12 months to assess for clearance is recommended. Case management will need to assist in helping the patient get follow-up as she states she has transportation issues and she has demonstrated an inability to perform appropriate follow-up. 2. Bronchiectasis: Secondary to immunoglobulin deficiency. Continue replacement under the direction of her medical oncologist. Continue pulmonary clearance techniques with Mucinex, and flutter valve and hypertonic saline. Secondary infection is possible, await sputum cultures. D#2 Augmentin, reaso nable to complete 5 day course. 3. Smoking cessation recommended to the patient. Outpatient PFTs may be appropriate I believe the patient can be managed in the outpatient setting if ID concurs. Pulmonary will sign off. Call if ?s Admission and Anticipated Discharge Date Admission Date: February 08, 2022 Subjective Patient seen and examined. EMR reviewed. The patient states that she feels improved. She continues to cough and expectorate mucus. No fevers chills or sweats overnight. No chest pain. No shortness of breath. She remains on room air. Review of Systems Review of Systems: All systems reviewed & are unremarkable except as noted in Subjective Physical Exam Constitutional: WD/WN, vitals as above Neck: trachea midline, no thyromegaly Respiratory: + cough; no respiratory distress, no labored breathing and not tachypneic Auscultation: + rhonchi; no wheezes Cardiovascular: RRR, no murmur, no edema Gastrointestinal (Abdomen): normal bowel sounds, soft, nontender, no hepatosplenomegaly Musculoskeletal: Extremities: extremities normal to inspection Skin: no rashes, warm and dry Neurologic: Nonfocal exam Lymphatic: no cervical lymphadenopathy Results & Data Results & [facility] ([facility]) Vital Signs (Past 12 Hours) Vital Signs Temp Pulse Resp BP Pulse Ox O2 Del Method 02/10/22 03:31 36.8 C 66 20 97/67 L 97 Room Air 02/10/22 00:12 36.9 C 75 18 95/62 L 95 Room Air 02/09/22 21:10 82 18 95 Room Air Laboratory Results 02/09/22 07:45 02/09/22 07:45 Microbiology 02/09/22 Unknown Sputum, Expectorated Gram Stain - Final 02/08/22 11:49 Blood Aerobic Blood Culture - Preliminary No growth in Aerobic bottle after 24 hours. 02/08/22 11:49 Blood Anaerobic Blood Culture - Preliminary No growth in Anaerobic bottle after 24 hours. 02/08/22 15:04 Sputum, Expectorated Gram Stain - Final 02/08/22 15:04 Sputum, Expectorated Sputum Culture - Preliminary Heavy normal trent present, Final report to follow. 02/08/22 11:40 Blood Aerobic Blood Culture - Preliminary No growth in Aerobic bottle after 24 hours. 02/08/22 11:40 Blood Anaerobic Blood Culture - Preliminary No growth in Anaerobic bottle after 24 hours. PG Care Time/CCT Total # of Minutes Spent Total Time Spent with Patient: Total time spent is greater than 50% in coordination of care (as documented) at patient's floor/unit and/or counseling patient: Coding Level of Care Code 50659 Subseq Hosp Care Lvl 2 Diagnoses Mycobacterium avium-intracellulare infection A31.0 Bronchiectasis J47.9
[2022-02-10] MEDS: BENZONATATE 100 MG CAPSULE PO SCH ×2 (08:42→15:29)
[2022-02-10] MEDS: AMOXICILLIN/CLAVULANATE 875 MG TAB PO SCH (08:43)
[2022-02-10] MEDS: NICOTINE 14 MG/24 HR PATCH TD SCH (08:43)
[2022-02-10] MEDS: SACCHAROMYCES BOULARDII 250 MG CAP PO SCH (08:43)
[2022-02-10] MEDS: POTASSIUM CHLORIDE 10 MEQ TABCR PO SCH (08:43)
[2022-02-10] MEDS: ACETAMINOPHEN 325 MG TAB PO PRN (08:47)
[2022-02-10] MEDS ORDERED: BENZONATATE 100 MG CAPSULE PO PRN (15:29)
--- NOTE | 2022-02-10 16:43 | Hospitalist Progress Note ---
Date of Service February 10, 2022 Assessment & Plan (1) Sepsis: (2) Pneumonia: (3) Chronic obstructive pulmonary disease: (4) Tobacco abuse: (5) Follicular lymphoma: Plan This is a 56-year-old female with PMH follicular lymphoma s/p chemo and currently receiving IVIG, achalasia s/p Heller myotomy w/ Jaison fundoplication, COPD, tobacco abuse, hx of multifocal pna and bronchiectasis presented to ER with multiple complaints. She complains of productive purulent cough for the pa st 3 days. In ED patient met sepsis criteria secondary to leukocytosis and tachycardia. Source: Likely pneumonia She did receive broad-spectrum IV antibiotics with cefepime and doxycycline. She was also started on IV fluid. 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 3 times daily Hypertonic saline twice daily Incentive spirometry ID additional recommendations: Pneumococcal 20 valent vaccine More frequent IVIG administration Tobacco abuse nicotine patch encourage cessation Hx of Follicular lymphoma follows Dr. Tena Pinto receiving IVIG treatment monthly last chemo was ~ 1 year ago Achalasia cardia s/p laparoscopic Heller myotomy with Jaison fundoplication on 03/08/2021 due to dysphagia and regurgitation. follows specialist in [place] Speech therapist consulted-recommend minced and moist diet DVT ppx: SQ Lovenox 30mg daily Dispo: PCU FULL CODE PCP: Steve Quiñones PA-C plan of care discussed with patient all questions answered She is understanding, agreeable, comfortable with the plan of care Disposition Anticipate discharge to home medically stable in 1 to 2 days Admission and Anticipated Discharge Date Admission Date: February 08, 2022 Subjective Follow-up for bronchiectasis, pneumonia, etc. Seen resting in bed, sitting up, watching TV, not in distress States she feels somewhat improved today compared to yesterday Still having productive cough but less, phlegm starting to clear up No chest pain No fevers or chills No other symptom Review of Systems Review of Systems: all noted and negative except for above Physical Exam Physical Exam: General- oriented x 3, not in distress, speaks in sentences with no effort or accessory muscle use Eyes- anicteric Neck- no JVD Lungs-mild intermittent crackles bilaterally, no wheezing Heart- normal rate, regular rhythm; no murmurs Abdomen- normal bowel sounds, nondistended, soft, nontender Extremities- no pretibial edema, no calf tenderness Neuro- alert, oriented x 3; no gross focal neurologic deficits Skin- warm & dry Results & Data Results & Data ([place]) Vital Signs (Past 12 Hours) Vital Signs Temp Pulse Resp BP Pulse Ox O2 Del Method 02/10/22 16:25 36.8 C 77 18 98/65 L 96 Room Air 02/10/22 10:00 Room Air 02/10/22 11:37 36.6 C 74 18 103/69 94 Room Air 02/10/22 08:18 36.6 C 80 18 105/66 93 Room Air 02/10/22 07:00 91 H 18 92 Room Air all noted and reviewed including below (1) Follicular lymphoma Follicular lymphoma type: unspecified follicular type Lymphoma site: unspecified region Qualified Code(s): C82.90 - Follicular lymphoma, unspecified, unspecified site
[2022-02-10] MEDS: ENOXAPARIN INJ 30 MG/0.3 ML SYR SQ SCH (20:58)
[2022-02-10] MEDS: PANTOprazole 40 MG TAB PO SCH (20:59)
[2022-02-10] MEDS: AMOXICILLIN 500 MG CAP PO SCH (21:05)
[2022-02-11] MEDS: SODIUM CHLOR 7% 4 ML NEB NEB SCH (07:11)
[2022-02-11] MEDS: AMOXICILLIN 500 MG CAP PO SCH ×2 (09:14→12:57)
[2022-02-11] MEDS: POTASSIUM CHLORIDE 10 MEQ TABCR PO SCH (09:14)
[2022-02-11] MEDS: SACCHAROMYCES BOULARDII 250 MG CAP PO SCH (09:14)
[2022-02-11] MEDS: NICOTINE 14 MG/24 HR PATCH TD SCH (09:14)
--- NOTE | 2022-02-11 10:53 | Hospitalist Progress Note ---
Date of Service February 11, 2022 Assessment & Plan (1) Sepsis: (2) Pneumonia: (3) Chronic obstructive pulmonary disease: (4) Tobacco abuse: (5) Follicular lymphoma: Plan This is a 56-year-old female with PMH follicular lymphoma s/p chemo and currently receiving IVIG, achalasia s/p Heller myotomy w/ Jaison fundoplication, COPD, tobacco abuse, hx of multifocal pna and bronchiectasis presented to ER with multiple complaints. She complains of productive purulent cough for the past 3 days. In ED patient met sepsis criteria secondary to leukocytosis and tachycardia. Source: Likely pneumonia She did receive broad-spectrum IV antibiotics with cefepime and doxycycline. She was also started on IV fluid. 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 3 times daily Hypertonic saline twice daily Incentive spirometry ID additional recommendations: Pneumococcal Polysaccharide 20 valent vaccine (new) More frequent IVIG administration Follow-up with PCP in 1 week Follow-up with rehab office coordinator Dr. Cabral in 2 to 3 weeks Follow-up with [facility] ID in 1 month ([id number]) Discussion regarding MAC treatment Tobacco abuse nicotine patch encourage cessation Hx of Follicular lymphoma follows [facility], Dr. Madsen receiving IVIG treatment monthly last chemo was ~ 1 year ago Achalasia cardia s/p laparoscopic Heller myotomy with Jaison fundoplication on 03/08/2021 due to dysphagia and regurgitation. follows specialist in [place] Speech therapist consulted-recommend minced and moist diet DVT ppx: SQ Lovenox 30mg daily Dispo: PCU FULL CODE PCP: Steve Quiñones PA-C plan of care discussed with patient all questions answered She is understanding, agreeable, comfortable with the plan of care Disposition Discharge to home Follow-up per above Admission and Anticipated Discharge Date Admission Date: February 08, 2022 Subjective ff up for bronchiectasis, pneumonia, etc seen resting in bed, comfortable states she feels better overall cough improving, less phlegm- color getting clearer no hemoptysis, fever/chills no other symptoms states she is ready for discharge today Review of Systems Review of Systems: all noted and negative except for above Physical Exam Physical Exam: General- oriented x 3, not in distress, speaks in sentences with no effort or accessory muscle use Eyes- anicteric Neck- no JVD Lungs- clear breath sounds bilaterally, no rales/wheezes Heart- normal rate, regular rhythm; no murmurs Abdomen- normal bowel sounds, nondistended, soft, nontender Extremities- no pretibial edema, no calf tenderness Neuro- alert, oriented x 3; no gross focal neurologic deficits Skin- warm & dry Results & Data Results & Data ([facility]) Vital Signs (Past 12 Hours) Vital Signs Temp Pulse Pulse Resp BP Pulse Ox O2 Del Method 02/11/22 08:34 70 02/11/22 08:34 Room Air 02/11/22 07:18 36.3 C L 73 19 93/64 L 95 Room Air 02/11/22 07:12 70 16 97 Room Air 02/11/22 02:51 36.6 C 67 18 98/64 L 95 Room Air 02/10/22 23:30 36.6 C 75 17 98/62 L 94 Room Air all noted and reviewed including below (1) Follicular lymphoma Follicular lymphoma type: unspecified follicular type Lymphoma site: unspecified region Qualified Code(s): C82.90 - Follicular lymphoma, unspecified, unspecified site
--- NOTE | 2022-02-11 12:16 | Discharge Summary ---
Discharge Summary Date of Service February 11, 2022 Notes For Next Care Provider Patient needs to follow-up with Rod COLE for possible initiation of MAC therapy Patient also needs to follow-up closely with Genia Dang supervisor electronics assembly Dr. Key for her bronchiectasis Medication Changes From Visit Amoxicillin 500 mg 3 times daily Tessalon Perles as needed Give albuterol nebs as needed Hypertonic saline nebs twice x1 week Admission HPI Per Admitting Provider This is a 56-year-old female with PMH follicular lymphoma s/p chemo and currently receiving IVIG, achalasia s/p Heller myotomy w/ Jaison fundoplication, COPD, tobacco abuse, hx of multifocal pna and bronchiectasis presented to ER with multiple complaints. She complains of productive purulent cough for the past 3 days. She states its dark yellow. She denies having a chronic cough. Positive sick contact with her son who also has a, "cold." She does list increased shortness of breath over the past 3 days. Overall decreased appetite and ill feeling. She complains of sweats denies any documented fever or chills. She further complains of left-sided stabbing chest pain when she coughs. Pain is not worse with inhalation or exertion. She denies any presyncope, lightheadedness, hemoptysis, shortness breath at rest, nausea, vomiting, abdominal pain, dysuria, increased urgency or frequency with urination, melena or hematochezia. She does complain of left-sided lower back pain with radiation down her left leg. She denies any bowel or bladder incontinence or saddle anesthesia. Pt last hospitalized in September of 2021 with multifocal PNA. At that time was seen by Pulm. Her sputum culture was + for mycobacterium. She was also positive for rhino/enterovirus. She was to f/u with ID or pum as outpatient but patient states she never received the message. In ED patient met sepsis criteria secondary to leukocytosis and tachycardia. Source: Likely pneumonia She did receive broad-spectrum IV antibiotics with cefepime and doxycycline. She was also started on IV fluid. Admission Exam Per Admitting Provider Constitutional: + ill appearing (chronically) and + thin ; not in distress Eyes: PERRL, conjunctivae normal, anicteric sclerae ENMT: external ear and nose normal, oropharynx normal Neck: normal visual inspection (supple) Respiratory: + cough (prductive); no respiratory dist ress (+ rhonchi) and no audible wheezes Cardiovascular: Rate/Rhythm: + tachycardic Chest (Breasts): Chest: normal inspection of chest Gastrointestinal (Abdomen): normal bowel sounds, soft, nontender, no hepatosplenomegaly Musculoskeletal: no cyanosis or clubbing, extremities motor strength 5/5 Skin: no rashes, warm and dry Neurologic: PERRL, EOMI, accommodation nl, no face palsy, no dysarthria Psychiatric: A+Ox3, euthymic affect Genitourinary: no CVA tenderness Lymphatic: no lymphedema Principal Dx & Hospital Course #1 = Principal Diagnosis (1) Sepsis: (2) Pneumonia: (3) Chronic obstructive pulmonary disease: (4) Tobacco abuse: (5) Follicular lymphoma: Plan This is a 56-year-old female with PMH follicular lymphoma s/p chemo and currently receiving IVIG, achalasia s/p Heller myotomy w/ Jaison fundoplication, COPD, tobacco abuse, hx of multifocal pna and bronchiectasis presented to ER with multiple complaints. She complains of productive purulent cough for the past 3 days. In ED patient met sepsis criteria secondary to leukocytosis and tachycardia. Source: Likely pneumonia She did receive broad-spectrum IV antibiotics with cefepime and doxycycline. She was also started on IV fluid. 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 3 times daily Hypertonic saline twice daily Incentive spirometry ID additional recommendations: Pneumococcal Polysaccharide 20 valent vaccine (new) More frequent IVIG administration Follow-up with PCP in 1 week Follow-up with supervisor electronics assembly Dr. Key in 2 to 3 weeks Follow-up with Rod COLE in 1 month ([id number]) Discussion regarding MAC treatment Tobacco abuse nicotine patch encourage cessation Hx of Follicular lymphoma follows [facility], Dr. Madsen receiving IVIG treatment monthly last chemo was ~ 1 year ago Achalasia cardia s/p laparoscopic Heller myotomy with Jaison fundoplication on 03/08/2021 due to dysphagia and regurgitation. follows specialist in [place] Speech therapist consulted-recommend minced and moist diet DVT ppx: SQ Lovenox 30mg daily Dispo: PCU FULL CODE PCP: Steve Quiñones PA-C plan of care discussed with patient all questions answered She is understanding, agreeable, comfortable with the plan of care Disposition Discharge to home Follow-up per above Discharge Exam General- oriented x 3, not in distress, speaks in sentences with no effort or accessory muscle use Eyes- anicteric Neck- no JVD Lungs- clear breath sounds bilaterally, no rales/wheezes Heart- normal rate, regular rhythm; no murmurs Abdomen- normal bowel sounds, nondistended, soft, nontender Extremities- no pretibial edema, no calf tenderness Neuro- alert, oriented x 3; no gross focal neurologic deficits Skin- warm & dry Updated Medication List Medication Instructions Recorded Confirmed Type albuterol sulfate 90 mcg/actuation 2 puff inhalation QID PRN 06/06/21 02/08/22 History aerosol inhaler Shortness Of Breath pantoprazole 40 mg tablet,delayed 40 mg PO HS 06/06/21 02/08/22 History release potassium chloride 10 mEq 10 meq PO DAILY #30 caps 08/03/21 02/08/22 Rx capsule,extended release benzonatate 100 mg capsule 200 mg PO TID PRN cough #14 caps 02/11/22 Rx levalbuterol HCl 0.63 mg/3 mL 0.63 mg (3 mL) NEB Q6R PRN 02/11/22 Rx solution for nebulization shortness of breath or wheezing #72 mL sodium chloride 7 % for 4 ml NEB BIDR 7 days #56 mL 02/11/22 Rx nebulization Hospital Stay Data Consultations 02/08/22 17:47 Consult Infectious Diseases Routine 02/09/22 08:21 Consult Pulmonology Routine Diagnostic Imagining Performed Chest X-Ray 02/08/22 11:01 XR chest 1V portable CLINICAL HISTORY: sob, cough TECHNIQUE: Single frontal radiograph of the chest was obtained. Comparison: Comparison is made to chest radiograph 09/09/2021 FINDINGS: A port catheter is seen. The cardiomediastinal silhouette is normal. Bilateral lower lung predominant airspace opacities are seen. No evidence of pleural effusion or pneumothorax. IMPRESSION: Bilateral lower lung predominant airspace opacities which may represent atelectasis, pneumonia, and/or aspiration. ACT 112: Negative or not required by law. Electronically signed by: Yonis Newton M.D. 02/08/2022 11:[address] 02/08/22 11:01 CT lumbar spine wo con CLINICAL HISTORY: lower left back pain radiating into LLE TECHNIQUE: Multidetector row helical CT of the lumbar spine was performed witho ut administration of intravenous contrast. Coronal and sagittal reformations were obtained. Automated dose lowering techniques and/or adjustment according to patient size were utilized for this exam. CT DOSE: 227.30 mGy.cm Comparison: None available at the time of this dictation. FINDINGS: For counting purposes, the last complete intervertebral disc space is considered L5-S1. No acute fractures are identified. Degenerative changes are noted in the visualized spine. Vertebral body alignment is within normal limits. Surgical clips are noted in the left abdomen. Atherosclerotic calcifications are seen. IMPRESSION: Degenerative changes without evidence of acute bony injury. ACT 112: Negative or not required by law. Electronically signed by: Yonis Newton M.D. 02/08/2022 12:[address] 02/08/22 15:13 CT chest diagnostic wo con CT DOSE: 203.99 mGy.cm HISTORY: cough, b/l pna TECHNIQUE: Multiaxial CT images of the chest were performed without contrast. A dose lowering technique was utilized adhering to the principles of ALARA. COMPARISON: Chest CTA 09/09/2021. FINDINGS: Mild biapical pleural-parenchymal scarlike densities again noted. There is diffuse bronchial wall thickening with multiple partially opacified bronchi within the mid to lower lung zones. There are patchy consolidative and groundglass airspace opacities with tree-in-bud nodular opacities seen throughout the mid to lower lung zones. Findings likely represent a pneumonia/infectious bronchiolitis. This could be due to chronic aspiration. Overall, this is slightly improved compared the prior examination. Limited views of the upper abdomen demonstrate a stable 3 mm hypodense lesion within the right hepatic dome and a normal spleen. There are postoperative changes at the stomach which are partially visualized. Trace left pleural effusion. No pericardial effusion. A right jugular Port-A-Cath terminates at the SVC. The heart is normal in size. Normal esophagus. There is normal caliber thoracic aorta. Prominent mediastinal lymph nodes remain stable. IMPRESSION: Redemonstration of the patchy consolidative and groundglass airspace opacities with tree-in-bud nodular opacities seen throughout the bilateral mid to lower lung zones. There is also diffuse bronchial wall thickening and multiple partially opacified bronchi at these locations. Findings likely represent a pneumonia/infectious bronchiolitis and could be due to chronic aspiration. Overall, this is slightly improved compared to the prior examination. ACT 112: Negative or not required by law. Electronically signed by: Cheko Pierre M.D. 02/09/2022 9:47 AM Pending Results Patient Have Any Pending Studies at Discharge: No Discharge Instructions Given to Patient (Per Discharging Provider) PLEASE REFER TO YOUR NEW MEDICATION LIST AND FOLLOW INSTRUCTIONS CAREFULLY. YOUR NEW MEDICATIONS INCLUDE: Augmentin-antibiotic for pneumonia Hypertonic saline nebulizer treatment-to dissolve lung mucous Tessalon Perles-for severe coughing spells Xopenex nebulizer treatment-as needed for shortness of breath Take a probiotic daily x2 weeks. Drink plenty of water PLEASE CALL YOUR PRIMARY CARE PHYSICIAN OR RETURN TO THE ER IF WITH WORSENING OF SYMPTOMS, INCLUDING Worsening of cough, phlegm production, fevers or chills, shortness of breath, chest pain, etc. FOLLOW UP WITH PRIMARY CARE PHYSICIAN IN 1 WEEK. You need to get the new pneumococcal vaccine 20 valent care of your primary care physician. FOLLOW-UP WITH LUNG SPECIALIST AT [facility] SILVINA KEY IN 2 TO 3 WEEKS. CONTACT INFORMATION OUTLINED ABOVE. PLEASE CALL HIS OFFICE FOR AN APPOINTMENT. FOLLOW-UP WITH [facility] IN 1 MONTH. PHONE [phone]. PLEASE CALL THE CLINIC FOR AN APPOINTMENT. IT IS VERY IMPORTANT TO FOLLOW-UP WITH YOUR PRIMARY CARE PHYSICIAN, LUNG SPECIALIST, INFECTIOUS DISEASE SPECIALIST TO ENSURE CONTINUED IMPROVEMENT OF YOUR MEDICAL CONDITION. Total Time Total Time Spent Total Time Spent (In Minutes): >30 minutes
--- NOTE | 2022-02-18 09:26 | Coding Query ---
CODING QUERY To promote full compliance with coding requirements relating to patient care, provider participation is requested in all cases of atmospheric chemist uncertainty. Please assist us with the question(s) below: Coding Question(s): Pt admitted with Sepsis & Pneumonia..Pulmonary consulted- CANDIDO infection , previously untreated. Please document, if known or suspected, the type of pneumonia /causative organism. Thanks for your help! Carl Gresham [facility] Physician's Response(s): Pneumonia secondary to Streptococcus pneumonia Principal Diagnosis: "that condition established after study, to be chiefly responsible for occasioning the admission of the patient to the hospital for care." Co-Existing Principal Diagnosis: "when two or more diagnoses equally meet the criteria for principal diagnosis as determined by the circumstances of admission, diagnostic work up, and/or therapy provided, and the Alphabetic Index, Tabular List, or another coding guideline does not provide sequencing direction, any one of the diagnoses may be sequenced first." "When the physician has documented what appears to be a current diagnosis in the body of the record, but has not included the diagnosis in the final diagnostic statement, the physician should be asked whether the diagnosis should be added." (Source Coding Clinic 2 QTR90. p3-4) JOSE
== END 2022-02-11 13:05 | disposition home or self-care (01) | DRG 871 ==
LOC: ED 10:16 → 4W 14:15 → SUATTDRO 14:15 → 4W 16:37
DX: F17.200 Nicotine dependence, unspecified, uncomplicated; D84.81 Immunodeficiency due to conditions classified elsewhere; J44.0 Chronic obstructive pulmonary disease with (acute) lower respiratory infection; C82.90 Follicular lymphoma, unspecified, unspecified site; K22.0 Achalasia of cardia; Z95.828 Presence of other vascular implants and grafts; J47.0 Bronchiectasis with acute lower respiratory infection; A40.3 Sepsis due to Streptococcus pneumoniae; J13 Pneumonia due to Streptococcus pneumoniae

== ENCOUNTER 2023-06-08 11:09 | Inpatient (IN) ==
[2023-06-08] MEDS ORDERED: ALBUT/IPRATROP 3MG/0.5MG NEB 3 ML VIAL NEB ONE (11:24)
[2023-06-08] MEDS ORDERED: ACETAMINOPHEN 1,000 MG/100 ML VIAL IV STA (11:28)
--- NOTE | 2023-06-08 11:28 | Emergency Department Note ---
Impression & Plan Severe sepsis, Multifocal pneumonia, Leukocytosis ED Provider Note Name: MUSTAPHA BRUNSON Age: 58 Sex: Female Arrives Via: Ambulance Informant: Patient, EMS, Family ED Provider: Girish Turpin MD Chief Complaint: Shortness of breath Impression: As per impressions above Medical Decision Makin-year-old female with history of COPD and follicular lymphoma now on suppressive therapy arrives for evaluation of rapidly worsening shortness of breath and illness over the last 3 to 4 days. Patient has very poor lung sounds with diffuse junky lungs and coughing up significant mount of green mucus. She is hypoxic she is moderately tachycardic with just mildly low blood pressures. Appears lower blood pressures are unremarkable for patient. She was given a full 30/kg IV fluids as septic workup initiated. Given immunosuppressed state she was given IV Zosyn as well as vancomycin. DuoNeb given for breathing. She was also given IV magnesium. Given all else going on we will hold off on steroids quite at this time and defer to admitting team. Patient does have a white count of 30. This is quite concerning given her history however at this point more likely cause is due to severe sepsis. She has noted a significant response before as well. At this point does not require emergent transfer for hematology evaluation. Repeat sepsis and volume status exam at 2 PM done by me. Patient is stable. MAP is greater than 65 does not require pressors at this time. Triage/Nursing Notes reviewed by Me Differential:Reactive airway disease, pneumonia, pneumothorax, COPD, CHF, infections, cardiac ischemia, pulmonary embolism, musculoskeletal, gastrointestinal, as well as other pathologies. Vital Signs: reviewed and remarkable for tachy Interventions: nss bolus 1.5 L IV, Vanco IV (500 mL fluids), Zosyn IV, DuoNeb 1 hour, magnesium 1 g IV, Tylenol IV Labs:ED labs Reviewed by me and remarkable for severely elevated white blood cell count Imagin view chest x-ray as per my interpretation reveals bilateral infiltrates consistent with multifocal pneumonia. Consistent with COPD findings as well. EKG:As per my interpretation. Indication. Sinus tachycardia 112 bpm no ectopy no STEMI. Patient does have some lateral ST depressions and a prolonged QTc of 644. There is no ectopy appreciated. When compared to EKG of November 28, 2022 though there is no significant change. Cardiac/Tele Monitoring: Cardiac Monitoring: An Order was placed for continuous cardiac monitoring. The monitor shows a rate of 110 with a sinus tach rhythm. Consults:[facility] hospitalist team Plan: Disposition:Hospitalization. Condition: Fair History of Present Illness: 58-year-old female arrives for evaluation of illness. Patient with a history of lymphoma previously treated but has had immune issues since then. Multiple hospitalizations for pneumonia over the years. States she has been doing well over the last year without significant infections. The last 3 to 4 days though worsening shortness of breath, cough, congestion. States she is coughing up dark green mucus. Feels like she cannot catch her breath. Mild associated chest tightness. Notes feeling lightheaded as well. No appetite. Denies any chest pains specifically other than just tight. No syncope, fevers, abdominal pain, nausea, vomiting or other concerning signs or symptoms. Patient has chronic neck and back issues and notes that all the coughing has exacerbated them. Using Tylenol at home with minimal improvement. Last dose yesterday. Past Medical History:See Below Home Medications:See Below Allergies:nkda Vitals:Blood Pressure: 101/74, Pulse 113, RR 22, T 37.0C, O2 86% on RA Physical Exam: GENERAL: Patient is unwell appearing and in moderate distress. Cachectic RESPIRATORY: Moderate tachypnea/dyspnea with diffuse junky lung sounds and coughing up green mucus CARDIOVASCULAR: Tachy.No murmur appreciated. GASTROINTESTINAL: Abdomen soft, non-tender, no peritonitis. BACK: No midline tenderness, no CVA tenderness EXTREMITIES: Normal motion all extremities, no cyanosis, no edema. NEUROLOGIC: Alert and oriented. No focal neurologic deficits appreciated SKIN: No rash, no jaundice, no diaphoresis. PSYCH: Appropriate GCS: 15 ED Course: Times/Reassessments: Multiple repeat evaluations. Patient's sats have significantly improved with nasal cannula O2. Girish Turpin MD Past Med/Surg History Medical History (Updated 06/08/23 @ 15:02 by Girish Turpin MD) QT prolongation Multifocal pneumonia Hypophosphatemia Hypomagnesemia Hypokalemia Leukopenia Achalasia Follicular lymphoma Restless leg syndrome Chronic obstructive pulmonary disease Surgical History History of fundoplication Heller myotomy with Jaison fundoplication in 03/08/21 H/O unilateral oophorectomy History of tooth extraction History of tonsillectomy Family History Mother Hypertension Father Cancer Other Coronary heart disease Social History Smoking Status: Current every day smoker Tobacco Type: Cigarettes Cigarettes Per Day: 5-6; Second Hand Exposure: No; Do You Dip or Chew Tobacco: No; Hx Alcohol Use: Yes Alcohol type: other Hx Substance Use: No Preferred Language: Northern Irish Communication Ability: Effective [employer] Required: No Beliefs That Will Affect Care: None marital status: Current Living Situation: Spouse and Family Current Living Situation Comment: family and boyfriend How many Children do You have: 3 Feels Safe at Home: Yes Assistive Devices: None Allergies Allergies Allergy/AdvReac Type Severity Reaction Status Date / Time No Known Allergies Allergy Verified 12/08/22 10:52 Home Meds Home Medications Medication Instructions Recorded Confirmed albuterol sulfate 90 mcg/actuation 2 puff inhalation QID PRN 06/06/21 12/08/22 aerosol inhaler Shortness Of Breath fluticasone propionate 50 1 spray intranasal BID 11/28/22 12/08/22 mcg/actuation nasal spray,suspension loratadine 10 mg tablet 10 mg PO QAM 11/28/22 12/08/22 Previous Rx's Medication Instructions Recorded umeclidinium 62.5 mcg-vilanterol 1 inh inhalation DAILY #3 Inhalers 10/10/22 25 mcg/actuation powdr for inhalation (Anoro Ellipta) levalbuterol HCl 0.63 mg/3 mL 0.63 mg (3 mL) NEB Q6H PRN 10/26/22 solution for nebulization shortness of breath or wheezing #360 mL L.acidop,casei,lactis,rham-B.lact,eitan 2 cap PO DAILY #14 caps 11/30/22 625 mg (10 billion cell) capsule (Advanced Probiotic) guaifenesin 600 mg tablet, 600 mg PO Q12 #10 tabs 11/30/22 extended release 12 hr (Mucinex) sodium chloride 3 % for 4 ml inhalation .Twice daily 12/19/22 nebulization secretions #240 mL Results & Data (ED) Vital Signs Vital Signs - 24 hr 06/08/23 11:28 06/08/23 11:29 06/08/23 11:37 Temperature 37.0 C Temperature Source Oral Pulse Rate 110 H Pulse Rate [Finger] Respiratory Rate 32 H Respiratory Effort / Characteristics Spontaneous Respiratory Depth Normal Respiratory Pattern Regular Blood Pressure 101/74 Blood Pressure [Left Arm] Blood Pressure Mean 83 Blood Pressure Mean [Left Arm] Pulse Oximetry 92 92 Oxygen Delivery Method Room Air Nasal Cannula Nasal Cannula Oxygen Flow Rate 2 2 Sepsis Recent Fever Within 48 Hours Yes Sepsis New/Unexplained Change in Mental Status No Sepsis Action Taken by Nursing Physician Notified 06/08/23 11:38 06/08/23 12:40 Temperature 37.0 C Temperature Source Oral Pulse Rate 109 H Pulse Rate [Finger] 111 H Respiratory Rate 21 Respiratory Effort / Characteristics Respiratory Depth Respiratory Pattern Blood Pressure Blood Pressure [Left Arm] 101/74 Blood Pressure Mean Blood Pressure Mean [Left Arm] 83 Pulse Oximetry 93 Oxygen Delivery Method Nasal Cannula Oxygen Flow Rate 2 Sepsis Recent Fever Within 48 Hours Sepsis New/Unexplained Change in Mental Status Sepsis Action Taken by Nursing Laboratory Data 06/08/23 11:34 06/08/23 11:34 Lab Results 06/08/23 06/08/23 06/08/23 Range/Units 11:34 11:41 11:42 WBC 32.02 H* (4.8-10.8) K/ul RBC 4.14 L (4.20-5.40) M/uL Hgb 12.2 (12.0-16.0) g/dl Hct 35.1 L (37.0-47.0) % MCV 84.8 (80.0-100.0) fL MCH 29.5 (25.0-34.0) pg MCHC 34.8 (32.0-36.0) g/dL RDW Std Deviation 43.1 (36.4-46.3) fL RDW Coeff of Dylan 13.8 (11.5-14.5) % Plt Count 625 H (130-400) K/uL MPV 9.3 L (9.4-12.4) fL Immature Gran % (Auto) 0.8 % Neut % (Auto) 90.2 % Lymph % (Auto) 4.2 % [place] % (Auto) 4.5 % Eos % (Auto) 0.1 % Baso % (Auto) 0.2 % Neut # (Auto) 28.86 H (1.40-6.50) K/uL Lymph # (Auto) 1.34 (1.20-3.40) K/uL [place] # (Auto) 1.45 H (0.11-0.59) K/uL Eos # (Auto) 0.02 (0.00-0.50) K/uL Baso # (Auto) 0.08 (0.00-0.20) K/uL Immature Gran # (Auto) 0.27 H (0.01-0.20) K/uL Polychromasia 1+ VBG pH 7.56 H (7.36-7.41) VBG pCO2 40 (38-50) mmHg VBG pO2 < 20 mmHg VBG HCO3 36 mmol/L VBG O2 Saturation < 60.0 % VBG Base Excess 12.5 mEq/L Sodium 130 L (136-145) mmol/L Potassium 3.1 L (3.5-5.1) mmol/L Chloride 87 L (98-107) mmol/L Carbon Dioxide 30 (21-32) mmol/L Anion Gap 13 H (3-11) BUN 7 (6-23) mg/dl Creatinine 0.66 (0.6-1.2) mg/dl Est Cr Clr Drug Dosing 77.7 ml/min Est GFR ( Amer) 114.5 ml/min Est GFR (Non-Af Amer) 98.8 ml/min BUN/Creatinine Ratio 10.6 (10-20) Glucose 116 H (70-99(Fasting)) mg/dl Lactate 1.7 (0.4-2.0) mmol/L Calcium 9.2 (8.6-10.3) mg/dl Magnesium 1.6 L (1.7-2.4) mg/dl Total Bilirubin 0.5 (0.2-1.0) mg/dl Direct Bilirubin 0.1 (0-0.2) mg/dl AST 20 (13-39) U/L ALT 20 (7-52) U/L Alkaline Phosphatase 188 H (34-104) U/L Troponin I High Sens 19.7 H (0-14) pg/ml Total Protein 7.3 (6.0-8.3) gm/dl Albumin 3.8 (3.4-5.0) gm/dl Procalcitonin 1.11 H (0-0.5) ng/ml Adenovirus (PCR) Not Detected (NotDetected) B. pertussis DNA (PCR) Not Detected (NotDetected) B.parapertussis DNA PCR Not Detected (NotDetected) C. pneumoniae DNA (PCR) Not Detected (NotDetected) Coronavirus OC43 (PCR) Not Detected (NotDetected) Coronavirus HKU1 (PCR) Not Detected (NotDetected) Coronavirus 229E (PCR) Not Detected (NotDetected) SARS-CoV-2 (PCR) Not Detected (NotDetected) Coronavirus NL63 (PCR) Not Detected (NotDetected) Human Metapneumovir PCR Not Detected (NotDetected) Influenza Type A (PCR) Not Detected (NotDetected) Influenza Type B (PCR) Not Detected (NotDetected) M. pneumoniae (PCR) Not Detected (NotDetected) Parainfluenza 1 (PCR) Not Detected (NotDetected) Parainfluenza 2 (PCR) Not Detected (NotDetected) Parainfluenza 3 (PCR) Not Detected (NotDetected) Parainfluenza 4 (PCR) Not Detected (NotDetected) RSV (PCR) Not Detected (NotDetected) Entero/Rhino (PCR) Not Detected (NotDetected) Administered Medications Discontinued Medications Albuterol (Albut/Ipratrop 3mg/0.5mg Neb 3 Ml Vial) 12 ml NEB ONE ONE; Protocol Stop: 06/08/23 11:25 Last Admin: 06/08/23 12:23 Dose: 12 ml Documented By: CHARLES Sodium Chloride (Nss) 1,000 mls @ 999 mls/hr IV .Q1H1M LUDY Stop: 06/08/23 12:30 Last Infusion: 06/08/23 13:29 Dose: Infused Documented By: Admin: 06/08/23 12:21 Dose: 999 mls/hr Documented By: CHARLES Acetaminophen (Ofirmev) 1,000 mg in 100 mls @ 400 mls/hr IV NOW STA Stop: 06/08/23 11:42 Last Infusion: 06/08/23 13:11 Dose: Infused Documented By: Admin: 06/08/23 12:21 Dose: 400 mls/hr Documented By: CHARLES Piperacillin Sod/Tazobactam Sod (Zosyn) 4.5 gm in 100 mls @ 200 mls/hr IV NOW ONE Stop: 06/08/23 12:42 Last Infusion: 06/08/23 13:22 Dose: Infused Documented By: Admin: 06/08/23 12:50 Dose: 200 mls/hr Documented By: CHARLES Vancomycin HCl 1,000 mg/ (Sodium Chloride) 520 mls @ 200 mls/hr IV NOW ONE Stop: 06/08/23 14:48 Last Admin: 06/08/23 13:08 Dose: 200 mls/hr Documented By: CHARLES Sodium Chloride (Nss) 500 mls @ 999 mls/hr IV .Q31M ONE Stop: 06/08/23 12:43 Last Infusion: 06/08/23 13:48 Dose: Infused Documented By: Admin: 06/08/23 12:51 Dose: 999 mls/hr Documented By: CHARLES Magnesium Sulfate/Dextrose (Magnesium Sulfate / D5w) 1 gm in 100 mls @ 100 mls/hr IV NOW STA Stop: 06/08/23 13:12 Last Admin: 06/08/23 13:11 Dose: 100 mls/hr Documented By: CHARLES Imaging Data Radiologist's Impression: Chest X-Ray 06/08/23 11:25 XR chest 1V portable CLINICAL HISTORY: Sepsis. COMPARISON STUDY: Chest CT February 08, 2022. Chest radiograph November 28, 2022. FINDINGS: Right internal jugular [id number] is in place. There is no pneumothorax or pleural effusion. No evidence for pulmonary edema. Cardiomediastinal silhouette is unremarkable. Upper abdominal surgical clips are incidentally noted. Bilateral lower lung consolidation is present. Patchy additional airspace opacities within the lungs are present. A right midlung density has slightly increased. IMPRESSION: 1. Bilateral lower lung consolidation and additional patchy airspace opacities. The findings favor pneumonia or aspiration pneumonitis. Radiographic follow-up to ensure resolution is recommended. 2. Slight increase in a right midlung density which is also likely infectious but should be assessed on follow-up exams. ACT 112: Negative or not required by law. Electronically signed by: Cl Espinal M.D. 06/08/2023 12:07 PM Discharge Plan Visit Data Chief Complaint: Shortness of Breath/Dyspnea Stated Complaint: ILLNESS, FEVER, COUGH, ED Provider: Girish Turpin Discharge Problem: Severe sepsis, Multifocal pneumonia, Leukocytosis Discharge Instructions Interventions: ED Discharge Assessment Last Done: 06/08/23 13:50 Discharge Problem: Leukocytosis Qualifiers: Leukocytosis type: unspecified Qualified Code(s): D72.829 - Elevated white blood cell count, unspecified
[2023-06-08] MEDS ORDERED: SODIUM CHLORIDE 0.9% 1,000 ML IV SCH ×2 (11:30→15:35)
[2023-06-08 11:48] LABS: Base Excess VBG 12.5 mEq/L; HCO3 VBG 36 mmol/L; Oxygen Saturation VBG < 60.0 %; PCO2 VBG 40 mmHg (38-50); PO2 VBG < 20 mmHg; pH VBG 7.56 (7.36-7.41)
[2023-06-08 11:57] LABS: Hematocrit (blood only) 35.1 % (37.0-47.0); Hemoglobin 12.2 g/dl (12.0-16.0); Mean Corpuscular Hemoglobin 29.5 pg (25.0-34.0); Mean Corpuscular Hgb Conc 34.8 g/dL (32.0-36.0); Mean Corpuscular Volume 84.8 fL (80.0-100.0); Mean Platelet Volume 9.3 fL (9.4-12.4); Platelet Count 625 K/uL (130-400); RDW Coefficient of Variation 13.8 % (11.5-14.5); RDW Standard Deviation 43.1 fL (36.4-46.3); Red Blood Count 4.14 M/uL (4.20-5.40); White Blood Count 32.02 K/ul (4.8-10.8)
--- NOTE | 2023-06-08 12:08 | XRay Report ---
XR chest 1V portable CLINICAL HISTORY: Sepsis. COMPARISON STUDY: Chest CT February 08, 2022. Chest radiograph November 28, 2022. FINDINGS: Right internal jugular [id number] is in place. There is no pneumothorax or pleural effus ion. No evidence for pulmonary edema. Cardiomediastinal silhouette is unremarkable. Upper abdominal s urgical clips are incidentally noted. Bilateral lower lung consolidation is present. Patchy additiona l airspace opacities within the lungs are present. A right midlung density has slightly increased. IMPRESSION: 1. Bilateral lower lung consolidation and additional patchy airspace opacities. The findings favor pn eumonia or aspiration pneumonitis. Radiographic follow-up to ensure resolution is recommended. 2. Slight increase in a right midlung density which is also likely infectious but should be assessed on follow-up exams. ACT 112: Negative or not required by law. Electronically signed by: Cl Espinal M.D. 06/08/2023 12:07 PM
[2023-06-08 12:11] LABS: Albumin Level 3.8 gm/dl (3.4-5.0); BUN Creatinine Ratio 10.6 (10-20); Bilirubin Direct 0.1 mg/dl (0-0.2); Bilirubin,Total 0.5 mg/dl (0.2-1.0); Calcium 9.2 mg/dl (8.6-10.3); Creatinine Clr Calc Pharmacy 77.7 ml/min; Est GFR (African American) 114.5 ml/min; Est GFR (Non-African American) 98.8 ml/min; Magnesium 1.6 mg/dl (1.7-2.4); Potassium 3.1 mmol/L (3.5-5.1); Total Protein 7.3 gm/dl (6.0-8.3)
[2023-06-08 12:12] LABS: Basophils # (auto) 0.08 K/uL (0.00-0.20); Basophils % (auto) 0.2 %; Eosinophils # (auto) 0.02 K/uL (0.00-0.50); Eosinophils % (auto) 0.1 %; Immature Granulocytes # (auto) 0.27 K/uL (0.01-0.20); Immature Granulocytes % (auto) 0.8 %; Lymphocytes # (auto) 1.34 K/uL (1.20-3.40); Lymphocytes % (auto) 4.2 %; Monocytes # (auto) 1.45 K/uL (0.11-0.59); Monocytes % (auto) 4.5 %; Neutrophils # (auto) 28.86 K/uL (1.40-6.50); Neutrophils % (auto) 90.2 %; Polychromasia 1+
[2023-06-08] MEDS ORDERED: PIPERACILLIN/TAZOBACTAM 4.5 GM/100 ML BAG IV ONE (12:13)
[2023-06-08] MEDS ORDERED: VANCOMYCIN CONSULT ACTIVE PRN ×2 (12:13→15:35)
[2023-06-08] MEDS ORDERED: VANCOMYCIN HCL 1,000 MG in SODIUM CHLORIDE 0.9% 500 ML IV ONE (12:13)
[2023-06-08] MEDS ORDERED: MAGNESIUM SULFATE / D5W 1 GM/100 ML BAG IV STA (12:13)
[2023-06-08] MEDS ORDERED: SODIUM CHLORIDE 0.9% 500 ML IV ONE (12:13)
[2023-06-08 12:17] LABS: Troponin I High Sensitivity 19.7 pg/ml (0-14)
--- NOTE | 2023-06-08 12:39 | History & Physical Report ---
Date of Service June 08, 2023 Assessment & Plan (1) Multifocal pneumonia: (2) Chronic obstructive pulmonary disease: (3) Follicular lymphoma: (4) Elevated troponin: (5) Hypomagnesemia: (6) Hypokalemia: Plan: 58-year-old female with PMHx of follicular lymphoma grade 3 in remission with her last chemo in September 2021, achalasia of esophagus, chronic infusion therapy with IVIG, restless leg, hypogammaglobinemia. Symptoms of ROMAN, worsening/productive mucous ~2 weeks, intensified SOB at rest and ROMAN within past 3 to 4 days. Sepsis Multifocal Pneumonia - Admit to med surg with tele - BCx x 2, Sputum culture, mucinex, duonebs QID and Q2H prn, flutter, consider chest percussion vest pending pulm eval - Wean O2 prn - pt does not wear any supplemental O2 at baseline - Resp Bio fire is negative - WBC at time of admission = 32,000 with left shift, was 31,000 on 06/07 and was elevated at 22 K last week - Tmax = afebrile here but reportedly had 101 fever at outpatient clinic this morning, monitor - Lactic acid = 1.7 procalcitonin 1.11 - CXR reviewed personally: 1. Bilateral lower lung consolidation and additional patchy airspace opacities. The findings favor pneumonia or aspiration pneumonitis. Radiographic follow-up to ensure resolution is recommended. 2. Slight increase in a right midlung density which is also likely infectious but should be assessed on follow-up exams. - antibiotic therapy with Zosyn and vancomycin IV - Consult infectious disease, follows with them routinely as outpatient - Consult pulmonology for hx of MAC - Troponin elevated at 19, likely secondary to sepsis, will trend x 1 more set - Pt will need new tubing/nebulizer equipment prior to discharge home - see HPI History of follicular lymphoma in remission, on IVIG therapy Thrombocytosis - Plt of 625, noted that it has been this elevated in the past, possible partial dehydration? - history of follicular lymphoma in remission on IVIG therapy with heme-onc as outpatient every 3 weeks - missed it today - Continue follow up with heme onc- Follows with Dr. Madsen as outpatient - Check IgG, IgA, IgM Hypokalemia - K 3.1 on admission , 40 meq PO now Hypomagnesemia -1 g IV given in the ER for level of 1.6 on admission, trend with am labs Hyponatremia -NSS times 2L in the ER, continue 125 mL x 1 more bag -Trend BMP at 17:30 along with troponin Achalasia -Continue omeprazole and famotidine DVT ppx: teds, scds Lines: Mediport chest wall, R side, PIV x 1 FEN/GI: Allow regular, easy to chew diet CODE: FULL Dispo: From home, likely to remain in the hospital x 1-2 days A total of 75 minutes were spent with greater than 50% of that time face to face with the patient, personally reviewing all current laboratories, imaging studies, past medication reconciliation, outpatient chart review, and discussion with specialists to collaborate care for the patient with attending. Please see attending documentation for corrections and/or additions. (7) Bronchiectasis: (8) Sepsis: (9) Mycobacterium avium infection: (10) Immunodeficiency: (11) Tobacco abuse: History of Present Illness Chief Complaint: Shortness of breath Primary Care Provider: Steve Quiñones PA-C This is a 58-year-old female with PMHx of follicular lymphoma grade 3 in remission with her last chemo in September 2021, achalasia of esophagus, chronic infusion therapy with IVIG, restless leg, hypogammaglobinemia. She has history of recurrent pneumonia and has followed with infectious disease as an outpatient. In the past 2 years she was hospitalized 5 times due to pneumonia. Most was in 2021- twice with Streptococcus PNA, she has had rhinovirus/enterovirus, and in August 2021 grew a few of Mycobacterium AVM complex but was not treated for MAC. The last admission here at [facility] was in November 2022 with enterovirus/rhinovirus. She has been prescribed Augmentin 875 mg p.o. twice daily to continue per infectious disease in Mar 2023 to use with directions for follow up depending on if she developed symptoms. She had labs drawn as an outpatient on 05/31 showing WBC of 22, however did not express any symptoms at that time. She had repeat labs drawn on 06/07 showing WBC count of 31.7, in preparation for her visit at [facility] this morning for regularly scheduled IVIG. Daughter, Efraní Ruiz is present at bedside and supports the history and she st ates her mother is "stubborn". She states that her mother has been sick for approximately 10 to 14 days, patient states that she has felt significantly short of breath in the past 3 to 4 days. On a daily basis she has productive thick yellow and green sputum production, however it has significantly increased in the past week. Daughter states she had a fever of 101 today at the clinic and heme-onc, but patient otherwise denies previous fever. She is currently saying she is cold, but hot at the same time. Pt admits to ROMAN with minimal activities. She reports having chest heaviness but feels that nebulizer treatment has improved this. She has been using the neb at home however reports that the tubing on her machine was changed and therefore she was not getting the full dose of medication with nebulizer treatment that she should have in the past few days. She is using Anoro Ellipta inhaler as well as her albuterol rescue inhaler routinely. Pt has had decreased appetite, is drinking a few cups of water per day, denies any abdominal pain but is having mild nausea, no diarrhea or constipation. Admits to smoking 5 to 6 cigarettes, maybe half of the time per day currently, when she feels well she smokes half pack per day. She has significantly reduced smoking overall. Daughter also asks about having a chest vibration vest available to them at home due to the amount of mucus production she has in general. It has previously been used here in the hospital, and patient feels that this helps her expectorate more quickly along with Mucinex. Please call Efraín at [phone] updates and questions daily per her request. Allergies Allergy/AdvReac Type Severity Reaction Status Date / Time No Known Allergies Allergy Verified 12/08/22 10:52 Home Medications Medication Instructions Recorded Confirmed Type albuterol sulfate 90 mcg/actuation 2 puff inhalation QID PRN 06/06/21 06/08/23 History aerosol inhaler Shortness Of Breath fluticasone propionate 50 1 spray intranasal BID 11/28/22 06/08/23 History mcg/actuation nasal spray,suspension loratadine 10 mg tablet 10 mg PO QAM 11/28/22 06/08/23 History albuterol sulfate 2.5 mg/3 mL 2.5 mg inhalation .Q4-6H PRN 06/08/23 06/08/23 History (0.083 %) solution for nebulization Wheezing azelastine 137 mcg (0.1 %) nasal 2 spray intranasal BID 06/08/23 06/08/23 History spray aerosol famotidine 40 mg tablet 40 mg PO DAILY 06/08/23 06/08/23 History omeprazole 20 mg capsule,delayed 20 mg PO QAM 06/08/23 06/08/23 History release simethicone 125 mg chewable tablet 125 mg PO DIRECTED PRN GAS 06/08/23 06/08/23 History (Gas Relief Extra Strength) DISCOMFORT sodium chloride 3 % for 4 ml inhalation BID secretions 06/08/23 06/08/23 History nebulization Past Med/Surg History Medical History (Updated 06/08/23 @ 17:02 by Corina Cheng DO) Immunodeficiency Mycobacterium avium infection QT prolongation Multifocal pneumonia Hypophosphatemia Hypomagnesemia Hypokalemia Leukopenia Achalasia Follicular lymphoma Restless leg syndrome Chronic obstructive pulmonary disease Surgical History History of fundoplication Heller myotomy with Jaison fundoplication in 03/08/21 H/O unilateral oophorectomy History of tooth extraction History of tonsillectomy Family History Mother Hypertension Father Cancer Other Coronary heart disease Social History Smoking Status: Light tobacco smoker Tobacco Type: Cigarettes Cigarettes Per Day: 5-6; Second Hand Exposure: No; Do You Dip or Chew Tobacco: No; Hx Alcohol Use: No Hx Substance Use: No Preferred Language: Romansh Communication Ability: Effective Professor Of Literacy Required: No Beliefs That Will Affect Care: None marital status: Current Living Situation: Family Current Living Situation Comment: family and boyfriend How many Children do You have: 3 Other Information That Helps Us Care for You: No Feels Safe at Home: Yes Safety Concerns: Feels Safe At This Time Assistive Devices: Denture - Upper, Denture - Lower and Glasses Assistive Devices Comment: at home Review of Systems Review of Systems: Constitutional: + fever, sweats and chills, + unwell feeling, + fever/chills Eyes: No diplopia, no worsening or blurred vision ENT: normal hearing, no trouble swallowing Respiratory: + As Per HPI Cardiovascular: No chest pain, tightness or palpitations Abdomen: No pain, +nausea, no vomiting, diarrhea or constipation Musculoskeletal: No joint pain, calf pain, swelling Neurologic: No focal weakness, numbness/tingling, or balance problems Psychiatric: No anxiety or depression Skin: No rash or itch Physical Exam Physical Exam: General: awake, alert, no apparent distress, thin, BMI of 17, white unwell female Head: Normocephalic, atraumatic ENT: PERRL, EOMI, no pharyngeal exudate, mucous membranes moist, + edentulous Chest: ON nebulizer tx currently with O2 at 7L, does not wear supplemental o2 at baseline +faint rales at bases bilaterally, no wheezing, no JVD, normal peripheral pulses, good capillary refill Abdominal: NABS x 4 quadrants, soft, nondistended, nontender to palpation, no rebound or guarding Extremities: Thin, no peripheral edema or erythema, calfs nontender to palpation Psych: Normal mood and affect Neuro: AAO x 3, strength intact bilaterally and rated 5/5, no motor deficits, speech is clear, no peripheral sensory deficits Results & Data Results & Data Vital Signs (Past 12 Hours) Vital Signs Temp Pulse Pulse Resp BP BP Pulse Ox 06/08/23 11:38 37.0 C 111 H 21 101/74 93 06/08/23 11:37 92 06/08/23 11:29 37.0 C 110 H 32 H 101/74 92 06/08/23 11:28 O2 Del Method O2 Flow Rate 06/08/23 11:38 Nasal Cannula 2 06/08/23 11:37 Nasal Cannula 2 06/08/23 11:29 Nasal Cannula 2 06/08/23 11:28 Room Air Laboratory Results 06/08/23 11:47 Aerobic Blood Culture - Pending Blood Anaerobic Blood Culture - Pending 06/08/23 11:34 Aerobic Blood Culture - Pending Blood Anaerobic Blood Culture - Pending 06/08/23 06/08/23 11:41 11:34 WBC 32.02 H* RBC 4.14 L Hgb 12.2 Hct 35.1 L MCV 84.8 MCH 29.5 MCHC 34.8 RDW Std Deviation 43.1 RDW Coeff of Dylan 13.8 Plt Count 625 H MPV 9.3 L Immature Gran % (Auto) 0.8 Neut % (Auto) 90.2 Lymph % (Auto) 4.2 [place] % (Auto) 4.5 Eos % (Auto) 0.1 Baso % (Auto) 0.2 Neut # (Auto) 28.86 H Lymph # (Auto) 1.34 [place] # (Auto) 1.45 H Eos # (Auto) 0.02 Baso # (Auto) 0.08 Immature Gran # (Auto) 0.27 H Polychromasia 1+ VBG pH 7.56 H VBG pCO2 40 VBG pO2 < 20 VBG HCO3 36 VBG O2 Saturation < 60.0 VBG Base Excess 12.5 Sodium 130 L Potassium 3.1 L Chloride 87 L Carbon Dioxide 30 Anion Gap 13 H BUN 7 Creatinine 0.66 Est Cr Clr Drug Dosing 77.7 Est GFR ( Amer) 114.5 Est GFR (Non-Af Amer) 98.8 BUN/Creatinine Ratio 10.6 Glucose 116 H Lactate 1.7 Calcium 9.2 Magnesium 1.6 L Total Bilirubin 0.5 Direct Bilirubin 0.1 AST 20 ALT 20 Alkaline Phosphatase 188 H Troponin I High Sens 19.7 H Total Protein 7.3 Albumin 3.8 Procalcitonin 1.11 H Diagnostic Findings Chest X-Ray 06/08/23 11:25 XR chest 1V portable CLINICAL HISTORY: Sepsis. COMPARISON STUDY: Chest CT February 08, 2022. Chest radiograph November 28, 2022. FINDINGS: Right internal jugular [id number] is in place. There is no pneumothorax or pleural effusion. No evidence for pulmonary edema. Cardiomediastinal silhouette is unremarkable. Upper abdominal surgical clips are incidentally noted. Bilateral lower lung consolidation is present. Patchy additional airspace opacities within the lungs are present. A right midlung density has slightly increased. IMPRESSION: 1. Bilateral lower lung consolidation and additional patchy airspace opacities. The findings favor pneumonia or aspiration pneumonitis. Radiographic follow-up to ensure resolution is recommended. 2. Slight increase in a right midlung density which is also likely infectious but should be assessed on follow-up exams. ACT 112: Negative or not required by law. Electronically signed by: Cl Espinal M.D. 06/08/2023 12:07 PM Code Status & VTE Plan Code Status Full code -discussed with the patient at bedside Supervising Physician Co-Signing Physician Notes I have seen and examined the patient and have discussed the case with the provider above. I agree with the assessment and plan as stated. 58 yo female smoker with h/o follicular lymphoma in remission, achalasia with history of temporary improvement with Botox injections, and hypogammaglobulinemia presents with multifocal pneumonia. She has a history or recurrent pneumonia and patient and daughter, and sister are expressing emotional upset at why this continues to occur. Per record review, it [facility] where they noted her to have NTM infection for which she was seen for by ID. She also has bronchiectasis 2/2 immunoglobulin deficiency and NTM infection. A previous ID note from September 2022 reports that the patient did not meet criteria for MAC treatment. Per records she recovers to her baseline after every treatment for pneumonia. On exam she is in no acute distress. She is thin with scant rhonchi throughout lung interiano, poor effort to ventilate when prompted citing discomfort, and resting tachypnea. Port accessed in anterior right chest wall. Cardiac exam reveals S1/2 heard without m/g/r. She is slightly tachycardic in sinus rhythm and appears clinically dry on exam. She is oxygenating well on 2 LOM via nasal canula. Work up includes CBC with WBC 32K and left shift, reactive thrombocytosis, mild chemistry abnormalities including Na 130, K 3.1, Cl 87, Mg 1.6. Troponin is mildly elevated at 20 but is flat on trend. There was ST depression noted in lateral leads on EKG. Echo performed reveals no abnormal wall motion abnormalities. Respiratory biofire is negative. Chest CT reveals multifocal pneumonia. Sputum and blood cultures are pending. 1. Multifocal pneumonia 2. Bronchiectasis 3. Mycobacterium avium-intracellulaire infection 4. COPD 5. Tobacco use 6. Immunoglobulin deficiency on IVIG replacement 7. h/o follicular lymphoma in remission Cont broad spectrum abx and supportive care efforts for treatment of pneumonia. Will repeat sputum cultures now. Pt has untreated MAC infection-defer treatment to ID and pulm who have been stating in notes that she doesnt currently meet criteria for treatment. There is no wheezing, so would hold off on steroid therapy. Cont nebulizers as needed, flutter valve. Consider hypertonic saline nebs to help with congestion. Smoking cessation strongly recommended. [place], DO (3) Follicular lymphoma Follicular lymphoma type: unspecified follicular type Lymphoma site: unspecified region Qualified Code(s): C82.90 - Follicular lymphoma, unspecified, unspecified site
[2023-06-08 13:03] LABS: Adenovirus PCR Not Detected (NotDetected); Bordetella parapertussis PCR Not Detected (NotDetected); Bordetella pertussis PCR Not Detected (NotDetected); Chlamydia pneumoniae PCR Not Detected (NotDetected); Coronavirus 229E PCR Not Detected (NotDetected); Coronavirus CoV-2 (COVID19)PCR Not Detected (NotDetected); Coronavirus HKU1 PCR Not Detected (NotDetected); Coronavirus NL63 PCR Not Detected (NotDetected); Coronavirus OC43PCR Not Detected (NotDetected); Human Metapneumovirus PCR Not Detected (NotDetected); Influenza A PCR Not Detected (NotDetected); Influenza B PCR Not Detected (NotDetected); Mycoplasma pneumoniae PCR Not Detected (NotDetected); Parainfluenza Virus 1 PCR Not Detected (NotDetected); Parainfluenza Virus 2 PCR Not Detected (NotDetected); Parainfluenza Virus 3 PCR Not Detected (NotDetected); Parainfluenza Virus 4 PCR Not Detected (NotDetected); Respiratory Syncytial VirusPCR Not Detected (NotDetected); Rhinovirus/Enterovirus PCR Not Detected (NotDetected)
[2023-06-08] MEDS ORDERED: CHLORASEPTIC (PHENOL) 1.4% SOLN 180 ML BTL MT PRN (14:01)
--- NOTE | 2023-06-08 15:24 | CT Scan Report ---
CT OF THE CHEST WITHOUT IV CONTRAST CLINICAL HISTORY: increased mid lung density, smoker COMPARISON STUDY: Chest CT February 08, 2022. Chest radiograph performed earlier today. CT DOSE: 220.81 mGy.cm TECHNIQUE: Axial images of the chest were obtained without IV contrast. Images were reviewed in the axial, sagittal, and coronal planes. IV contrast was not administered for this examination. Automat ed exposure control was utilized for the study. A dose lowering technique was utilized adhering to t he principles of ALARA. FINDINGS: Prominent mediastinal lymph nodes are present. A right internal jugular [id number] is i n place. Size of the heart is normal. There is no pericardial effusion. Surgical clips adjacent to th e proximal stomach are noted. Small right pleural effusion. No pneumothorax. Extensive multifocal con solidation within the right lower lobe is present. Moderate alveolar opacities throughout the remaind er of the lungs are present. No central obstructing mass. No cavitation. Bilateral lower lobe bronchi al wall thickening and partially opacified bronchi are present. Right midlung density on chest radiog raph is due to airspace opacity. No discrete pulmonary nodules are present. Bony thorax is unremarkab le. IMPRESSION: 1. Extensive airspace opacities throughout the lungs, including dense consolidation within the right lower lobe. The findings suggest pneumonia or aspiration pneumonitis. Associated bronchial wall thick ening and partially occluded bronchi. The findings have increased when compared to prior CT of Septem 2021. 2. Right midlung density on chest radiograph performed earlier today was due to airspace opacity. 3. Small right pleural effusion. ACT 112: Negative or not required by law. Electronically signed by: Cl Espinal M.D. 06/08/2023 3:23 PM
[2023-06-08] MEDS ORDERED: VANCOMYCIN HCL 750 MG in SODIUM CHLORIDE 0.9% 500 ML IV SCH (15:35)
[2023-06-08] MEDS ORDERED: POTASSIUM CHLORIDE CRTAB 20 MEQ TABCR PO STA ×2 (15:35→15:41)
[2023-06-08] MEDS ORDERED: ONDANSETRON INJ 2 MG/ML 2 ML VIAL IV PRN (15:35)
--- NOTE | 2023-06-08 15:49 | Pulmonary Consultation ---
Date of Consultation June 08, 2023 Assessment & Plan (1) Multifocal pneumonia: (2) Chronic obstructive pulmonary disease: (3) Bronchiectasis: Plan CT chest 06/08/2023 personally reviewed: Bilateral apical pleural scarring Tree-in-bud opacities appreciated bilaterally upper and lower lobes, More prominent in the lower lobes Dense consolidative process in the right lower lobe Minimal bronchiectasis Hiatal hernia No significant mediastinal lymphadenopathy --Multilobar pneumonia Dense consolidative process in the right lower lobe with tree-in-bud opacities bilaterally Has hypogammaglobulinemia which does predispose her to recurrent infection Procalcitonin 1.11 Respiratory bio fire negative for everything Patient does have chronic tree-in-bud opacities bilaterally dating back to May 2021 and had they have progressively gotten worse --Patient carries a diagnosis of CANDIDO Notes from primary audio video technician reviewed And has been following up with ID Sputum culture in the past has grown MAC on 09/09/2021 and Mycobacterium gordonae on 02/08/2022. This is only 1 sputum culture and is not diagnostic of MAC --COPD Supposedly on Anoro at home --History of bronchiectasis Would benefit from chest vest therapy at home Plan: Add hypertonic saline and Mucomyst nebulized Patient needs good upper airway clearance technique along with flutter valve. If she is not able to bring up phlegm with that then I will recommend chest vest therapy Follow sputum culture Repeat AFB daily for 3 days Follow-up nasal MRSA, if negative discontinue vancomycin Please note the above document was generated using voice recognition software. It may contain grammatical, syntax or spelling errors.Any formal questions or concerns about the content, text or information contained within the body of this dictation should be directly addressed to the provider for clarification. History of Present Illness Attending Physician: Corina Cheng, History of Present Illness 58-year-old female admitted to the hospital for shortness of breath Past medical history: Follicular lymphoma grade 3 in remission, last chemo September 2021, hypogammaglobulinemia on IVIG, achalasia of esophagus Pulmonary consulted for recurrent pneumonia Follows up with Dr. Cabral as an outpatient. Last office note reviewed At the time of examination patient was on 2 L nasal cannula saturating 85-86%, increase it to 4 L. She was eating at that time. She has been complaining of worsening shortness of breath which has been going on for couple of weeks. She is using Anoro inhaler on a daily basis. Along with hypertonic saline nebulized but unfortunately that her nebulizer was not working and she has not used it for a week or so. Has been bringing copious amount of phlegm. No hemoptysis. It is foul- smelling. Complaining of watery stools in the last 3-4 days. Nonbloody No dysuria No nausea vomiting. Does have chronic difficulty swallowing Last dilatation of her achalasia was 4 months ago at [place] Patient's daughter was also in the room to help with interrogation and history Social history:>40 pack-year smoking history, currently smoking couple of cigarettes here and there Dog at home. No history of lung cancer in the family Allergies Allergy/AdvReac Type Severity Reaction Status Date / Time No Known Allergies Allergy Verified 12/08/22 10:52 Home Medications Medication Instructions Recorded Confirmed Type albuterol sulfate 90 mcg/actuation 2 puff inhalation QID PRN 06/06/21 06/08/23 History aerosol inhaler Shortness Of Breath fluticasone propionate 50 1 spray intranasal BID 11/28/22 06/08/23 History mcg/actuation nasal spray,suspension loratadine 10 mg tablet 10 mg PO QAM 11/28/22 06/08/23 History albuterol sulfate 2.5 mg/3 mL 2.5 mg inhalation .Q4-6H PRN 06/08/23 06/08/23 History (0.083 %) solution for nebulization Wheezing azelastine 137 mcg (0.1 %) nasal 2 spray intranasal BID 06/08/23 06/08/23 History spray aerosol famotidine 40 mg tablet 40 mg PO DAILY 06/08/23 06/08/23 History omeprazole 20 mg capsule,delayed 20 mg PO QAM 06/08/23 06/08/23 History release simethicone 125 mg chewable tablet 125 mg PO DIRECTED PRN GAS 06/08/23 06/08/23 History (Gas Relief Extra Strength) DISCOMFORT sodium chloride 3 % for 4 ml inhalation BID secretions 06/08/23 06/08/23 History nebulization Patient History Medical History (Updated 06/08/23 @ 17:02 by Corina Cheng, ) Immunodeficiency Mycobacterium avium infection QT prolongation Multifocal pneumonia Hypophosphatemia Hypomagnesemia Hypokalemia Leukopenia Achalasia Follicular lymphoma Restless leg syndrome Chronic obstructive pulmonary disease Surgical History History of fundoplication Heller myotomy with Jaison fundoplication in 03/08/21 H/O unilateral oophorectomy History of tooth extraction History of tonsillectomy Family History Mother Hypertension Father Cancer Other Coronary heart disease Social History Smoking Status: Light tobacco smoker Tobacco Type: Cigarettes Cigarettes Per Day: 5-6; Second Hand Exposure: No; Do You Dip or Chew Tobacco: No; Hx Alcohol Use: No Hx Substance Use: No Preferred Language: Panamanian Communication Ability: Effective Medicare Specialist Required: No Beliefs That Will Affect Care: None marital status: Current Living Situation: Family Current Living Situation Comment: family and boyfriend How many Children do You have: 3 Other Information That Helps Us Care for You: No Feels Safe at Home: Yes Safety Concerns: Feels Safe At This Time Assistive Devices: Denture - Upper, Denture - Lower and Glasses Assistive Devices Comment: at home Review of Systems 2 Review of Systems: All systems reviewed & are unremarkable except as noted in HPI & below Physical Exam 2 Physical Exam: Constitutional: No acute distress HEENT: EOMI, PERRLA Respiratory system: Decreased air entry bilaterally, no wheeze, rhonchi, positive crackles bilaterally CVS: S1-S2 positive, no murmurs or gallops Abdomen: Soft, nontender, nondistended, positive bowel sounds x4 Extremities: +2 pulses bilaterally radialis/ dorsalis pedis, no cyanosis, no edema Neuro: Awake alert oriented x3 Psych: Normal mood and affect G/U: No Casey Skin: no rashes, warm and dry Lymphatic: no cervical or axillary lymphadenopathy Results & Data Results & Data Vital Signs (Past 12 Hours) Vital Signs Temp Pulse Pulse Resp BP BP BP 06/08/23 15:36 98 H 16 101/63 06/08/23 13:04 116 H 34 H 98/67 L 06/08/23 12:40 109 H 06/08/23 11:38 37.0 C 111 H 21 101/74 06/08/23 11:37 06/08/23 11:29 37.0 C 110 H 32 H 101/74 06/08/23 11:28 Pulse Ox O2 Del Method O2 Flow Rate 06/08/23 15:36 99 Nasal Cannula 2 06/08/23 13:04 100 Nebulizer 06/08/23 12:40 06/08/23 11:38 93 Nasal Cannula 2 06/08/23 11:37 92 Nasal Cannula 2 06/08/23 11:29 92 Nasal Cannula 2 06/08/23 11:28 Room Air Laboratory Results 06/08/23 11:34 06/08/23 11:34 PG Care Time/CCT Total # of Minutes Spent Total Time Spent with Patient: Total time spent is greater than 50% in coordination of care (as documented) at patient's floor/unit and/or counseling patient: Coding Level of Care Code 25865 INT INP/OBS CARE 3/75MIN Diagnoses Multifocal pneumonia J18.9 Chronic obstructive pulmonary disease J44.9 Bronchiectasis J47.9
[2023-06-08 16:09] LABS: Appearance Urine Cloudy (Clear); Bilirubin Urine Negative (Negative); Blood Urine Negative (Negative); Color Urine Yellow; Glucose Urine UA Negative (Negative); Ketones Urine Negative (Negative); Leukocyte Esterase Urine Negative (Negative); Nitrite Urine Negative (Negative); Protein Urine 1+ (Negative); Specific Gravity Urine 1.017 (1.000-1.030); Urobilinogen Urine Negative (Negative); pH Urine 5.5 (4.5-7.5)
[2023-06-08 16:19] LABS: Bacteria Urine 1+ (Negative); Epithelial Cell Urine >30 /lpf (0-5); Hyaline Casts Urine 0-5 /lpf (0-5); RBC Urine 0-4 /hpf (0-4); WBC Urine >30 /hpf (0-5)
[2023-06-08] MEDS: ALBUT/IPRATROP 3MG/0.5MG NEB 3 ML VIAL NEB SCH ×3 (16:21→23:15)
--- OUTSIDE RECORDS SUMMARY | 2023-06-08 16:57 | External Medical Summary ---
Author Name Unknown Address Unknown Organization [id number]:LABORATORY [facility] [place] - [address] [place] [address] [address] [place] [address] Laboratory Report Ordering Provider Test Date Status STEPHAN WALTON 06/07/2023 08:38:41 Final Observation Date Value Abnormality Reference (Units ) Status WBC, Total 06/07/2023 08:38:41 31.73 Above high normal 4.00-10.80 (K/uL) Final RBC 06/07/2023 08:38:41 4.05 3.85-5.15 (M/uL) Final Hemoglobin 06/07/2023 08:38:41 12.1 12.0-15.3 (g/dL) Final HCT 06/07/2023 08:38:41 36.7 36.0-45.2 (%) Final MCV 06/07/2023 08:38:41 90.6 81.5-97.5 (fL) Final MCH 06/07/2023 08:38:41 29.9 27.0-34.0 (pg) Final MCHC 06/07/2023 08:38:41 33.0 32.0-36.0 (g/dL) Final RDW 06/07/2023 08:38:41 13.7 11.5-15.5 (%) Final Platelets 06/07/2023 08:38:41 712 Above high normal 140-400 (K/uL) Final MPV 06/07/2023 08:38:41 9.9 6.6-11.1 (fL) Final Nucleated erythrocytes/100 leukocytes [Ratio] in Blood by Automated count 06/07/2023 08:38:41 0 <=0 (/100 WBCs) Final Performing Location [facility]ORY [facility] [place] - [address] [place] [address]
--- OUTSIDE RECORDS SUMMARY | 2023-06-08 16:57 | External Medical Summary | Summary of Care ---
Author Name Unknown Organization [facility] Address [address] [facility] [place] [address] Phone [phone] Care Team Providers Care Paramedic Rn Name Role Phone Steve Quiñones PA-C Primary Care Provider Reason for Visit * Reason Onset Date Comments Test Results Lab 06/04/2023 Encounter Details Date Type Department Care Team (Late st Contact Info) Description 06/04/2023 Telephone Hematology/Oncology Treatment, [facility] 200 [place] [address] Aurea Madsen MD 200 [place] [address] Test Results Lab Allergies No known active allergiesdocumented as of this encounter (statuses as of 06/04/2023) Medications Medication Sig Dispensed Refills Start Date End Date Status Potassium 99 MG Oral Tablet Take 1 Tablet by mouth in the morning. 0 Active Albuterol Sulfate 0.63 MG/3ML Inhalation Nebulization Solution (Accuneb) Inhale 1 Vial via nebulizer every 6 hours as needed for Wheezing. 0 Active Ventolin HFA 108 (90 Base) MCG/ACT Inhalation Aerosol Solution Inhale by mouth . 0 Active Magnesium Oxide 400 (241.3 Mg) MG Oral TabletIndications:H ypomagnesemia Take by mouth 400 mg in the morning. 30 Tablet 1 08/15/2021 Active Anoro Ellipta 62.5-25 MCG/ACT Inhalation Aerosol Powder Breath Activated every evening. 0 03/06/2022 Active Fluticasone Propionate 50 MCG/ACT Nasal Suspension (Flonase)Indication s:Chronic sinusitis, unspecified location Administer 1 [place] into nostril in the morning and 1 [place] in the evening. In each nostril twice a day. 32 g 3 09/29/2022 Active Sodium Chloride 3 % Inhalation Nebulization Solution 4 mL. 0 12/11/2022 Active Azelastine HCl 0.1 % Nasal Solution (Astelin) Administer 2 Sprays into nostril in the morning and 2 Sprays before bedtime. 90 mL 3 01/01/2023 Active Amoxicillin-Pot Clavulanate 875-125 MG Oral Tablet (Augmentin)Indicati ons:Pneumonia due to infectious organism, unspecified laterality, unspecified part of lung Take 1 Tablet by mouth in the morning and 1 Tablet before bedtime. 60 Tablet 1 03/27/2023 Active Additional Information Patient not taking.Reported on 04/13/2023 Omeprazole 20 MG Oral Capsule Delayed Release (PriLOSEC)Indicatio ns:Gastroesophageal reflux disease with esophagitis, unspecified whether hemorrhage Take 1 Capsule by mouth in the morning. 30 Capsule 3 03/27/2023 Active Loratadine 10 MG Oral Tablet (Claritin)Indicatio ns:Chronic sinusitis, unspecified location Take 1 Tablet by mouth in the morning. 30 Tablet 6 03/27/2023 Active documented as of this encounter (statuses as of 06/04/2023) Active Problems Problem Noted Date Diagnosed Date Encounter for adjustment and management of vascular access device 04/13/2023 Pneumonia of both lower lobe s due to Streptococcus pneumoniae 02/10/2022 Bronchiectasis with acute lower respiratory infe ction 02/10/2022 Mycobacterium avium complex 02/10/2022 Hypogammaglobulinemia 07/18/2021 Scoliosis 07/01/2021 Restless leg syndrome 06/07/2021 Pneumonia due to infectious organism 06/07/2021 Neutropenia associated with infection 06/07/2021 Achalasia of esophagus 03/08/2021 Chronic obstructive pulmonary disease 12/09/2020 Follicular lymphoma grade II 01/12/2020 ADVANCE DIRECTIVE INFORMATION 05/31/2006 Overview: No, Advance Directive brochure offered , patient declined. documented as of this encounter (statuses as of 06/04/2023) Resolved Problems Problem Noted Date Diagnosed Date Resolved Date Dehydration 05/12/2020 06/07/2021 documented as of this encounter (statuses as of 06/04/2023) Immunizations Name Administration Dates Next Due Pneumococcal Polysaccharide PPV23 (Pneumovax) Seasonal Influenza Virus Vac cine, Unspecified Formulation 07/28/2016 Seasonal Influenza, QUAD, wi th Preserv, 6 mons & Above, 0.5 mL, IM 03/09/2021 Seasonal Influenza, Quadrivalent, No Preserve, I M 2022 documented as of this encounter Social History Tobacco Use Types Packs/Day Years Used Date Smoking Tobacco: Every Day Cigarettes 0.3 10 Passive Smoke Exposure: Current Smokeless Tobacco: Never Comments:Passive smoke expos ure Alcohol Use Standard Drinks/Week Comments No 0 (1 standard drink = 0.6 oz pur e alcohol) Sex and Gender Information Value Date Recorded Sex Assigned at Not on file Gender Identity Not on file Sexual Orientation Not on file Job Start Date Occupation Industry Not on file Not on file Not on file documented as of this encounter Miscellaneous Notes * Telephone Encounter - Elisabeth Packer RN - 06/04/2023 12:14 PM EST Called Efraín. Patient had an infection in March but has been off abx for a while now. Her throatdoctor in [place] did start her on 2 new medications- omeprazole and famotidine. She has not been on any steroids recently. Efraín does note that patient has been having a lot of issues with her throat, but her specialist doesn't see any issues, which is why they started her on the 2 new prescriptions. Patient does have a chronic cough, has an appt with pulm next month, cough has not changed. Efraín states that patient has been doing the same as usual, except for the increase in throat issues. Patient is repeating lab work on for her infusion Sunday- advised Efraín to keep this appt and to call if patient has a fever or any signs of infection so that we can review with Dr Madsen. She verbalized understanding. * Telephone Encounter - Elisabeth Packer RN - 06/04/2023 12:10 PM EST ----- Message from Aurea Madsen MD sent at 06/03/2023 11:13 AM EST ----- High WBC with increase neutrophil. Does she have any infection? documented in this encounter Plan of Treatment Upcoming Encounters Date Type Department Care Team (Late st Contact Info) Description 06/08/2023 10:00 AM EST Hem/Onc Treatment Hematology/Oncology Treatment, [facility] 200 [place] [address] Belinda, Chair 9 Hem Onc Scenery 200 [facility] [place] [address] 06/21/2023 2:00 PM EST Laboratory Laboratory [address] [place] [phone] [place], Lab [address] [place] [address] 06/22/2023 11:00 AM EST Hem/Onc Treatment [address]ematology[address], [address] [address] Belinda, Chair 8 Hem Onc Scenery 200 [facility] [place] [address] 07/02/2023 10:30 AM EST Office Visit Hematology/Oncology Scenery [facility] [address] [place] [address] Aurea Madsen MD [address] [place] [address] 09/28/2023 10:20 AM EDT Office Visit Infectious Disease [address] [phone] Shaunna Wolfe MD [address] [place] [address] Health Maintenance Due Date Last Done Comments DISCUSS TOBACCO CESSATION (REFER TO SMARTSET #4616) 1965 Hepatitis B (1 of 3 - 3-dose series) 1965 Lipid Panel 1967 COVID-19 Vaccine (#1) 02/09/1972 Depression Screening 1979 Alpha-1 Antitrypsin 1985 DTaP,Tdap,and Td Vaccines (1 - Tdap) 1986 Zoster Vaccines (1 of 2) 1986 Pap Smear 02/09/1988 Cervical Cancer Screening 1997 HPV/Co-Test 1997 Cologuard 02/09/2012 Colonoscopy 02/09/2012 Colorectal Cancer Screening 02/09/2012 Fecal Occult Blood Test 02/09/2012 Sigmoidoscopy 02/09/2012 *COPD SEVERITY VERIFIED BY PFT 06/10/2021 Influenza Vaccine (FLU shot) (#1) 2023 2022, 03/09/2021, 07/28/2016 Mammogram 12/05/2023 12/04/2022 O2 ASSESSMENT COMPLETED IN PAST YEAR FOR COPD 05/11/2024 05/11/2023 Pneumococcal Vaccine: Pediatrics (0 to 5 Years) and At-Risk Patients (6 to 64 Years) Completed 12/20/2022, 07/28/2016 GARDASIL-HPV IMMUNIZATION SERIES Aged Out No longer eligible b ased on patient's age to complete this topic MENINGOCOCCAL (MENACTRA/MENVEO) Aged Out No longer eligible b ased on patient's age to complete this topic documented as of this encounter Medical Devices Implanted Type Area Bank Teller Machine Mechanic Device Identifier Shelf Expiration Date Model / Serial / Lot Port Power Mri W/8fr Cath - [id number] Implanted:Qty: 1 on 02/13/2020 by Westley Greenfield MD at OR [facility] Right: Chest CR BARD : PERIPHERAL VASCULAR 10/11/2020 [id number] / / [id number] Description:Right IJ documented as of this encounter Advance Directives Latest Code Status on File Code Status Date Activated Date Inactivated Comments Full Code 02/13/2020 11:01 AM 02/13/2020 4:01 PM This order reflects the patients wishes and were consensually agreed upon. Code Status History Code Status Date Activated Date Inactivated Comments Full Code 02/13/2020 10:05 AM 02/13/2020 11:01 AM Thi s order reflects the patients wishes and were consensually agreed upon. Care Teams Paramedic Rn Relationship Specialty Start Date End Date Steve Quiñones PA-C [address] [place] [id number] PCP - General Physician Computer Repair Instructor 08/15/21 documented as of this encounter
--- OUTSIDE RECORDS SUMMARY | 2023-06-08 16:57 | External Medical Summary ---
Author Name Unknown Address Unknown Organization K01:LABORATORY [facility] [place] - [address] [facility] [address] [place] [place] [address] Laboratory Report Ordering Provider Test Date Status STEPHAN WALTON 06/07/2023 08:38:41 Final Observation Date Value Abnormality Reference (Units ) Status BUN 06/07/2023 08:38:41 7 6-20 (mg/dL) Final Creatinine 06/07/2023 08:38:41 0.6 0.5-1.0 (mg/dL) Final Glomerular filtration rate/1.73 sq M.predicted [Volume Rate/Area] in Serum, Plasma or Blood by Creatinine-based formula (CKD-EPI) 06/07/2023 08:38:41 >90 >=60 (mL/min) Final eGFR is calculated based on the CKD-EPI 2020 equation SODIUM 06/07/2023 08:38:41 133 Below low normal 135 -146 (mmol/L) Final Potassium 06/07/2023 08:38:41 3.7 3.5-5.1 (m mol/L) Final Cl 06/07/2023 08:38:41 87 Below low normal 98- 107 (mmol/L) Final CO2 06/07/2023 08:38:41 28 22-32 (mmo l/L) Final Anion gap 06/07/2023 08:38:41 18 Above high normal 7- 15 (mmol/L) Final Glucose 06/07/2023 08:38:41 110 70-120 (mg /dL) Final Albumin 06/07/2023 08:38:41 3.6 Below low normal 3.8 -5.0 (g/dL) Final AST (Aspartate aminotransferase) 06/07/2023 08:38:41 20 10-35 (U/L) Fin al Alk Phos 06/07/2023 08:38:41 177 Above high normal 35 -130 (U/L) Final Bilirubin, Total 06/07/2023 08:38:41 0.4 <=1 .2 (mg/dL) Final Calcium 06/07/2023 08:38:41 9.3 8.4-10.2 ( mg/dL) Final Protein 06/07/2023 08:38:41 6.1 6.0-8.3 (g /dL) Final ALT (Alanine aminotransferase) 06/07/2023 08:38:41 21 10-35 (U/L) Ben joaquin Performing Location LAB[facility]ATORY [facility] [place] - [address] [facility] [address]
--- OUTSIDE RECORDS SUMMARY | 2023-06-08 16:57 | External Medical Summary ---
Author Name Unknown Address Unknown Organization K01:LABORATORY [facility] - [address] [place] [address] Laboratory Report Ordering Provider Test Date Status STEPHAN WALTON 06/07/2023 08:38:41 Final Observation Date Value Abnormality Reference (Units ) Status IgG 06/07/2023 08:38:41 424 Below low normal 700 -1600 (mg/dL) Final IgA 06/07/2023 08:38:41 <5 Below low normal 70- 400 (mg/dL) Final IgM 06/07/2023 08:38:41 <5 Below low normal 40- 230 (mg/dL) Final Performing Location LABORATORY [facility] - [address] [place] [address]
--- OUTSIDE RECORDS SUMMARY | 2023-06-08 16:57 | External Medical Summary | Summary of Care ---
Author Name Unknown Organization [facility] Address [address] [facility] [place] [address] Phone [phone] Care Team Providers Care Batch Records Clerk Name Role Phone Steve Quiñones PA-C Primary Care Provider Reason for Visit * Reason Comments Outpatient Testing Encounter Details Date Type Department Care Team (Late st Contact Info) Description 06/07/2023 10:00 AM EST Laboratory Laboratory [address] [place] [phone] [place] [address] Follicular lymphoma grade II (HCC) Allergies No known active allergiesdocumented as of this encounter (statuses as of 06/07/2023) Medications Medication Sig Dispensed Refills Start Date [...] (Flonase)Indication s:Chronic sinusitis, unspecified location Administer 1 [place] into nostril in the morning and 1 [place] in the evening. In each nostril twice [...] as of this encounter (statuses as of 06/07/2023) Active Problems Problem Noted Date Diagnosed Date [...] as of this encounter (statuses as of 06/07/2023) Resolved Problems Problem Noted Date Diagnosed Date Resolved Date Dehydration 05/12/2020 06/07/2021 documented as of this encounter (statuses as of 06/07/2023) Immunizations Name Administration Dates Next Due Pneumococcal [...] on file documented as of this encounter Plan of Treatment Upcoming Encounters Date Type Department Care Team (Late st Contact Info) Description 06/08/2023 10:00 AM EST Hem/Onc Treatment Hematology/Oncology Treatment, [address] [address] Belinda, Chair [address] [address] 07/02/2023 10:30 AM EST Office Visit Hematology/Oncology [address] [place] [address] Aurea Madsen MD [address] [place] [address] [place] [address] 09/28/2023 10:20 AM EDT Office Visit Infectious Disease [address] [phone] Shaunna Wolfe MD [address] [place] [address] Pending Results Name Type Priority Associated Diagnoses Date /Time LD Lab STAT Follicular lymphoma grade II (HCC) 06/07/2023 8:38 AM EST CBC WITH WBC DIFFERENTIAL Lab STAT Follicular lymphoma grade II (HCC) 06/07/2023 8:38 AM EST COMPREHENSIVE METABOLIC PANEL Lab STAT Follicular lymphoma grade II (HCC) 06/07/2023 8:38 AM EST IMMUNOGLOBULIN QUANTITATIVE Lab STAT Follicular lymphoma grade II (HCC) 06/07/2023 8:38 AM EST CBC Lab STAT Follicular lymphoma grade II (HCC) 06/07/2023 8:38 AM EST DIFFERENTIAL, AUTOMATED Lab STAT Follicular lymphoma grade II (HCC) 06/07/2023 8:38 AM EST Health Maintenance Due Date Last Done Comments DISCUSS TOBACCO CESSATION (REFER TO SMARTSET #3292) 1965 Hepatitis B (1 of 3 - [...] this encounter Medical Devices Implanted Type Area Cloth Shrinking Tester Device Identifier Shelf Expiration Date Model / Serial / Lot Port Power Mri W/8fr Cath - [id number] Implanted:Qty: 1 on 02/13/2020 by Westley Greenfield MD at OR [facility] Right: Chest CR BARD : PERIPHERAL VASCULAR 10/11/2020 [id number] / / [id number] Description:Right IJ documented as of this encounter Visit Diagnoses Diagnosis Follicular lymphoma grade II (HCC) Nodular lymphoma, unspecified site, extranodal and solid organ sites documented in this encounter Advance Directives Latest Code Status [...] and were consensually agreed upon. Care Teams Batch Records Clerk Relationship Specialty Start Date End Date Steve Quiñones PA-C [address] [place] [id number] PCP - General Physician Research Program Intern 08/15/21 documented as of this encounter
--- OUTSIDE RECORDS SUMMARY | 2023-06-08 16:57 | External Medical Summary ---
Author Name Unknown Address Unknown Organization K01:LAB[facility]ATORY [facility] - [address] [place] [address] Laboratory Report Ordering Provider Test Date Status STEPHAN WALTON 06/07/2023 08:38:41 Final Observation Date Value Abnormality Reference (Units ) Status LDH 06/07/2023 08:38:41 137 <=250 (U/L ) Final Performing Location LAB[facility]ATORY [facility] - [address] [place] [address]
--- OUTSIDE RECORDS SUMMARY | 2023-06-08 16:57 | External Medical Summary | Summary of Care ---
Author Name Unknown Organization [facility] Address [address] [facility] [place] [address] Phone [phone] Care Team Providers Care Blockmason Name Role Phone Steve Quiñones PA-C Primary Care Provider Encounter Details Date Type Department Care Team (Late st Contact Info) Description 04/13/2023 Orders Only Hematology/Oncology [place] Tre[place]ino [place] 200 [facility] [place] [address] Jonathan Valerio MD 200 [facility] [place] [address] Allergies No known active allergiesdocumented as of [...] (Flonase)Indication s:Chronic sinusitis, unspecified location Administer 1 [place] into nostril in the morning and 1 [place] in the evening. In each nostril twice [...] 10:00 AM EST Hem/Onc Treatment Hematology/Oncology Treatment, [address] [place] [address] Belinda, Chair 9 Hem Onc [address] [place] [address] 06/21/2023 2:00 PM EST Laboratory Laboratory [address] [place] [phone] [address] [place] [address] 06/22/2023 11:00 AM EST Hem/Onc Treatment Hematology/Oncology Treatment, [address] [place] [address] Belinda, Chair 8 Hem Onc [address] [place] [address] 07/02/2023 10:30 AM EST Office Visit Hematology/Oncology [facility] [place] [place] [address] Aurea Madsen MD [address] [place] [address] 09/28/2023 10:20 AM EDT Office Visit Infectious Disease [address] [phone] Shaunna Wolfe MD [address] [place] [address] Health Maintenance Due Date Last Done Comments DISCUSS TOBACCO CESSATION (REFER TO SMARTSET #3632) 1965 Hepatitis B (1 of 3 - [...] this encounter Medical Devices Implanted Type Area Soc Analyst Device Identifier Shelf Expiration Date Model / Serial / Lot Port Power Mri W/8fr Cath - [id number] Implanted:Qty: 1 on 02/13/2020 by Westley Greenfield MD at OR [facility] Right: Chest CR BARD : PERIPHERAL VASCULAR 10/11/2020 [id number] / / [id number] Description:Right IJ documented as of this encounter [...] and were consensually agreed upon. Care Teams Blockmason Relationship Specialty Start Date End Date Steve Quiñones PA-C [address] [place] [id number] PCP - General Physician Steward/Stewardess Economy Class 08/15/21 documented as of this encounter
--- OUTSIDE RECORDS SUMMARY | 2023-06-08 16:57 | External Medical Summary | Summary of Care ---
Author Name Unknown Organization [facility] Address [address] [facility] [place] [address] Phone [phone] Care Team Providers Care Retail Merchandiser Technician Name Role Phone Steve Quiñones PA-C Primary Care Provider Encounter Details Date Type Department Care Team (Late st Contact Info) Description 05/29/2023 Orders Only Hematology/Oncology, [facility] 400 [facility] [place] [phone] Aurea Madsen MD 200 [place] [address] Allergies No known active allergiesdocumented as of this encounter (statuses as of 06/01/2023) Medications Medication Sig Dispensed Refills Start Date [...] (Flonase)Indication s:Chronic sinusitis, unspecified location Administer 1 [place] into nostril in the morning and 1 [place] in the evening. In each nostril twice [...] as of this encounter (statuses as of 06/01/2023) Active Problems Problem Noted Date Diagnosed Date [...] as of this encounter (statuses as of 06/01/2023) Resolved Problems Problem Noted Date Diagnosed Date Resolved Date Dehydration 05/12/2020 06/07/2021 documented as of this encounter (statuses as of 06/01/2023) Immunizations Name Administration Dates Next Due Pneumococcal [...] 10:00 AM EST Hem/Onc Treatment Hematology/Oncology [address], [address] [phone] Belinda, Chair 9 Hem On[address] [place] [address] 06/21/2023 2:00 PM EST Laboratory Laboratory [address] [place] [phone] [address] [place] [address] 06/22/2023 11:00 AM EST Hem/Onc Treatment Hematology/Oncology Treatment, [address] [address] Belinda, Chair 8 Hem Onc [address] [place] [address] 07/02/2023 10:30 AM EST Office Visit Hematology/Oncology [place] Trevino [address] [place] [address] Aurea Madsen MD [address] [place] [address] 09/28/2023 10:20 AM EDT Office Visit Infectious Disease [address] [phone] Shaunna Wolfe MD [address] [place] [address] Health Maintenance Due Date Last Done Comments DISCUSS TOBACCO CESSATION (REFER TO SMARTSET #3294) 1965 Hepatitis B (1 of 3 - [...] this encounter Medical Devices Implanted Type Area Billing Spec Device Identifier Shelf Expiration Date Model / Serial / Lot Port Power Mri W/8fr Cath - [id number] Implanted:Qty: 1 on 02/13/2020 by Westley Greenfield MD at OR [facility] Right: Chest CR BARD : PERIPHERAL VASCULAR 10/11/2020 [id number] / / [id number] Description:Right IJ documented as of this encounter [...] and were consensually agreed upon. Care Teams Retail Merchandiser Technician Relationship Specialty Start Date End Date Steve Quiñones PA-C [address] [place] [id number] PCP - General Physician Gas Distribution And Emergency Clerk 08/15/21 documented as of this encounter
[2023-06-08] MEDS: MAGNESIUM SULFATE / D5W 1 GM/100 ML BAG IV SCH ×2 (16:58→18:33)
[2023-06-08] MEDS: BENZONATATE 100 MG CAPSULE PO SCH ×2 (16:58→20:27)
--- OUTSIDE RECORDS SUMMARY | 2023-06-08 16:58 | External Medical Summary | Summary of Care ---
Author Name Unknown Organization [facility] Address [address] [facility] [place] [address] Phone [phone] Care Team Providers Care Work Ticket Distributor Name Role Phone Steve Quiñones PA-C Primary Care Provider Reason for Visit * Reason Comments Outpatient Testing Encounter Details Date Type Department Care Team (Late st Contact Info) Description 05/31/2023 2:00 PM EST Laboratory Laboratory [address] [place] [phone] [place] [address] Follicular lymphoma grade II, unspecified body region (HCC); Hypogammaglobulinemia (HCC) Allergies No known active allergiesdocumented as of this encounter (statuses as of 05/31/2023) Medications Medication Sig Dispensed Refills Start Date [...] (Flonase)Indication s:Chronic sinusitis, unspecified location Administer 1 [place] into nostril in the morning and 1 [place] in the evening. In each nostril twice [...] as of this encounter (statuses as of 05/31/2023) Active Problems Problem Noted Date Diagnosed Date [...] as of this encounter (statuses as of 05/31/2023) Resolved Problems Problem Noted Date Diagnosed Date Resolved Date Dehydration 05/12/2020 06/07/2021 documented as of this encounter (statuses as of 05/31/2023) Immunizations Name Administration Dates Next Due Pneumococcal [...] Care Team (Late st Contact Info) Description 06/01/2023 10:30 AM EST Hem/Onc Treatment Hematology/[address] [address] Belinda, Chair 1 Hem Onc Scenery [address] [place] [address] [place] [address] 06/21/2023 2:00 PM EST Laboratory Laboratory [address] [place] [phone] [address] [place] [address] 06/22/2023 11:00 AM EST Hem/Onc Treatment Hematology/Oncology Treatment, [address] [address] Belinda, Chair 8 Hem Onc Scenery 200 [facility] [place] [address] 07/02/2023 10:30 AM EST Office Visit Hematology/Oncology [employer] 200 [facility] [place] [address] Aurea Madsen MD 200 [facility] [place] [address] 09/28/2023 10:20 AM EDT Office Visit Infectious Disease [address] [address] Shaunna Wolfe MD [address] [place] [address] Pending Results Name Type Priority Associated Diagnoses Date /Time CBC WITH WBC DIFFERENTIAL Lab Routine Follicular lymphoma grade II, unspecified body region (HCC) 05/31/2023 9:11 AM EST COMPREHENSIVE METABOLIC PANEL Lab Routine Follicular lymphoma grade II, unspecified body region (HCC) 05/31/2023 9:11 AM EST LD Lab Routine Follicular lymphoma grade II, unspecified body region (HCC) 05/31/2023 9:11 AM EST QLDS-[id number], SERUM Lab Routine Follicular lymphoma grade II, unspecified body region (HCC) 05/31/2023 9:11 AM EST IMMUNOGLOBULIN QUANTITATIVE Lab Routine Hypogammaglobulinemia (HCC) Follicular lymphoma grade II, unspecified body region (HCC) 05/31/2023 9:11 AM EST CBC Lab Routine Follicular lymphoma grade II, unspecified body region (HCC) 05/31/2023 9:11 AM EST DIFFERENTIAL, AUTOMATED Lab Routine Follicular lymphoma grade II, unspecified body region (HCC) 05/31/2023 9:11 AM EST Health Maintenance Due Date Last Done Comments DISCUSS TOBACCO CESSATION (REFER TO SMARTSET #4815) 1965 Hepatitis B (1 of 3 - [...] this encounter Medical Devices Implanted Type Area Business Office Technician Device Identifier Shelf Expiration Date Model / Serial / Lot Port Power Mri W/8fr Cath - [id number] Implanted:Qty: 1 on 02/13/2020 by Westley Greenfield MD at OR [facility] Right: Chest CR BARD : PERIPHERAL VASCULAR 10/11/2020 [id number] / / [id number] Description:Right IJ documented as of this encounter Visit Diagnoses Diagnosis Follicular lymphoma grade II, unspecified body region (HCC) Hypogammaglobulinemia (HCC) Hypogammaglobulinaemia, unspecified documented in this encounter Advance Directives Latest [...] and were consensually agreed upon. Care Teams Work Ticket Distributor Relationship Specialty Start Date End Date Steve Quiñones PA-C [address] [place] [phone] PCP - General Physician Structural Engineering Drafting Officer 08/15/21 documented as of this encounter
--- OUTSIDE RECORDS SUMMARY | 2023-06-08 16:58 | External Medical Summary | Summary of Care ---
Author Name Unknown Organization [facility] Address [address] [facility] [address] Phone [phone] Care Team Providers Care Flight Dispatcher Name Role Phone Steve Quiñones PA-C Primary Care Provider Reason for Visit * Reason Onset Date Comments No Show 06/01/2023 Gamunex Encounter Details Date Type Department Care Team (Late st Contact Info) Description 06/01/2023 Telephone Hematology/Oncology, [facility] [address] [place] [address] Aurea Madsen MD [address] [place] [address] No Show (Gamunex) Allergies No known active allergiesdocumented as of [...] (Flonase)Indication s:Chronic sinusitis, unspecified location Administer 1 [place] into nostril in the morning and 1 [place] in the evening. In each nostril twice [...] encounter Miscellaneous Notes * Telephone Encounter - Liset Ryan RN - 06/01/2023 1:11 PM EST Pt missed her gamunex appointment today. Please call her to reschedule. documented in this encounter Plan of Treatment Upcoming Encounters Date Type Department Care Team (Late st Contact Info) Description 06/08/2023 10:00 AM EST Hem/Onc Treatment Hematology/Oncology Treatment, [place] [address] [place] [address] Belinda, Chair 9 Hem Onc Scene [address] [place] [address] 06/21/2023 2:00 PM EST Laboratory Laboratory [address] [place] [phone] [address] [place] [address] 06/22/2023 11:00 AM EST Hem/Onc Treatment Hematology/Oncology Treatment, [place] [address] [place] [address] Belinda, Chair 8 Hem Onc Scenery [address] [place] [address] 07/02/2023 10:30 AM EST [facility] [place] [address] [place] [address] Aurea Madsen MD [address] [place] [address] 09/28/2023 10:20 AM EDT Office Visit Infectious Disease [address] [address] Shaunna Wolfe MD [address] [place] [address] Health Maintenance Due Date Last Done Comments DISCUSS TOBACCO CESSATION (REFER TO SMARTSET #3189) 1965 Hepatitis B (1 of 3 - [...] this encounter Medical Devices Implanted Type Area Sweatband Separator Device Identifier Shelf Expiration Date Model / Serial / Lot Port Power Mri W/8fr Cath - [id number] Implanted:Qty: 1 on 02/13/2020 by Westley Greenfield MD at OR [facility] Right: Chest CR BARD : PERIPHERAL VASCULAR 10/11/2020 [id number] / / [id number] Description:Right IJ documented as of this encounter [...] and were consensually agreed upon. Care Teams Flight Dispatcher Relationship Specialty Start Date End Date Steve Quiñones PA-C [address] [place] [phone] PCP - General Physician Handbag Frames Inspector 08/15/21 documented as of this encounter
--- OUTSIDE RECORDS SUMMARY | 2023-06-08 16:58 | External Medical Summary ---
Author Name Unknown Address Unknown Organization : Laboratory Report Ordering Provider Test Date Status STEPHAN WALTON 05/31/2023 09:11:18 Final Observation Date Value Abnormality Reference (Units ) Status Beta-2 Microglobulin 05/31/2023 09:11:18 2.25 <=2.51 (mg/L) Final This test was performed usin g the Crespo
Immunoturbidimetric method. Values obtained
from different assay methods cannot be used
interchangeably. Beta-2 Microglobulin levels,
regardless of value, should not be interpreted
as absolute evidence of the presence or absence of
disease.

Test Performed at:
[facility]
[address] [facility]
[place] [address]
Cheko Dixon M.D., Ph.D.,Director of Laboratories Performing Location
--- OUTSIDE RECORDS SUMMARY | 2023-06-08 16:58 | External Medical Summary | Summary of Care ---
Author Name Unknown Organization [facility] Address [address] [place] [facility] [place] [address] Phone [phone] Care Team Providers Care Taping Foreman Name Role Phone Steve Quiñones PA-C Primary Care Provider Reason for Visit * Reason Onset Date Comments Appointment 06/01/2023 Encounter Details Date Type Department Care Team (Late st Contact Info) Description 06/01/2023 Telephone Access Center, [place] [address] [facility] *DO NOT REMOVE THIS DEPARTMENT* [place] [address] Services, Scheduling [address] [place] [address] Appointment Allergies No known active allergiesdocumented as of [...] (Flonase)Indication s:Chronic sinusitis, unspecified location Administer 1 [place] into nostril in the morning and 1 [place] in the evening. In each nostril twice [...] encounter Miscellaneous Notes * Telephone Encounter - Birdie Kerr OSA - 06/01/2023 1:07 PM EST Return patients daughter Efraín call and reschedule tx appt to 06/08/23. * Telephone Encounter - Anjelica Chan OSA - 06/01/2023 12:57 PM EST Pt's daughter calling to reschedule missed appointment. Please call daughter back. Thank you. documented in this encounter Plan of Treatment Upcoming Encounters Date Type Department Care Team (Late st Contact Info) Description 06/08/2023 10:00 AM EST Hem/Onc Treatment Hematology/Oncology Treatment, [place] [address] [place] [address] Belinda, Chair 9 Hem Onc Scenery [address] [place] [address] 06/21/2023 2:00 PM EST Laboratory Laboratory [address] [place] [phone] [place] [address] 06/22/2023 11:00 AM EST Hem/Onc Treatment Hematology/Oncology Treatment, [place] [address] [place], [place] [address] Belinda, Chair 8 Hem Onc Scenery [address] [place] [address] 07/02/2023 10:30 AM EST Office Visit Hematology/Oncology [facility] [place] [address] [place] [address] Aurea Madsne MD [address] [place] [address] 09/28/2023 10:20 AM EDT Office Visit Infectious Disease [address] [phone] Shaunna Wolfe MD [address] [place] [address] Health Maintenance Due Date Last Done Comments DISCUSS TOBACCO CESSATION (REFER TO SMARTSET #8261) 1965 Hepatitis B (1 of 3 - [...] this encounter Medical Devices Implanted Type Area Radio Antenna Installer Device Identifier Shelf Expiration Date Model / Serial / Lot Port Power Mri W/8fr Cath - [id number] Implanted:Qty: 1 on 02/13/2020 by Westley Greenfield MD at OR [facility] Right: Chest CR BARD : PERIPHERAL VASCULAR 10/11/2020 [id number] / / [id number] Description:Right IJ documented as of this encounter [...] and were consensually agreed upon. Care Teams Taping Foreman Relationship Specialty Start Date End Date Steve Quiñones PA-C [address] [place] [phone] PCP - General Physician Analyst Business Analysis 08/15/21 documented as of this encounter
--- OUTSIDE RECORDS SUMMARY | 2023-06-08 16:58 | External Medical Summary ---
Author Name Unknown Address Unknown Organization K[facility] [address] [place] [address] Laboratory Report Ordering Provider Test Date Status WALTONMINASTEPHAN 05/31/2023 09:11:18 Final Observation Date Value Abnormality Reference (Units ) Status IgG 05/31/2023 09:11:18 544 Below low normal 700 -1600 (mg/dL) Final IgA 05/31/2023 09:11:18 <5 Below low normal 70- 400 (mg/dL) Final IgM 05/31/2023 09:11:18 <5 Below low normal 40- 230 (mg/dL) Final Performing Location [facility] [address] [place] [address]
--- OUTSIDE RECORDS SUMMARY | 2023-06-08 16:58 | External Medical Summary ---
Author Name Unknown Address Unknown Organization [facility] [address] [place] [address] Laboratory Report Ordering Provider Test Date Status STEPHAN WALTON 05/31/2023 09:11:18 Final Observation Date Value Abnormality Reference (Units ) Status LDH 05/31/2023 09:11:18 161 <=250 (U/L ) Final Performing Location [facility] [address] [place] [address]
--- OUTSIDE RECORDS SUMMARY | 2023-06-08 16:58 | External Medical Summary | Summary of Care ---
Author Name Unknown Organization [facility] Address [address] [facility] [address] Phone [phone] Care Team Providers Care Insurance Administrative Assistant Name Role Phone Steve Quiñones PA-C Primary Care Provider Reason for Visit * Reason Onset Date Comments No Show 06/01/2023 Gamunex Encounter Details Date Type Department Care Team (Late st Contact Info) Description 06/01/2023 Telephone Hematology/Oncology, [facility] [address] [place] [address] Aurea Madsen MD [address] [place] [address] No Show (Gamunex) Allergies No known [...] (Flonase)Indication s:Chronic sinusitis, unspecified location Administer 1 [place] into nostril in the morning and 1 [place] in the evening. In each nostril twice [...] Encounter - Birdie Kerr OSA - 06/01/2023 1:43 PM EST See previous TE. Patient has been rescheduled to 06/08/23. * Telephone Encounter - Liset Ryan RN - 06/01/2023 1:11 PM EST Pt missed her gamunex appointment today. Please call her to reschedule. documented in this encounter Plan of Treatment Upcoming Encounters Date Type Department Care Team (Late st Contact Info) Description 06/08/2023 10:00 AM EST Hem/Onc Treatment Hematology/Oncology Treatment, [place] [address] [place] [address] Belinda, Chair 9 Hem Onc Scenery [facility] [address] 06/21/2023 2:00 PM EST Laboratory Laboratory [address] [place] [phone] [place] [address] [place] [address] 06/22/2023 11:00 AM EST Hem/Onc Treatment Hematology/Oncology Treatment, [place] [address] [place] [address] Belinda, Chair 8 Hem Onc [facility] [address] [place] [address] 07/02/2023 10:30 AM EST Office Visit Hematology/Oncology [facility] [address] [place] [address] Aurea Madsen MD [address] [place] [address] 09/28/2023 10:20 AM EDT Office Visit Infectious Disease [address] [address] Shaunna Wolfe MD [address] [place] [address] Health Maintenance Due Date Last Done Comments DISCUSS TOBACCO CESSATION (REFER TO SMARTSET #3625) 1965 Hepatitis B (1 of 3 - [...] this encounter Medical Devices Implanted Type Area Micropaleontologist Device Identifier Shelf Expiration Date Model / Serial / Lot Port Power Mri W/8fr Cath - [id number] Implanted:Qty: 1 on 02/13/2020 by Westley Greenfield MD at OR [facility] Right: Chest CR BARD : PERIPHERAL VASCULAR 10/11/2020 [id number] / / [id number] Description:Right IJ documented as of this encounter [...] and were consensually agreed upon. Care Teams Insurance Administrative Assistant Relationship Specialty Start Date End Date Steve Quiñones PA-C [address] [place] [phone] PCP - General Physician Graves Registration Specialist 08/15/21 documented as of this encounter
--- OUTSIDE RECORDS SUMMARY | 2023-06-08 16:58 | External Medical Summary | Summary of Care ---
Author Name Unknown Organization [facility] Address [address] [facility] [place] [address] Phone [phone] Care Team Providers Care Truck Jumper Name Role Phone Steve Quiñones PA-C Primary Care Provider Reason for Visit * Reason Comments IV Therapy Gammunex * Episode Based Medications (Routine) - Authorized Specialty Diagnoses / Procedures Referred By Vivien pedraza Referred To Contact Diagnoses Hypogammaglobulinemia (HCC) Procedures [place] INJ IVIG PRIVIGEN 500 MG [place] GAMUNEX-C/GAMMAKED Ailyn Arroyo CRNP Anc Hem/Onc [facility] DEPT CLOSED - 03/27/[address] [place] [address] Referral ID Status Reason Start Date Expiration Date V isits Requested Visits Authorized [id number] Authorized 02/11/2022 05/13/2099 99 99 Encounter Details Date Type Department Care Team (Latest Contact Info) Description 05/11/2023 10:30 AM EST Hem/Onc Treatment Hematology/Oncolo gy Treatment, [place] [address] [place] [address] Belinda, Chair 11 Hem Onc Scenery [address] [place] [address] Hypogammaglobulinemia (HCC)* Allergies No known active allergiesdocumented as of this encounter (statuses as of 05/11/2023) Medications Medication Sig Dispensed Refills Start Date [...] (Flonase)Indication s:Chronic sinusitis, unspecified location Administer 1 [place] into nostril in the morning and 1 [place] in the evening. In each nostril twice [...] as of this encounter (statuses as of 05/11/2023) Active Problems Problem Noted Date Diagnosed Date [...] as of this encounter (statuses as of 05/11/2023) Resolved Problems Problem Noted Date Diagnosed Date Resolved Date Dehydration 05/12/2020 06/07/2021 documented as of this encounter (statuses as of 05/11/2023) Immunizations Name Administration Dates Next Due Pneumococcal [...] on file documented as of this encounter Last Filed Vital Signs Vital Sign Reading Time Taken Comments Blood Pressure 107/68 05/11/2023 10:45 AM EST Pulse 85 05/11/2023 10:45 AM EST Temperature 37.1 C (98.8 F) 05/11/2023 10:[address] Respiratory Rate 18 05/11/2023 10:45 AM EST Oxygen Saturation 95% 05/11/2023 10:45 AM EST Inhaled Oxygen Concentration - - Weight - - Height - - Body Mass Index - - documented in this encounter Nursing Notes * Luna Toney, RN - 05/11/2023 1:26 PM EST Chair 12. Patient here for Gammunex infusion, feeling well overall today, no cute issues or complaints. Safety and Risk for Injury Patient will remain free from injury. Ensure appropriate safety devices are available. Provide and maintain safe environment. Goals: Patient will remain free from injury. Possible barriers to meeting goals: ambulating with IV pole Stability of the patient: Moderately stable - low risk of patient condition declining or worsening Summary regarding today's goals: Met: pt remained free of harm today Patient tolerated treatment well without any acute issues or problems. Patient left facility in stable condition and denied any further needs. documented in this encounter Plan of Treatment Upcoming Encounters Date Type Department Care Team (Late st Contact Info) Description 05/31/2023 2:00 PM EST Laboratory Laboratory [address] [place] [phone] [place] [address] 06/01/2023 10:30 AM EST Hem/Onc Treatment Hematology/[address]cology [address] [address] Belinda, Chair 1 Hem Onc [facility] [address] [place] [address] [place] [address] 06/21/2023 2:00 PM EST Laboratory Laboratory [address] [place] [address] [place] [address] 06/22/2023 11:00 AM EST Hem/Onc Treatment Hematology/Oncology Treatment, [address] [address] Belinda, Chair 8 Hem Onc Scenery 200 [facility] [place] [address] 07/02/2023 10:30 AM EST Office Visit Hematology/Oncology [facility] [place] [address] [place] [address] Aurea Madsen MD [address] [place] [address] 09/28/2023 10:20 AM EDT Office Visit Infectious Disease [address] [phone] Shaunna Wolfe MD [address] [place] [address] Health Maintenance Due Date Last Done Comments DISCUSS TOBACCO CESSATION (REFER TO SMARTSET #1772) 1965 Hepatitis B (1 of 3 - [...] ASSESSMENT COMPLETED IN PAST YEAR FOR COPD 03/20/2024 05/11/2023 Pneumococcal Vaccine: Pediatrics (0 to 5 Years) and At-Risk Patients (6 to 64 Years) Completed 12/20/2022, 07/28/2016 GARDASIL-HPV IMMUNIZATION SERIES Aged Out No longer eligible b ased on patient's age to complete this topic MENINGOCOCCAL (MENACTRA/MENVEO) Aged Out No longer eligible b ased on patient's age to complete this topic documented as of this encounter Medical Devices Implanted Type Area Trust Vault Custodian Device Identifier Shelf Expiration Date Model / Serial / Lot Port Power Mri W/8fr Cath - [id number] Implanted:Qty: 1 on 02/13/2020 by Westley Greenfield MD at OR [facility] Right: Chest CR BARD : PERIPHERAL VASCULAR 10/11/2020 [id number] / / [id number] Description:Right IJ documented as of this encounter Visit Diagnoses Diagnosis Hypogammaglobulinemia (HCC)- Primary Hypogammaglobulinaemia, unspecified documented in this encounter Administered Medications Active Administered Medications - up to 3 most recent administrations Medication Order MAR Action Action Date Dose Rate Site Acetaminophen (Tylenol) tab 650 mg 650 mg, Oral, ONCE PRN If previous infusion reaction with IVIG, Starting on Sun05/11/23 at 1200, Until Discontinued, Maximum of 4 grams (4000 mg) per day. Given 05/11/2023 11:09 AM EST 650 mg diphenhydrAMINE (Benadryl) cap 25 mg 25 mg, Oral, ONCE PRN If previous infusion reaction with IVIG, Starting on Sun05/11/23 at 1200, Until Discontinued Given 05/11/2023 11:09 AM EST 25 mg diphenhydrAMINE (Benadryl) inj 50 mg 50 mg, IV Push, ONCE PRN Other, Hypersensitivity Reaction, Starting on Sun05/11/23 at 1056, Until 05/12/23 at 1055, For 24 hours EPINEPHrine 1 MG/ML inj 0.3 mg 0.3 mg, Intramuscular, ONCE PRN Other, Hypersensitivity Reaction or Anaphylaxis, Starting on Sun05/11/23 at 1056, Until 05/12/23 at 1055, For 24 hours hEParin 100 UNIT/ML Lock Flush inj 500 Units 500 Units (5 mL), IV Lock, PRN Other, IV Flush, Starting on Sun05/11/23 at 1056, Until 05/12/23 at 1055, For 24 hours, Do not flush if lock, PICC, or central line not in place; IV infusing or unable to flush. Given 05/11/2023 1:02 PM EST 500 Units Hydrocortisone Sod Suc (PF) (Solu-Cortef) inj 100 mg 100 mg, IV Push, ONCE PRN Other, Hypersensitivity Reaction, Starting on Sun05/11/23 at 1056, Until 05/12/23 at 1055, For 24 hours NSS infusion 500 mL, Intravenous, at 50 mL/hr, CONTINUOUS, Starting on Sun05/11/23 at 1200, Until Sun05/11/23 at 2159 Start Infusion 05/11/2023 11:10 AM EST 500 mL 50 mL/hr sodium chloride 0.9 % flush central line 10 mL 10 mL, IV Push, PRN Other, IV Flush, Starting on Sun05/11/23 at 1056, Until 05/12/23 at 1055, For 24 hours, Do not flush if lock, PICC, or central line not in place; IV infusing or unable to flush. Given 05/11/2023 1:02 PM EST 10 mL Inactive Administered Medications - up to 3 most recent administrations Medication Order MAR Action Action Date Dose Rate Site Immune Globulin Human-IVIG 10% (Gamunex-C/Gammagard/Gammaked) infusion 20 g 20 g, IV Piggyback, ONCE, 1 dose, On Sun05/11/23 at 1200, Precerted Brand Product = _Gammunex -C__ Infusion Rate VTBI 0.005 mL/kg/min = 15 mL/hour for 15 minutes 4 mL 0.01 mL/kg/min = 31 mL/hour for 15 minutes 8 mL 0.02 mL/kg/min = 61 mL/hour for 15 minutes 15 mL 0.04 mL/kg/min = 123 mL/hour for 15 minutes 31 mL 0.08 mL/kg/min = 245 mL/hour Use this rate until finished 142 mL Infusion duration = 1.6 hours The initial rate of administration and titration is specific to each IVIG product. Refer to a drug information reference, such as [employer], to include appropriate titration instructions. Rate Change 05/11/2023 12:25 PM EST 245 mL/hr Rate Change 05/11/2023 12:10 PM EST 123 mL/hr Rate Change 05/11/2023 11:55 AM EST 61 mL/hr documented in this encounter Advance Directives Latest [...] and were consensually agreed upon. Care Teams Truck Jumper Relationship Specialty Start Date End Date Steve Quiñones PA-C [address] [place] [phone] PCP - General Physician Linux System Engineer 08/15/21 documented as of this encounter
--- OUTSIDE RECORDS SUMMARY | 2023-06-08 16:58 | External Medical Summary ---
Author Name Unknown Address Unknown Organization K01:[facility] [place] [address] [place] [address] Ave[address] GARCIA [address] Laboratory Report Ordering Provider Test Date Status STEPHAN WALTON 05/31/2023 09:11:18 Final Observation Date Value Abnormality Reference (Units ) Status WBC, Total 05/31/2023 09:11:18 22.91 Above high normal 4.00-10.80 (K/uL) Final RBC 05/31/2023 09:11:18 4.26 3.85-5.15 (M/uL) Final Hemoglobin 05/31/2023 09:11:18 12.4 12.0-15.3 (g/dL) Final HCT 05/31/2023 09:11:18 39.0 36.0-45.2 (%) Final MCV 05/31/2023 09:11:18 91.5 81.5-97.5 (fL) Final MCH 05/31/2023 09:11:18 29.1 27.0-34.0 (pg) Final MCHC 05/31/2023 09:11:18 31.8 32.0-36.0 (g/dL) Final RDW 05/31/2023 09:11:18 13.7 11.5-15.5 (%) Final Platelets 05/31/2023 09:11:18 678 Above high normal 140-400 (K/uL) Final MPV 05/31/2023 09:11:18 9.6 6.6-11.1 (fL) Final Nucleated erythrocytes/100 leukocytes [Ratio] in Blood by Automated count 05/31/2023 09:11:18 0 <=0 (/100 WBCs) Final Performing Location [facility] [place] [address] G[place] [address]
--- OUTSIDE RECORDS SUMMARY | 2023-06-08 16:58 | External Medical Summary | Summary of Care ---
Author Name Unknown Organization [facility] Address [address] [place] [address] Phone [phone] Care Team Providers Care Service Now Developer Name Role Phone Steve Quiñones PA-C Primary Care Provider Encounter Details Date Type Department Care Team (Late st Contact Info) Description 05/29/2023 Orders Only Hematology/Oncology, [facility] [address] [facility] [place] [phone] Aurea Madsen MD 200 [place] [address] Allergies No known active allergiesdocumented as of this encounter (statuses as of 05/29/2023) Medications Medication Sig Dispensed Refills Start Date [...] (Flonase)Indication s:Chronic sinusitis, unspecified location Administer 1 [place] into nostril in the morning and 1 [place] in the evening. In each nostril twice [...] as of this encounter (statuses as of 05/29/2023) Active Problems Problem Noted Date Diagnosed Date [...] as of this encounter (statuses as of 05/29/2023) Resolved Problems Problem Noted Date Diagnosed Date Resolved Date Dehydration 05/12/2020 06/07/2021 documented as of this encounter (statuses as of 05/29/2023) Immunizations Name Administration Dates Next Due Pneumococcal [...] Description 05/31/2023 2:00 PM EST Laboratory Laboratory [address] [place] [phone] [place] [address] 06/01/2023 10:30 AM EST Hem/Onc Treatment Hematology/Oncology Treatment, [address] [address] Belinda, Chair 1 Hem Onc [address] [place] [address] 06/21/2023 2:00 PM EST Laboratory Laboratory [address] [place] [address] [place] [address] 06/22/2023 11:00 AM EST Hem/Onc Treatment Hematology/Oncology Treatment, [address] [address] Belinda, Chair 8 Hem Onc [facility] 200 [facility] [place] [address] 07/02/2023 10:30 AM EST Office Visit Hematology/Oncology [facility] [place] [address] [place] [address] Aurea Madsen MD [address] [place] [address] 09/28/2023 10:20 AM EDT Office Visit Infectious Disease [place] [address] [place] [address] Shaunna Wolfe MD [address] [place] [address] Health Maintenance Due Date Last Done Comments DISCUSS TOBACCO CESSATION (REFER TO SMARTSET #2615) 1965 Hepatitis B (1 of 3 - [...] this encounter Medical Devices Implanted Type Area Air Conditioning Unit Assembler Device Identifier Shelf Expiration Date Model / Serial / Lot Port Power Mri W/8fr Cath - [id number] Implanted:Qty: 1 on 02/13/2020 by Westley Greenfield MD at OR [facility] Right: Chest CR BARD : PERIPHERAL VASCULAR 10/11/2020 [id number] / / [id number] Description:Right IJ documented as of this encounter [...] and were consensually agreed upon. Care Teams Service Now Developer Relationship Specialty Start Date End Date Steve Quiñones PA-C [address] [place] [address] PCP - General Physician Drama Professor 08/15/21 documented as of this encounter
--- OUTSIDE RECORDS SUMMARY | 2023-06-08 16:58 | External Medical Summary ---
Author Name Unknown Address Unknown Organization K01:[facility] [place] [address] [facility] [address] [address] Laboratory Report Ordering Provider Test Date Status STEPHAN WALTON 05/31/2023 09:11:18 Final Observation Date Value Abnormality Reference (Units ) Status SYNC LEUKOCYTES IN BLOOD BY AUTOMATED COUNT 05/31/2023 09:11:18 22.91 Above high normal 4.00-10.80 (K/uL) Final Segs 05/31/2023 09:11:18 85.2 Above high normal 40.0-75.0 (%) Final Lymphs % 05/31/2023 09:11:18 7.6 Below low normal 18.0-42.0 (%) Final Monos 05/31/2023 09:11:18 5.3 1.0-11.0 (%) Final Eosinophils 05/31/2023 09:11:18 0.7 0.0-6.0 (%) Final Basos 05/31/2023 09:11:18 0.5 0.0-2.0 (%) Final Immature Granulocyte, Percent 05/31/2023 09:11:18 0.7 0.0-2.0 (%) Final Absolute Segs 05/31/2023 09:11:18 19.53 Above high normal 1.80-7.70 (K/uL) Final Lymphs, absolute 05/31/2023 09:11:18 1.74 1.00-4.80 (K/ul) Final Monos, Abs 05/31/2023 09:11:18 1.22 Above high normal 0.00-1.10 (K/uL) Final Eos, Abs 05/31/2023 09:11:18 0.16 0.00-0.70 (K/uL) Final Basos, Abs 05/31/2023 09:11:18 0.11 0.00-0.20 (K/uL) Final Immature Granulocytes, Number 05/31/2023 09:11:18 0.15 0.00-0.20 (K/uL) Final Performing Location [facility] [place] [facility] [address]. [facility] [address]
--- OUTSIDE RECORDS SUMMARY | 2023-06-08 16:58 | External Medical Summary | Summary of Care ---
Author Name Unknown Organization [facility] Address [address] [facility] [place] [address] Phone [phone] Care Team Providers Care Hygiene Coordinator Name Role Phone Steve Quiñones PA-C Primary Care Provider Reason for Visit * Reason Comments Outpatient Testing Encounter Details Date Type Department Care Team (Late st Contact Info) Description 05/10/2023 2:00 PM EST Laboratory Laboratory [address] [place] [phone] [place] [address] Follicular lymphoma grade II (HCC) Allergies No known active allergiesdocumented as of this encounter (statuses as of 05/10/2023) Medications Medication Sig Dispensed Refills Start Date [...] (Flonase)Indication s:Chronic sinusitis, unspecified location Administer 1 [place] into nostril in the morning and 1 [place] in the evening. In each nostril twice [...] as of this encounter (statuses as of 05/10/2023) Active Problems Problem Noted Date Diagnosed Date [...] as of this encounter (statuses as of 05/10/2023) Resolved Problems Problem Noted Date Diagnosed Date Resolved Date Dehydration 05/12/2020 06/07/2021 documented as of this encounter (statuses as of 05/10/2023) Immunizations Name Administration Dates Next Due Pneumococcal [...] Care Team (Late st Contact Info) Description 05/11/2023 10:30 AM EST Hem/Onc Treatment Hematology/Oncology Treatment, [address] [address] Belinda, Chair 11 Hem Onc [address] [address] 07/02/2023 10:30 AM EST Office Visit Hematology/Oncology [address] [place] [address] Aurea Madsen MD [address] [place] [address] [place] [address] 09/28/2023 10:20 AM EDT Office Visit Infectious Disease [address] [address] Shaunna Wolfe MD [address] [place] [address] Pending Results Name Type Priority Associated Diagnoses Date /Time LD Lab STAT Follicular lymphoma grade II (HCC) 05/10/2023 8:34 AM EST CBC WITH WBC DIFFERENTIAL Lab STAT Follicular lymphoma grade II (HCC) 05/10/2023 8:34 AM EST COMPREHENSIVE METABOLIC PANEL Lab STAT Follicular lymphoma grade II (HCC) 05/10/2023 8:34 AM EST IMMUNOGLOBULIN QUANTITATIVE Lab STAT Follicular lymphoma grade II (HCC) 05/10/2023 8:34 AM EST CBC Lab STAT Follicular lymphoma grade II (HCC) 05/10/2023 8:34 AM EST DIFFERENTIAL, AUTOMATED Lab STAT Follicular lymphoma grade II (HCC) 05/10/2023 8:34 AM EST Health Maintenance Due Date Last Done Comments DISCUSS TOBACCO CESSATION (REFER TO SMARTSET #3291) 1965 Hepatitis B (1 of 3 - [...] COMPLETED IN PAST YEAR FOR COPD 03/20/2024 03/20/2023 Pneumococcal Vaccine: Pediatrics (0 to 5 Years) and At-Risk Patients (6 to 64 Years) Completed 12/20/2022, 07/28/2016 GARDASIL-HPV IMMUNIZATION SERIES Aged Out No longer eligible b ased on patient's age to complete this topic MENINGOCOCCAL (MENACTRA/MENVEO) Aged Out No longer eligible b ased on patient's age to complete this topic documented as of this encounter Medical Devices Implanted Type Area Crew Car Driver Device Identifier Shelf Expiration Date Model / Serial / Lot Port Power Mri W/8fr Cath - [id number] Implanted:Qty: 1 on 02/13/2020 by Westley Greenfield MD at OR [facility] Right: Chest CR BARD : PERIPHERAL VASCULAR 10/11/2020 [id number] / / [id number] Description:Right IJ documented as of this encounter [...] and were consensually agreed upon. Care Teams Hygiene Coordinator Relationship Specialty Start Date End Date Steve Quiñones PA-C [address] [place] [address] PCP - General Physician Tour Production Supervisor 08/15/21 documented as of this encounter
--- OUTSIDE RECORDS SUMMARY | 2023-06-08 16:59 | External Medical Summary | Summary of Care ---
Author Name Unknown Organization [facility] Address [address] [place] [facility] [place] [address] Phone [phone] Care Team Providers Care Health Teacher Name Role Phone Steve Quiñones PA-C Primary Care Provider Reason for Visit * Reason Onset Date Comments Appointment 04/30/2023 Encounter Details Date Type Department Care Team (Late st Contact Info) Description 04/30/2023 Telephone Hematology/Oncology, [facility] 400 [place] [address] Aurea Madsen MD [address] [place] [address] Appointment Allergies No known active allergiesdocumented as of this encounter (statuses as of 04/30/2023) Medications Medication Sig Dispensed Refills Start Date [...] (Flonase)Indication s:Chronic sinusitis, unspecified location Administer 1 [place] into nostril in the morning and 1 [place] in the evening. In each nostril twice [...] as of this encounter (statuses as of 04/30/2023) Active Problems Problem Noted Date Diagnosed Date [...] as of this encounter (statuses as of 04/30/2023) Resolved Problems Problem Noted Date Diagnosed Date Resolved Date Dehydration 05/12/2020 06/07/2021 documented as of this encounter (statuses as of 04/30/2023) Immunizations Name Administration Dates Next Due Pneumococcal [...] encounter Miscellaneous Notes * Telephone Encounter - Sariah Fenton OSA - 04/30/2023 3:49 PM EST Spoke to Efraín, scheduled labs 05/10, treatment 05/11 * Telephone Encounter - Elisabeth Packer RN - 04/30/2023 3:41 PM EST Called patients daughter- patient had CXR, port tip in correct location. There wasn't anything further that Dr Madsen recommended. Efraín is ok with scheduling next infusion. * Telephone Encounter - Elisabeth Packer RN - 04/30/2023 3:28 PM EST Patient received privigen 04/13/23, no future appts. Patient is due 05/04/23. Scheduling: please call Efraín to schedule for 05/04 or later date - labs "CBCd, CMP, LDH, Ig" - 3 hour appt "gamunex" (Tena) Thanks! * Telephone Encounter - Sherry Reddy OSA - 04/30/2023 9:44 AM EST Daughter Efraín is calling to speak with a nurse about her treatments. She has nothing scheduled right now. She states someone was to call them and haven't yet. Please call Efraín back to discuss. documented in this encounter Plan of Treatment Upcoming Encounters Date Type Department Care Team (Late st Contact Info) Description 05/10/2023 2:00 PM EST Laboratory Laboratory [address] [place] [phone] [place], [address] [place] [address] 05/11/2023 10:30 AM EST Hem/Onc Treatment Hematology/Oncology Treatment, [address] [place] [address] Belinda, Chair 11 Hem Onc [address] [place] [address] 07/02/2023 10:30 AM EST Office Visit Hematology/Oncology [facility] [address] [place] [address] Aurea Madsen MD 200 [facility] [place] [address] 09/28/2023 10:20 AM EDT Office Visit Infectious Disease [address] [address] Shaunna Wolfe MD [address] [place] [address] Health Maintenance Due Date Last Done Comments DISCUSS TOBACCO CESSATION (REFER TO SMARTSET #5805) 1965 Hepatitis B (1 of 3 - [...] this encounter Medical Devices Implanted Type Area Lumber Carrier Operator Device Identifier Shelf Expiration Date Model / Serial / Lot Port Power Mri W/8fr Cath - [id number] Implanted:Qty: 1 on 02/13/2020 by Westley Greenfield MD at OR [facility] Right: Chest CR BARD : PERIPHERAL VASCULAR 10/11/2020 [id number] / / [id number] Description:Right IJ documented as of this encounter [...] and were consensually agreed upon. Care Teams Health Teacher Relationship Specialty Start Date End Date Steve Quiñones PA-C [address] [place] [id number] PCP - General Physician Senior Quality Control Inspector 08/15/21 documented as of this encounter
--- OUTSIDE RECORDS SUMMARY | 2023-06-08 16:59 | External Medical Summary | Summary of Care ---
Author Name Unknown Organization [facility] Address [address] [place] [facility] [place] [place] [address] Phone [phone] Care Team Providers Care Detective And Intelligence Analyst Name Role Phone Steve Quiñones PA-C Primary Care Provider Reason for Visit * Reason Onset Date Comments Appointment 04/30/2023 Encounter Details Date Type Department Care Team (Late st Contact Info) Description 04/30/2023 Telephone Hematology/Oncology, [facility] [address] [place] [address] Aurea Madsen MD [address] [place] [address] Appointment Allergies No known active allergiesdocumented [...] (Flonase)Indication s:Chronic sinusitis, unspecified location Administer 1 [place] into nostril in the morning and 1 [place] in the evening. In each nostril twice [...] Description 05/10/2023 2:00 PM EST Laboratory Laboratory [address] [place] [phone] [place], [address] [place] [address] 05/11/2023 10:30 AM EST Hem/Onc Treatment Hematology/Oncology Treatment, [address] [place] [address] Belinda, Chair 11 Hem Onc [address] [place] [address] 07/02/2023 10:30 AM EST Office Visit Hematology/Oncology [facility] [address] [place] [address] Aurea Madsen MD 200 [place] [address] 09/28/2023 10:20 AM EDT Office Visit Infectious Disease [address] [address] Shaunna Wolfe MD [address] [place] [address] Health Maintenance Due Date Last Done Comments DISCUSS TOBACCO CESSATION (REFER TO SMARTSET #2637) 1965 Hepatitis B (1 of 3 - [...] this encounter Medical Devices Implanted Type Area Box Inspector Device Identifier Shelf Expiration Date Model / Serial / Lot Port Power Mri W/8fr Cath - [id number] Implanted:Qty: 1 on 02/13/2020 by Westley Greenfield MD at OR [facility] Right: Chest CR BARD : PERIPHERAL VASCULAR 10/11/2020 [id number] / / [id number] Description:Right IJ documented as of this encounter [...] and were consensually agreed upon. Care Teams Detective And Intelligence Analyst Relationship Specialty Start Date End Date Steve Quiñones PA-C [address] [place] [address] PCP - General Physician Insole Reinforcer 08/15/21 documented as of this encounter
--- OUTSIDE RECORDS SUMMARY | 2023-06-08 16:59 | External Medical Summary ---
Author Name Unknown Address Unknown Organization K01:LABORATORY C - [address] [address] Laboratory Report Ordering Provider Test Date Status STEPHAN WALTON 05/10/2023 08:34:51 Final Observation Date Value Abnormality Reference (Units ) Status LDH 05/10/2023 08:34:51 160 <=250 (U/L ) Final Performing Location LABORATORY [facility] - [address] [address]
--- OUTSIDE RECORDS SUMMARY | 2023-06-08 16:59 | External Medical Summary ---
Author Name Unknown Address Unknown Organization K01:LABORATORY C - [address] [facility] [address] [place] [address] Laboratory Report Ordering Provider Test Date Status STEPHAN WALTON 05/10/2023 08:34:51 Final Observation Date Value Abnormality Reference (Units ) Status SYNC LEUKOCYTES IN BLOOD BY AUTOMATED COUNT 05/10/2023 08:34:51 12.04 Above high normal 4.00-10.80 (K/uL) Final Segs 05/10/2023 08:34:51 71.5 40.0-75.0 (%) Final Lymphs % 05/10/2023 08:34:51 17.6 Below low normal 18.0-42.0 (%) Final Monos 05/10/2023 08:34:51 8.1 1.0-11.0 (%) Final Eosinophils 05/10/2023 08:34:51 1.2 0.0-6.0 (%) Final Basos 05/10/2023 08:34:51 1.0 0.0-2.0 (%) Final Immature Granulocyte, Percent 05/10/2023 08:34:51 0.6 0.0-2.0 (%) Final Absolute Segs 05/10/2023 08:34:51 8.60 Above high normal 1.80-7.70 (K/uL) Final Lymphs, absolute 05/10/2023 08:34:51 2.12 1.00-4.80 (K/ul) Final Monos, Abs 05/10/2023 08:34:51 0.98 0.00-1.10 (K/uL) Final Eos, Abs 05/10/2023 08:34:51 0.15 0.00-0.70 (K/uL) Final Basos, Abs 05/10/2023 08:34:51 0.12 0.00-0.20 (K/uL) Final Immature Granulocytes, Number 05/10/2023 08:34:51 0.07 0.00-0.20 (K/uL) Final Performing Location LAB[facility]ATORY [facility] [place] - [facility] [address]. [facility] [address]
--- OUTSIDE RECORDS SUMMARY | 2023-06-08 16:59 | External Medical Summary | Summary of Care ---
Author Name Unknown Organization [facility] Address [address] [facility] [place] [address] Phone [phone] Care Team Providers Care Ferryboat Operator Cable Name Role Phone Steve Quiñones PA-C Primary Care Provider Encounter Details Date Type Department Care Team (Late st Contact Info) Description 05/08/2023 Orders Only Hematology/Oncology, [facility] 400 [facility] [place] [phone] Aurea Madsen MD 200 [place] [address] Allergies No known active allergiesdocumented as of this encounter (statuses as of 05/08/2023) Medications Medication Sig Dispensed Refills Start Date [...] (Flonase)Indication s:Chronic sinusitis, unspecified location Administer 1 [place] into nostril in the morning and 1 [place] in the evening. In each nostril twice [...] as of this encounter (statuses as of 05/08/2023) Active Problems Problem Noted Date Diagnosed Date [...] as of this encounter (statuses as of 05/08/2023) Resolved Problems Problem Noted Date Diagnosed Date Resolved Date Dehydration 05/12/2020 06/07/2021 documented as of this encounter (statuses as of 05/08/2023) Immunizations Name Administration Dates Next Due Pneumococcal [...] Description 05/10/2023 2:00 PM EST Laboratory Laboratory [address] [place] [phone] [address] [place] [address] 05/11/2023 10:30 AM EST Hem/Onc Treatment Hematology/Oncology Treatment, [place] [address] [facility] [place] [address] Belinda, Chair 11 Hem Onc [address] [place] [address] 07/02/2023 10:30 AM EST Office Visit Hematology/Oncology [facility] [place] [place] [address] Aurea Madsen MD [address] [place] [address] [place] [address] 09/28/2023 10:20 AM EDT Office Visit Infectious Disease [address] [address] Shaunna Wolfe MD [address] [place] [address] Health Maintenance Due Date Last [...] this encounter Medical Devices Implanted Type Area Die Lay Out Worker Device Identifier Shelf Expiration Date Model / Serial / Lot Port Power Mri W/8fr Cath - [id number] Implanted:Qty: 1 on 02/13/2020 by Westley Greenfield MD at OR [facility] Right: Chest CR BARD : PERIPHERAL VASCULAR 10/11/2020 [id number] / / [id number] Description:Right IJ documented as of this encounter [...] and were consensually agreed upon. Care Teams Ferryboat Operator Cable Relationship Specialty Start Date End Date Steve Quiñones PA-C [address] [place] [id number] PCP - General Physician Systems Development Consultant 08/15/21 documented as of this encounter
--- OUTSIDE RECORDS SUMMARY | 2023-06-08 16:59 | External Medical Summary ---
Author Name Unknown Address Unknown Organization K01:LABORATORY C - [address] [place] [address] Laboratory Report Ordering Provider Test Date Status STEPHAN WALTON 05/10/2023 08:34:51 Final Observation Date Value Abnormality Reference (Units ) Status IgG 05/10/2023 08:34:51 [id number] ( mg/dL) Final IgA 05/10/2023 08:34:51 <5 Below low normal 70- 400 (mg/dL) Final IgM 05/10/2023 08:34:51 <5 Below low normal 40- 230 (mg/dL) Final Performing Location LABORATORY [facility] - [address] [place] [address]
--- OUTSIDE RECORDS SUMMARY | 2023-06-08 16:59 | External Medical Summary ---
Author Name Unknown Address Unknown Organization K01:[facility] [place] [facility] [address] [facility] [address] [place] [address] Laboratory Report Ordering Provider Test Date Status STEPHAN WALTON 05/10/2023 08:34:51 Final Observation Date Value Abnormality Reference (Units ) Status WBC, Total 05/10/2023 08:34:51 12.04 Above high normal 4.00-10.80 (K/uL) Final RBC 05/10/2023 08:34:51 4.41 3.85-5.15 (M/uL) Final Hemoglobin 05/10/2023 08:34:51 13.5 12.0-15.3 (g/dL) Final HCT 05/10/2023 08:34:51 41.8 36.0-45.2 (%) Final MCV 05/10/2023 08:34:51 94.8 81.5-97.5 (fL) Final MCH 05/10/2023 08:34:51 30.6 27.0-34.0 (pg) Final MCHC 05/10/2023 08:34:51 32.3 32.0-36.0 (g/dL) Final RDW 05/10/2023 08:34:51 13.8 11.5-15.5 (%) Final Platelets 05/10/2023 08:34:51 452 Above high normal 140-400 (K/uL) Final MPV 05/10/2023 08:34:51 10.0 6.6-11.1 (fL) Final Nucleated erythrocytes/100 leukocytes [Ratio] in Blood by Automated count 05/10/2023 08:34:51 0 <=0 (/100 WBCs) Final Performing Location [facility] [place] [address] [place] [address]
--- NOTE | 2023-06-08 17:34 | Electrocardiogram Report ---
Test Reason : Blood Pressure : / mmHG Vent. Rate : 112 BPM Atrial Rate : 112 BPM P-R Int : 112 ms QRS Dur : 080 ms QT Int : 472 ms P-R-T Axes : 000 084 074 degrees QTc Int : 644 ms Sinus tachycardia Prolonged QT Abnormal ECG When compared with ECG of 28-NOV-2022 13:28, No significant change was found Confirmed by Angel Arevalo ([id number]) on 06/08/2023 5:34:16 PM Referred By: REFERRED SELF Confirmed By:Supa Arevalo
[2023-06-08] MEDS: PIPERACILLIN/TAZOBACTAM 4.5 GM in DEXTROSE 5% MINI-B 100 ML IV SCH (18:39)
[2023-06-08 18:54] LABS: Potassium 2.8 mmol/L (3.5-5.1)
[2023-06-08 19:00] LABS: Creatinine Clr Calc Pharmacy 76.5 ml/min; Est GFR (African American) 113.9 ml/min; Est GFR (Non-African American) 98.3 ml/min
[2023-06-08] MEDS ORDERED: VANCOMYCIN HCL 1,000 MG in SODIUM CHLORIDE 0.9% 250 ML IV SCH (19:00)
[2023-06-08] MEDS: ACETYLCYSTEINE 20% INHAL SOLN 4ML ***DISPENSED BY RESP. INH SCH (20:03)
[2023-06-08] MEDS: SODIUM CHLOR 7% 4 ML NEB NEB SCH (20:03)
[2023-06-08] MEDS: AZELASTINE HCL 0.1% NASAL 200 SPRAYS/27,400 MCG BTL SCH (20:27)
[2023-06-08] MEDS: guaiFENesin 600 MG TABCR PO SCH (20:27)
[2023-06-08] MEDS: FLUTICASONE PROPIONATE NA SPR 16 GM BTL SCH (20:32)
[2023-06-08] MEDS ORDERED: POTASSIUM CHLORIDE CRTAB 20 MEQ TABCR PO SCH (21:00)
[2023-06-09] MEDS: PIPERACILLIN/TAZOBACTAM 4.5 GM in DEXTROSE 5% MINI-B 100 ML IV SCH ×3 (01:08→18:02)
[2023-06-09] MEDS: ALBUT/IPRATROP 3MG/0.5MG NEB 3 ML VIAL NEB SCH ×6 (04:28→22:30)
[2023-06-09] MEDS: ACETYLCYSTEINE 20% INHAL SOLN 4ML ***DISPENSED BY RESP. INH SCH ×2 (07:02→19:32)
[2023-06-09] MEDS: FLUTICASONE PROPIONATE NA SPR 16 GM BTL SCH ×2 (08:22→20:00)
[2023-06-09] MEDS: AZELASTINE HCL 0.1% NASAL 200 SPRAYS/27,400 MCG BTL SCH ×2 (08:22→20:01)
[2023-06-09] MEDS: BENZONATATE 100 MG CAPSULE PO SCH ×3 (08:23→20:00)
[2023-06-09] MEDS: FAMOTIDINE 40 MG TABLET PO SCH (08:24)
[2023-06-09] MEDS: PANTOprazole 40 MG TAB PO SCH (08:24)
[2023-06-09] MEDS: LORATADINE 10 MG TAB PO SCH (08:24)
[2023-06-09] MEDS: guaiFENesin 600 MG TABCR PO SCH ×2 (08:24→20:00)
[2023-06-09] MEDS: NSS + 20MEQ KCL 20 MEQ/1,000 ML BAG IV SCH ×2 (09:02→18:02)
[2023-06-09 09:13] LABS: Anion Gap 10 (3-11); BUN Creatinine Ratio 6.9 (10-20); Blood Urea Nitrogen 4 mg/dl (6-23); Calcium 8.4 mg/dl (8.6-10.3); Carbon Dioxide 26 mmol/L (21-32); Chloride 103 mmol/L (98-107); Creatinine Clr Calc Pharmacy 86.7 ml/min; Est GFR (African American) 119.4 ml/min; Glucose 130 mg/dl (70-99(Fasting)); Magnesium 1.8 mg/dl (1.7-2.4); Potassium 3.4 mmol/L (3.5-5.1); Sodium 139 mmol/L (136-145)
[2023-06-09 09:14] LABS: Immunoglobulin A < 10.0 mg/dl (70-400); Immunoglobulin G 277.1 mg/dl (635-1741); Immunoglobulin M < 20.0 mg/dl (45-281)
[2023-06-09 09:30] LABS: Hematocrit (blood only) 29.6 % (37.0-47.0); Hemoglobin 9.6 g/dl (12.0-16.0); Mean Corpuscular Hgb Conc 32.4 g/dL (32.0-36.0); Mean Corpuscular Volume 89.4 fL (80.0-100.0); Mean Platelet Volume 9.6 fL (9.4-12.4); Platelet Count 419 K/uL (130-400); RDW Coefficient of Variation 14.3 % (11.5-14.5); RDW Standard Deviation 46.1 fL (36.4-46.3); Red Blood Count 3.31 M/uL (4.20-5.40); White Blood Count 14.26 K/ul (4.8-10.8)
--- NOTE | 2023-06-09 10:12 | Electrocardiogram Report ---
Test Reason : Blood Pressure : / mmHG Vent. Rate : 095 BPM Atrial Rate : 095 BPM P-R Int : 140 ms QRS Dur : 092 ms QT Int : 384 ms P-R-T Axes : 082 081 069 degrees QTc Int : 482 ms Normal sinus rhythm Prolonged QT Nonspecific ST abnormality Abnormal ECG When compared with ECG of 08-JUN-2023 11:19, Non-specific change in ST segment in Inferior leads Non-specific change in ST segment in Lateral leads T wave inversion less evident in Anterior leads Confirmed by Anibal Yuan ([id number]) on 06/09/2023 10:12:19 AM Referred By: REFERRED SELF Confirmed By:Anibal Yuan
[2023-06-09] MEDS: SODIUM CHLOR 7% 4 ML NEB NEB SCH ×2 (11:06→19:32)
[2023-06-09] MEDS ORDERED: POTASSIUM CHLORIDE CRTAB 20 MEQ TABCR PO ONE (11:13)
--- NOTE | 2023-06-09 11:26 | Pulmonology Progress Note ---
Date of Service June 09, 2023 Assessment & Plan (1) Multifocal pneumonia: (2) Chronic obstructive pulmonary disease: (3) Bronchiectasis: Plan CT chest 06/08/2023 personally reviewed: Bilateral apical pleural scarring Tree-in-bud opacities appreciated bilaterally upper and lower lobes, More prominent in the lower lobes Dense consolidative process in the right lower lobe Minimal bronchiectasis Hiatal hernia No significant mediastinal lymphadenopathy --Multilobar pneumonia Dense consolidative process in the right lower lobe with tree-in-bud opacities bilaterally Has hypogammaglobulinemia which does predispose her to recurrent infection Procalcitonin 1.11 Respiratory bio fire negative for everything Nasal MRSA negative Patient does have chronic tree-in-bud opacities bilaterally dating back to May 2021 and had they have progressively gotten worse --Patient carries a diagnosis of CANDIDO Notes from primary rn orthopedic reviewed And has been following up with ID, never been treated for it Sputum culture in the past has grown MAC on 09/09/2021 and Mycobacterium gordonae on 02/08/2022. This is only 1 sputum culture and is not diagnostic of MAC --COPD Supposedly on Anoro at home --History of bronchiectasis Would benefit from chest vest therapy at home Plan: Continue with hypertonic saline and Mucomyst nebulized. Would recommend using them even at home Patient needs good upper airway clearance technique along with flutter valve. If she is not able to bring up phlegm with that then I will recommend chest vest therapy Follow sputum culture, follow-up urine Legionella Repeat AFB daily for 3 days Please note the above document was generated using voice recognition software. It may contain grammatical, syntax or spelling errors.Any formal questions or concerns about the content, text or information contained within the body of this dictation should be directly addressed to the provider for clarification. Admission and Anticipated Discharge Date Admission Date: June 08, 2023 Subjective Patient seen and examined at bedside. No acute distress, notable since overnight She is feeling much better. Has been tolerating the nebulizers without any issues She was actually saturating 95-96% on room air Denies any chest pain. No headache, blurry vision Appetite is fair Review of Systems 2 Review of Systems: All systems reviewed & are unremarkable except as noted in Subjective Physical Exam 2 Physical Exam: Constitutional: No acute distress HEENT: EOMI, PERRLA Respiratory system: Decreased air entry bilaterally, no wheeze, rhonchi, positive crackles bilaterally CVS: S1-S2 positive, no murmurs or gallops Abdomen: Soft, nontender, nondistended, positive bowel sounds x4 Extremities: +2 pulses bilaterally radialis/ dorsalis pedis, no cyanosis, no edema Neuro: Awake alert oriented x3 Psych: Normal mood and affect G/U: No Casey Skin: no rashes, warm and dry Lymphatic: no cervical or axillary lymphadenopathy Results & Data Results & Data Vital Signs (Past 12 Hours) Vital Signs Temp Pulse Pulse Resp BP Pulse Ox O2 Del Method 06/09/23 11:07 90 18 93 Room Air 06/09/23 08:28 Nasal Cannula 06/09/23 08:28 91 H 06/09/23 08:08 36.6 C 96 H 20 94/56 L 100 Nasal Cannula 06/09/23 07:04 91 H 18 90 Nasal Cannula 06/09/23 04:29 92 H 18 99 Nasal Cannula 06/09/23 02:32 36.5 C 90 16 90/55 L 97 Nasal Cannula O2 Flow Rate 06/09/23 11:07 06/09/23 08:28 2 06/09/23 08:28 06/09/23 08:08 2.0 06/09/23 07:04 1 06/09/23 04:29 2 06/09/23 02:32 2 Laboratory Results 06/09/23 08:31 06/09/23 08:31 PG Care Time/CCT Total # of Minutes Spent Total Time Spent with Patient: Total time spent is greater than 50% in coordination of care (as documented) at patient's floor/unit and/or counseling patient: Coding Level of Care Code 02068 SUB INP/OBS CARE 3/50MIN Diagnoses Multifocal pneumonia J18.9 Chronic obstructive pulmonary disease J44.9 Bronchiectasis J47.9
--- NOTE | 2023-06-09 12:50 | Hospitalist Progress Note ---
Date of Service June 09, 2023 Assessment & Plan (1) Multifocal pneumonia: (2) Chronic obstructive pulmonary disease: (3) Follicular lymphoma: (4) Elevated troponin: (5) Hypomagnesemia: (6) Hypokalemia: Plan: Patient is a 58 yr female with PMHx of follicular lymphoma grade 3 in remission with her last chemo in September 2021, achalasia of esophagus, chronic infusion therapy with IVIG, restless leg, hypogammaglobinemia. Symptoms of ROMAN, worsening/productive mucous ~2 weeks, intensified SOB at rest and ROMAN within past 3 to 4 days. Sepsis Multifocal Pneumonia COPD Bronchiectasis H/O CANDIDO Abnormal urinalysis: ? UTI Mild troponin elevation--likely type II [place] secondary to above --CT Chest:Extensive airspace opacities throughout the lungs, including dense consolidation within the right lower lobe. The findings suggest pneumonia or aspiration pneumonitis. Associated bronchial wall thickening and partially occluded bronchi. The findings have increased when compared to prior CT of February 08, 2022. Right midlung density on chest radiograph performed earlier today was due to airspace opacity. Small right pleural effusion. --Biofire Negative --Urine for Legionella: pending --Blood Cultures: No growth to date -- Sputum for AFB pending --Urine culture pending --Normal lactate, elevated procalcitonin -- Continue Zosyn Continue IV fluids Appreciate pulmonology input Aggressive pulmonary hygiene--Mucomyst, flutter, Mucinex Also on hypertonic saline nebs Supplemental oxygen as needed Patient will require new tubing/nebulizer equipment prior to discharge Hypokalemia Hypomagnesemia Replete electrolytes as needed H/O Follicular lymphoma in remission on IVIG therapy Follows with Dr. Madsen Will need IVIG treatment upon discharge/when appropriate Thrombocytosis Likely reactive due to infection Platelet count back to baseline Monitor Hyponatremia Acute due to dehydration Improved with IV fluids Monitor Achalasia Minced and moist diet Aspiration precaution Continue PPI, famotidine DVT Px: Heparin SQ CODE STATUS: FULL CODE (7) Bronchiectasis: (8) Sepsis: (9) Mycobacterium avium infection: (10) Immunodeficiency: (11) Tobacco abuse: Admission and Anticipated Discharge Date Admission Date: June 08, 2023 Subjective Patient is seen and examined at bedside Less cough, dyspnea when compared yesterday States having right-sided chest tightness with cough Denies any nausea, vomiting, abdominal pain Saturating low 90s on 2 L supplemental oxygen Review of Systems Review of Systems: All systems reviewed & are unremarkable except as noted in Subjective Physical Exam Physical Exam: Physical Exam: Vitals signs as noted above General Appearance:Thin, Frail, no apparent distress, chronic ill Head: normocephalic, Atraumatic Eyes: normal inspection, EOMI Neck: supple, Trachea midline Respiratory/Chest: Decreased breath sounds, CTA, No accessory muscle use,+ Port Cardiovascular: S1, S2, No murmur Abdomen/GI:Soft, Non tender, Bowel sounds present Extremities/Musculoskeletal:normal inspection, no edema Neurologic/Psych:AAOX3, grossly no focal neurological deficits Skin: normal color, warm Results & Data Results & Data Vital Signs (Past 12 Hours) Vital Signs Temp Pulse Pulse Resp BP BP Pulse Ox 06/09/23 11:59 36.4 C L 101 H 18 107/71 06/09/23 11:07 90 18 93 06/09/23 08:28 06/09/23 08:28 91 H 06/09/23 08:08 36.6 C 96 H 20 94/56 L 100 06/09/23 07:04 91 H 18 90 06/09/23 04:29 92 H 18 99 06/09/23 02:32 36.5 C 90 16 90/55 L 97 O2 Del Method O2 Flow Rate 06/09/23 11:59 Nasal Cannula 2 06/09/23 11:07 Room Air 06/09/23 08:28 Nasal Cannula 2 06/09/23 08:28 06/09/23 08:08 Nasal Cannula 2.0 06/09/23 07:04 Nasal Cannula 1 06/09/23 04:29 Nasal Cannula 2 06/09/23 02:32 Nasal Cannula 2 Laboratory Results Short CBC 06/09/23 06/09/23 Range/Units 07:08 08:31 WBC Cancelled 14.26 H D Hgb Cancelled 9.6 L Hct Cancelled 29.6 L Plt Count Cancelled 419 H BMP 06/08/23 06/09/23 06/09/23 17:34 07:08 08:31 Sodium 131 L Cancelled 139 Potassium 2.8 L Cancelled 3.4 L D Chloride 94 L Cancelled 103 Carbon Dioxide 26 Cancelled 26 BUN 6 Cancelled 4 L Creatinine 0.67 Cancelled 0.58 L Glucose 188 H Cancelled 130 H Calcium 8.0 L Cancelled 8.4 L Urine 06/08/23 Range/Units Unknown Urine Color Yellow Urine Appearance Cloudy A (Clear) Urine pH 5.5 (4.5-7.5) Ur Specific [place] 1.017 (1.000-1.030) Urine Protein 1+ H (Negative) Urine Glucose (UA) Negative (Negative) (3) Follicular lymphoma Follicular lymphoma type: unspecified follicular type Lymphoma site: unspecified region Qualified Code(s): C82.90 - Follicular lymphoma, unspecified, unspecified site
[2023-06-09] MEDS ORDERED: HEPARIN 100 UNIT/ML 5ML FLUSH FLUSH PRN (15:52)
[2023-06-09] MEDS: HEPARIN SOD 5,000 UNIT/0.5 ML VIAL SQ SCH (20:00)
[2023-06-10] MEDS: PIPERACILLIN/TAZOBACTAM 4.5 GM in DEXTROSE 5% MINI-B 100 ML IV SCH ×3 (01:28→17:03)
[2023-06-10] MEDS: ALBUT/IPRATROP 3MG/0.5MG NEB 3 ML VIAL NEB SCH ×6 (03:19→23:04)
[2023-06-10] MEDS: SODIUM CHLOR 7% 4 ML NEB NEB SCH ×2 (07:14→20:19)
[2023-06-10] MEDS: ACETYLCYSTEINE 20% INHAL SOLN 4ML ***DISPENSED BY RESP. INH SCH (07:14)
[2023-06-10 08:21] LABS: Hematocrit (blood only) 30.5 % (37.0-47.0); Hemoglobin 9.9 g/dl (12.0-16.0); Mean Corpuscular Hemoglobin 29.2 pg (25.0-34.0); Mean Corpuscular Hgb Conc 32.5 g/dL (32.0-36.0); Mean Platelet Volume 9.7 fL (9.4-12.4); Platelet Count 478 K/uL (130-400); RDW Coefficient of Variation 14.4 % (11.5-14.5); RDW Standard Deviation 47.6 fL (36.4-46.3); Red Blood Count 3.39 M/uL (4.20-5.40); White Blood Count 12.04 K/ul (4.8-10.8)
[2023-06-10] MEDS: AZELASTINE HCL 0.1% NASAL 200 SPRAYS/27,400 MCG BTL SCH ×2 (08:21→20:40)
[2023-06-10] MEDS: FAMOTIDINE 40 MG TABLET PO SCH (08:21)
[2023-06-10] MEDS: FLUTICASONE PROPIONATE NA SPR 16 GM BTL SCH ×2 (08:21→20:40)
[2023-06-10] MEDS: BENZONATATE 100 MG CAPSULE PO SCH ×3 (08:21→20:40)
[2023-06-10] MEDS: HEPARIN SOD 5,000 UNIT/0.5 ML VIAL SQ SCH ×2 (08:22→20:41)
[2023-06-10] MEDS: LORATADINE 10 MG TAB PO SCH (08:22)
[2023-06-10] MEDS: guaiFENesin 600 MG TABCR PO SCH ×2 (08:22→20:40)
[2023-06-10] MEDS: PANTOprazole 40 MG TAB PO SCH (08:22)
[2023-06-10 08:40] LABS: BUN Creatinine Ratio 5.5 (10-20); Calcium 8.6 mg/dl (8.6-10.3); Creatinine Clr Calc Pharmacy 94.1 ml/min; Est GFR (African American) 121.5 ml/min; Est GFR (Non-African American) 104.9 ml/min; Magnesium 1.3 mg/dl (1.7-2.4); Potassium 3.5 mmol/L (3.5-5.1)
[2023-06-10] MEDS ORDERED: POTASSIUM CHLORIDE CRTAB 20 MEQ TABCR PO ONE (08:59)
[2023-06-10] MEDS: MAGNESIUM SULFATE / D5W 1 GM/100 ML BAG IV SCH ×2 (10:26→12:37)
--- NOTE | 2023-06-10 16:05 | Hospitalist Progress Note ---
Date of Service June 10, 2023 Assessment & Plan (1) Multifocal pneumonia: (2) Chronic obstructive pulmonary disease: (3) Follicular lymphoma: (4) Elevated troponin: (5) Hypomagnesemia: (6) Hypokalemia: Plan: Patient is a 58 yr female with PMHx of follicular lymphoma grade 3 in remission with her last chemo in September 2021, achalasia of esophagus, chronic infusion therapy with IVIG, restless leg, hypogammaglobinemia. Symptoms of ROMAN, worsening/productive mucous ~2 weeks, intensified SOB at rest and ROMAN within past 3 to 4 days. Sepsis Multifocal Pneumonia COPD Bronchiectasis H/O CANDIDO Abnormal urinalysis: Ruled out UTI Mild troponin elevation--likely type II [place] secondary to above --CT Chest:Extensive airspace opacities throughout the lungs, including dense consolidation within the right lower lobe. The findings suggest pneumonia or aspiration pneumonitis. Associated bronchial wall thickening and partially occluded bronchi. The findings have increased when compared to prior CT of February 08, 2022. Right midlung density on chest radiograph performed earlier today was due to airspace opacity. Small right pleural effusion. --Biofire Negative --Urine for Legionella: pending --Blood Cultures: No growth to date -- Sputum for AFB pending --Urine culture: Negative --Normal lactate, elevated procalcitonin -- Continue Zosyn Continue IV fluids Appreciate pulmonology input Aggressive pulmonary hygiene--Mucomyst, flutter, Mucinex Also on hypertonic saline nebs Supplemental oxygen as needed Patient will require new tubing/nebulizer equipment prior to discharge Blood pressure usually runs low noted on prior admissions Clinically improving Hypokalemia Hypomagnesemia Replete electrolytes as needed H/O Follicular lymphoma in remission on IVIG therapy Follows with Dr. Madsen Will need IVIG treatment upon discharge/when appropriate Thrombocytosis Likely reactive due to infection Platelet count back to baseline Monitor Hyponatremia Acute due to dehydration Improved with IV fluids Monitor Achalasia Minced and moist diet Aspiration precaution Continue PPI, famotidine Speech therapy evaluation requested DVT Px: Heparin SQ CODE STATUS: FULL CODE (7) Bronchiectasis: (8) Sepsis: (9) Mycobacterium avium infection: (10) Immunodeficiency: (11) Tobacco abuse: Admission and Anticipated Discharge Date Admission Date: June 08, 2023 Subjective Patient is seen and examined at bedside Subjectively feels better today Still has cough with expectoration Less dyspnea today Poor oral intake Denies any chest pain, nausea, vomiting, abdominal pain Review of Systems Review of Systems: All systems reviewed & are unremarkable except as noted in Subjective Physical Exam Physical Exam: Physical Exam: Vitals signs as noted above General Appearance:Thin, Frail, no apparent distress, chronic ill Head: normocephalic, Atraumatic Eyes: normal inspection, EOMI Neck: supple, Trachea midline Respiratory/Chest: Decreased breath sounds, CTA, No accessory muscle use,+ Port Cardiovascular: S1, S2, No murmur Abdomen/GI:Soft, Non tender, Bowel sounds present Extremities/Musculoskeletal:normal inspection, no edema Neurologic/Psych:AAOX3, grossly no focal neurological deficits Skin: normal color, warm Results & Data Results & Data Vital Signs (Past 12 Hours) Vital Signs Temp Pulse Pulse Resp BP Pulse Ox O2 Del Method 06/10/23 14:27 89 14 100 Room Air 06/10/23 11:45 36.6 C 93 H 18 94/54 L 97 Room Air 06/10/23 09:59 96 H 14 94 Room Air 06/10/23 08:30 92 H 06/10/23 07:53 36.5 C 102 H 18 101/60 94 Room Air 06/10/23 07:15 90 18 97 Room Air 06/10/23 04:07 36.5 C 98 H 20 93/57 L 95 Room Air FiO2 06/10/23 14:27 21 06/10/23 11:45 06/10/23 09:59 21 06/10/23 08:30 06/10/23 07:53 06/10/23 07:15 06/10/23 04:07 Laboratory Results Short CBC 06/10/23 Range/Units 07:48 WBC 12.04 H (4.8-10.8) K/ul Hgb 9.9 L (12.0-16.0) g/dl Hct 30.5 L (37.0-47.0) % Plt Count 478 H (130-400) K/uL BMP 06/10/23 07:48 Sodium 139 Potassium 3.5 Chloride 105 Carbon Dioxide 25 BUN 3 L Creatinine 0.55 L Glucose 109 H Calcium 8.6 (3) Follicular lymphoma Follicular lymphoma type: unspecified follicular type Lymphoma site: unspecified region Qualified Code(s): C82.90 - Follicular lymphoma, unspecified, unspecified site
--- NOTE | 2023-06-10 16:28 | Pulmonology Progress Note ---
Date of Service June 10, 2023 Assessment & Plan (1) Multifocal pneumonia: (2) Chronic obstructive pulmonary disease: (3) Bronchiectasis: Plan CT chest 06/08/2023 personally reviewed: Bilateral apical pleural scarring Tree-in-bud opacities appreciated bilaterally upper and lower lobes, More prominent in the lower lobes Dense consolidative process in the right lower lobe Minimal bronchiectasis Hiatal hernia No significant mediastinal lymphadenopathy --Multilobar pneumonia Dense consolidative process in the right lower lobe with tree-in-bud opacities bilaterally Has hypogammaglobulinemia which does predispose her to recurrent infection Procalcitonin 1.11 Respiratory bio fire negative for everything Nasal MRSA negative Patient does have chronic tree-in-bud opacities bilaterally dating back to May 2021 and had they have progressively gotten worse --Patient carries a diagnosis of CANDIDO Notes from primary student activities director reviewed And has been following up with ID, never been treated for it Sputum culture in the past has grown MAC on 09/09/2021 and Mycobacterium gordonae on 02/08/2022. This is only 1 sputum culture and is not diagnostic of MAC --COPD Supposedly on Anoro at home --History of bronchiectasis Continue flutter Plan: Continue with hypertonic saline and flutter Follow sputum culture, follow-up urine Legionella. Continue broad-spectrum antibiotics. Would recommend a 14-day course of Levaquin. Can likely DC home tomorrow. Please note the above document was generated using voice recognition software. It may contain grammatical, syntax or spelling errors.Any formal questions or concerns about the content, text or information contained within the body of this dictation should be directly addressed to the provider for clarification. Admission and Anticipated Discharge Date Admission Date: June 08, 2023 Subjective Patient seen and examined. No significant change compared to yesterday. Saturating in the mid 90s on room air. Continues to cough up brown sputum. Review of Systems Review of Systems: All systems reviewed & are unremarkable except as noted in HPI & below Physical Exam Physical Exam: Constitutional: No acute distress HEENT: EOMI, PERRLA Respiratory system: Decreased air entry bilaterally, no wheeze, rhonchi, positive crackles bilaterally CVS: S1-S2 positive, no murmurs or gallops Abdomen: Soft, nontender, nondistended, positive bowel sounds x4 Extremities: +2 pulses bilaterally radialis/ dorsalis pedis, no cyanosis, no edema Neuro: Awake alert oriented x3 Psych: Normal mood and affect G/U: No Casey Skin: no rashes, warm and dry Lymphatic: no cervical or axillary lymphadenopathy Results & Data Results & Data Vital Signs (Past 12 Hours) Vital Signs Temp Pulse Pulse Resp BP Pulse Ox O2 Del Method 06/10/23 16:12 36.5 C 103 H 18 99/63 L 93 Room Air 06/10/23 14:27 89 14 100 Room Air 06/10/23 11:45 36.6 C 93 H 18 94/54 L 97 Room Air 06/10/23 09:59 96 H 14 94 Room Air 06/10/23 08:30 92 H 06/10/23 07:53 36.5 C 102 H 18 101/60 94 Room Air 06/10/23 07:15 90 18 97 Room Air FiO2 06/10/23 16:12 06/10/23 14:27 21 06/10/23 11:45 06/10/23 09:59 21 06/10/23 08:30 06/10/23 07:53 06/10/23 07:15 PG Care Time/CCT Total # of Minutes Spent Total Time Spent with Patient: Total time spent is greater than 50% in coordination of care (as documented) at patient's floor/unit and/or counseling patient: Coding Level of Care Code 93941 SUB INP/OBS CARE 06/07MIN Diagnoses Multifocal pneumonia J18.9 Chronic obstructive pulmonary disease J44.9 Bronchiectasis J47.9
[2023-06-10] MEDS: MAGNESIUM CHLORIDE W/CALCIUM 64MG DELAYED REL TAB PO SCH (20:40)
[2023-06-11] MEDS: PIPERACILLIN/TAZOBACTAM 4.5 GM in DEXTROSE 5% MINI-B 100 ML IV SCH ×3 (01:27→19:17)
[2023-06-11] MEDS: ALBUT/IPRATROP 3MG/0.5MG NEB 3 ML VIAL NEB SCH ×6 (02:27→23:13)
[2023-06-11 07:02] LABS: Hematocrit (blood only) 29.9 % (37.0-47.0); Hemoglobin 9.8 g/dl (12.0-16.0); Mean Corpuscular Hemoglobin 28.7 pg (25.0-34.0); Mean Corpuscular Hgb Conc 32.8 g/dL (32.0-36.0); Mean Corpuscular Volume 87.7 fL (80.0-100.0); Mean Platelet Volume 9.3 fL (9.4-12.4); Platelet Count 498 K/uL (130-400); RDW Coefficient of Variation 14.2 % (11.5-14.5); RDW Standard Deviation 45.5 fL (36.4-46.3); Red Blood Count 3.41 M/uL (4.20-5.40)
[2023-06-11] MEDS: SODIUM CHLOR 7% 4 ML NEB NEB SCH ×2 (07:09→19:38)
[2023-06-11 07:21] LABS: BUN Creatinine Ratio 5.5 (10-20); Calcium 8.8 mg/dl (8.6-10.3); Creatinine Clr Calc Pharmacy 91.6 ml/min; Est GFR (African American) 121.5 ml/min; Est GFR (Non-African American) 104.9 ml/min; Magnesium 1.6 mg/dl (1.7-2.4)
[2023-06-11] MEDS: FLUTICASONE PROPIONATE NA SPR 16 GM BTL SCH ×2 (08:03→20:46)
[2023-06-11] MEDS: AZELASTINE HCL 0.1% NASAL 200 SPRAYS/27,400 MCG BTL SCH ×2 (08:03→20:45)
[2023-06-11] MEDS: BENZONATATE 100 MG CAPSULE PO SCH ×3 (08:04→20:51)
[2023-06-11] MEDS: FAMOTIDINE 40 MG TABLET PO SCH (08:04)
[2023-06-11] MEDS: guaiFENesin 600 MG TABCR PO SCH ×2 (08:04→20:50)
[2023-06-11] MEDS: LORATADINE 10 MG TAB PO SCH (08:05)
[2023-06-11] MEDS: PANTOprazole 40 MG TAB PO SCH (08:05)
[2023-06-11] MEDS: HEPARIN SOD 5,000 UNIT/0.5 ML VIAL SQ SCH ×2 (08:05→20:50)
[2023-06-11] MEDS: MAGNESIUM CHLORIDE W/CALCIUM 64MG DELAYED REL TAB PO SCH ×2 (08:05→20:46)
[2023-06-11] MEDS: ACETAMINOPHEN 325 MG TAB PO PRN ×2 (12:16→20:49)
--- NOTE | 2023-06-11 13:45 | Consultation ---
Date of Consultation June 11, 2023 History of Present Illness Attending Physician: Kirby Case MD History of Present Illness Consulted for odynophagia. History obtained from pt and med records. Pt is a fair historian, and unaware of details of her med history. 58 yo female with PMH sig lymphoma on chemo; hypogammaglobulinemia on chronic IVIG; ?? achalasia, followed in [place] and getting dilations "every 6 months," last 4 mos ago; h/o COPD/bronciehctasis and CANDIDO per pum notes admit for SOB thought the be secondary to multilobar pneumonia rx'd Zosyn. We are consulted for "odynophagia." Pt tells me that she has sharp severe pain in her left jaw that started 1.5 days ago. Pain is episodic, a few times a day, lasting a few mins and then completely resolving. Pain is not brought on by eating, and occurs at times even when she is not eating. She is tolerating a soft diet. She has a h/o achalasia per med records. She is not able to tell me when or how this was diagnosed. A Ba swallow done in does not show esophageal dilation or LES narrowing. Her chest imaging this admission also does not show esophageal dilation. She has no neutropenia - WBC has been normal. She is on Flovent, otherwise no steroids. No NSAIDs. PE: She is anxious, but comfortable. She has multiple soft foods on bedside table, such as chocolate pudding. Her voice is clear and unremarkable. HEENT: OC is clear, without thrush. She has no teeth. There is no tenderness along gum with palpation, and oral cavity is without ulceration. She has tenderness at left mandible on palpation. She has no lymphadenopathy. Chest: No tenderness. Abd: soft A/P: Her exam and history do not suggest an esophageal cause of her symptoms. Please consider neck imaging, ENT consult. I do not think an endoscopy is likely to be helpful here, and she may be at increased risk for respiratory complication given her pneumonia. Allergies Allergy/AdvReac Type Severity Reaction Status Date / Time No Known Allergies Allergy Verified 12/08/22 10:52 Home Medications Medication Instructions Recorded Confirmed Type albuterol sulfate 90 mcg/actuation 2 puff inhalation QID PRN 06/06/21 06/08/23 History aerosol inhaler Shortness Of Breath fluticasone propionate 50 1 spray intranasal BID 11/28/22 06/08/23 History mcg/actuation nasal spray,suspension loratadine 10 mg tablet 10 mg PO QAM 11/28/22 06/08/23 History albuterol sulfate 2.5 mg/3 mL 2.5 mg inhalation .Q4-6H PRN 06/08/23 06/08/23 History (0.083 %) solution for nebulization Wheezing azelastine 137 mcg (0.1 %) nasal 2 spray intranasal BID 06/08/23 06/08/23 History spray aerosol famotidine 40 mg tablet 40 mg PO DAILY 06/08/23 06/08/23 History omeprazole 20 mg capsule,delayed 20 mg PO QAM 06/08/23 06/08/23 History release simethicone 125 mg chewable tablet 125 mg PO DIRECTED PRN GAS 06/08/23 06/08/23 History (Gas Relief Extra Strength) DISCOMFORT sodium chloride 3 % for 4 ml inhalation BID secretions 06/08/23 06/08/23 History nebulization Patient History Medical History (Updated 06/08/23 @ 17:02 by Corina Cheng DO) Immunodeficiency Mycobacterium avium infection QT prolongation Multifocal pneumonia Hypophosphatemia Hypomagnesemia Hypokalemia Leukopenia Achalasia Follicular lymphoma Restless leg syndrome Chronic obstructive pulmonary disease Surgical History History of fundoplication Heller myotomy with Jaison fundoplication in 03/08/21 H/O unilateral oophorectomy History of tooth extraction History of tonsillectomy Family History Mother Hypertension Father Cancer Other Coronary heart disease Social History Smoking Status: Light tobacco smoker Tobacco Type: Cigarettes Cigarettes Per Day: 5-6; Second Hand Exposure: No; Do You Dip or Chew Tobacco: No; Hx Alcohol Use: No Hx Substance Use: No Preferred Language: Uzbek Communication Ability: Effective Outside Cutter Hand Required: No Beliefs That Will Affect Care: None marital status: Current Living Situation: Family Current Living Situation Comment: family and boyfriend How many Children do You have: 3 Other Information That Helps Us Care for You: No Feels Safe at Home: Yes Safety Concerns: Feels Safe At This Time Assistive Devices: None Assistive Devices Comment: at home Results & Data Vital Signs (Past 12 Hours) Vital Signs Temp Pulse Resp BP Pulse Ox O2 Del Method 06/11/23 11:54 36.8 C 101 H 16 95/60 L 95 Room Air 06/11/23 11:25 18 96 Room Air 06/11/23 07:54 Room Air 06/11/23 07:24 36.6 C 83 16 97/61 L 98 Room Air 06/11/23 07:11 99 H 18 94 Room Air 06/11/23 03:40 37.1 C 88 20 97/62 L 93 Room Air 06/11/23 02:28 92 H 18 95 Room Air
[2023-06-11] MEDS ORDERED: SODIUM CHLORIDE 0.9% 1,000 ML IV SCH (14:00)
[2023-06-11] MEDS ORDERED: OPTIRAY 320 500ml IV ONE (14:47)
--- NOTE | 2023-06-11 14:47 | ENT Consultation ---
Date of Consultation June 11, 2023 Assessment & Plan (1) Neck pain: Plan 58yF h/o follicular lymphoma s/p treatment, chronic MAC infection, ?achalasia s/p multiple EGD/dilations admitted with PNA, now c/o 1 day L neck pain radiating to jaw. Denies throat pain or actual dysphagia. No abnormalities noted on exam or imaging. DDx musculoskeletal vs. carotidynia. If any acute component on what appears per my read to be chronic sinusitis, zosyn --> levaquin should provide appropriate abx coverage. History of Present Illness Reason for Consultation: neck pain Attending Physician: Kirby Case MD History of Present Illness 58yF h/o follicular lymphoma s/p treatment, chronic MAC infection, ?achalasia s/p multiple EGD/dilations admitted with PNA, now c/o 1 day L neck pain. Describes sharp pain in L neck over SCM radiating into L jaw and ear. Intermittent, lasting several minutes. Denies throat pain, actual dysphagia, odynophagia, hemoptysis. Not exacerbated by eating/drinking. Worse with head movement side to side. Has had this previously but not to this extent. Current smoker. CT maxillofacial and neck per my read without mass, lesion, abscess, inflammation aside from chronic appearing bilateral maxillary and scattered ethmoid sinusitis. Allergies Allergy/AdvReac Type Severity Reaction Status Date / Time No Known Allergies Allergy Verified 12/08/22 10:52 Home Medications Medication Instructions Recorded Confirmed Type albuterol sulfate 90 mcg/actuation 2 puff inhalation QID PRN 06/06/21 06/08/23 History aerosol inhaler Shortness Of Breath fluticasone propionate 50 1 spray intranasal BID 11/28/22 06/08/23 History mcg/actuation nasal spray,suspension loratadine 10 mg tablet 10 mg PO QAM 11/28/22 06/08/23 History albuterol sulfate 2.5 mg/3 mL 2.5 mg inhalation .Q4-6H PRN 06/08/23 06/08/23 History (0.083 %) solution for nebulization Wheezing azelastine 137 mcg (0.1 %) nasal 2 spray intranasal BID 06/08/23 06/08/23 History spray aerosol famotidine 40 mg tablet 40 mg PO DAILY 06/08/23 06/08/23 History omeprazole 20 mg capsule,delayed 20 mg PO QAM 06/08/23 06/08/23 History release simethicone 125 mg chewable tablet 125 mg PO DIRECTED PRN GAS 06/08/23 06/08/23 History (Gas Relief Extra Strength) DISCOMFORT sodium chloride 3 % for 4 ml inhalation BID secretions 06/08/23 06/08/23 History nebulization Patient History Medical History Immunodeficiency Mycobacterium avium infection QT prolongation Multifocal pneumonia Hypophosphatemia Hypomagnesemia Hypokalemia Leukopenia Achalasia Follicular lymphoma Restless leg syndrome Chronic obstructive pulmonary disease Surgical History History of fundoplication Heller myotomy with Jaison fundoplication in 03/08/21 H/O unilateral oophorectomy History of tooth extraction History of tonsillectomy Family History Mother Hypertension Father Cancer Other Coronary heart disease Social History Smoking Status: Light tobacco smoker Tobacco Type: Cigarettes Cigarettes Per Day: 5-6; Second Hand Exposure: No; Do You Dip or Chew Tobacco: No; Hx Alcohol Use: No Hx Substance Use: No Preferred Language: Latvian Communication Ability: Effective Agricultural Technician Required: No Beliefs That Will Affect Care: None marital status: Current Living Situation: Family Current Living Situation Comment: family and boyfriend How many Children do You have: 3 Other Information That Helps Us Care for You: No Feels Safe at Home: Yes Safety Concerns: Feels Safe At This Time Assistive Devices: None Assistive Devices Comment: at home Review of Systems Review of Systems: A 10-point ROS is negative except as noted above and productive cough Physical Exam Physical Exam: General: No acute distress, nonlabored respirations. Nontoxic appearing, in no acute distress Face: normal facial motion Eyes: Extraocular motion is intact. Normal sclera and conjunctiva Ears: External auditory canals are clear. Tympanic membrane is intact and the middle ear is aerated bilaterally. Nose: no external deformity, nares patent. No rhinorrhea or epistaxis. Oral cavity: No trismus. Edentulous. Normal appearance of lips, gingiva, GBS, oral tongue, FOM, buccal mucosa, RMT, hard/soft palate. No palpable click over TMJ with jaw excursion Oropharynx: clear, tonsils surgically absent. Managing secretions easily Neck: soft, no masses or lymphadenopathy. Tenderness to palpation over middle 1/3 of L SCM Nonlabored respirations, no stridor Normal voice Results & Data Vital Signs (Past 12 Hours) Vital Signs Temp Pulse Resp BP Pulse Ox O2 Del Method 06/11/23 11:54 36.8 C 101 H 16 95/60 L 95 Room Air 06/11/23 11:25 18 96 Room Air 06/11/23 07:54 Room Air 06/11/23 07:24 36.6 C 83 16 97/61 L 98 Room Air 06/11/23 07:11 99 H 18 94 Room Air 06/11/23 03:40 37.1 C 88 20 97/62 L 93 Room Air PG Care Time/CCT Total # of Minutes Spent Total Time Spent with Patient: Total time spent is greater than 50% in coordination of care (as documented) at patient's floor/unit and/or counseling patient: Coding Level of Care Code 63055 INT INP/OBS CARE 2/55MIN Diagnoses Neck pain M54.2
--- NOTE | 2023-06-11 14:55 | Hospitalist Progress Note ---
Date of Service June 11, 2023 Assessment & Plan (1) Multifocal pneumonia: (2) Chronic obstructive pulmonary disease: (3) Follicular lymphoma: (4) Elevated troponin: (5) Hypomagnesemia: (6) Hypokalemia: Plan: Patient is a 58 yr female with PMHx of follicular lymphoma grade 3 in remission with her last chemo in September 2021, achalasia of esophagus, chronic infusion therapy with IVIG, restless leg, hypogammaglobinemia. Symptoms of ROMAN, worsening/productive mucous ~2 weeks, intensified SOB at rest and ROMAN within past 3 to 4 days. Sepsis Multifocal Pneumonia COPD Bronchiectasis H/O CANDIDO Abnormal urinalysis: Ruled out UTI Mild troponin elevation--likely type II AR secondary to above --CT Chest:Extensive airspace opacities throughout the lungs, including dense consolidation within the right lower lobe. The findings suggest pneumonia or asp iration pneumonitis. Associated bronchial wall thickening and partially occluded bronchi. The findings have increased when compared to prior CT of February 08, 2022. Right midlung density on chest radiograph performed earlier today was due to airspace opacity. Small right pleural effusion. --Biofire Negative --Urine for Legionella: pending --Blood Cultures: No growth to date -- Sputum for AFB pending --Urine culture: Negative --Normal lactate, elevated procalcitonin -- Continue Zosyn Continue IV fluids Appreciate pulmonology input Aggressive pulmonary hygiene--Mucomyst, flutter, Mucinex Also on hypertonic saline nebs Supplemental oxygen as needed Patient will require new tubing/nebulizer equipment prior to discharge Blood pressure usually runs low noted on prior admissions Plan to discharge on Levaquin to complete 2-week course Jaw/Neck Pain CT neck pending Less likely esophageal issue per GI Appreciate GI input Consulted ENT for further evaluation Liquid diet for now Hypokalemia Hypomagnesemia Replete electrolytes as needed H/O Follicular lymphoma in remission on IVIG therapy Follows with Dr. Madsen Will need IVIG treatment upon discharge/when appropriate Thrombocytosis Likely reactive due to infection Platelet count back to baseline Monitor Hyponatremia Acute due to dehydration Improved with IV fluids Monitor Resolved Achalasia Minced and moist diet Aspiration precaution Continue PPI, famotidine Speech therapy evaluation requested DVT Px: Heparin SQ CODE STATUS: FULL CODE (7) Bronchiectasis: (8) Sepsis: (9) Mycobacterium avium infection: (10) Immunodeficiency: (11) Tobacco abuse: Admission and Anticipated Discharge Date Admission Date: June 08, 2023 Subjective Patient is seen and examined at bedside Cough much improved Denies any significant dyspnea Reports pain with swallowing, jaw/neck pain Denies any chest pain, nausea, vomiting, abdominal pain Review of Systems Review of Systems: All systems reviewed & are unremarkable except as noted in Subjective Physical Exam Physical Exam: Physical Exam: Vitals signs as noted above General Appearance:Thin, Frail, no apparent distress, chronic ill Head: normocephalic, Atraumatic Eyes: normal inspection, EOMI Neck: supple, Trachea midline Respiratory/Chest: Decreased breath sounds, CTA, No accessory muscle use,+ Port Cardiovascular: S1, S2, No murmur Abdomen/GI:Soft, Non tender, Bowel sounds present Extremities/Musculoskeletal:normal inspection, no edema Neurologic/Psych:AAOX3, grossly no focal neurological deficits Skin: normal color, warm Results & Data Results & Data Vital Signs (Past 12 Hours) Vital Signs Temp Pulse Resp BP Pulse Ox O2 Del Method 06/11/23 11:54 36.8 C 101 H 16 95/60 L 95 Room Air 06/11/23 11:25 18 96 Room Air 06/11/23 07:54 Room Air 06/11/23 07:24 36.6 C 83 16 97/61 L 98 Room Air 06/11/23 07:11 99 H 18 94 Room Air 06/11/23 03:40 37.1 C 88 20 97/62 L 93 Room Air Laboratory Results Short CBC 06/11/23 Range/Units 06:41 WBC 10.80 (4.8-10.8) K/ul Hgb 9.8 L (12.0-16.0) g/dl Hct 29.9 L (37.0-47.0) % Plt Count 498 H (130-400) K/uL BMP 06/11/23 06:41 Sodium 141 Potassium 4.0 Chloride 104 Carbon Dioxide 28 BUN 3 L Creatinine 0.55 L Glucose 102 H Calcium 8.8 (3) Follicular lymphoma Follicular lymphoma type: unspecified follicular type Lymphoma site: unspecified region Qualified Code(s): C82.90 - Follicular lymphoma, unspecified, unspecified site
--- NOTE | 2023-06-11 16:16 | CT Scan Report ---
CT facial bones w con HISTORY: 58 years-old Female Jaw/Neck Pain Acute jaw pain without reported trauma. COMPARISON: CT soft tissue neck of same day, PET/CT 07/25/2021. TECHNIQUE: Multiple axial CT images of the maxillofacial bones were obtained following the intravenou s administration of IV contrast. A dose lowering technique was used consistent with the principals of MARTY. FINDINGS: The frontal sinuses are generally clear. There is mild to moderate mucosal thickening of the ethmoid air cells. The sphenoid sinuses are patent. There is severe mucosal thickening of the right greater t love left maxillary sinuses with opacification of the maxillary ostiomeatal units. Mastoid air cells a nd middle ear cavities are generally clear. Partial opacification of the frontoethmoidal recesses. Th e patient is edentulous. Multilevel degenerative changes of the cervical spine. The imaged intracranial structures demonstrate no acute abnormality. The orbits are within normal pelletier its. Unremarkable appearance of the soft tissues. No acute inflammatory changes or fluid collections. No lymphadenopathy. There is no acute facial bone fracture. Temporomandibular joints are located. IMPRESSION: 1. No acute facial bone fracture. 2. Soft tissues are unremarkable. 3. Paranasal sinus disease as above, most pronounced within the maxillary sinuses. ACT 112: Negative or not required by law. The above report was generated using voice recognition software. It may contain grammatical, syntax o r spelling errors. Electronically signed by: Dhiraj Lou M.D. 06/11/2023 4:14 PM
--- NOTE | 2023-06-11 17:22 | CT Scan Report ---
CT soft tissue neck w con CT DOSE: CLINICAL HISTORY: Jaw/Neck Pain TECHNIQUE: Multiaxial CT images of the neck were performed following the intravenous administration o f 85 cc of Optiray 320. Sagittal and coronal reformations were performed at the workstation by the ra diologist. A dose lowering technique was utilized adhering to the principles of ALARA. COMPARISON STUDY: CT neck 06/06/2021. FINDINGS: The visualized brain parenchyma and orbits are unremarkable. The pterygopalatine fossa and paratracheal fat spaces are maintained. The major mucosal airways services are intact. The epiglottis and prevertebral soft tissues are normal in thickness. Parotid and submandibular glands are symmetri c. Partial opacification of the anterior ethmoid air cells with near complete opacification of the ma xillary sinuses demonstrating fluid levels. This is consistent with acute on chronic paranasal sinusi tis. There are few opacified left mastoid air cells. The right mastoid air cells are clear. No acute fractures identified. A right jugular Port-A-Cath is noted. Biapical pleural-parenchymal scarlike den sities are noted. Trace right pleural effusion. Degenerative changes within the lower cervical spine. No mass, lymphadenopathy, or abscess identified within the neck. Stable single prominent upper right paratracheal lymph node measuring 9 x 5 mm. This does not meet CT criteria for pathologic involvemen t. The major cervical vessels appear patent. IMPRESSION: 1. Acute on chronic paranasal sinusitis as described above. 2. No mass or lymphadenopathy identified within the neck. 3. Trace right pleural effusion. ACT 112: Negative or not required by law. Electronically signed by: Cheko Pierre M.D. 06/11/2023 5:19 PM
--- NOTE | 2023-06-11 17:24 | Pulmonology Progress Note ---
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 Her immune deficiency is related to chemotherapy for follicular lymphoma. 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 She is admitted now with an exacerbation and CT scan shows more dense consolidation in the right lower lobe. Recommendation: 1. Nontuberculous mycobacterial infection: Patient is never really been treated for nontuberculous mycobacterial infections. I recommended that she follow-up with her ID provider as an outpatient to consider therapy. She was advised that therapy typically consist of antimicrobial therapy for 12 to 18 months. Interestingly, her repeat cultures have shown no growth to date. M gordonii is typically associated with aspiration events and the patient did have a swallow study demonstrated aspiration previously. Speech therapy evaluation this time was limited. 2. Bronchiectasis: Secondary to immunoglobulin deficiency. Continue replacement under the direction of her medical oncologist. Continue pulmonary clearance techniques with Mucinex, and flutter valve and hypertonic saline. Secondary infection is possible, await sputum cultures which have been negative to date. The patient is currently day #4 Zosyn. Antibiotics can likely be de- escalated down to oral Augmentin to complete a 7-day course I believe the patient can be managed in the outpatient setting with close ID follow-up with her outpatient ID provider and medical oncology providers. Pulmonary will sign off. Call if ?s Admission and Anticipated Discharge Date Admission Date: June 08, 2023 Subjective Patient seen and examined. She is currently on room air she is coughing and occasionally expectorating phlegm. Her main complaint is left-sided jaw pain. She has been seen by ENT as well as gastroenterology. She does report occasional aspiration. She is not experiencing any significant shortness of breath. Review of Systems 2 Review of Systems: All systems reviewed & are unremarkable except as noted in Subjective Physical Exam 2 Constitutional: WD/WN, vitals as above + cachectic and + frail appearing ENMT: Mouth: + edentulous Neck: trachea midline, no thyromegaly Respiratory: normal respiratory effort, lungs clear to auscultation Cardiovascular: RRR, no murmur, no edema Gastrointestinal (Abdomen): normal bowel sounds, soft, nontender, no hepatosplenomegaly Musculoskeletal: Extremities: extremities normal to inspection Skin: no rashes, warm and dry Neurologic: Nonfocal exam Lymphatic: no cervical lymphadenopathy Results & Data Results & Data Vital Signs (Past 12 Hours) Vital Signs Temp Pulse Resp BP Pulse Ox O2 Del Method 06/11/23 15:59 91 H 20 98 Room Air 06/11/23 11:54 36.8 C 101 H 16 95/60 L 95 Room Air 06/11/23 11:25 18 96 Room Air 06/11/23 07:54 Room Air 06/11/23 07:24 36.6 C 83 16 97/61 L 98 Room Air 06/11/23 07:11 99 H 18 94 Room Air Laboratory Results 06/11/23 06:41 06/11/23 06:41 Respiratory cultures during this admission of showed no growth to date Diagnostic Findings No new imaging PG Care Time/CCT Total # of Minutes Spent Total Time Spent with Patient: Total time spent is greater than 50% in coordination of care (as documented) at patient's floor/unit and/or counseling patient: Coding Level of Care Code 66250 SUB INP/OBS CARE 2/35MIN Diagnoses Mycobacterium avium-intracellulare infection A31.0 Bronchiectasis J47.9
--- NOTE | 2023-06-11 17:53 | Infectious Disease Consult ---
Date of Service June 11, 2023 Telehealth Information I performed this visit using a real-time telehealth connection between my location and the patients location ([facility]). After connecting through interactive tele-video, patient was identified by name and date of and/or wristband check.Patient (or authorized healthcare employer relations representative) was informed that this was a telemedicine visit and it was being conducted confidentially over secure lines. My office door was closed and no one else was present in the room with me.Patient (or authorized healthcare employer relations representative) provided consent to proceed with the visit, expressed an understanding of privacy and security of the telemedicine visit, and gave permission to have a hospital employer relations representative in the room in order to assist with the visit and to conduct portions of the visit, as needed. I informed the patient (or authorized healthcare employer relations representative) that I reviewed their record and presented the opportunity for them to ask any questions regarding the visit today. The patient agreed to participate. Assessment & Plan (1) Pneumonia: Plan: Before discharging the patient, make sure that Legionella is ruled out (personally, I would prefer a negative sputum Legionella cx AND a negative urine Legionella antigen). If no pathogens are identified and the patient is deemed stable for discharge, then I think a 14-day course of Augmentin is reasonable. For continuity, I suggest that you contact Dr. Taylor (who is her main ID specialist and is more familiar with her case). ID is signing off. Contact us for any new issues. If any workup finalizes after ID signs off, forward the results (this is very important since ID is not a utomatically notified). History of Present Illness History of Present Illness The patient was admitted for dyspnea . Workup revealed bilateral lower lobe airspace disease. BCX, RVP and MRSA screen were negative. Sputum culture grew normal trent. Legionella UaG is in process. Allergies Allergy/AdvReac Type Severity Reaction Status Date / Time No Known Allergies Allergy Verified 12/08/22 10:52 Home Medications Medication Instructions Recorded Confirmed Type albuterol sulfate 90 mcg/actuation 2 puff inhalation QID PRN 06/06/21 06/08/23 History aerosol inhaler Shortness Of Breath fluticasone propionate 50 1 spray intranasal BID 11/28/22 06/08/23 History mcg/actuation nasal spray,suspension loratadine 10 mg tablet 10 mg PO QAM 11/28/22 06/08/23 History albuterol sulfate 2.5 mg/3 mL 2.5 mg inhalation .Q4-6H PRN 06/08/23 06/08/23 History (0.083 %) solution for nebulization Wheezing azelastine 137 mcg (0.1 %) nasal 2 spray intranasal BID 06/08/23 06/08/23 History spray aerosol famotidine 40 mg tablet 40 mg PO DAILY 06/08/23 06/08/23 History omeprazole 20 mg capsule,delayed 20 mg PO QAM 06/08/23 06/08/23 History release simethicone 125 mg chewable tablet 125 mg PO DIRECTED PRN GAS 06/08/23 06/08/23 History (Gas Relief Extra Strength) DISCOMFORT sodium chloride 3 % for 4 ml inhalation BID secretions 06/08/23 06/08/23 History nebulization Patient History Medical History Immunodeficiency Mycobacterium avium infection QT prolongation Multifocal pneumonia Hypophosphatemia Hypomagnesemia Hypokalemia Leukopenia Achalasia Follicular lymphoma Restless leg syndrome Chronic obstructive pulmonary disease Surgical History History of fundoplication Heller myotomy with Jaison fundoplication in 03/08/21 H/O unilateral oophorectomy History of tooth extraction History of tonsillectomy Family History Mother Hypertension Father Cancer Other Coronary heart disease Social History Smoking Status: Light tobacco smoker Tobacco Type: Cigarettes Cigarettes Per Day: 5-6; Second Hand Exposure: No; Do You Dip or Chew Tobacco: No; Hx Alcohol Use: No Hx Substance Use: No Preferred Language: Jordanian Communication Ability: Effective Developmental Services Worker Required: No Beliefs That Will Affect Care: None marital status: Current Living Situation: Family Current Living Situation Comment: family and boyfriend How many Children do You have: 3 Other Information That Helps Us Care for You: No Feels Safe at Home: Yes Safety Concerns: Feels Safe At This Time Assistive Devices: None Assistive Devices Comment: at home Review of Systems As reviewed in HPI; ken complete ROS was otherwise negative Physical Exam Vitals: see EMR Exam limited due to constraints of telemedicine Gen/Constitutional: appears at stated age, NAD, nontoxic Head: AT, NC Eyes: sclera anicteric, no conjunctival injection ENT: trachea midline Card: appears to be well-perfused Resp: not tachypneic, nml effort, symmetric chest rise, no accessory muscle use Derm: no visible diaphoresis, no visible rash, no visible jaundice Results & Data Vital Signs (Past 12 Hours) Vital Signs Temp Pulse Resp BP Pulse Ox O2 Del Method 06/11/23 15:59 91 H 20 98 Room Air 06/11/23 11:54 36.8 C 101 H 16 95/60 L 95 Room Air 06/11/23 11:25 18 96 Room Air 06/11/23 07:54 Room Air 06/11/23 07:24 36.6 C 83 16 97/61 L 98 Room Air 06/11/23 07:11 99 H 18 94 Room Air Laboratory Results Reviewed; see EMR Diagnostic Findings Reviewed; see EMR (1) Pneumonia Laterality: bilateral Lung location: lower lobe of lung Pneumonia type: due to unspecified organism Qualified Code(s): J18.9 - Pneumonia, unspecified organism
[2023-06-12] MEDS: ALBUT/IPRATROP 3MG/0.5MG NEB 3 ML VIAL NEB SCH ×4 (03:12→15:30)
[2023-06-12] MEDS: PIPERACILLIN/TAZOBACTAM 4.5 GM in DEXTROSE 5% MINI-B 100 ML IV SCH ×2 (03:54→10:41)
[2023-06-12 07:09] LABS: Hematocrit (blood only) 28.8 % (37.0-47.0); Hemoglobin 9.5 g/dl (12.0-16.0); Mean Corpuscular Hemoglobin 29.1 pg (25.0-34.0); Mean Corpuscular Volume 88.3 fL (80.0-100.0); Mean Platelet Volume 9.4 fL (9.4-12.4); Platelet Count 466 K/uL (130-400); RDW Coefficient of Variation 14.3 % (11.5-14.5); RDW Standard Deviation 46.3 fL (36.4-46.3); Red Blood Count 3.26 M/uL (4.20-5.40); White Blood Count 8.41 K/ul (4.8-10.8)
[2023-06-12 07:23] LABS: BUN Creatinine Ratio 6.9 (10-20); Calcium 8.7 mg/dl (8.6-10.3); Creatinine Clr Calc Pharmacy 86.9 ml/min; Est GFR (African American) 119.4 ml/min; Magnesium 1.5 mg/dl (1.7-2.4); Potassium 3.6 mmol/L (3.5-5.1)
[2023-06-12] MEDS: SODIUM CHLOR 7% 4 ML NEB NEB SCH (07:32)
[2023-06-12] MEDS: FLUTICASONE PROPIONATE NA SPR 16 GM BTL SCH (07:59)
[2023-06-12] MEDS: AZELASTINE HCL 0.1% NASAL 200 SPRAYS/27,400 MCG BTL SCH (07:59)
[2023-06-12] MEDS: LORATADINE 10 MG TAB PO SCH (07:59)
[2023-06-12] MEDS: PANTOprazole 40 MG TAB PO SCH (08:00)
[2023-06-12] MEDS: MAGNESIUM CHLORIDE W/CALCIUM 64MG DELAYED REL TAB PO SCH (08:00)
[2023-06-12] MEDS: BENZONATATE 100 MG CAPSULE PO SCH ×2 (08:00→16:00)
[2023-06-12] MEDS: HEPARIN SOD 5,000 UNIT/0.5 ML VIAL SQ SCH (08:00)
[2023-06-12] MEDS: guaiFENesin 600 MG TABCR PO SCH (08:00)
[2023-06-12] MEDS: FAMOTIDINE 40 MG TABLET PO SCH (08:01)
--- NOTE | 2023-06-12 13:19 | Discharge Summary ---
Discharge Summary Date of Service June 12, 2023 Notes For Next Care Provider Recommend repeat CBC, BMP, Mag at hospital follow up appointment. Patient needs to have follow up with [facility], Dr. Taylor, regarding her Mycobacterium Avium Infection. Please follow up with pending result, Urine Legionella. Medication Changes From Visit Augmentin 875 mg by mouth twice daily for additional 7 days. Next dose will be due evening of 06/12/2023. Continue hypertonic saline nebulized solution twice daily. Continue Mucinex 1200 mg by mouth twice daily to assist with mucus clearance. Magnesium increased 228 mg twice daily due to low magnesium. Admission HPI Per Admitting Provider This is a 58-year-old female with PMHx of follicular lymphoma grade 3 in remission with her last chemo in September 2021, achalasia of esophagus, chronic infusion therapy with IVIG, restless leg, hypogammaglobinemia. She has history of recurrent pneumonia and has followed with infectious disease as an outpatient. In the past 2 years she was hospitalized 5 times due to pneumonia. 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 The last admission here at [facility] was in November 2022 with enterovirus/rhinovirus. She has been prescribed Augmentin 875 mg p.o. twice daily to continue per infectious disease in Mar 2023 to use with directions for follow up depending on if she developed symptoms. She had labs drawn as an outpatient on 05/31 showing WBC of 22, however did not express any symptoms at that time. She had repeat labs drawn on 06/07 showing WBC count of 31.7, in preparation for her visit at [facility] infusion center this morning for regularly scheduled IVIG. Daughter, Efraín Ruiz is present at bedside and supports the history and she states her mother is "stubborn". She states that her mother has been sick for approximately 10 to 14 days, patient states that she has felt significantly short of breath in the past 3 to 4 days. On a daily basis she has productive thick yellow and green sputum production, however it has significantly increased in the past week. Daughter states she had a fever of 101 today at the clinic and [facility], but patient otherwise denies previous fever. She is currently saying she is cold, but hot at the same time. Pt admits to ROMAN with minimal activities. She reports having chest heaviness but feels that nebulizer treatment has improved this. She has been using the neb at home however reports that the tubing on her machine was changed and therefore she was not getting the full dose of medication with nebulizer treatment that she should have in the past few days. She is using Anoro Ellipta inhaler as well as her albuterol rescue inhaler routinely. Pt has had decreased appetite, is drinking a few cups of water per day, denies any abdominal pain but is having mild nausea, no diarrhea or constipation. Admits to smoking 5 to 6 cigarettes, maybe half of the time per day currently, when she feels well she smokes half pack per day. She has significantly reduced smoking overall. Daughter also asks about having a chest vibration vest available to them at home due to the amount of mucus production she has in general. It has previously been used here in the hospital, and patient feels that this helps her expectorate more quickly along with Mucinex. Please call Efraín at [phone] updates and questions daily per her request. Admission Exam Per Admitting Provider General: awake, alert, no apparent distress, thin, BMI of 17, white unwell female Head: Normocephalic, atraumatic ENT: PERRL, EOMI, no pharyngeal exudate, mucous membranes moist, + edentulous Chest: ON nebulizer tx currently with O2 at 7L, does not wear supplemental o2 at baseline +faint rales at bases bilaterally, no wheezing, no JVD, normal peripheral pulses, good capillary refill Abdominal: NABS x 4 quadrants, soft, nondistended, nontender to palpation, no rebound or guarding Extremities: Thin, no peripheral edema or erythema, calfs nontender to palpation Psych: Normal mood and affect Neuro: AAO x 3, strength intact bilaterally and rated 5/5, no motor deficits, speech is clear, no peripheral sensory deficits Principal Dx & Hospital Course #1 = Principal Diagnosis (1) Multifocal pneumonia: (2) Chronic obstructive pulmonary disease: (3) Follicular lymphoma: (4) Elevated troponin: (5) Hypomagnesemia: (6) Hypokalemia: Patient is a 58 yr female with PMHx of follicular lymphoma grade 3 in remission with her last chemo in September 2021, achalasia of esophagus, chronic infusion therapy with IVIG, restless leg, hypogammaglobinemia. Symptoms of ROMAN, worsening/productive mucous ~2 weeks, intensified SOB at rest and ROMAN within past 3 to 4 days. Sepsis Multifocal Pneumonia COPD Bronchiectasis H/O CANDIDO Abnormal urinalysis: Ruled out UTI Mild troponin elevation--likely type II LA secondary to above --CT Chest:Extensive airspace opacities throughout the lungs, including dense consolidation within the right lower lobe. The findings suggest pneumonia or aspiration pneumonitis. Associated bronchial wall thickening and partially occluded bronchi. The findings have increased when compared to prior CT of February 08, 2022. Right midlung density on chest radiograph performed earlier today was due to airspace opacity. Small right pleural effusion. --Biofire Negative --Urine for Legionella: pending --Blood Cultures: No growth to date -- Sputum for AFB pending --Urine culture: Negative --Normal lactate, elevated procalcitonin -- Continue Zosyn Continue IV fluids Appreciate pulmonology input Aggressive pulmonary hygiene--Mucomyst, flutter, Mucinex Also on hypertonic saline nebs Supplemental oxygen as needed Pt was sent with script for nebulizer and tubing as well as mucomyst Blood pressure usually runs low noted on prior admissions Plan to discharge on Augmentin to complete 2-week course Jaw/Neck Pain CT neck acute/chronic sinusitis - otherwise negative will be covered with above antibiotic Less likely esophageal issue per GI Appreciate GI input Consulted ENT for further evaluation Diet advanced to minced and moist, tolerating Hypokalemia Hypomagnesemia Replete electrolytes as needed increase magnesium due to low mag H/O Follicular lymphoma in remission on IVIG therapy Follows with Dr. Madsen Will need IVIG treatment upon discharge/when appropriate Thrombocytosis Likely reactive due to infection Monitor Hyponatremia Acute due to dehydration Improved with IV fluids Monitor Resolved Achalasia Minced and moist diet Aspiration precaution Continue PPI, famotidine Speech therapy evaluation: esophageal dysfunction, minced and moist diet, smaller more frequent meals Dispo: Pt medically stable to be discharged to home. She is hemodynamically stable. Her blood pressure is chronically low and otherwise stable. (7) Bronchiectasis: (8) Sepsis: (9) Mycobacterium avium infection: (10) Immunodeficiency: (11) Tobacco abuse: Discharge Exam Gen: Thin, Fraile, chronic ill appearing, NAD, A&O x3 HEENT: Normocephalic, atraumatic, conjunctivae moist, sclerae anicteric, mucous membranes moist. Lung: Clear to Auscultation bilaterally, no wheezes/rales/rhonchi Heart: Regular rate, regular rhythm, no murmurs, rubs, or gallops Chest: +port Abdomen: Soft, NT, ND +BS x 4 Extremities: No edema Skin: Warm, no rash, negative turgor. Updated Medication List Medication Instructions Recorded Confirmed Type albuterol sulfate 90 mcg/actuation 2 puff inhalation QID PRN 06/06/21 06/08/23 History aerosol inhaler Shortness Of Breath fluticasone propionate 50 1 spray intranasal BID 11/28/22 06/08/23 History mcg/actuation nasal spray,suspension loratadine 10 mg tablet 10 mg PO QAM 11/28/22 06/08/23 History albuterol sulfate 2.5 mg/3 mL 2.5 mg inhalation .Q4-6H PRN 06/08/23 06/08/23 History (0.083 %) solution for nebulization Wheezing azelastine 137 mcg (0.1 %) nasal 2 spray intranasal BID 06/08/23 06/08/23 History spray aerosol famotidine 40 mg tablet 40 mg PO DAILY 06/08/23 06/08/23 History omeprazole 20 mg capsule,delayed 20 mg PO QAM 06/08/23 06/08/23 History release simethicone 125 mg chewable tablet 125 mg PO DIRECTED PRN GAS 06/08/23 06/08/23 History (Gas Relief Extra Strength) DISCOMFORT amoxicillin 875 mg-potassium 1 tab PO Q12H #14 tabs 06/12/23 Rx clavulanate 125 mg tablet guaifenesin 600 mg tablet, 1,200 mg (2 x 600 mg) PO Q12 7 06/12/23 Rx extended release 12 hr (Mucinex) days #28 tabs magnesium chloride 64 mg 128 mg (2 x 64 mg) PO BID #120 tabs 06/12/23 Rx (magnesium chloride) tablet,delayed release (Mag 64) sodium chloride 7 % for 4 ml NEB BIDR 7 days #120 mL 06/12/23 Rx nebulization Hospital Stay Data Consultations 06/08/23 12:38 ED Decision to Admit Stat 06/08/23 15:35 Consult Infectious Diseases Routine Assessment & Plan (1) Pneumonia: Plan: Before discharging the patient, make sure that Legionella is ruled out (personally, I would prefer a negative sputum Legionella cx AND a negative urine Legionella antigen). If no pathogens are identified and the patient is deemed stable for discharge, then I think a 14-day course of Augmentin is reasonable. For continuity, I suggest that you contact Dr. Taylor (who is her main ID specialist and is more familiar with her case). ID is signing off. Contact us for any new issues. If any workup finalizes after ID signs off, forward the results (this is very important since ID is not automatically notified). 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 Her immune deficiency is related to chemotherapy for follicular lymphoma. 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 She is admitted now with an exacerbation and CT scan shows more dense consolidation in the right lower lobe. Recommendation: 1. Nontuberculous mycobacterial infection: Patient is never really been treated for nontuberculous mycobacterial infections. I recommended that she follow-up with her ID provider as an outpatient to consider therapy. She was advised that therapy typically consist of antimicrobial therapy for 12 to 18 months. Interestingly, her repeat cultures have shown no growth to date. M gordonii is typically associated with aspiration events and the patient did have a swallow study demonstrated aspiration previously. Speech therapy evaluation this time was limited. 2. Bronchiectasis: Secondary to immunoglobulin deficiency. Continue replacement under the direction of her medical oncologist. Continue pulmonary clearance techniques with Mucinex, and flutter valve and hypertonic saline. Secondary infection is possible, await sputum cultures which have been negative to date. The patient is currently day #4 Zosyn. Antibiotics can likely be de- escalated down to oral Augmentin to complete a 7-day course I believe the patient can be managed in the outpatient setting with close ID follow-up with her outpatient ID provider and medical oncology providers. Pulmonary will sign off. Call if ?s 06/11/23 12:23 Consult Gastroenterology Routine A/P: Her exam and history do not suggest an esophageal cause of her symptoms. Please consider neck imaging, ENT consult. I do not think an endoscopy is likely to be helpful here, and she may be at increased risk for respiratory complication given her pneumonia. 06/11/23 13:46 Consult Otolaryngology (Head and Neck) Routine Assessment & Plan (1) Neck pain: Plan 58yF h/o follicular lymphoma s/p treatment, chronic MAC infection, ?achalasia s/p multiple EGD/dilations admitted with PNA, now c/o 1 day L neck pain radiating to jaw. Denies throat pain or actual dysphagia. No abnormalities noted on exam or imaging. DDx musculoskeletal vs. carotidynia. If any acute component on what appears per my read to be chronic sinusitis, zosyn --> levaquin should provide appropriate abx coverage. Diagnostic Imagining Performed Chest X-Ray 06/08/23 11:25 XR chest 1V portable CLINICAL HISTORY: Sepsis. COMPARISON STUDY: Chest CT February 08, 2022. Chest radiograph November 28, 2022. FINDINGS: Right internal jugular [id number] is in place. There is no pneumothorax or pleural effusion. No evidence for pulmonary edema. Cardiomediastinal silhouette is unremarkable. Upper abdominal surgical clips are incidentally noted. Bilateral lower lung consolidation is present. Patchy additional airspace opacities within the lungs are present. A right midlung density has slightly increased. IMPRESSION: 1. Bilateral lower lung consolidation and additional patchy airspace opacities. The findings favor pneumonia or aspiration pneumonitis. Radiographic follow-up to ensure resolution is recommended. 2. Slight increase in a right midlung density which is also likely infectious but should be assessed on follow-up exams. ACT 112: Negative or not required by law. Electronically signed by: Cl Espinal M.D. 06/08/2023 12:[address] 06/08/23 13:53 CT OF THE CHEST WITHOUT IV CONTRAST CLINICAL HISTORY: increased mid lung density, smoker COMPARISON STUDY: Chest CT February 08, 2022. Chest radiograph performed earlier today. CT DOSE: 220.81 mGy.cm TECHNIQUE: Axial images of the chest were obtained without IV contrast. Images were reviewed in the axial, sagittal, and coronal planes. IV contrast was not administered for this examination. Automated exposure control was utilized for the study. A dose lowering technique was utilized adhering to the principles of ALARA. FINDINGS: Prominent mediastinal lymph nodes are present. A right internal jugular [id number] is in place. Size of the heart is normal. There is no pericardial effusion. Surgical clips adjacent to the proximal stomach are noted. Small right pleural effusion. No pneumothorax. Extensive multifocal consolidation within the right lower lobe is present. Moderate alveolar opacitie s throughout the remainder of the lungs are present. No central obstructing mass. No cavitation. Bilateral lower lobe bronchial wall thickening and partially opacified bronchi are present. Right midlung density on chest radiograph is due to airspace opacity. No discrete pulmonary nodules are present. Bony thorax is unremarkable. IMPRESSION: 1. Extensive airspace opacities throughout the lungs, including dense consolidation within the right lower lobe. The findings suggest pneumonia or aspiration pneumonitis. Associated bronchial wall thickening and partially occluded bronchi. The findings have increased when compared to prior CT of February 08, 2022. 2. Right midlung density on chest radiograph performed earlier today was due to airspace opacity. 3. Small right pleural effusion. ACT 112: Negative or not required by law. Electronically signed by: Cl Espinal M.D. 06/08/2023 3:[address] 06/11/23 13:58 CT facial bones w con HISTORY: 58 years-old Female Jaw/Neck Pain Acute jaw pain without reported trauma. COMPARISON: CT soft tissue neck of same day, PET/CT 07/25/2021. TECHNIQUE: Multiple axial CT images of the maxillofacial bones were obtained following the intravenous administration of IV contrast. A dose lowering technique was used consistent with the principals of ALARA. FINDINGS: The frontal sinuses are generally clear. There is mild to moderate mucosal thickening of the ethmoid air cells. The sphenoid sinuses are patent. There is severe mucosal thickening of the right greater than left maxillary sinuses with opacification of the maxillary ostiomeatal units. Mastoid air cells and middle ear cavities are generally clear. Partial opacification of the frontoethmoidal recesses. The patient is edentulous. Multilevel degenerative changes of the cervical spine. The imaged intracranial structures demonstrate no acute abnormality. The orbits are within normal limits. Unremarkable appearance of the soft tissues. No acute inflammatory changes or fluid collections. No lymphadenopathy. There is no acute facial bone fracture. Temporomandibular joints are located. IMPRESSION: 1. No acute facial bone fracture. 2. Soft tissues are unremarkable. 3. Paranasal sinus disease as above, most pronounced within the maxillary sinuses. ACT 112: Negative or not required by law. The above report was generated using voice recognition software. It may contain grammatical, syntax or spelling errors. Electronically signed by: Dhiraj Lou M.D. 06/11/2023 4:[address] Tissue Neck [address] 06/11/23 13:58 CT soft tissue neck w con CT DOSE: CLINICAL HISTORY: Jaw/Neck Pain TECHNIQUE: Multiaxial CT images of the neck were performed following the intravenous administration of 85 cc of Optiray 320. Sagittal and coronal reformations were performed at the workstation by the radiologist. A dose lowering technique was utilized adhering to the principles of ALARA. COMPARISON STUDY: CT neck 06/06/2021. FINDINGS: The visualized brain parenchyma and orbits are unremarkable. The pterygopalatine fossa and paratracheal fat spaces are maintained. The major mucosal airways services are intact. The epiglottis and prevertebral soft tissues are normal in thickness. Parotid and submandibular glands are symmetric. Partial opacification of the anterior ethmoid air cells with near complete opacification of the maxillary sinuses demonstrating fluid levels. This is consistent with acute on chronic paranasal sinusitis. There are few opacified left mastoid air cells. The right mastoid air cells are clear. No acute fractures identified. A right jugular Port-A-Cath is noted. Biapical pleural- parenchymal scarlike densities are noted. Trace right pleural effusion. Degen erative changes within the lower cervical spine. No mass, lymphadenopathy, or abscess identified within the neck. Stable single prominent upper right paratracheal lymph node measuring 9 x 5 mm. This does not meet CT criteria for pathologic involvement. The major cervical vessels appear patent. IMPRESSION: 1. Acute on chronic paranasal sinusitis as described above. 2. No mass or lymphadenopathy identified within the neck. 3. Trace right pleural effusion. ACT 112: Negative or not required by law. Electronically signed by: Cheko Pierre M.D. 06/11/2023 5:19 PM Pending Results Patient Have Any Pending Studies at Discharge: Yes (legionella urine specimen) Discharge Instructions Given to Patient (Per Discharging Provider) MEDICATION CHANGES: Augmentin 875 mg by mouth twice daily for additional 7 days. Next dose will be due evening of 06/12/2023. Continue hypertonic saline nebulized solution twice daily. Continue Mucinex 1200 mg by mouth twice daily to assist with mucus clearance. Magnesium increased 228 mg twice daily due to low magnesium. SUMMARY OF TEST RESULTS: You were admitted to hospital secondary to sepsis, multifocal pneumonia and bronchiectasis. You are placed on IV antibiotics. You were seen and evaluated by pulmonary. You are being discharged on additional 1 week course of antibiotic therapy. You are also being discharged on further nebulizer treatments to help with your mucus clearance. PENDING TEST RESULTS: Urine legionella RECOMMENDATIONS FOR FOLLOW-UP: Please follow-up with primary care provider as scheduled. Recommend having lab work done at your primary care provider appointment including CBC, BMP and magnesium level. Your magnesium level was low during hospitalization and your oral magnesium was increased. Recommend having this level rechecked upon discharge. Please follow-up with Dr. Madsen upon discharge regarding resume your IVIG treatments. Please have primary care provider follow-up on pending test results. Please follow-up with your infectious disease doctor, Dr. Taylor, upon discharge regarding your mycobacterium avium infection to determine if further treatment necessary. Recommend follow up with your primary care provider and proofer if you have further swallowing issues. OTHER INSTRUCTIONS: Seek medical attention if you have: * temperature above 101 * chest pain or trouble breathing * abdominal pain, nausea, vomiting * diarrhea, dark stools or bloody stools * any unanswered questions or concerns Call 911 if symptoms are severe. Please take good care of yourself. It has been a pleasure taking care of you. Please take care of yourself. If you have any questions regarding your recent hospitalization please contact [facility] and [facility] @ [phone]. Anjelica Islas PA-C Total Time Total Time Spent Total Time Spent (In Minutes): 45 minutes Supervising Physician Co-Signing Physician Notes Patient is seen and examined at bedside. States feeling better today. Jaw pain much improved. Tolerating current diet. Cough much improved as well. Denies any chest pain, dyspnea. Physical Exam: Vitals signs as noted above General Appearance:Thin, Frail, no apparent distress, chronic ill Head: normocephalic, Atraumatic Eyes: normal inspection, EOMI Neck: supple, Trachea midline Respiratory/Chest: Decreased breath sounds, CTA, No accessory muscle use,+ Port Cardiovascular: S1, S2, No murmur Abdomen/GI:Soft, Non tender, Bowel sounds present Extremities/Musculoskeletal:normal inspection, no edema Neurologic/Psych:AAOX3, grossly no focal neurological deficits Skin: normal color, warm Sepsis Multifocal Pneumonia COPD Bronchiectasis H/O CANDIDO Chronic dysphagia Neck/jaw pain likely musculoskeletal in origin Possible sinusitis Antibiotics transition to Augmentin to complete the course Appreciate pulmonology input Advised to follow-up with pulmonology as outpatient I personally reviewed the record. Patient is interviewed and examined at bedside. Patient's care is coordinated with Anjelica Islas PA-C. Please refer to the documentation above for details of patient's presentation and for discussion of other issues.
== END 2023-06-12 17:54 | disposition home or self-care (01) | DRG 871 ==
LOC: ED 11:09 → SUATTDRO 12:57 → EDINP 12:57 → 2S 13:50 → 3W 06-11 14:02